=== PATIENT | female | born 1960 | race Caucasian/White ===

== ENCOUNTER → 2019-05-19 14:19 | Outpatient (CLI) | payer BC, SELFPAY ==
[2019-05-19 17:40] LABS: Absolute Neutrophil Count 11.3 X10^3/uL (2.0-7.7); Basophil# 0.06 X10^3/uL; Basophil% 0.4 % (0-1); Eosinophil# 0.09 X10^3/uL; Eosinophils% 0.6 % (0-5); Hematocrit 42.1 % (37-47); Hemoglobin 13.7 g/dL (12.0-15.0); Lymphocyte % 16.4 % (19-41); Mean Corp Hgb Conc 32.5 g/dL (32-36); Mean Corpuscular Hgb 29.2 pg (27.0-32.0); Mean Corpuscular Volume 89.8 fL (81-99); Mean Platelet Vol. 9.7 fl (6.2-12.0); Monocyte% 4.8 % (0-10); NRBC Flagged by Analyzer 0 % (0-5); Neutrophil # 11.26 X10^3/uL (2.7-7.7); Neutrophil % 77.2 % (47-70); Platelet Count 442 K/mm3 (150-450); RBC Distribution Width CV 12.8 % (11.6-14.6); RBC Distribution Width SD 41.2 fl (35.1-43.9); Red Blood Count 4.69 M/mm3 (4.2-5.4); White Blood Count 14.6 K/mm3 (4.4-11.0)
[2019-05-19 18:02] LABS: AST(SGOT) 8 U/L (15-37); Alanine Aminotransfer ALT/SGPT 23 U/L (13-56); Albumin, Serum 3.9 g/dL (3.2-5.0); Alkaline Phosphatase 92 U/L (45-117); Anion Gap 6 (5-15); BUN 20 mg/dL (7-18); BUN/Creat Ratio 19.4 RATIO (10-20); Bilirubin, Direct 0.18 mg/dL (0.00-0.30); Calcium,Total 9.1 mg/dL (8.5-10.1); Chloride 103 mmol/L (98-107); Creatinine, Serum 1.03 mg/dL (0.55-1.02); EST Glomerular Filtration Rate 59 mL/min (>60); Est Glom Filt Rate - Afr Amer 71 mL/min (>60); Globulin 3.5 g/dL (2.2-4.2); Glucose 80 mg/dL (74-106); Potassium 3.5 mmol/L (3.5-5.1); Protein, Total 7.4 g/dL (6.4-8.2); Sodium Level 137 mmol/L (136-145)
[2019-05-19 18:54] LABS: Hepatitis B Surface Antibody Reactive; Hepatitis B Surface Antigen Non-Reactive (Nonreactive); Hepatitis C Antibody Non-Reactive (Nonreactive)
[2019-05-21 20:06] LABS: QNTFERON TB Mitogen Value 1.84 IU/mL (.); QNTFERON TB Nil Value 0.01 IU/mL (.); QNTFERON TB1+ Ag Value 0.01 IU/mL (.); QNTFERON TB2+ Ag Value 0.02 IU/mL (.)
[2019-05-23 13:07] LABS: Hepatitis B Core AB IgM Negative (Negative); QNTIFERON TB Positive Criteria Negative (Negative)
== END ==
PROVIDERS: Referring Provider Dermatology; Visit Provider Dermatology
DX: L40.0 Psoriasis vulgaris (principal); Z79.899 Other long term (current) drug therapy
CPT/HCPCS: 36415; 80048; 80076; 85025; 86480; 86705; 86706; 86803; 87340

== ENCOUNTER → 2022-12-10 | Outpatient (CLI) | payer BC, SELFPAY ==
[2022-12-12 12:09] LABS: Hepatitis B Core Ab Total Negative (Negative); QNTFERON TB Mitogen Value > 10.00 IU/mL (.); QNTFERON TB Nil Value 0.02 IU/mL (.); QNTFERON TB1+ Ag Value 0.01 IU/mL (.); QNTFERON TB2+ Ag Value 0.02 IU/mL (.); QNTIFERON TB Positive Criteria Negative (Negative)
== END | disposition home or self-care (01) ==
PROVIDERS: Referring Provider Physician Assistant Medical; Visit Provider Physician Assistant Medical
DX: L40.0 Psoriasis vulgaris (principal); Z79.899 Other long term (current) drug therapy
CPT/HCPCS: 36415; 86480; 86704

== ENCOUNTER → 2024-10-07 | Outpatient (CLI) | payer BC, SELFPAY ==
--- OUTSIDE RECORDS SUMMARY | 2024-10-07 12:28 | XMS RPT_ITS | CCD ---
Author Organization [facility] Informat ion Partnership [facility] Care Team Providers Care Can Bander Operator Name Role Phone ILENE KNOWLES Unavailable Unavailable LILIANA GODINEZ Unavailable Unavailable NO PRIMARY CAREMD Unavailable Unavailable Syeda Kraft Attending Unavailable Gaurav Lund Primary Care Unavailable Monie Camejo MD Primary Care Provider Perla Hinton MD Unavailable ROM GOSS MD Attending Unavailable NELL, SARPREET Primary Care Unavailable KATELYN REYES Attending Unavailable NELL, SARPREET Primary Care Unavailable NELL GUADALUPE, ERISPREET Attending Unavaila ble NELL, SARPREET Primary Care Unavailable NELL GUADALUPE, SARPREET Attending Unavaila ble NELL, SARPREET Primary Care Unavailable ROM GOSS MD Attending Unavailable ROM GOSS MD Referring Unavailable NELL, SARPREET Primary Care Unavailable NELL, SARPREET Primary Care Unavailable NELL GUADALUPE, SARPREET Attending Unavaila dot GUADALUPE, SARPREET Attending Unavaila ble NELLRA GUADALUPE, ERISPREET Referring Unavaila ble NELL, SARPREET Primary Care Unavailable NELL, SARPREET Primary Care Unavailable NELL GUADALUPE, SARPREET Attending Unavaila ble NELL, SARPREET Primary Care Unavailable NELL GUADALUPE, SARPREET Attending Unavaila Monie Walsh MD Primary Care Provider Perla Hinton MD Unavailable [phone] Monie Camejo MD Primary Care Provider [facility] Unavailable [phone] PROVIDER, UNKNOWN Admitting Unavailable LUISA RICHARD Attending Unavailable NellMonie santos MD Primary Care Provider Adilene López MD Unavailable NELL, SARPREET Primary Care Unavailable KRUITHOFF PERLA L Referring Unavailable NELL, SARPREET Primary Care Unavailable PENIX, EBONI Referring Unavailable NELL, SARPREET Primary Care Unavailable PERLA HINTON L Referring Unavailable NELL, SARPREET Primary Care Unavailable JUAN R GARCIA Attending Unavailable NELL, SARPREET Primary Care Unavailable KRUITHOFF PERLA Woody Referring Unavailable NELL, SARPREET Primary Care Unavailable LACZAY, BALINT Referring Unavailable NELL, SARPREET Primary Care Unavailable LACZAY, BALINT Attending Unavailable LACZAY, BALINT Admitting Unavailable KRUITHONINO ANGLINITH Woody Attending Unavailable NELL, SARPREET Primary Care Unavailable KRUITHONINO ANGLINITH L Attending Unavailable NELL, SARPREET Primary Care Unavailable LACZAY, BALINT Attending Unavailable SILVERIOHOLINNETTE PERLA L Referring Unavailable NELL, SARPREET Primary Care Unavailable LACZAY, BALINT Attending Unavailable NELL, SARPREET Primary Care Unavailable NELL, SARPREET Primary Care Unavailable NELL GUADALUPE, MONIE Attending Unavaila ble NELL, SARPREET Primary Care Unavailable NELLRA GUADALUPE, MONIE Attending Unavaila ble NELL, SARPREET Primary Care Unavailable ROM GOSS MD Attending Unavailable NELL, SARPREET Primary Care Unavailable WALLACE BHAT CNP Attending Unavailable NELL, SARPREET Primary Care Unavailable NELLRA GUADALUPE, MONIE Attending Unavaila ble NELL, SARPREET Primary Care Unavailable NELL COLLINS, MONIE Attending Unavaila ble NELL, SARPREET Primary Care Unavailable NELL, SARPREET Primary Care Unavailable NELL COLLINS, ERISPREVIRGINIA Attending Unavaila ble Allergies Allergy Classification Reported Allergen(s) Allergy Type Date of Onset Reaction(s) Facility (20 sources) Adhesive Tape; Translations: [ADHESIVE TAPE (ROSINS)] Allergy to substance 03-13-19 14 [facility] (20 sources) Latex; Translations: [LATEX, NATURAL RUBBER] Drug Intolerance 11-28-19 11 [facility] (20 sources) Sulfamethoxazole / Trimethoprim; Translations: [SULFAMETHOXAZOLE-T RIMETHOPRIM] Drug Allergy 11-28-19 21 Vomiting, Nausea/vomitin g [facility] Work Phone: (1 source) Latex Allergy to substance 04-11-19 25 Other [facility] Medications Current Medications Medication Drug Class(es) Dates Sig (Normalized) Sig (Original) apixaban 5 mg oral tablet (13 sources) Factor Xa Inhibitor Start: 03-18-2024 take 1 tablet by mouth twice daily apixaban (ELIQUIS) 5 mg tab(s) Take 1 tablet by mouth two times a day. 60 tablet 11 03/18/2024 Active atorvastatin 20 mg oral tablet (20 sources) HMG-CoA Reductase Inhibitor Start: 09-06-2024 take 1 tablet by mouth once daily atorvastatin (LIPITOR) 20 mg tablet Indications: Pure hypercholesterolemia Take 1 tablet by mouth once daily. 90 tablet 3 09/06/2024 Active Start: 2022 End: 09-06-2024 take 1 tablet by mouth once daily atorvastatin (LIPITOR) 20 mg tablet Indications: Pure hypercholesterolemia Take 1 tablet by mouth once daily. 90 tablet 3 09/21/2023 09/06/2024 Discontinued Start: 01-21-2021 End: 07-22-2021 take 1 tablet by mouth once daily atorvastatin (LIPITOR) 20 mg tablet Take 1 tablet by mouth once daily. 90 tablet 3 07/22/2021 Active Comment on above: Take 1 tablet by inder once daily. benzonatate 100 mg oral capsule (2 sources) Non-narcotic Antitussive Start: 025 take 1-2 capsules by mouth every eight hours as needed for cough benzonatate (Tessalon) 100 mg capsule Indications: Acute cough Take 1-2 capsules by mouth every 8 hours as needed for cough. May cause drowsiness 60 capsule 04/02/2024 Active cholecalciferol 0.1 mg oral capsule (20 sources) Vitamin D take 1 capsule by mouth once daily cholecalciferol, vitamin D3, 100 mcg (4,000 unit) cap Take 1 capsule by mouth once daily. Active Comment on above: Take 1 capsule by mo [facility] once daily. clobetasol propionate 0.5 mg/ml topical cream (3 sources) Corticosteroid clobetasol (TEMOVATE) 0.05 % cream PLEASE SEE ATTACHED FOR DETAILED DIRECTIONS Active famotidine 20 mg oral tablet (20 sources) Histamine-2 Receptor Antagonist famotidine (PEPCID) 20 mg tablet once daily. Active take 1 tablet by mouth twice olivier ly famotidine (Pepcid) 20 mg tablet TAKE 1 TABLET ORALLY TWICE PER DAY FOR 30 DAYS Active Comment on above: famotidine 20 mg tab let TAKE 1 TABLET ORALLY TWICE PER DAY FOR 30 DAYS 1 ml guselkumab 100 mg/ml prefilled syringe (20 sources) Interleukin-23 Antagonist guselkumab (TREMFYA) 100 mg/mL Inject 100 mL subcutaneously. Every other month Active Comment on above: Inject 100 mL subcut aneously. Every other month hydroCHLOROthiazide 12.5 mg / irbesartan 300 mg oral tablet (20 sources) Thiazide Diuretic, Angiotensin 2 Receptor Debra Start: 09-08-2010 AVALIDE 300-12.5 mg ORAL per tablet 09/08/2010 Active Completed/Discontinued Medications Medication Drug Class(es) Dates Sig (Normalized) Sig (Original) aspirin 81 mg delayed release oral tablet (11 sources) Platelet Aggregation Inhibitor, Nonsteroidal Anti-inflammatory Drug Start: 03-18-2016 End: 03-18-2024 take 1 tablet by mouth once daily, then take 4 tablets by mouth once daily aspirin, enteric coated (ECOTRIN LOW STRENGTH) 81 mg EC tablet Take 1 tablet by mouth once daily. Take 4 tablets (324 mg the first day 100 tablet 6 03/18/2016 03/18/2024 Discontinued Comment on above: Take 1 tablet by inder th once daily. Take 4 tablets (324 mg the first day dexamethasone 1 mg/ml / neomycin 3.5 mg/ml / polymyxin b 25029 unt/ml ophthalmic suspension (4 sources) Aminoglycoside Antibacterial, Polymyxin-class Antibacterial, Corticosteroid Start: 11-01-2020 End: 09-11-2023 take 1 drop(s) into the eye(s) four times daily NEOMYCIN-POLYMYXI N-DEXAMETH 3.5 MG/ML-10,000 UNIT/ML-0.1% EYE DROPS INSTILL 1 DROP INTO BOTH EYES 4 TIMES A DAY 0 11/01/2020 09/11/2023 Discontinued Comment on above: INSTILL 1 DROP INTO BOTH EYES 4 TIMES A DAY 24 hr dilTIAZem hydrochloride 180 mg extended release oral capsule (20 sources) Calcium Channel Debra Start: 09-11-2023 End: 09-09-2024 take 1 capsule by mouth once daily dilTIAZem XR (DILACOR XR) 180 mg 24 hr capsule Take 1 capsule by mouth once daily. 90 capsule 3 09/11/2023 09/09/2024 Discontinued (Other) Start: 2022 End: 09-11-2023 take 1 capsule by mouth once daily dilTIAZem XR (DILACOR XR) 120 mg 24 hr capsule Indications: Paroxysmal atrial fibrillation (HCC) take 1 capsule by mouth once daily 90 capsule 3 06/08/2023 09/11/2023 Discontinued Start: 01-21-2021 End: 07-22-2021 take 1 capsule by mouth once daily dilTIAZem XR (DILACOR XR) 120 mg 24 hr capsule Indications: Paroxysmal atrial fibrillation (HCC) Take 1 capsule by mouth once daily. 90 capsule 3 07/22/2021 Active Comment on above: Take 1 capsule by mo uth once daily. take 1 capsule by mo uth once daily flecainide acetate 100 mg oral tablet (20 sources) Antiarrhythmic Start: End: take 1 tablet by mouth every twelve hours flecainide (TAMBOCOR) 100 mg tablet Indications: Paroxysmal atrial fibrillation (HCC) Take 1 tablet by mouth every 12 hours. 180 tablet 3 03/18/2024 09/09/2024 Discontinued (Other) Start: 01-21-2021 End: 07-22-2021 take 1 tablet by mouth every twelve hours flecainide (TAMBOCOR) 100 mg tablet Indications: Paroxysmal atrial fibrillation (HCC) Take 1 tablet by mouth every 12 hours. 180 tablet 3 07/22/2021 Active Comment on above: Take 1 tablet by inder th every 12 hours. take 1 tablet by inder th every 12 hours 1 ml ixekizumab 80 mg/ml auto-injector (4 sources) Interleukin-17A Antagonist End: 09-11-2023 ixekizumab (TALTZ AUTOINJECTOR, 2 PACK,) 80 mg/mL AutoInjector Inject 80 mL subcutaneously. 0 09/11/2023 Discontinued Comment on above: Inject 80 mL subcuta neously. oxymetazoline hydrochloride 0.5 mg/ml nasal spray (1 source) Start: 11-25-2023 End: 11-25-2023 2 [place], Nasal, ONCE, 1 dose, On Thu11/25/23 at 1855 Start: 11-25-2023 End: 11-25-2023 2 [place], Nasal, ONCE, 1 dose , On Thu11/25/23 at 1855 Problems Active Problems Problem Classification Problem Date Documented Date Episodic/Chronic Adjustment disorders (20 sources) Stress; Translations: [Reaction to severe stress, unspecified] Onset: 11-23-2018 11-27-2020 Chronic Cardiac dysrhythmias (20 sources) Paroxysmal atrial fibrillation; Translations: [Paroxysmal atrial fibrillation] Onset: 04-30-2016 Chronic Disorders of lipid metabolism (20 sources) Pure hypercholesterolemia; Translations: [Pure hypercholesterolemia, unspecified] Onset: 11-23-2018 Chronic Esophageal disorders (20 sources) Gastroesophageal reflux disease; Translations: [Gastro-esophageal reflux disease without esophagitis] Onset: 11-27-2020 11-27-2020 Chronic Essential hypertension (20 sources) Essential hypertension; Translations: [Essential (primary) hypertension] Onset: 07-05-2016 Chronic Nutritional deficiencies (20 sources) Vitamin D deficiency; Translations: [Vitamin D deficiency, unspecified] Onset: 11-23-2018 11-27-2020 Chronic Other circulatory disease (1 source) Elevated blood pressure; Translations: [Elevated blood-pressure reading, without diagnosis of hypertension] 11-25-2023 Episodic Other infections; including parasitic (1 source) Personal history of other infectious and parasitic diseases; Translations: [Personal history of COVID-19] 04-02-2024 Episodic Other inflammatory condition of skin (20 sources) Psoriasis; Translations: [Psoriasis, unspecified] Onset: 03-21-2019 11-27-2020 Chronic Other inflammatory condition of skin (1 source) Psoriasis, unspecified; Translations: [Psoriasis] Onset: 11-27-2020 Chronic Other inflammatory condition of skin (1 source) Psoriasis vulgaris; Translations: [Psoriasis vulgaris] Onset: 10-02-2023 Chronic Other liver diseases (20 sources) Liver cyst; Translations: [Other specified diseases of liver] Onset: 11-23-2018 11-27-2020 Chronic Other liver diseases (1 source) Other specified diseases of liver; Translations: [Liver cyst] Onset: 11-27-2020 Chronic Other lower respiratory disease (1 source) Cough; Translations: [Acute cough] 04-02-2024 Episodic Other nutritional; endocrine; and metabolic disorders (2 sources) Body mass index 25-29 - overweight; Translations: [Overweight] Onset: 09-09-2024 09-09-2024 Episodic Other nutritional; endocrine; and metabolic disorders (1 source) Overweight; Translations: [Overweight (BMI 25.0-29.9)] Onset: 09-09-2024 Episodic Otitis media and related conditions (1 source) Dysfunction of right eustachian tube; Translations: [Unspecified Eustachian tube disorder, right ear] 04-11-2024 Episodic Residual codes; unclassified (1 source) Other specified postprocedural states; Translations: [PONV (postoperative nausea and vomiting)] Onset: 06-03-2024 Episodic Spondylosis; intervertebral disc disorders; other back problems (20 sources) Prolapsed lumbar intervertebral disc; Translations: [Other intervertebral disc displacement, lumbar region] Onset: 11-23-2018 11-27-2020 Chronic Thyroid disorders (20 sources) Goiter; Translations: [Nontoxic goiter, unspecified] Onset: 01-11-2019 11-27-2020 Chronic Urinary tract infections (20 sources) Chronic interstitial cystitis; Translations: [Interstitial cystitis (chronic) without hematuria] Onset: 11-27-2020 11-27-2020 Chronic Past or Other Problems Problem Classification Problem Date Documented Date Episodic/Chronic E Codes: Fall (1 source) Unspecified fall, initial encounter; Translations: [Fall, initial encounter] Onset: 11-15-2023 Episodic Headache; including migraine (20 sources) Headache; Translations: [Headache] Onset: 01-11-2019 11-27-2020 Episodic Nausea and vomiting (7 sources) Postoperative nausea and vomiting; Translations: [Nausea with vomiting, unspecified] Onset: 06-03-2024 06-03-2024 Episodic Nonspecific chest pain (3 sources) Chest pain; Translations: [Chest pain, unspecified] Onset: 09-28-2023 09-11-2023 Episodic Other connective tissue disease (20 sources) Plantar fasciitis; Translations: [Plantar fascial fibromatosis] Onset: 11-27-2010 11-27-2010 Episodic Other injuries and conditions due to external causes (3 sources) Unspecified injury of unspecified foot, initial encounter; Translations: [Unspecified injury of unspecified foot, initial encounter] Onset: 11-26-2017 Episodic Other injuries and conditions due to external causes (1 source) Unspecified injury of head, initial encounter; Translations: [Injury of head, initial encounter] Onset: 11-15-2023 Episodic Other nervous system disorders (20 sources) Loss of sense of smell; Translations: [Anosmia] Onset: 01-11-2019 11-27-2020 Episodic Other non-traumatic joint disorders (20 sources) Hip pain; Translations: [Pain in left hip] Onset: 03-31-2018 11-27-2020 Episodic Other upper respiratory disease (2 sources) Epistaxis; Translations: [Epistaxis] Onset: 11-15-2023 11-25-2023 Episodic Superficial injury; contusion (1 source) Contusion of nose, initial encounter; Translations: [Contusion of nose, initial encounter] Onset: 11-15-2023 Episodic Results Test Name Value Interpretation Reference Range Facility [facility] ENT Physician Progress N otadrianon 10-02-2024 [facility] ENT Physician Progress Note YOKASTA MORENO :1960 Registration Date:09/30/2024 Chief Complaint Patient presents for recheck on thyroid. History of Present Illness She returns the office. Her nose is functioning well after her previous nasal fracture. She notes that occasionally certain pairs of glasses will cause discomfort but otherwise the nose looks and functions well. She has not needed nasal sprays and is breathing fine. She is due for follow-up ultrasound of her thyroid. She reminds me that 2 of her cousins had thyroid cancer Review of Systems Noncontributory except as noted below Physical Exam Vitals & Measurements Height/Length Measured: 160 cm (09/30/24 13:32:00) Weight Measured: 75 kg (09/30/24 13:32:00) Body Mass Index Measured: 29.3 kg/m2 (09/30/24 13:32:00) Weight Measured - lbs2: 165 lb (09/30/24 13:32:00) Height/Length Measured - in2: 63 in (09/30/24 13:32:00) Body Mass Index Measured English2: 29.23 kg/m2 (09/30/24 13:32:00) BSA: 1.82 m2 (09/30/24 13:32:00) Ht/Wt Measurement Refused by Patient?2: No (09/30/24:32:00) Depression Screening Scores Initial Depression Screen Score: 0 (09/30/24 13:32:00) Fall Risk Assessment Is the patient ambulatory (mobile): Yes (09/30/24:32:00) Have you had a fall within the past: No (09/30/24:32:) Have you had 2 or more falls in the past: No (09/30/24 13:32:00) Ear exam is normal. Nasal exam shows no obvious step-off along the nasomaxillary suture lines. Internally there is no substantial deviated septum. The airway looks fine. Oral cavity is normal. Examination of the neck shows no mass, lesion, or asymmetry. There is no palpable adenopathy. Evaluation of the thyroid bed shows mild nodularity Medication Reconciliation What How Much When Instructions Unchanged apixaban (Eliquis 5 mg oral tablet) Contact prescribing physician if questions or concerns Unchanged atorvastatin (atorvastatin 20 mg oral tablet) Contact prescribing physician if questions or concerns Unchanged dilTIAZem (dilTIAZem 120 mg/ 24 hours oral capsule, extended release) 1 Capsules Oral DAILY Contact prescribing physician if questions or concerns Unchanged flecainide = Tambocor (flecainide 50 mg oral tablet) 1 Tabs Oral EVERY TWELVE HOURS Contact prescribing physician if questions or concerns Unchanged guselkumab (Tremfya 100 mg/ mL subcutaneous solution) 1 mL Contact prescribing physician if questions or concerns Unchanged hydrochlorothiazide-ir besartan (hydrochlorothiazide-i rbesartan 12.5 mg-300 mg oral tablet) 1 Tabs Oral DAILY Contact prescribing physician if questions or concerns Assessment/Plan This Visit Diagnosis 1. Goiter E04.9 I ordered the follow-up ultrasound. Of asked her to contact me after it is completed Ordered: AMB Office/Outpt Est Pt Low MDM / 20 min [id number], 09/30/2024 13:42:00 EDT, Goiter / History of fracture of nasal bone / History of thyroid cancer US THYROID ECHO, 09/30/2024, Routine, FOLLOW UP, Cart, Isolation Precautions: NONE, Goiter / History of fracture of nasal bone / History of thyroid cancer 2. History of fracture of nasal bone Z87.81 There is no substantial step-off. She is functioning well at this time Ordered: AMB Office/Outpt Est Pt Low MDM / 20 min [id number], 09/30/2024 13:42:00 EDT, Goiter / History of fracture of nasal bone / History of thyroid cancer US THYROID ECHO, 09/30/2024, Routine, FOLLOW UP, Cart, Isolation Precautions: NONE, Goiter / History of fracture of nasal bone / History of thyroid cancer 3. History of thyroid cancer Z85.850 She has she has a family history of thyroid cancer not a personal history. Regardless, we will follow her thyroid carefully Ordered: AMB Office/Outpt Est Pt Low MDM / 20 min [id number], 09/30/2024 13:42:00 EDT, Goiter / History of fracture of nasal bone / History of thyroid cancer US THYROID ECHO, 09/30/2024, Routine, FOLLOW UP, Cart, Isolation Precautions: NONE, Goiter / History of fracture of nasal bone / History of thyroid cancer Problem List/Past Medical History Ongoing A-fib Dyslipidemia Dysphagia Epistaxis Family history of thyroid cancer Fatigue Goiter History of fracture of nasal bone History of thyroid cancer Nasal fracture Psoriasis Thyroid nodule Procedure/Surgical History Colonoscopy.: 07/23/23 Colonoscopy.: 07/29/19 Biopsy Thyroid.: 06/27/19 Surgery for Interstitial Cystitis Medications apixaban(Eliquis 5 mg oral tablet) atorvastatin(atorvasta tin 20 mg oral tablet) dilTIAZem(dilTIAZem 120 mg/24 hours oral capsule, extended release), 120 mg= 1 caps, ORAL, DAILY flecainide = Tambocor(flecainide 50 mg oral tablet), 50 mg= 1 tabs, ORAL, [id number] guselkumab(Tremfya 100 mg/mL subcutaneous solution) hydrochlorothiazide-ir besartan(hydrochloroth iazide-irbesartan 12.5 mg-300 mg oral tablet), 1 tabs, ORAL, DAILY, 2 refills Allergies Bactrim Vomiting LATEX allergy EYE SWELLING, HIVES, BLISTERING OF SKIN Tape al (more content not included)... Normal [facility] CNOVon 09-09-2024 CNOV Office Visit ([facility]IF[facility]) YOKASTA MORENO ([id number]) 1960 F Date Time Provider Department 09/09/24 11:20 AM PERLA HINTON During your visit today, we recorded the following information about you: Pulse Blood pressure Weight Height 75/minute 110/78 75 kg 1.6 m Perla Hinton MD 09/09/2024 12:27 PM Signed [facility] [place] Agnieszka Choe Department [facility] OUTPATIENT VISIT DATE September 09, 2024 OUTPATIENT VISIT TYPE Follow up HPI: Yokasta Moreno is a 63 yo PAF previously oon Flecainide and Diltiazem. Hx of hyperlipidemia,Intiall y evaluated 03/11/16 for palpitations. She was seen in 2009 for fluttering in throat happening for a couple of weeks and advised to go to ER. A 48 hour Holter Monitor Rx. Notes sx occasionally and PCP thought she might have esophageal spasm. No additional testing. Sees ENT for thyroid nodules. Nodules slightly increased. TSH wnl. yearly US recommended) Barium swallowing in January 2016. (Had monitor approximately 1/15-2115. PAF seen on 117 @ 220 bpm. 3 days after returning monitor had recurrent AF went to [facility] ER. By time got there was out. She went back home and was in and out of in. PAF lasts 10 min. She thinks she has not been in AF as much since Cardiazem. Seem to be more tolerable.On Talz ( ixekizumab for psoriasis ) Underwent a PVI 05/[address] adilene López. She has now stopped Flecainide and Dilitazem . Tal Howard in September CLINICAL VISITS: 09/09/24:BP 110/78 Pulse 75 Ht 160 cm (5' 3) Wt 75 kg (165 lb 5.5 oz) BMI 29.29 kg/m? ECG: NSR, NSSTW changes Underwent a PVI 05/[address] Adilene López. She has now stopped Flecainide and Dilitazem . Willstop Eliquis in September. The patient is a 64-year-old female with a history of atrial fibrillation, presenting for follow-up after undergoing an ablation procedure. The patient underwent an ablation procedure on July [address] Styles and reports being in normal sinus rhythm since the procedure. She notes experiencing occasional palpitations described as a float or a skipped beat, but her geriatric nurse was not concerned as long as these do not progress. She is currently wearing a Zio patch for monitoring and is scheduled to discontinue Eliquis in September, pending results. She has a follow-up appointment in March. She recently discontinued flecainide and diltiazem about a week after her post-operative visit. She expresses some anxiety about stopping these medications, stating, It makes me nervous to go off of them, I've been on them so long. She uses a [employer] device for weekly rhythm monitoring. She has been gradually losing weight, decreasing from 196 lbs to 165 lbs, and is currently classified as overweight. She continues to work on weight loss to further reduce the risk of atrial fibrillation recurrence. She is not currently taking vitamin D3 but plans to resume it if indicated by future lab results. She is currently taking Avalide 325 mg for blood pressure management. 03/18/24: BP 110/80 Pulse 65 Ht 160 cm (5' 3) Wt 79 kg (174 lb 2.6 oz) BMI 30.85 kg/m? On Flecainide 100 mg po bid , Dilacor 120-> 180 mg daily with some improvement over summer x 3 months More recently, particularly this month, has been having frequent AF and this has bernabe documented on [employer].SPECT stress August 2023 was normal . No structural heart assessment since 2016 ( nl LV fxn and mild LAE at that time) Plan: - Start Eliquis 5 mg twice daily. - Repeat ECHO - Referral to Adilene López MD for PVI for PAF unresponsive to Medical therapy (Flecainide) - You are an excellent candidate for this procedure 09/11/23:BP 152/102 Pulse 66 Ht 160 cm (5' 3) Wt 78.6 kg (173 lb 3.2 oz) BMI 30.68 kg/m? ECG: NSR Lost 20 lbs. Prior sleep study negative for ILEANA . More AF now. No heart rhythm monitoring. Was doing well x 2 years ( 4 episode) and since March started having more AF. (56 episodes). HR 139 most of the day in April , but having more episodes that feels like AF> racing out of control and chest feels tight and throat heavy. SPECT 2017 normal Plan: - Buy [employer] to monitor and document frequency of AF - Repeat Exercise nuclear stress test due to chest pressure during episodes of recurrent Atrial fib - Call [facility] to schedule - Consideration of referral for PVI ablation based on frequency of Atrial fibrillation - follow up in 6 months 08/10/22:BP 124/70 Pulse 65 Ht 160 cm (5' 3) Wt 87.1 kg (192 lb) BMI 34.01 kg/m? Since November had 3 AF episodes 5 min- 2 hours. No ER evaluations. Still working to try to lose weight. Bought a treadmill. 3 mph treadmill, 1.5%. Exercising intermittently at [employer]. 20 min with a goal of 150 min a week. - (more content not included)... Normal [facility] ECG COMPLETEon 09-09-2024 Atrial Rate 75 BPM [facility] Calculated P [place] 13 degrees [facility] Cal[facility] R [place] 7 degrees [facility] Calculated T [place] 43 degrees [facility] P-R Interval 118 ms [facility] QRS Duration 90 ms [facility] QT Interval 402 ms [facility] QTC Calculation (Bazett) 448 ms [facility] Ventricular Rate 75 BPM [facility] NORMAL SINUS RHYTHM NONSPECIFIC ST AND T WAVE ABNORMALITY ABNORMAL ECG Confirmed by PERLA HINTON M.D. (Kelly), assistant production editor GILBERTO MIRZA ([id number]) on 09/09/2024 2:05:12 PM [facility] NAME : ARTURO MORENO PID : [id number] : 1960 Gender : Female Race : ORD : [id number] Procedure Date : Sep 09 2024 11:57:01 Edit Date : Sep 09 2024 14:05:16 Diagnosis: NORMAL SINUS RHYTHM NONSPECIFIC ST AND T WAVE ABNORMALITY ABNORMAL ECG Confirmed by PERLA HINTON M.D. ([id number]), assistant production editor GILBERTO MIRZA ([id number]) on 09/09/2024 2:05:12 PM Test Reason : I48.0 Paroxysmal atrial fibrillation (HCC) Location : 503 : [facility] Overread By : PERLA HINTON M.D. Edited By : GILBERTO MIRZA Referred By : , Acquired by : william, [facility] ECG COMPLETE Ventricular Rate : 7 5 BPM Atrial Rate : 75 BPM P-R Interval : 118 ms QRS Duration : 90 ms Q-T Interval : 402 ms QTC Calculation(Bazett) : 448 ms Calculated P [place] : 13 degrees Calculated R [place] : 7 degrees Calculated T [place] : 43 degrees NORMAL SINUS RHYTHM NONSPECIFIC ST AND T WAVE ABNORMALITY ABNORMAL ECG Confirmed by PERLA HINTON M.D. ([id number]), assistant production editor GILBERTO MIRZA ([id number]) on 09/09/2024 2:05:12 PM NAME : YOKASTA MORENO PID : [id number] : 1960 Gender : Female Race : ORD : [id number] Procedure Date : Sep 09 2024 11:57:01 Edit Date : Sep 09 2024 14:05:16 Diagnosis: NORMAL SINUS RHYTHM NONSPECIFIC ST AND T WAVE ABNORMALITY ABNORMAL ECG Confirmed by PERLA HINTON M.D. ([id number]), assistant production editor GILBERTO MIRZA ([id number]) on 09/09/2024 2:05:12 PM Test Reason : I48.0 Paroxysmal atrial fibrillation (HCC) Location : 503 : [facility] Overread By : PERLA HINTON M.D. Edited By : GILBERTO MIRZA Referred By : , Acquired by : Yasmine thomas [facility] CNOVon 08-19-2024 CNOV Office Visit (CEPSHL ) IRISYOKASTA CALABRESE Woody ([id number]) 1960 F Date Time Provider Department 08/19/24 11:00 AM ADILENE LÓPEZ CEPS[facility] During your visit today, we recorded the following information about you: Pulse Blood pressure Weight Height 60/minute 100/64 79.2 kg 1.6 m Adilene López MD 08/19/2024 1:21 PM Signed [facility] [place] Agnieszka Choe Department of Cardiovascular Medicine SECTION OF CARDIAC PACING and ELECTROPHYSIOLOGY OUTPATIENT VISIT DATE 08/19/2024 OUTPATIENT VISIT TYPE ESTABLISHED PRIMARY CARE [place]IC[place]: [place] [id number] [place] [phone] REFERRING PHYSICIAN: No referring provider defined for this encounter. CHIEF COMPLAINT: AF HISTORY OF PRESENT ILLNESS: Assessment Ms. Moreno is a 64 year old female who presents today for followup visit for AF . Ms. Moreno has a history of Parox AF Chads Vasc 2 for female sex, hypertension On flecainide, diltiazem, eliquis Remote history of HTN Ms. Moreno was last seen on 05/13/24 by me. At that time, doing well. Planned for PVI which was completed 06/28. She is only have a few seconds of fluttering here and there, she has not had any A-fib. Her Kardia mobile tracings have been normal. In the past her A-fib would become a persistent, fast heart rate and throat tightening and dizziness. She has not felt anything of the sort. Cardiac review of system was negative for chest pain, shortness of breath, dizziness, and syncope. PAST MEDICAL HISTORY Diagnosis Date A-fib (HCC) Thyroid nodule PAST SURGICAL HISTORY Procedure Laterality Date SECTION HX 1992 AND 1995 Social History Tobacco Use Smoking status: Never Smokeless tobacco: Never Tobacco comments: Parents smoked in childhood home. Spouse quit smoking 25 years ago. Vaping Use Vaping status: Never Used Substance Use Topics Alcohol use: No Drug use: No FAMILY HISTORY Problem Relation Age of Onset Stroke Mother Cancer Father Lung Asthma Sister Two other (Other) Other Cousin with lung transplant. Asthma Other All of my aunts. Anesthesia Problems No Family History ALLERGIES Allergen Reactions Adhesive Tape (Idalia* Rash Latex, Natural Rubb* Rash Sulfamethoxazole-Tr* Vomiting *ANTI-INFECTIVE AGENTS--MISC.* *ANTI-INFECTIVE AGENTS--MISC.* MEDICATIONS: flecainide (TAMBOCOR) 100 mg tablet Take 1 tablet by mouth every 12 hours. apixaban (ELIQUIS) 5 mg tab(s) Take 1 tablet by mouth two times a day. atorvastatin (LIPITOR) 20 mg tablet Take 1 tablet by mouth once daily. dilTIAZem XR (DILACOR XR) 180 mg 24 hr capsule Take 1 capsule by mouth once daily. guselkumab (TREMFYA) 100 mg/mL Inject 100 mL subcutaneously. Every other month famotidine (PEPCID) 20 mg tablet once daily. AVALIDE 300-12.5 mg ORAL per tablet clobetasol (TEMOVATE) 0.05 % cream PLEASE SEE ATTACHED FOR DETAILED DIRECTIONS cholecalciferol, vitamin D3, 100 mcg (4,000 unit) cap Take 1 capsule by mouth once daily. (Patient not taking: Reported on 08/19/2024) REVIEW OF SYSTEMS: GENERAL: no fever, no chills and no change in weight HEENT: no headaches, no hearing loss, no difficulty swallowing SKIN: no rashes, no lesions and no ulcers RESPIRATORY: SEE HPI CARDIOVASCULAR: See HPI GASTROINTESTINAL: no abdominal pain, no nausea and no vomiting GENITOURINARY: no dysuria, no frequency and no nocturia MUSCULOSKELETAL: no joint pain, no joint swelling and no muscle pain or myalgias NEUROLOGIC: no numbness, no tingling and no sensation of pins and needles HEMATOLOGY: no bruising easily, no prolonged bleeding and no anemia ENDOCRINE: no cold or heat intolerance, no polyuria and no polydipsia PSYCH: no sleep disturbance, no mood disorders and no recent psychosocial stressors PHYSICAL EXAMINATION: BP 100/64 (BP Site: Right Arm, BP Position: Sitting, BP Cuff Size: Large Adult) Pulse 60 Ht 160 cm (5' 3) Wt 79.2 kg (174 lb 9.7 oz) BMI 30.93 kg/m? GEN: NAD, A+Ox3 EYES: EOMI, PERRL, sclera non-icteric HENT: OP clear, no thrush, no cervical LAD CV: RRR, no m/r/g, no LE edema, JVD not appreciated PULM: CTAB, no crackles, no wheezes, no increased work of breathing ABD: Soft, NT, ND, NABS, no organomegaly, no obvious masses NEURO: CN2 -12 intact, 5/5 strength throughout MSK: Full ROM throughout SKIN: intact without gross abnormalities LAD: No palpable lymphadenopathy CARDIOVASCULAR MEDICINE TESTING: EK08/19/24 sinus 05/13/2024: sinus Echo: 04/29/24 CONCLUSIONS: - Exam indication: Nonsustained atrial fibrillation - The left ventricle is normal in size. Left ventricular systolic function is normal. EF = 59 ? 5% (2D 4-ch.) Normal left ventricular diastolic function. - The right ventricle is normal in size. Right ventricular systolic func (more content not included)... Normal [facility] ECG COMPLETEon 08-19-2024 ECG COMPLETE Ventricular Rate : 6 0 BPM Atrial Rate : 60 BPM P-R Interval : 168 ms QRS Duration : 116 ms Q-T Interval : 422 ms QTC Calculation(Bazett) : 422 ms Calculated P [place] : 22 degrees Calculated R [place] : 15 degrees Calculated T [place] : 49 degrees NORMAL SINUS RHYTHM MINIMAL VOLTAGE CRITERIA FOR LVH, MAY BE NORMAL VARIANT ( Nayan product ) ANTERIOR T WAVE ABNORMALITY ABNORMAL ECG Confirmed by ADILENE LÓPEZ MD ([id number]) on 08/31/2024 3:19:41 PM NAME : YOKASTA MORENO PID : [id number] : 1960 Gender : Female Race : ORD : [id number] Procedure Date : Aug 19 2024 10:48:25 Edit Date : Aug 31 2024 15:19:42 Diagnosis: NORMAL SINUS RHYTHM MINIMAL VOLTAGE CRITERIA FOR LVH, MAY BE NORMAL VARIANT ( Nayan product ) ANTERIOR T WAVE ABNORMALITY ABNORMAL ECG Confirmed by ADILENE LÓPEZ MD ([id number]) on 08/31/2024 3:19:41 PM Test Reason : I48.0 PAF (paroxysmal atrial fibrillation) ([facility]) Location : 198 : [facility] 15 Overread By : ADILENE LÓPEZ MD Edited By : ADILENE LÓPEZ MD Referred By : Vasquez Acquired by : OSCAR LIRA [facility] ANES POSTPROC EVALon 025 ANES POSTPROC EVAL HNO ID: [id number] Author: BEBETO ZAVALETA MD Service: Anesthesiology Author Type: Anesthesiologist Type: Anesthesia Postprocedure Evaluation Filed: 06/28/2024 10:42 Note Text: POST ANESTHESIA EVALUATION NOTE : 1960 Procedure Summary Date: 06/28/24 Room / Location: [facility] / [facility] Anesthesia Start: 730 Anesthesia Stop: 955 Procedures: COMPRE EP EVAL ABLTJ ATR FIB PULM VEIN ISOLATION INTRACARDIAC ELECTROPHYSIOLOGIC 3-DIMENSIONAL MAPPING Diagnosis: Atrial fibrillation, unspecified type (HCC) (Atrial fibrillation, unspecified type (HCC) [I48.91]) Providers: Adilene López MD Responsible Provider: Bebeto Zavaleta MD Anesthesia Type: general ASA Status: 2 Anesthesia Type: general Airway Type: ETT Last Vitals Vitals Value Taken Time BP 128/73 06/28/24 1030 Temp 36.7 ?C (98.1 ?F) 06/28/24 0950 Pulse 68 06/28/24 1040 Resp 10 06/28/24 1040 SpO2 96 % 06/28/24 1040 Vitals shown include unfiled device data. Post Anesthesia Patient Status Patient Evaluation: PACU. PACU/ICU Patient Condition: stable. Anticipated Disposition: phase 2 then home. Neurological Status: aware and responsive. Pulmonary Status: breathing comfortably on room air Airway Control: returned to baseline unsupported. Cardiovascular Status: stable. Pain Management: clinically adequate Postoperative Hydration: acceptable. Intraoperative Events: no significant anesthesia events Post Operative Nausea/Vomiting Status: no significant post operative nausea or vomiting Recommendation: continue current plan of care and further care per PACU/ICU/floor team. Anesthesia Observations No Documentation SIGNATURE: Bebeto Zavaleta MD PATIENT NAME: Yokasta Moreno DATE: June 28, 2024 TIME: 10:42 AM CSN: [id number] [facility] ANES PRE-OPon 06-28-2024 ANES PRE-OP HNO ID: [id number] Author: BEBETO ZAVALETA MD Service: Anesthesiology Author Type: Anesthesiologist Type: Anesthesia Preprocedure Evaluation Filed: 06/28/2024 07:18 Note Text: ANESTHESIOLOGY DAY OF SURGERY NOTE : 1960 Procedure Information Date/Time: 06/28/24 0730 Procedures: COMPRE EP EVAL ABLTJ ATR FIB PULM VEIN ISOLATION - heplock on arrival [facility] [employer] INTRACARDIAC ELECTROPHYSIOLOGIC 3-DIMENSIONAL MAPPING Location: [facility] / [facility] Providers: Adilene López MD Estimated body mass index is 30.62 kg/m? as calculated from the following: Height as of this encounter: 160 cm (5' 3). Weight as of this encounter: 78.4 kg (172 lb 13.5 oz). Most recent hematocrit and potassium results: Hematocrit 39.4 06/28/2024 Potassium 3.9 06/28/2024 Relevant Problems ANESTHESIA (+) PONV (postoperative nausea and vomiting) CARDIO (+) Essential hypertension (+) PAF (paroxysmal atrial fibrillation) (HCC) GI (+) Gastroesophageal reflux disease -RENAL (+) Liver cyst NEURO-PSYCH (+) Headache I - PHYSICAL EVALUATION AIRWAY Patient intubated: No. Tracheostomy tube not present Mallampati: III. TM distance: >3 FB. Neck ROM: full ROM without neurological symptoms. Mouth opening: adequate. Short neck: no. Thick neck: no Gray present: no DENTAL Dental findings: teeth intact. Additional exam findings: no II - ANESTHESIA PLAN ASA Score: 2 Anesthetic Plan: general Airway type: ETT The patient is not a current smoker. NPO Status: adequate Beta Debra Administration of chronic beta debra medication not planned. Monitoring Plan Monitoring plan: standard ASA. Post Procedure Analgesic Plan Postoperative analgesic plan: multimodal analgesia. Informed Consent Anesthetic risks, benefits, alternatives, personnel and consent discussed: yes. Patient / Responsible [employer] agrees to proceed: yes Patient / Surrogate agrees to blood products: blood products not planned DNR status not reviewed with patient and/or family prior to surgery. Significant changes in the patient condition since the History and Physical, not otherwise documented in primary service progress note: no. Potential Anesthesia issues that may suggest increased risk of complications or contraindication to planned procedure: none. Discussed the possibility of lip / dental damage: no Vitals Value Taken Time BP 141/81 06/28/24 0627 Pulse 74 06/28/24 0714 Resp 25 06/28/24 0714 Temp 36.8 ?C (98.2 ?F) 06/28/24 0624 SpO2 96 % 06/28/24 0714 Vitals shown include unfiled device data. No current facility-administered medications on file as of 06/28/2024. Outpatient Medications as of 06/28/2024 Medication Sig flecainide (TAMBOCOR) 100 mg tablet Take 1 tablet by mouth every 12 hours. apixaban (ELIQUIS) 5 mg tab(s) Take 1 tablet by mouth two times a day. atorvastatin (LIPITOR) 20 mg tablet Take 1 tablet by mouth once daily. dilTIAZem XR (DILACOR XR) 180 mg 24 hr capsule Take 1 capsule by mouth once daily. guselkumab (TREMFYA) 100 mg/mL Inject 100 mL subcutaneously. Every other month famotidine (PEPCID) 20 mg tablet once daily. cholecalciferol, vitamin D3, 100 mcg (4,000 unit) cap Take 1 capsule by mouth once daily. AVALIDE 300-12.5 mg ORAL per tablet I have interviewed and examined the patient. I have reviewed the medical record and/or the pre-anesthesia evaluation, pertinent labs, and test results. This contains updated information obtained within 48 hours of Surgery/Procedure. SIGNATURE: Bebeto Zavaleta MD PATIENT NAME: Yokasta Moreno DATE: June 28, 2024 TIME: 7:16 AM CSN: [id number] Normal [facility] CBC panel Auto (Bld)on 06-28 Erythrocyte distribution width (RBC) [Ratio] 12.0 % Normal 11.5-15.0 [facility] Comment on above: Order Comment: Roselia miranda Type: BLOOD SPECIMEN Ordering Facility: [facility] Address: [address] [place] [address] Performed By: #### 5 8410-2 #### [facility] CLIA [id number] [address] [place] [address] [place] Hematocrit (Bld) [Volume fraction] 39.4 % Normal 36.0-46.0 [facility] Comment on above: Order Comment: Roselia miranda Type: BLOOD SPECIMEN Ordering Facility: [facility] Address: [address] [place] [address] Performed By: #### 5 8410-2 #### [facility] CLIA [id number] [address] [place] [address] [place] Hemoglobin (Bld) [Mass/Vol] 13.1 g/dL Normal 11.5-15.5 [facility] Comment on above: Order Comment: Roselia miranda Type: BLOOD SPECIMEN Ordering Facility: [facility] Address: [address] [place] [address] Performed By: #### 5 8410-2 #### [facility] CLIA [id number] [address] [place] [address] [place] MCH (RBC) [Entitic mass] 29.2 pg Normal 26.0-34.0 [facility] Comment on above: Order Comment: Speci men Type: BLOOD SPECIMEN Ordering Facility: [facility] Address: [address] [place] [address] Performed By: #### 5 8410-2 #### [facility] CLIA [id number] [address] [place] [address] [place] MCHC (RBC) [Mass/Vol] 33.2 g/dL Normal 30.5-36.0 [facility] Comment on above: Order Comment: Speci men Type: BLOOD SPECIMEN Ordering Facility: [facility] Address: [address] [place] [address] Performed By: #### 5 8410-2 #### [facility] CLIA [id number] [address] [place] [address] [place] MCV (RBC) [Entitic vol] 87.8 fL Normal 80.0-100.0 [facility] Comment on above: Order Comment: Speci men Type: BLOOD SPECIMEN Ordering Facility: [facility] Address: [address] [place] [address] Performed By: #### 5 8410-2 #### [facility] CLIA [id number] [address] [place] [address] [place] Nucleated RBC (Bld) [#/Vol] 10*3/uL Normal <0.01 [facility] Comment on above: Order Comment: Speci men Type: BLOOD SPECIMEN Ordering Facility: [facility] Address: [address] [place] [address] Performed By: #### 5 8410-2 #### [facility] CLIA [id number] [address] [place] [address] [place] Platelet mean volume (Bld) [Entitic vol] 9.8 fL Normal 9.0-12.7 [facility] Comment on above: Order Comment: Speci men Type: BLOOD SPECIMEN Ordering Facility: [facility] Address: [address] [place] [address] Performed By: #### 5 8410-2 #### [facility] CLIA [id number] [address] [place] [address] [place] Platelets (Bld) [#/Vol] 350 10*3/uL Normal 150-400 [facility] Comment on above: Order Comment: Speci men Type: BLOOD SPECIMEN Ordering Facility: [facility] Address: [address] [place] [address] Performed By: #### 5 8410-2 #### [facility] CLIA [id number] [address] [place] [address] [place] RBC (Bld) [#/Vol] 4.49 10*6/uL Normal 3.90-5.20 [facility] Comment on above: Order Comment: Speci men Type: BLOOD SPECIMEN Ordering Facility: [facility] Address: [address] [place] [address] Performed By: #### 5 8410-2 #### [facility] IA [id number] [address] [place] [address] [place] WBC (Bld) [#/Vol] 6.18 10*3/uL Normal 3.70-11.00 [facility] Comment on above: Order Comment: Speci men Type: BLOOD SPECIMEN Ordering Facility: [facility] Address: [address] [place] [address] Performed By: #### 5 8410-2 #### [facility] CLIA [id number] [address] [place] [address] [place] CONFIRM BLOOD TYPEon 025 ABO O Normal [facility] Comment on above: Order Comment: Speci men Type: BLOOD SPECIMEN Ordering Facility: [facility] Address: [address] [place] [address] Performed By: #### C ONABO #### [facility] CLIA [id number] [address] [place] [address] [place] Rh Nom (Bld) Positive Normal [facility] Comment on above: Order Comment: Speci men Type: BLOOD SPECIMEN Ordering Facility: [facility] Address: [address] [place] [address] Performed By: #### C ONABO #### [facility] CLIA [id number] [address] [place] [address] [place] Comprehensive metabolic 2000 panelon 06-28-2024 Albumin [Mass/Vol] 4.3 g/dL Normal 3.9-4.9 [facility] Comment on above: Order Comment: Speci men Type: BLOOD SPECIMEN Ordering Facility: [facility] Address: [address] [place] [address] Performed By: #### 2 4323-8 #### [facility] CLIA [id number] [address] [place] [address] [place] ALP [Catalytic activity/Vol] 117 U/L Normal 34-123 [facility] Comment on above: Order Comment: Speci men Type: BLOOD SPECIMEN Ordering Facility: [facility] Address: [address] [place] [address] Performed By: #### 2 4323-8 #### [facility] CLIA [id number] [address] [place] [address] [place] ALT [Catalytic activity/Vol] 15 U/L Normal 7-38 [facility] Comment on above: Order Comment: Speci men Type: BLOOD SPECIMEN Ordering Facility: [facility] Address: [address] [place] [address] Performed By: #### 2 4323-8 #### [facility] CLIA [id number] [address] [place] [address] [place] Anion gap [Moles/Vol] 11 mmol/L Normal 8-15 [facility] Comment on above: Order Comment: Speci men Type: BLOOD SPECIMEN Ordering Facility: [facility] Address: [address] [place] [address] Performed By: #### 2 4323-8 #### [facility] CLIA [id number] [address] [place] [address] [place] AST [Catalytic activity/Vol] 17 U/L Normal 13-35 [facility] Comment on above: Order Comment: Speci men Type: BLOOD SPECIMEN Ordering Facility: [facility] Address: [address] [place] [address] Performed By: #### 2 4323-8 #### [facility] CLIA [id number] [address] [place] [address] [place] Bilirubin [Mass/Vol] 0.6 mg/dL Normal 0.2-1.3 [facility] Comment on above: Order Comment: Speci men Type: BLOOD SPECIMEN Ordering Facility: [facility] Address: [address] [place] [address] Performed By: #### 2 4323-8 #### [facility] CLIA [id number] [address] [place] [address] [place] Calcium [Mass/Vol] 9.8 mg/dL Normal 8.5-10.2 [facility] Comment on above: Order Comment: Speci men Type: BLOOD SPECIMEN Ordering Facility: [facility] Address: [address] [place] [address] Performed By: #### 2 4323-8 #### [facility] CLIA [id number] [address] [place] [address] [place] Chloride [Moles/Vol] 103 mmol/L Normal 98-107 [facility] Comment on above: Order Comment: Speci men Type: BLOOD SPECIMEN Ordering Facility: [facility] Address: [address] [place] [address] Performed By: #### 2 4323-8 #### [facility] CLIA [id number] [address] [place] [address] [place] CO2 [Moles/Vol] 26 mmol/L Normal 22-30 [facility] Comment on above: Order Comment: Speci men Type: BLOOD SPECIMEN Ordering Facility: [facility] Address: [address] [place] [address] Performed By: #### 2 4323-8 #### [facility] CLIA [id number] [address] [place] [address] [place] Creatinine [Mass/Vol] 0.92 mg/dL Normal 0.58-0.96 [facility] Comment on above: Order Comment: Roselia miranda Type: BLOOD SPECIMEN Ordering Facility: [facility] Address: [address] [place] [address] Performed By: #### 2 4323-8 #### [facility] IA [id number] [address] [place] [address] [place] Creatinine and Glomerular filtration rate.predicted panel (S/P/Bld) 71 mL/min/1.73m??? Normal >=60 [facility] Comment on above: Order Comment: Roselia miranda Type: BLOOD SPECIMEN Ordering Facility: [facility] Address: [address] [place] [address] Result Comment: Sonal mated Glomerular Filtration Rate (eGFR) is calculated using the 2020 CKD-EPI creatinine equation. This equation utilizes serum creatinine, sex, and age as parameters. The creatinine assay has traceable calibration to isotope dilution-mass spectrometry. Refer to KDIGO guidelines for clinical interpretation. In patients with unstable renal function, e.g. those with acute kidney injury, the eGFR may not accurately reflect actual GFR. Performed By: #### 2 4323-8 #### [facility] CLIA [id number] [address] [place] [address] [place] Glucose [Mass/Vol] 95 mg/dL Normal 74-99 [facility] Comment on above: Order Comment: Roselia miranda Type: BLOOD SPECIMEN Ordering Facility: [facility] Address: [address] [place] [address] Result Comment: The [place] [employer] (ADA) provides guidance for cutoff values for fasting glucose and random glucose. The ADA defines fasting as no caloric intake for at least 8 hours. Fasting plasma glucose results between 100 to 125 mg/dL indicate increased risk for diabetes (prediabetes). Fasting plasma glucose results greater than or equal to 126 mg/dL meet the criteria for diagnosis of diabetes. In the absence of unequivocal hyperglycemia, results should be confirmed by repeat testing. In a patient with classic symptoms of hyperglycemia or hyperglycemic crisis, random plasma glucose results greater than or equal to 200 mg/dL meet the criteria for diagnosis of diabetes. Reference: Standards of Medical Care in Diabetes 2016, [place] [employer]. Diabetes Care. 2016.39(Suppl 1). Performed By: #### 2 4323-8 #### [facility] CLIA [id number] [address] [place] [address] [place] Potassium [Moles/Vol] 3.9 mmol/L Normal 3.7-5.1 [facility] Comment on above: Order Comment: Roselia miranda Type: BLOOD SPECIMEN Ordering Facility: [facility] Address: [address] [place] [address] Performed By: #### 2 4323-8 #### [facility] CLIA [id number] [address] [place] [address] [place] Protein [Mass/Vol] 7.1 g/dL Normal 6.3-8.0 [facility] Comment on above: Order Comment: Roselia miranda Type: BLOOD SPECIMEN Ordering Facility: [facility] Address: [address] [place] [address] Performed By: #### 2 4323-8 #### [facility] CLIA [id number] [address] [place] [address] [place] Sodium [Moles/Vol] 140 mmol/L Normal 136-144 [facility] Comment on above: Order Comment: Roselia miranda Type: BLOOD SPECIMEN Ordering Facility: [facility] Address: [address] [place] [address] Performed By: #### 2 4323-8 #### [facility] CLIA [id number] [address] [place] [address] [place] Urea nitrogen [Mass/Vol] 17 mg/dL Normal 7-21 [facility] Comment on above: Order Comment: Roselia miranda Type: BLOOD SPECIMEN Ordering Facility: [facility] Address: [address] [place] [address] Performed By: #### 2 4323-8 #### [facility] CLIA [id number] [address] [place] [address] [place] ECG COMPLETEon 06-28-2024 ECG COMPLETE Ventricular Rate : 7 1 BPM Atrial Rate : 71 BPM P-R Interval : 138 ms QRS Duration : 110 ms Q-T Interval : 388 ms QTC Calculation(Bazett) : 421 ms Calculated P [place] : 78 degrees Calculated R [place] : 6 degrees Calculated T [place] : 65 degrees NORMAL SINUS RHYTHM MINIMAL VOLTAGE CRITERIA FOR LVH, MAY BE NORMAL VARIANT ( Nayan product ) T WAVE ABNORMALITY, CONSIDER ANTEROLATERAL ISCHEMIA ABNORMAL ECG WHEN COMPARED WITH ECG OF 28-Jun-2024 07:11, T WAVE INVERSION MORE EVIDENT IN LATERAL LEADS Confirmed by PERLA HINTON M.D. ([id number]) on 06/28/2024 12:52:40 PM NAME : YOKASTA MORENO PID : [id number] : 1960 Gender : Female Race : ORD : [id number] Procedure Date : Jun 28 2024 10:13:04 Edit Date : Jun 28 2024 12:52:41 Diagnosis: NORMAL SINUS RHYTHM MINIMAL VOLTAGE CRITERIA FOR LVH, MAY BE NORMAL VARIANT ( Palermo product ) T WAVE ABNORMALITY, CONSIDER ANTEROLATERAL ISCHEMIA ABNORMAL ECG WHEN COMPARED WITH ECG OF 28-Jun-2024 07:11, T WAVE INVERSION MORE EVIDENT IN LATERAL LEADS Confirmed by PERLA HINTON M.D. ([id number]) on 06/28/2024 12:52:40 PM Test Reason : Post-OP Location : [address] [place] [address] Overread By : PERLA HINTON M.D. Edited By : PERLA HINTON M.D. Referred By : , Acquired by : SOTERO ARMENTA [facility] ECG COMPLETE Ventricular Rate : 6 4 BPM Atrial Rate : 64 BPM P-R Interval : 164 ms QRS Duration : 110 ms Q-T Interval : 414 ms QTC Calculation(Bazett) : 427 ms Calculated P [place] : 28 degrees Calculated R [place] : -5 degrees Calculated T [place] : 31 degrees NORMAL SINUS RHYTHM MINIMAL VOLTAGE CRITERIA FOR LVH, MAY BE NORMAL VARIANT ( [place] product ) NONSPECIFIC T WAVE ABNORMALITY ABNORMAL ECG NO PREVIOUS ECGS AVAILABLE Confirmed by PERLA HINTON M.D. ([id number]) on 06/28/2024 11:40:29 AM NAME : YOKASTA MORENO PID : [id number] : 1960 Gender : Female Race : ORD : [id number] Procedure Date : Jun 28 2024 07:11:34 Edit Date : Jun 28 2024 11:40:32 Diagnosis: NORMAL SINUS RHYTHM MINIMAL VOLTAGE CRITERIA FOR LVH, MAY BE NORMAL VARIANT ( Nayan product ) NONSPECIFIC T WAVE ABNORMALITY ABNORMAL ECG NO PREVIOUS ECGS AVAILABLE Confirmed by PERLA HINTON M.D. ([id number]) on 06/28/2024 11:40:29 AM Test Reason : Pre-OP Location : 43 : [facility] Overread By : PERLA HINTON M.D. Edited By : PERLA HINTON M.D. Referred By : , Acquired by : SOTERO ARMENTA [facility] HISTORY PHYSICALon HISTORY PHYSICAL HNO ID: [id number] Author: ADILENE LÓPEZ MD Service: Cardiovascular Medicine Author Type: Physician Type: H&P Filed: 06/28/2024 07:11 Note Text: UPDATED HISTORY AND PHYSICAL EXAMINATION SERVICE DATE: 06/28/2024 SERVICE TIME: 7:10 AM SENSITIVE EXAMINATION CONSENT: Participation of a fellow, resident, medical student, or advanced practice provider student in performing the sensitive examination was discussed with the patient or authorized hr representative. The patient or authorized hr representative has agreed to proceed with the sensitive examination. PHYSICAL EXAM MUST BE COMPLETED ON ADMISSION The History and Physical (completed in the past 30 days) has been reviewed and the patient has been examined. The contents accurately reflect the patient's condition with the following additions or revisions since the HANDP was completed. Electrophysiology Pre-Procedure Checklist: Type of procedure: AF ablation Device specifics: boston pfa Indication: paroxysmal AF Consent: obtaining Allergies: tape, latex, bactrim Vitals: Stable Signs of infection: None Lines/Tubes/Drains: Labs: Creatinine, coagulation panel, and platelets within acceptable ranges Type and screen: Current (expires ) Anticoagulation: eliquis Issues relevant to procedure: LVEF: LV Ejection Fraction (%) Date Value 04/29/2024 59 Temp (24hrs), Av.8 ?C (98.2 ?F), Min:36.8 ?C (98.2 ?F), Max:36.8 ?C (98.2 ?F) Recent Labs 06/28/24 0612 WBC 6.18 HB 13.1 HCT 39.4 PLT 350 No results found for: APTT, INR No results found for: ABORHD, ABSCREEN No results found for: EXX Current Anticoagulants AND Antiplatelets (From admission, onward) None IV medications: Lines, Drains, and Airways Line Duration Peripheral 06/28/24 0623 Right Forearm 20 Gauge <1 day Peripheral 06/28/24 0624 Left Forearm 20 Gauge <1 day No data to display Susceptibility Tests - Past 1 Year No results found for the last 365 days. Status: ready Examination indicates no changes. This HANDP can be found in the Electronic Medical Record dated. GEN: NAD, A+Ox3 EYES: EOMI, PERRL, sclera non-icteric HENT: OP clear, no thrush, no cervical LAD CV: RRR, no m/r/g, no LE edema, JVD not appreciated PULM: CTAB, no crackles, no wheezes, no increased work of breathing ABD: Soft, NT, ND, NABS, no organomegaly, no obvious masses NEURO: CN2 -12 intact, 5/5 strength throughout MSK: Full ROM throughout SKIN: intact without gross abnormalities LAD: No palpable lymphadenopathy SIGNATURE: Adilene López MD PATIENT NAME: Yokasta Moreno DATE: June 28, 2024 TIME: 7:10 AM [facility] TYPE + SCREENon 06-28-2024 ABO O [facility] Comment on above: Order Comment: Speci men Type: BLOOD SPECIMENOrdering Facility: [facility] Address: [address] [place] [address] Performed By: #### T SCR ####[facility] BLOOD BANKCLIA [id number] [place] [address] [place] Rh Nom (Bld) Positive [facility] Comment on above: Order Comment: Speci men Type: BLOOD SPECIMENOrdering Facility: [facility] Address: [address] [place] [address] Performed By: #### T SCR ####[facility] BLOOD BANKCLIA [id number] [address] [place] TYPE AND SCREEN EXPIRATION 07/01/2024 23:59 [facility] Comment on above: Order Comment: Speci men Type: BLOOD SPECIMENOrdering Facility: [facility] Address: [address] [place] [address] Performed By: #### T [facility] ####[facility] BLO[facility] BANKCLIA [id number] [place] [id number] [place] HISTORY PHYSICALon HISTORY PHYSICAL HNO ID: [id number] Author: JESICA INGRAM PA-C Service: ? Author Type: Physician First Assistant Type: H&P Filed: 06/06/2024 09:55 Note Text: [facility] HISTORY AND PHYSICAL EXAMINATION SERVICE DATE: 06/03/2024 SERVICE TIME: 10:04 AM PRIMARY CARE PHYSICIAN: Monie Camejo MD, MD Assessment Patient has the following medical conditions which may affect colton-operative course: Essential hypertension Assessment: Stable, compliant on rx. Follows with PCP. Last 3 Encounter BP Readings: Date: BP: 06/03/2024 107/69 05/13/2024 104/64 03/18/2024 110/80 High triglycerides Assessment: Compliant on statin therapy. Encouraged lifestyle modifications. Body mass index is 30.62 kg/m?. PAF (paroxysmal atrial fibrillation) (HCC) Assessment: follows with Dr. Hinton. On eliquis, flecainide, and diltiazem but still having bouts of a fib. Most recent episode mid March lasting ~12 hours as well as 5 minute episode over the past weekend. Denies current palpitations, CP, SOB, RRR today on exam. Gastroesophageal reflux disease Assessment: Controlled on pepcid. Advised avoidance of triggers. Following with PCP. Liver cyst Assessment: incidental finding, does not follow with specialist Goiter Assessment: follows with endocrinology Dr. Goss; not on rx Psoriasis Assessment: follows with dermatology, on tremfya every other month, last dose 05/14/2024 Lumbar herniated disc Assessment: intermittent with radicular symptoms, last exacerbation ~1.5 years ago, improved with PT, none currently PONV (postoperative nausea and vomiting) Assessment: Pt reports PONV with previous surgeries/procedures. Chronic interstitial cystitis Assessment: follows with urology ANESTHESIA FINDINGS: Intubation History: No history of difficult intubation. No abnormal airway history Significant Anesthesia Considerations: potential postop nausea/vomiting Airway History: No history of difficult airway No abnormal airway history Denise Activity Status Index: METS: Walk indoors, such as around the house (1.75 METs) Do light work around the house, such as dusting or washing dishes (2.70 METs) Take care of self; that is eating, dressing, bathing, using the toilet (2.75 METs) Walk a block or two on level ground (2.75 METs) Do moderate work around the house, such as vacuuming, sweeping floors, or carrying in groceries (3.50 METs) Do yardwork, such as raking leaves, weeding, or pushing a power mower (4.50 METs) Climb a flight of stairs or walk up a hill (5.50 METs) DASI Score: 23.45 Patient denies any chest pain or undue shortness of breath with the above physical activity. Clinical Frailty Scale: 3. Well, with treated comorbid disease STOP-Bang Score: Patient over 50 years old Denies snoring loudly Denies feeling tired, fatigued, or sleepy during the daytime Has not been observed to stop breathing or choking/gasping during sleep Denies having high blood pressure BMI less than or equal to 35 kg/m2 Does not have a large neck Non-male patient STOP-Bang Score: 1 [id number] Score: Age: <65 Sex: female CHF history: No Hypertension history: Yes Stroke/TIA/thromboembo lism history: No Vascular disease history: No Diabetes history: No [id number] Score: 2 I - PHYSICAL EVALUATION AIRWAY Patient intubated: No. Tracheostomy tube not present Mallampati: II. TM distance: >3 FB. Neck ROM: full ROM without neurological symptoms. Mouth opening: adequate. Short neck: no. Thick neck: no DENTAL Dental findings: teeth intact. Additional comments: +Crowns. Implant lower right, bridge lower left. II - ANESTHESIA PLAN Beta Debra Monitoring Plan Post Procedure Analgesic Plan Prepared for Surgery: optimally prepared for surgery. Per 05/14/2023 note: -Hold eliquis morning of procedure -CBC, CMP, T/S to be performed morning of procedure CONSULTS: Patient does not require consults for optimization at this time Planned Anesthetic: anesthesia choice The Following Tests/Procedures Have Been Initiated: No orders of the defined types were placed in this encounter. REASON FOR VISIT: Yokasta Moreno is a 63 year old female who is scheduled for Procedure(s) with comments: COMPRE EP EVAL ABLTJ ATR FIB PULM VEIN ISOLATION (N/A) - heplock on arrival pfa biosense taylor/ Selerity INTRACARDIAC ELECTROPHYSIOLOGIC 3-DIMENSIONAL MAPPING (N/A) at the request of Dr. Adilene López for consultation. My final recommendation will be communicated back to the requesting physician by way of shared medical record or letter. Subjective The patient has the following: COVID-19 Immunization Status Current Care Gaps Covid-19 Vaccine () Overdue since 02/18/2024 12/24/2023 Imm Admin: COVID-19 vaccine, age 12+ yr, bivalent (PFIZER-BIONTVuzix) 02/11/2022 Imm Admin: COVID-19 vaccine, age 12+ yr, biv (more content not included)... [facility] 05-13-2024 [facility] Office Visit ([facility] ) YOKASTA MORENO ([id number]) 1960 F Date Time Provider Department 05/13/24 11:15 AM ADILENE LÓPEZ During your visit today, we recorded the following information about you: Pulse Blood pressure Weight Height 59/minute 104/64 77.6 kg 1.6 m Adilene López MD 05/13/2024 12:19 PM Signed [facility] [place] Agnieszka Choe Department of Cardiovascular Medicine SECTION OF CARDIAC PACING and ELECTROPHYSIOLOGY OUTPATIENT VISIT DATE 05/13/2024 OUTPATIENT VISIT TYPE NEW PRIMARY CARE [place]IC[place]: [place] [id number] [facility] [address] [place] [phone] REFERRING PHYSICIAN: Perla Hinton ([facility]) [address] [place] [phone] CHIEF COMPLAINT: Parox AF HISTORY OF PRESENT ILLNESS: Ms. Moreno is a 63 year old female who presents for evaluation of Parox AF Ms. Moreno has a history of Parox AF Chads Vasc 1 for female sex On flecainide, diltiazem, eliquis ILEANA on CPAP Ms. Moreno is followed by Dr. Erwin joaquin for history of paroxysmal A-fib. She is continuing to have breakthrough episodes despite flecainide. She is referred for ablation. Cardiac review of systems: Denies chest pain, shortness of breath, dizziness, syncope PAST MEDICAL HISTORY Diagnosis Date A-fib (HCC) Thyroid nodule PAST SURGICAL HISTORY Procedure Laterality Date SECTION HX Social History Tobacco Use Smoking status: Never Smokeless tobacco: Never Tobacco comments: Parents smoked in childhood home. Spouse quit smoking 25 years ago. Vaping Use Vaping status: Never Used Substance Use Topics Alcohol use: No Drug use: No FAMILY HISTORY Problem Relation Age of Onset Stroke Mother Cancer Father Lung Asthma Sister Two other (Other) Other Cousin with lung transplant. Asthma Other All of my aunts. ALLERGIES Allergen Reactions Adhesive Tape (Idalia* Rash Latex, Natural Rubb* Rash Sulfamethoxazole-Tr* Vomiting *ANTI-INFECTIVE AGENTS--MISC.* *ANTI-INFECTIVE AGENTS--MISC.* MEDICATIONS: flecainide (TAMBOCOR) 100 mg tablet Take 1 tablet by mouth every 12 hours. apixaban (ELIQUIS) 5 mg tab(s) Take 1 tablet by mouth two times a day. atorvastatin (LIPITOR) 20 mg tablet Take 1 tablet by mouth once daily. dilTIAZem XR (DILACOR XR) 180 mg 24 hr capsule Take 1 capsule by mouth once daily. guselkumab (TREMFYA) 100 mg/mL Inject 100 mL subcutaneously. Every other month famotidine (PEPCID) 20 mg tablet once daily. cholecalciferol, vitamin D3, 100 mcg (4,000 unit) cap Take 1 capsule by mouth once daily. AVALIDE 300-12.5 mg ORAL per tablet REVIEW OF SYSTEMS: GENERAL: no fever, no chills and no change in weight HEENT: no headaches, no hearing loss, no difficulty swallowing SKIN: no rashes, no lesions and no ulcers RESPIRATORY: SEE HPI CARDIOVASCULAR: See HPI GASTROINTESTINAL: no abdominal pain, no nausea and no vomiting GENITOURINARY: no dysuria, no frequency and no nocturia MUSCULOSKELETAL: no joint pain, no joint swelling and no muscle pain or myalgias NEUROLOGIC: no numbness, no tingling and no sensation of pins and needles HEMATOLOGY: no bruising easily, no prolonged bleeding and no anemia ENDOCRINE: no cold or heat intolerance, no polyuria and no polydipsia PSYCH: no sleep disturbance, no mood disorders and no recent psychosocial stressors PHYSICAL EXAMINATION: BP 104/64 Pulse (!) 59 Ht 160 cm (5' 3) Wt 77.6 kg (171 lb 1.2 oz) BMI 30.30 kg/m? GEN: NAD, A+Ox3 EYES: EOMI, PERRL, sclera non-icteric HENT: OP clear, no thrush, no cervical LAD CV: RRR, no m/r/g, no LE edema, JVD not appreciated PULM: CTAB, no crackles, no wheezes, no increased work of breathing ABD: Soft, NT, ND, NABS, no organomegaly, no obvious masses NEURO: CN2 -12 intact, 5/5 strength throughout MSK: Full ROM throughout SKIN: intact without gross abnormalities LAD: No palpable lymphadenopathy CARDIOVASCULAR MEDICINE TESTING: EK05/13/2024: sinus Echo: 04/29/24 CONCLUSIONS: - Exam indication: Nonsustained atrial fibrillation - The left ventricle is normal in size. Left ventricular systolic function is normal. EF = 59 ? 5% (2D 4-ch.) Normal left ventricular diastolic function. - The right ventricle is normal in size. Right ventricular systolic function is normal. - There are no significant valvular abnormalities. - Exam was compared with the prior echocardiographic exam performed on 03/28/2016. There is no significant change. Stress/Nuc: CONCLUSIONS: 1. SPECT Perfusion Study: Normal. 2. There is no scintigraphic evidence for inducible ischemia. 3. No evidence of scarred myocardium. 4. Left ventricle is normal in size. The left ventricle systolic function is hyperdynamic. 5. Right ventricle is normal in size. The right ventricle systolic func (more content not included)... Normal [facility] Jordy 05-13-2024 CNPN Telephone ([facility]) IRISYOKASTA CALABRESE ([id number]) 1960 F Date Time Provider Department 05/13/24 ADILENE LÓPEZ [facility] During your visit today, we recorded the following information about you: Adilene López MD 05/13/2024 11:32 AM Signed Elective procedure for Electrophysiology Service at [facility] Attending: Adilene López MD Diagnosis: Atrial Fibrillation Date of admission: tbd Time of procedure: tbd Procedure duration: 3 hours Overnight stay? No Office Follow up: 6 weeks HANDP by PA: No Labs: CBC, CMP, T/S Labs to be done: Morning of procedure Procedure: PVI Additional notes: Stop anticoagulant the morning of procedure. Stop diabetic medications per protocol (?Stop Anticoagulants, beta blockers or Ca blockers?) Vendor: [employer] Anesthesia: General NOEMY: no Possible study patient? No Instructions to patient: 1. Do not stop any blood thinners unless specific instructions above 2. Mpc-patpben-sshhcquzg diabetics should hold morning diabetic medications. Insulin-dependent diabetics should take half their normal insulin. 3. Please check that precertification has been completed if needed. Jennie Chappell 05/13/2024 1:28 PM Signed PROCEDURE: 06/28/24 @ 7:30 am (arrival time: 6:00 am). PVI w/ Dr. López. Jennie Foster w/ pt. Procedure date/ time/ instructions given F/F Schd w/ Sveta @ hosp. F/u schd. 08/10/24 Diabetic:No. Other meds to hold: No Labs to be done:day of Jennie Chappell Coordinator [facility] Allergies As of Date: 05/13/2024 Noted Allergy Reaction ADHESIVE TAPE (ROSINS) 03/13/2013 2 - Rash LATEX, NATURAL RUBBER 11/27/2010 2 - Rash SULFAMETHOXAZOLE-TRIME THOPRIM 11/27/2020 11 - Vomiting Comments: *ANTI-INFECTIVE AGENTS--MISC.* *ANTI-INFECTIVE AGENTS--MISC.* Date Reviewed: 05/13/2024 Reviewed by: Lanette Barriga MA - Fully Assessed Reason for Visit: Procedure [88] Prescriptions as of 05/13/2024 - flecainide (TAMBOCOR) 100 mg tablet Take 1 tablet by mouth every 12 hours. - apixaban (ELIQUIS) 5 mg tab(s) Take 1 tablet by mouth two times a day. - atorvastatin (LIPITOR) 20 mg tablet Take 1 tablet by mouth once daily. - dilTIAZem XR (DILACOR XR) 180 mg 24 hr capsule Take 1 capsule by mouth once daily. - guselkumab (TREMFYA) 100 mg/mL Inject 100 mL subcutaneously. Every other month - famotidine (PEPCID) 20 mg tablet once daily. - cholecalciferol, vitamin D3, 100 mcg (4,000 unit) cap Take 1 capsule by mouth once daily. - AVALIDE 300-12.5 mg ORAL per tablet Problem List As Of Date 05/13/2024 Noted Resolved Plantar fasciitis [M72.2] 11/27/2010 PAF (paroxysmal atrial fibrillation) (HCC) [I48*04/30/2016 Essential hypertension [I10] 07/05/2016 Vitamin D deficiency [E55.9] 11/23/2018 Stress [F43.9] 11/23/2018 Psoriasis [L40.9] 03/21/2019 Lumbar herniated disc [M51.26] 11/23/2018 Liver cyst [K76.89] 11/23/2018 Left hip pain [M25.552] 03/31/2018 High triglycerides [E78.1] 11/23/2018 Headache [R51.9] 01/11/2019 Goiter [E04.9] 01/11/2019 Gastroesophageal reflux disease [K21.9] 11/27/2020 Dyslipidemia [E78.5] 05/30/2019 Chronic interstitial cystitis [N30.10] 11/27/2020 Anosmia [R43.0] 01/11/2019 Encounter Status:Closed by ADILENE LÓPEZ on 05/13/24 Normal [facility] ECG COMPLETEon 05-13-2024 ECG COMPLETE Ventricular Rate : 5 9 BPM Atrial Rate : 59 BPM P-R Interval : 176 ms QRS Duration : 118 ms Q-T Interval : 430 ms QTC Calculation(Bazett) : 425 ms Calculated P [place] : 34 degrees Calculated R [place] : 52 degrees Calculated T [place] : 59 degrees SINUS BRADYCARDIA NONSPECIFIC INTRAVENTRICULAR CONDUCTION DELAY NONSPECIFIC T WAVE ABNORMALITY ABNORMAL ECG Confirmed by ADILENE LÓPEZ MD ([id number]) on 05/16/2024 5:09:56 PM NAME : YOKASTA MORENO PID : [id number] : 1960 Gender : Female Race : ORD : [id number] Procedure Date : May 13 2024 11:06:01 Edit Date : May 16 2024 17:10:02 Diagnosis: SINUS BRADYCARDIA NONSPECIFIC INTRAVENTRICULAR CONDUCTION DELAY NONSPECIFIC T WAVE ABNORMALITY ABNORMAL ECG Confirmed by ADILENE LÓPEZ MD ([id number]) on 05/16/2024 5:09:56 PM Test Reason : I48.0 PAF (paroxysmal atrial fibrillation) ([facility]) Location : 198 : MFCARD 15 Overread By : ADILENE LÓPEZ MD Edited By : ADILENE LÓPEZ MD Referred By : PERLA HINTON Acquired by : LANETTE BARRIGA [facility] ECHOon 04-29-2024 CONCLUSIONS: - Exam indication: Nonsustained atrial fibrillation - The left ventricle is normal in size. Left ventricular systolic function is normal. EF = 59 5% (2D 4-ch.) Normal left ventricular diastolic function. - The right ventricle is normal in size. Right ventricular systolic function is normal. - There are no significant valvular abnormalities. - Exam was compared with the prior echocardiographic exam performed on 03/28/2016. There is no significant change. * * * Final * * * [facility] Echocardiography Report: Transthoracic Echo [facility] Date of service: 04/29/2024 7:59:31 AM Ordering physician: PERLA HINTON Indication: Nonsustained atrial fibrillation Technologist: Brittni Alatorre [facility] Interpreting physician: Becki Katz MD PATIENT: Name: MRS. YOKASTA MORENO : 1960 Age: 63 years Gender: F Primary rhythm: sinus. Height: 160.02 cm BSA: 1.87 m Weight: 78.93 kg BMI: 30.8 kg/m Heart rate 66 bpm Blood pressure 113/70 mmHg Color Doppler was utilized to interrogate the cardiac valves assessed and spectral Doppler was utilized to determine the flow velocities and pressure gradients reported in this exam. MEASUREMENTS: Value Indexed Normal Max aortic dimension 3.4 cm Ao < 3.8 Left atrial volume 55 ml (biplane A-L) 29 ml/m Lazarus <= 34 LV ID (diastole) 4.6 cm (2D) 2.44 cm/m LV ID (systole) 2.7 cm (2D) 1.45 cm/m IVS, leaflet tips 0.7 cm (2D) Posterior wall thickness 0.8 cm (2D) Left ventricular mass 106 g (2D) 57 g/m LV stroke volume 48 ml (2D 4-ch.) LV end diastolic volume 81 ml (2D 4-ch.) 43.2 ml/m 29<=EDVi<62 LV end systolic volume 33 ml (2D 4-ch.) 17.7 ml/m Ejection Fraction 59 % (2D 4-ch.) EF > 54 FINDINGS: LEFT VENTRICLE The left ventricle is normal in size. Left ventricular systolic function is normal. Normal left ventricular diastolic function. Mitral annular lateral E/e': 10.9. Mitral annular septal E/e': 12.1. Wall Motion: All scored segments are normal. RIGHT VENTRICLE The right ventricle is normal in size. Right ventricular systolic function is normal. RV systolic tissue Doppler velocity is 8.8 cm/s. Tricuspid annular displacement is 2.2 cm. Estimated right ventricular systolic pressure is not reported due to an insufficient tricuspid regurgitation signal. Estimated right atrial pressure is 3 mmHg based on IVC assessment. LEFT ATRIUM The left atrial cavity is normal in size. RIGHT ATRIUM The right atrial cavity is normal in size. Inferior Vena Cava: The inferior vena cava appears normal measuring 1.0 cm. The vessel decreases greater than 50 percent with inspiration. MITRAL VALVE The mitral valve leaflets are structurally normal. There is trace mitral valve regurgitation. The pressure half time is 64 msec. The peak mitral E/A ratio is 1.16. The average mitral E/e' ratio is 11.5. The mitral flow deceleration time is 222 msec. TRICUSPID VALVE The tricuspid valve leaflets are structurally normal. There is trace tricuspid valve regurgitation. AORTIC VALVE The aortic valve cusps are structurally normal. There is no aortic valve regurgitation. Tricuspid aortic valve. PULMONIC VALVE The pulmonic valve cusps are structurally normal. There is trace pulmonic valve regurgitation. AORTA The visualized aorta is normal in size. Measurements - Mid ascending aorta 3.4 cm. PULMONARY ARTERIES The pulmonary arteries are normal. INTERATRIAL SEPTUM There is no evidence of intracardiac shunting as detected by Doppler. INTERVENTRICULAR SEPTUM There is no flow through the interventricular septum as detected by Doppler. PERICARDIUM There is no pericardial effusion. There is an epicardial fat pad. [facility] Echocardiography Echocardiography Report: Transthoracic Echo [facility] Date of service: 04/29/2024 7:59:31 AM Ordering physician: PERLA HINTON Indication: Nonsustained atrial fibrillation Technologist: Brittni Alatorre SHABANA Interpreting physician: Becki Katz MD PATIENT: Name: MRS. YOKASTA MORENO : 1960 Age: 63 years Gender: F Primary rhythm: sinus. Height: 160.02 cm BSA: 1.87 m Weight: 78.93 kg BMI: 30.8 kg/m Heart rate 66 bpm Blood pressure 113/70 mmHg Color Doppler was utilized to interrogate the cardiac valves assessed and spectral Doppler was utilized to determine the flow velocities and pressure gradients reported in this exam. MEASUREMENTS: Value Indexed Normal Max aortic dimension 3.4 cm Ao < 3.8 Left atrial volume 55 ml (biplane A-L) 29 ml/m Lazarus <= 34 LV ID (diastole) 4.6 cm (2D) 2.44 cm/m LV ID (systole) 2.7 cm (2D) 1.45 cm/m IVS, leaflet tips 0.7 cm (2D) Posterior wall thickness 0.8 cm (2D) Left ventricular mass 106 g (2D) 57 g/m LV stroke volume 48 ml (2D 4-ch.) LV end diastolic volume 81 ml (2D 4-ch.) 43.2 ml/m 29<=EDVi<62 LV end systolic volume 33 ml (2D 4-ch.) 17.7 ml/m Ejection Fraction 59 % (2D 4-ch.) EF > 54 FINDINGS: LEFT VENTRICLE The left ventricle is normal in size. Left ventricular systolic function is normal. Normal left ventricular diastolic function. Mitral annular lateral E/e': 10.9. Mitral annular septal E/e': 12.1. Wall Motion: All scored segments are normal. RIGHT VENTRICLE The right ventricle is normal in size. Right ventricular systolic function is normal. RV systolic tissue Doppler velocity is 8.8 cm/s. Tricuspid annular displacement is 2.2 cm. Estimated right ventricular systolic pressure is not reported due to an insufficient tricuspid regurgitation signal. Estimated right atrial pressure is 3 mmHg based on IVC assessment. LEFT ATRIUM The left atrial cavity is normal in size. RIGHT ATRIUM The right atrial cavity is normal in size. Inferior Vena Cava: The inferior vena cava appears normal measuring 1.0 cm. The vessel decreases greater than 50 percent with inspiration. MITRAL VALVE The mitral valve leaflets are structurally normal. There is trace mitral valve regurgitation. The pressure half time is 64 msec. The peak mitral E/A ratio is 1.16. The average mitral E/e' ratio is 11.5. The mitral flow deceleration time is 222 msec. TRICUSPID VALVE The tricuspid valve leaflets are structurally normal. There is trace tricuspid valve regurgitation. AORTIC VALVE The aortic valve cusps are structurally normal. There is no aortic valve regurgitation. Tricuspid aortic valve. PULMONIC VALVE The pulmonic valve cusps are structurally normal. There is trace pulmonic valve regurgitation. AORTA The visualized aorta is normal in size. Measurements - Mid ascending aorta 3.4 cm. PULMONARY ARTERIES The pulmonary arteries are normal. INTERATRIAL SEPTUM There is no evidence of intracardiac shunting as detected by Doppler. INTERVENTRICULAR SEPTUM There is no flow through the interventricular septum as detected by Doppler. PERICARDIUM There is no pericardial effusion. There is an epicardial fat pad. CONCLUSIONS: - Exam indication: Nonsustained atrial fibrillation - The left ventricle is normal in size. Left ventricular systolic function is normal. EF = 59 5% (2D 4-ch.) Normal left ventricular diastolic function. - The right ventricle is normal in size. Right ventricular systolic function is normal. - There are no significant valvular abnormalities. - Exam was compared with the prior CC echocardiographic exam performed on 03/28/2016. There is no significant change. * * * Final * * * [employer] : [id number] [facility] Phys[facility] Progress No horacio 04-16-2024 AMB IM Physician Progress Note YOKASTA MORENO :1960 [facility]:[id number] Registration Date:04/15/2024 Chief Complaint: patient states shes here for a follow up for medication refills. 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 Goss )- thyroid biopsy was normal 08/2019 vertigo : stable- no symptoms L4-L5 lumbar disc herniation- seeing music specialist has Liver cyst on US-seeing GI- colonoscopy 07/2023- due in 3 years seeing early childhood lead teacher for psoriasis - on Tremfya seeing radiopharmacist regularly Physical Exam: Vitals & Measurements Systolic Blood Pressure: 95 mmHg (04/15/24 11:10:00) Diastolic Blood Pressure: 65 mmHg (04/15/24 11:10:00) Respiratory Rate: 16 br/min (04/15/24 11:10:00) SpO2: 96 % (04/15/24 11:10:00) Peripheral Pulse Rate: 67 bpm (04/15/24 11:10:00) Mean Arterial Pressure: 75 mmHg (04/15/24 11:10:00) Height/Length Measured: 160 cm (04/15/24 11:10:00) Weight Measured: 78 kg (04/15/24 11:10:00) Body Mass Index Measured: 30.47 kg/m2 (04/15/24 11:10:00) Weight Measured - lbs2: 171.6 lb (04/15/24 11:10:00) Ht/Wt Measurement Refused by Patient?2: No (04/15/24 11:10:00) Depression Screening Scores: Initial Depression Screen Score: 0 (04/15/24 11:10:00) Fall Risk Assessment: Is the patient ambulatory (mobile): Yes (04/15/24 11:10:00) Have you had a fall within the past: Yes (04/15/24 11:10:00) Have you had 2 or more falls in the past: No (04/15/24 11:10:00) Medication Reconciliation: What How Much When Instructions Unchanged apixaban (Eliquis 5 mg oral tablet) Unchanged atorvastatin (atorvastatin 20 mg oral tablet) Unchanged dilTIAZem (dilTIAZem 120 mg/ 24 hours oral capsule, extended release) 1 Capsules Oral DAILY Unchanged flecainide = Tambocor (flecainide 50 mg oral tablet) 1 Tabs Oral EVERY TWELVE HOURS Unchanged guselkumab (Tremfya 100 mg/ mL subcutaneous solution) 1 mL Unchanged hydrochlorothiazide-ir besartan (hydrochlorothiazide-i rbesartan 12.5 mg-300 mg oral tablet) 1 Tabs Oral DAILY Assessment/Plan: This Visit Diagnosis 1. Hypertension I10 controlled on medications -taking hydrochlorothiazide-ir besartan 12.5 mg-300 mg daily + dilTIAZem 120 mg daily low salt diet and exercise recent labs reviewed from outside records rtc in 6 months or early as needed 2. A-fib I48.91 on Eliquis seeing cardiology 3. Dyslipidemia E78.5 on atorvastatin - tolerating well avoid fatty/fried foods in diet and exercise 4. Thyroid nodule E04.1 seeing ENT fo this 5. Psoriasis L40.9 management as per dermatology Orders: MAMM SCRN KATTY HU, 04/15/2024, Routine, SCREENING, Cart, Isolation Precautions: NONE, Visit for screening mammogram Problem List/Past Medical History: Ongoing A-fib Dyslipidemia Dysphagia Epistaxis Family history of thyroid cancer Fatigue Goiter Nasal fracture Psoriasis Thyroid nodule Procedure/Surgical History: Colonoscopy.: 07/23/23 Colonoscopy.: 07/29/19 Biopsy Thyroid.: 06/27/19 Surgery for Interstitial Cystitis Medications: apixaban(Eliquis 5 mg oral tablet) atorvastatin(atorvasta tin 20 mg oral tablet) dilTIAZem(dilTIAZem 120 mg/24 hours oral capsule, extended release), 120 mg= 1 caps, ORAL, DAILY flecainide = Tambocor(flecainide 50 mg oral tablet), 50 mg= 1 tabs, ORAL, [id number] guselkumab(Tremfya 100 mg/mL subcutaneous solution) hydrochlorothiazide-ir besartan(hydrochloroth iazide-irbesartan 12.5 mg-300 mg oral tablet), 1 tabs, ORAL, DAILY, 2 refills Allergies: Bactrim Vomiting LATEX allergy EYE SWELLING, HIVES, BLISTERING OF SKIN Tape allergy Social History: Alcohol - Denies Alcohol Use Substance Abuse - Denies Substance Abuse Tobacco - Denies Tobacco Use Use:Never (less than 100 in lifetime) Family History Patient was adopted Health Status Family Member(s) Immunizations: Vaccine Date Status influenza virus vaccine, inactivated 02/03/2023 Recorded influenza virus vaccine, inactivated 01/29/2022 Recorded SARS-CoV-2 (COVID-19, MODERNA) mRNA-1273 06/11/2021 Recorded Comments : 2021-11-12: TPV20 SARS-CoV-2 (COVID-19, MODERNA) mRNA-1273 01/17/2021 Recorded Comments : 2021-11-12: TPV20 SARS-CoV-2 (COVID-19, MODERNA) mRNA-1273 04/07/2020 Recorded Comments : 2020-08-31: TPV20 SARS-CoV-2 (COVID-19, MODERNA) mRNA-1273 03/09/2020 Recorded Comments : 2020-08-31: TPV20, FUNDING SOURCE CHANGED TO JOHNSON influenza virus vaccine, inactivated 11/23/2018 Given influenza virus vaccine, inactivated 01/17/2015 Given Care Team Primary Care Physician MONIE CHANEL [phone] Attending Physician MONIE CHANEL [phone] . Health Maintenance Pending (in the next year) Due Tetanus (more content not included)... Normal [facility] Ambulatory Clinical Summaryo n 04-15-2024 Ambulatory Clinical Summary YOKASTA MORENO :1960 Registration Date:04/15/2024 Ambulatory Visit Instructions Your Diagnosis Hypertension A-fib Dyslipidemia Thyroid nodule Psoriasis Your Care Team Attending Physician - MONIE CHANEL Primary Care Physician - MONIE CHANEL Procedures Performed Colonoscopy. (07/23/2023) Colonoscopy. (07/29/2019) Biopsy Thyroid. (06/27/2019) Surgery for Interstitial Cystitis Discharge Vitals Heart Rate (Peripheral) 67 Respiratory Rate 16 Blood Pressure 95/65 Height 62.99 in (160 cm) Weight 171.99 lb (78 kg) BMI 30.47 Systolic Blood Pressure: 95 mmHg (04/15/24 11:10:00) Diastolic Blood Pressure: 65 mmHg (04/15/24 11:10:00) Respiratory Rate: 16 br/min (04/15/24:10:00) SpO2: 96 % (04/15/24:10:00) Peripheral Pulse Rate: 67 bpm (04/15/24 11:10:00) Mean Arterial Pressure: 75 mmHg (04/15/24 11:10:00) Height/Length Measured: 160 cm (04/15/24:10:00) Weight Measured: 78 kg (04/15/24:10:00) Body Mass Index Measured: 30.47 kg/m2 (04/15/24:10:00) Weight Measured - lbs2: 171.6 lb (04/15/24:10:00) Ht/Wt Measurement Refused by Patient?2: No (04/15/24 11:10:00) What to do next Scheduled Follow-Up Appointments Appointment Type Reason for visit Day With Date Time Where [facility] Office Visit 6 month f/u Thursday Monie Camejo MD October 14, 2024 10:10 am EDT [address] [phone] ZIP:[id number] You Need to Schedule the Following Appointments MAMM JOB HU, 04/15/2024, Routine, SCREENING, Cart, Isolation Precautions: NONE, Visit for screening mammogram Medications What How Much When Instructions Unchanged apixaban (Eliquis 5 mg oral tablet) Unchanged atorvastatin (atorvastatin 20 mg oral tablet) Unchanged dilTIAZem (dilTIAZem 120 mg/ 24 hours oral capsule, extended release) 1 Capsules Oral DAILY Unchanged flecainide = Tambocor (flecainide 50 mg oral tablet) 1 Tabs Oral EVERY TWELVE HOURS Unchanged guselkumab (Tremfya 100 mg/ mL subcutaneous solution) 1 mL Unchanged hydrochlorothiazide-ir besartan (hydrochlorothiazide-i rbesartan 12.5 mg-300 mg oral tablet) 1 Tabs Oral DAILY Allergies Bactrim Vomiting LATEX allergy EYE SWELLING, HIVES, BLISTERING OF SKIN Tape allergy Problems Ongoing - Any problem that you are currently receiving treatment for. A-fib Dyslipidemia Dysphagia Epistaxis Family history of thyroid cancer Fatigue Goiter Nasal fracture Psoriasis Thyroid nodule Common Emergency Awareness Tips IS IT A STROKE? Act FAST and Check for these signs: FACE Does the face look uneven? ARM Does one arm drift down? SPEECH Does their speech sound strange? TIME Call at any sign of stroke Heart Attack Signs Chest discomfort: Most heart attacks involve discomfort in the center of the chest and lasts more than a few minutes, or goes away and comes back. It can feel like uncomfortable pressure, squeezing, fullness or pain. Discomfort in upper body: Symptoms can include pain or discomfort in one or both arms, back, neck, jaw or stomach. Shortness of breath: With or without discomfort. Other signs: Breaking out in a cold sweat, nausea, or lightheaded. Remember, MINUTES DO MATTER. If you experience any of these heart attack warning signs, call to get immediate medical attention! Normal [facility] Comprehensive Intake - Texto n 04-15-2024 Comprehensive Intake - Text Comprehensive Intake Entered On: 04/15/2024 11:13 EST Performed On: 04/15/2024 11:10 EST by Lise Younger Summary Chief Complaint : patient states shes here for a follow up for medication refills. Advance Directive : Yes Bladder Control Issues? : No Urine Leakage? : No Presence or absence of urinary incontinence assessed : Yes CPT-II Medication list doc'd in medical record : Yes Influenza immunization administered or previously received : Yes Pneumococcal vaccine administered or previously received : No Lise Younger - 04/15/2024 11:10 EST Measurements Ht/Wt Measurement Refused by Patient? : No Weight Measured : 78 kg(Converted to: 171 lb 15 oz, 171.961 lb) Height/Length Measured : 160 cm(Converted to: 5 ft 3 in, 62.99 in) Body Mass Index Measured : 30.47 kg/m2 Body Mass Index documented : Yes Weight Measured - lbs : 171.6 lb(Converted to: 171 lb 10 oz, 78 kg) Lise Younger - 04/15/2024 11:10 EST Vitals Require BP : Yes Systolic Blood Pressure : 95 mmHg Diastolic Blood Pressure : 65 mmHg Mean Arterial Pressure : 75 mmHg Pulse Rate : 67 bpm Last Systolic BP : less than 130 mmHg Last Diastolic BP : less than 80 mmHg Respiratory Rate : 16 br/min SpO2 : 96 % Pain Present : No actual or suspected pain Pain : 0 Pain severity quantified : No pain present Lise Younger 04/15/2024 11:10 EST Infection Screening Travel outside [place] within past 21 days : No Positive COVID test in the last 10 days? : No Exposure to and/or close contact with a person who has a laboratory-confirmed COVID test within the last 48 hours. : No Esther Youngerndra 04/15/2024 11:10 EST Depression Screening Is patient currently : None of the Below Feeling Down, Depressed, Hopeless : Not at all Little Interest - Pleasure in Activities : Not at all Initial Depression Screen Score : 0 Depression Screening Score 0 : No Esther Youngerndra 04/15/2024 11:10 EST Falls Risk Assessment Is the patient ambulatory (mobile) : Yes Have you had 2 or more falls in the past year : No Have you had a fall within the past year that has caused an injury : Yes Patient screen for fall risk : 2 or more falls in last year OR fall with injury in last year Esther Youngerndra 04/15/2024 11:10 EST Normal [facility] CNOVon 03-18-2024 CNOV Office Visit (CAIFB) YOKASTA MORENO ([id number]) 1960 F Date Time Provider Department 03/18/24 11:20 AM PERLA HINTON CAIFB During your visit today, we recorded the following information about you: Pulse Blood pressure Weight Height 65/minute 110/80 79 kg 1.6 m Perla Hinton MD 03/18/2024 12:38 PM [facility] [place] Agnieszka Choe Department of Cardiovascular Medicine At [facility] OUTPATIENT VISIT DATE March 18, 2024 OUTPATIENT VISIT TYPE Follow up HPI: Yokasta Moreno is a 63 yo PAF on Flecainide and Diltiazem. Hx of hyperlipidemia, not on treatment Intially evaluated 03/11/16 for palpitations. She was seen in 2009 for fluttering in throat happening for a couple of weeks and advised to go to ER. A 48 hour Holter Monitor Rx. Notes sx occasionally and PCP thought she might have esophageal spasm. No additional testing. Sees ENT for thyroid nodules. Nodules slightly increased. TSH wnl. yearly US recommended) Barium swallowing in January 2016. (Had monitor approximately 15-. PAF seen on 117 @ 220 bpm. 3 days after returning monitor had recurrent AF went to [facility] ER. By time got there was out. She went back home and was in and out of in. PAF lasts 10 min. She thinks she has not been in AF as much since Cardiazem. Seem to be more tolerable. On Talz ( ixekizumab for psoriasis ) CLINICAL VISITS: 03/18/24: BP 110/80 Pulse 65 Ht 160 cm (5' 3) Wt 79 kg (174 lb 2.6 oz) BMI 30.85 kg/m? On Flecainide 100 mg po bid , Dilacor 120-> 180 mg daily with some improvement over summer x 3 months More recently, particularly this month, has been having frequent AF and this has bernabe documented on [employer]. SPECT stress August 2023 was normal . No structural heart assessment since 2016 ( nl LV fxn and mild LAE at that time) Plan: - Start Eliquis 5 mg twice daily. - Repeat ECHO - Referral to Adilene López MD for PVI for PAF unresponsive to Medical therapy (Flecainide) - You are an excellent candidate for this procedure 09/11/23:BP 152/102 Pulse 66 Ht 160 cm (5' 3) Wt 78.6 kg (173 lb 3.2 oz) BMI 30.68 kg/m? ECG: NSR Lost 20 lbs. Prior sleep study negative for ILEANA . More AF now. No heart rhythm monitoring. Was doing well x 2 years ( 4 episode) and since March started having more AF. (56 episodes). HR 139 most of the day in April , but having more episodes that feels like AF> racing out of control and chest feels tight and throat heavy. SPECT 2016 normal Plan: - Buy Kardia mobile to monitor and document frequency of AF - Repeat Exercise nuclear stress test due to chest pressure during episodes of recurrent Atrial fib - Call [facility] to schedule - Consideration of referral for PVI ablation based on frequency of Atrial fibrillation - follow up in 6 months 08/10/22:BP 124/70 Pulse 65 Ht 160 cm (5' 3) Wt 87.1 kg (192 lb) BMI 34.01 kg/m? Since November had 3 AF episodes 5 min- 2 hours. No ER evaluations. Still working to try to lose weight. Bought a treadmill. 3 mph treadmill, 1.5%. Exercising intermittently at [employer]. 20 min with a goal of 150 min a week. - Same meds - Labs to check kidney function - Fasting lipids - Follow up in 12 month 07/23/21: BP 126/74Pulse 72 Resp 14 Ht 160 cm (5' 3) Wt 88.9 kg (196 lb) BMI 34.72 kg/m? .Started Tremfya for Psorias. Talz caused weird infections UTIs . And eye infections and leg abscesses.,At last visit tested negative for COVID after losing sense of sense of smell whch has hasn't fully returned. Remains on Flecainide 100 mg po bid since June, and Diltiazem 120 mg daily for PAF. ECG today : NSR, QTC 438. 01/21/21:BP 127/85 Pulse 70 . Virtual Visit Had Covid booster and didn't feel well enough to come in. Fever 102 Thursday and Thursday And Thursday. Feels poorly since receiving vaccine afternoon. Today with bad vertigo. No loss of sense of taste or smell. Testing for Covid recommended. Remains on Flecainide 100 mg po bid since June, and Diltiazem 120 mg daily for PAF. Only has had 3 small AF episodes 10 -60 min. May be started on Tremfya for Psoriasis On Talz (ixekizumab) for psoriasis. Multiple infections 3 abscesses, eye infection, UTI. Weight stable at 181 lbs. No drup interactions notes with Tremfya Plan: Follow up in 6 month s No interaction between Tremfya and Flecainide Continued efforts of exercise and weight loss. 07/23/20: Back to work (on 3 episodes in 2019) Since returning to work since March has had 7 episodes . A couple off and on all day. Milder than before. Remains on Flecainide 100 mg po bid x 5 years since June 2016. Sometime will take an extra for PAF . We discussed referral for ablation and she wishes To continue symptoms overall better since starting Flecainid (more content not included)... Normal [facility] CNPNon 03-18-2024 CNPN Telephone (Integrated biometricsSHL) YOKASTA MORENO ([id number]) 1960 F Date Time Provider Department 03/18/24 ADILENE LÓPEZ CEPSHL During your visit today, we recorded the following information about you: Wilber Frances 03/18/2024 4:06 PM Signed Called and spoke with patient to schedule appt per basket message. Team, let's get Ms. Moreno on for a visit for AF management. Thanks Wilber Frances, PSS Allergies As of Date: 03/18/2024 Noted Allergy Reaction ADHESIVE TAPE (ROSINS) 03/13/2013 2 - Rash LATEX, NATURAL RUBBER 11/27/2010 2 - Rash SULFAMETHOXAZOLE-TRIME THOPRIM 11/27/2020 11 - Vomiting Comments: *ANTI-INFECTIVE AGENTS--MISC.* *ANTI-INFECTIVE AGENTS--MISC.* Date Reviewed: 03/18/2024 Reviewed by: Gilberto Mirza MA - Fully Assessed Reason for Visit: Appointment [[id number]] Prescriptions as of 03/18/2024 - flecainide (TAMBOCOR) 100 mg tablet Take 1 tablet by mouth every 12 hours. - apixaban (ELIQUIS) 5 mg tab(s) Take 1 tablet by mouth two times a day. - atorvastatin (LIPITOR) 20 mg tablet Take 1 tablet by mouth once daily. - dilTIAZem XR (DILACOR XR) 180 mg 24 hr capsule Take 1 capsule by mouth once daily. - guselkumab (TREMFYA) 100 mg/mL Inject 100 mL subcutaneously. Every other month - famotidine (PEPCID) 20 mg tablet once daily. - cholecalciferol, vitamin D3, 100 mcg (4,000 unit) cap Take 1 capsule by mouth once daily. - AVALIDE 300-12.5 mg ORAL per tablet Problem List As Of Date 03/18/2024 Noted Resolved Plantar fasciitis [M72.2] 11/27/2010 PAF (paroxysmal atrial fibrillation) (HCC) [I48*04/30/2016 Essential hypertension [I10] 07/05/2016 Vitamin D deficiency [E55.9] 11/23/2018 Stress [F43.9] 11/23/2018 Psoriasis [L40.9] 03/21/2019 Lumbar herniated disc [M51.26] 11/23/2018 Liver cyst [K76.89] 11/23/2018 Left hip pain [M25.552] 03/31/2018 High triglycerides [E78.1] 11/23/2018 Headache [R51.9] 01/11/2019 Goiter [E04.9] 01/11/2019 Gastroesophageal reflux disease [K21.9] 11/27/2020 Dyslipidemia [E78.5] 05/30/2019 Chronic interstitial cystitis [N30.10] 11/27/2020 Anosmia [R43.0] 01/11/2019 Encounter Status:Closed by WILBER FRANCES on 03/18/24 [facility] ([id number]) 1960 F Date Time Provider Department 03/18/24 PERLA HINTON During your visit today, we recorded the following information about you: Perla Hinton MD 03/18/2024 12:36 PM Signed [facility] [place] Agnieszka Choe Department of Cardiovascular Medicine At [facility] OUTPATIENT VISIT DATE March 18, 2024 OUTPATIENT VISIT TYPE Follow up HPI: Yokasta Moreno is a 63 yo PAF on Flecainide and Diltiazem. Hx of hyperlipidemia, not on treatment Intially evaluated 03/11/16 for palpitations. She was seen in 2009 for fluttering in throat happening for a couple of weeks and advised to go to ER. A 48 hour Holter Monitor Rx. Notes sx occasionally and PCP thought she might have esophageal spasm. No additional testing. Sees ENT for thyroid nodules. Nodules slightly increased. TSH wnl. yearly US recommended) Barium swallowing in January 2016. (Had monitor approximately 15-. PAF seen on 117 @ 220 bpm. 3 days after returning monitor had recurrent AF went to [facility] ER. By time got there was out. She went back home and was in and out of in. PAF lasts 10 min. She thinks she has not been in AF as much since Cardiazem. Seem to be more tolerable. On Talz ( ixekizumab for psoriasis ) CLINICAL VISITS: 03/18/24: BP 110/80 Pulse 65 Ht 160 cm (5' 3) Wt 79 kg (174 lb 2.6 oz) BMI 30.85 kg/m? On Flecainide 100 mg po bid , Dilacor 120-> 180 mg daily with some improvement over summer x 3 months More recently, particularly this month, has been having frequent AF and this has bernabe documented on [employer]. SPEcT stress August 2023 was normal . No structural heart assessment since 2016 ( nl LV fxn and mild LAE at that time) Plan: - Start Eliquis 5 mg twice daily. - Repeat ECHO - Referral to Adilene López MD for PVI for PAF unresponsive to Medical therapy (Flecainide) - You are an excellent candidate for this procedure. Perla Hinton MD Allergies As of Date: 03/18/2024 Noted Allergy Reaction ADHESIVE TAPE (ROSINS) 03/13/2013 2 - Rash LATEX, NATURAL RUBBER 11/27/2010 2 - Rash SULFAMETHOXAZOLE-TRIME THOPRIM 11/27/2020 11 - Vomiting Comments: *ANTI-INFECTIVE AGENTS--MISC.* *ANTI-INFECTIVE AGENTS--MISC.* Date Reviewed: 03/18/2024 Reviewed by: Gilberto Mirza MA - Fully Assessed Reason for Visit: Appointment [[id number]] Cmt: For PVI Primary Visit Diagnosis:PAF (paroxysmal atrial fibrillation) ([facility]) [I48.0] Order(s):CONSULT TO ELECTROPHYSIOLOGY [[id number]] Order #: [id number]: 1 FUTURE Prescriptions as of 03/18/2024 - flecainide (TAMBOCOR) 100 mg tablet Take 1 tablet by mouth every 12 hours. - atorvastatin (LIPITOR) 20 mg tablet Take 1 tablet by mouth once daily. - dilTIAZem XR (DILACOR XR) 180 mg 24 hr capsule Take 1 capsule by mouth once daily. - guselkumab (TREMFYA) 100 mg/mL Inject 100 mL subcutaneously. Every other month - famotidine (PEPCID) 20 mg tablet once daily. - cholecalciferol, vitamin D3, 100 mcg (4,000 unit) cap Take 1 capsule by mouth once daily. - AVALIDE 300-12.5 mg ORAL per tablet Problem List As Of Date 03/18/2024 Noted Resolved Plantar fasciitis [M72.2] 11/27/2010 PAF (paroxysmal atrial fibrillation) ([facility]) [I48*04/30/2016 Essential hypertension [I10] 07/05/2016 Vitamin D deficiency [E55.9] 11/23/2018 Stress [F43.9] 11/23/2018 Psoriasis [L40.9] 03/21/2019 Lumbar herniated disc [M51.26] 11/23/2018 Liver cyst [K76.89] 11/23/2018 Left hip pain [M25.552] 03/31/2018 High triglycerides [E78.1] 11/23/2018 Headache [R51.9] 01/11/2019 Goiter [E04.9] 01/11/2019 Gastroesophageal reflux disease [K21.9] 11/27/2020 Dyslipidemia [E78.5] 05/30/2019 Chronic interstitial cystitis [N30.10] 11/27/2020 Anosmia [R43.0] 01/11/2019 Encounter Status:Closed by PERLA HINTON on 03/18/24 Normal [facility] ECG COMPLETEon 03-18-2024 ECG COMPLETE Ventricular Rate : 6 5 BPM Atrial Rate : 65 BPM P-R Interval : 166 ms QRS Duration : 118 ms Q-T Interval : 426 ms QTC Calculation(Bazett) : 443 ms Calculated P [place] : 15 degrees Calculated R [place] : 9 degrees Calculated T [place] : 68 degrees NORMAL SINUS RHYTHM NONSPECIFIC INTRAVENTRICULAR CONDUCTION DELAY MINIMAL VOLTAGE CRITERIA FOR LVH, MAY BE NORMAL VARIANT ( Nayan product ) NONSPECIFIC T WAVE ABNORMALITY ABNORMAL ECG Confirmed by PERLA HINTON M.D. ([id number]), assistant production editor GILBERTO MIRZA ([id number]) on 03/21/2024 8:03:02 AM NAME : FAHEEM JACINTOY PID : [id number] : 1960 Gender : Female Race : ORD : [id number] Procedure Date : Mar 18 2024 11:26:38 Edit Date : Mar 21 2024 08:03:05 Diagnosis: NORMAL SINUS RHYTHM NONSPECIFIC INTRAVENTRICULAR CONDUCTION DELAY MINIMAL VOLTAGE CRITERIA FOR LVH, MAY BE NORMAL VARIANT ( Nayan product ) NONSPECIFIC T WAVE ABNORMALITY ABNORMAL ECG Confirmed by PERLA HINTON M.D. ([id number]), assistant production editor GILBERTO MIRZA ([id number]) on 03/21/2024 8:03:02 AM Test Reason : I48.0 Paroxysmal atrial fibrillation (HCC) Location : 503 : [facility] Overread By : PERLA HINTON M.D. Edited By : GILBERTO MIRZA Referred By : , Acquired by : Yasmine thomas [facility] Jordy 12-29-2023 CNPN Telephone (CARDBD) YOKASTA MORENO ([id number]) 1960 F Date Time Provider Department 12/29/23 PERLA HINTON CARDLAWSON During your visit today, we recorded the following information about you: Mitesh Nelson RN 12/29/2023 3:22 PM Signed [facility] vaccine updates received via fax. Updated in the pt's chart and sent for scanning Mitesh Nelson RN Allergies As of Date: 12/29/2023 Noted Allergy Reaction ADHESIVE TAPE (ROSINS) 03/13/2013 2 - Rash LATEX, NATURAL RUBBER 11/27/2010 2 - Rash SULFAMETHOXAZOLE-TRIME THOPRIM 11/27/2020 11 - Vomiting Comments: *ANTI-INFECTIVE AGENTS--MISC.* *ANTI-INFECTIVE AGENTS--MISC.* Date Reviewed: 11/15/2023 Reviewed by: Margareth Jara, RN - Fully Assessed Prescriptions as of 12/29/2023 - atorvastatin (LIPITOR) 20 mg tablet Take 1 tablet by mouth once daily. - dilTIAZem XR (DILACOR XR) 180 mg 24 hr capsule Take 1 capsule by mouth once daily. - flecainide (TAMBOCOR) 100 mg tablet take 1 tablet by mouth every 12 hours - guselkumab (TREMFYA) 100 mg/mL Inject 100 mL subcutaneously. Every other month - famotidine (PEPCID) 20 mg tablet famotidine 20 mg tablet TAKE 1 TABLET ORALLY TWICE PER DAY FOR 30 DAYS - cholecalciferol, vitamin D3, 100 mcg (4,000 unit) cap Take 1 capsule by mouth once daily. - aspirin, enteric coated (ECOTRIN LOW STRENGTH) 81 mg EC tablet Take 1 tablet by mouth once daily. Take 4 tablets (324 mg the first day - AVALIDE 300-12.5 mg ORAL per tablet Problem List As Of Date 12/29/2023 Noted Resolved Plantar fasciitis [M72.2] 11/27/2010 PAF (paroxysmal atrial fibrillation) (HCC) [I48*04/30/2016 Essential hypertension [I10] 07/05/2016 Vitamin D deficiency [E55.9] 11/23/2018 Stress [F43.9] 11/23/2018 Psoriasis [L40.9] 03/21/2019 Lumbar herniated disc [M51.26] 11/23/2018 Liver cyst [K76.89] 11/23/2018 Left hip pain [M25.552] 03/31/2018 High triglycerides [E78.1] 11/23/2018 Headache [R51.9] 01/11/2019 Goiter [E04.9] 01/11/2019 Gastroesophageal reflux disease [K21.9] 11/27/2020 Dyslipidemia [E78.5] 05/30/2019 Chronic interstitial cystitis [N30.10] 11/27/2020 Anosmia [R43.0] 01/11/2019 Encounter Status:Closed by MITESH NELSON RN on 12/29/23 [facility] ENT Physician Progress N dhaval 11-29-2023 [facility] ENT Physician Progress Note YOKASTA MORENO :1960 Registration Date:11/27/2023 Chief Complaint patient presents for folllow up on epistaxis/ nasal fracture History of Present Illness Yokasta presents today for evaluation of her nose. She was previously seen by Dr. Goss on November 16. She had nasal injury on November 14. Dr. Goss explained that she had a nasal fracture. She returns today as she developed severe epistaxis on November 24. She had epistaxis on the left side of her nose. She explains this took about 90 minutes for her to to get under control. She had 1 other minor episode of epistaxis a few days prior to this. She has been using nasal saline spray few times a day. She used Afrin when she was having severe epistaxis. She continues to have frontal headaches and nasal tenderness. She denies any concerns with ears or throat today. Physical Exam Vitals & Measurements Systolic Blood Pressure: 140 mmHg (11/27/23 12:42:00) Diastolic Blood Pressure: 82 mmHg (11/27/23 12:42:00) Peripheral Pulse Rate: 64 bpm (11/27/23 12:42:00) Mean Arterial Pressure: 101 mmHg (11/27/23 12:42:00) BP Site2: Left arm (11/27/23 12:42:00) Height/Length Measured: 160 cm (11/27/23 12:42:00) Weight Measured: 83 kg (11/27/23 12:42:00) Body Mass Index Measured: 32.42 kg/m2 (11/27/23 12:42:00) Weight Measured - lbs2: 183 lb (11/27/23 12:42:00) Height/Length Measured - in2: 62.99 in (11/27/23 12:42:00) Body Mass Index Measured English2: 32.42 kg/m2 (11/27/23 12:42:00) BSA: 1.92 m2 (11/27/23 12:42:00) Ht/Wt Measurement Refused by Patient?2: No (11/27/23 12:42:00) Depression Screening Scores Initial Depression Screen Score: 0 (11/27/23 12:42:00) Fall Risk Assessment Is the patient ambulatory (mobile): Yes (11/27/23 12:42:00) Have you had a fall within the past: No (11/27/23 12:42:00) Have you had 2 or more falls in the past: No (11/27/23 12:42:00) Today's vital signs are reviewed and are within normal limits. The patient appears to be presented age without any obvious deformities. The external ears appear normal with no swelling, erythema, or lesions. The pinna and tragus are nontender to palpation. The ear is examined with hand-held otoscope. The ear canals are free from cerumen, debris, or discharge. Tympanic membrane is intact bilaterally. There is no fluid present in the middle ear space. There are no obvious deformities noted to the external nose. The nasal mucosa is pink and moist and the inferior nasal turbinates appear normal. There is no drainage or polyposis present in the nasal cavity. The nasal septum is basically midline. Oral mucosa is intact, pink and moist. The tongue appears normal in appearance and free of lesions. The tongue and soft palate are mobile. No lesions or masses present in the buccal mucosa. The pharynx appears normal without tonsillar edema or exudates. The neck appears symmetrical. Tracheal position is midline. There are no palpable masses, adenopathy, or lesions in the neck. There is no discoloration or lesion present on the skin of the neck. Neck is nontender. No palpable thyroid enlargement or masses. In order to complete the exam, I have elected to proceed with flexible laryngoscopy. I have anesthetized the nose with 4% lidocaine with saniya-synephrine. The scope was inserted through the left nares. I examined the following areas: Nasal cavity, hypopharynx, base of tongue, vallecula, epiglottis, aryepiglottic folds, arytenoid cartilage, false vocal cords, true vocal cords. There are no masses or legions present in the nasopharynx, oropharynx, or laryngopharynx. Pertinent findings include small streaks of dried blood in the posterior nasopharynx with no obvious sources of active bleeding.. The scope is removed. The patient tolerated the procedure well. Medication Reconciliation What How Much When Instructions Unchanged aspirin (Aspir 81) Oral DAILY Unchanged atorvastatin (atorvastatin 20 mg oral tablet) Unchanged dilTIAZem (dilTIAZem 120 mg/ 24 hours oral capsule, extended release) 1 Capsules Oral DAILY Unchanged flecainide = Tambocor (flecainide 50 mg oral tablet) 1 Tabs Oral EVERY TWELVE HOURS Unchanged guselkumab (Tremfya 100 mg/ mL subcutaneous solution) 1 mL Unchanged hydrochlorothiazide-ir besartan (hydrochlorothiazide-i rbesartan 12.5 mg-300 mg oral tablet) 1 Tabs Oral DAILY Assessment/Plan This Visit Diagnosis 1. Epistaxis R04.0 I reassured the flexible laryngoscopy does not reveal any sources of active bleeding. I explained can be common for scabbing on the nose to fall off after about a week or 2 and patients experience epistaxis. Due to having an episode of severe epistaxis following a nasal fracture I encouraged her to contact us right away if this occurs again. Continue use of nasal saline. Use Afrin for first-aid of epistaxis. Otherwise follow-up as needed. Ordered: AMB Laryngoscopy, flexible fiberoptic; diag [id number], 11/27/2023 13:33:00 EDT, Epistaxis, 1 AMB Office/O (more content not included)... Normal [facility] Comprehensive Intake - Texto n 11-27-2023 Comprehensive Intake - Text Comprehensive Intake Entered On: 11/27/2023 12:43 EDT Performed On: 11/27/2023 12:42 EDT by Susu Abdi Summary Chief Complaint : patient presents for folllow up on epistaxis/ nasal fracture Susu Abdi - 11/27/2023 12:58 EDT Advance Directive : Yes Bladder Control Issues? : No Urine Leakage? : No Presence or absence of urinary incontinence assessed : Yes CPT-II Medication list doc'd in medical record : Yes Influenza immunization administered or previously received : No Pneumococcal vaccine administered or previously received : No Susu Abdi - 11/27/2023 12:42 EDT Measurements Ht/Wt Measurement Refused by Patient? : No Weight Measured : 83 kg(Converted to: 183 lb 0 oz, 182.984 lb) Height/Length Measured : 160 cm(Converted to: 5 ft 3 in, 62.99 in) Body Mass Index Measured : 32.42 kg/m2 Body Mass Index documented : Yes Weight Measured - lbs : 183 lb(Converted to: 183 lb 0 oz, 83 kg) Height/Length Measured - in : 62.99 in(Converted to: 5 ft 3 in, 160 cm) Body Mass Index Measured Armenian : 32.42 kg/m2 BSA Armenian : 1.92 m2 Susu Abdi 11/27/2023 12:42 EDT Vitals Systolic Blood Pressure : 140 mmHg Diastolic Blood Pressure : 82 mmHg Mean Arterial Pressure : 101 mmHg Pulse Rate : 64 bpm BP Site : Left arm Last Systolic BP : greater than or equal to 140 mmHg Last Diastolic BP : 80-89 mmHg Require BP : Yes Susu Abdi 11/27/2023 12:58 EDT Pain Present : No actual or suspected pain Pain : 0 Pain severity quantified : No pain present Susu Abdi 11/27/2023 12:42 EDT Infection Screening Travel outside [place] within past 21 days : No Close Contact with a person with TB : No Have you been diagnosed with TB : No Have you ever been treated for TB : No Positive COVID test in the last 10 days? : No Exposure to and/or close contact with a person who has a laboratory-confirmed COVID test within the last 48 hours. : No Coronavirus New Symptoms w/o Cause : No Susu Abdi 11/27/2023 12:42 EDT Depression Screening Is patient currently : None of the Below Feeling Down, Depressed, Hopeless : Not at all Little Interest - Pleasure in Activities : Not at all Initial Depression Screen Score : 0 Depression Screening Score 0 : No Susu Abdi 11/27/2023 12:42 EDT Falls Risk Assessment Is the patient ambulatory (mobile) : Yes Have you had 2 or more falls in the past year : No Have you had a fall within the past year that has caused an injury : No Patient screen for fall risk : no falls in last year OR 1 fall with no injury in last year Susu Abdi 11/27/2023 12:42 EDT Normal [facility] Phone [place] 11-27-2023 Phone Msg - From: Susu Abdi To: JJ WADSWORTH, EDUARDO; WALLACE BHAT CNP; Cc: NAV WADSWORTH, ROM; Sent: 11/26/2023 16:12:24 EDT Subject: pt concern Caller Name: YOKASTA MORENO; Caller Number: H pt called seen Dr Goss on 11/17/23 for nasal fracture and epistaxis pt states she had to go to ER last night because nose bleed wouldn't stop. bleeding did stop after about an hour in a half, no packing was used but was advised to call ENT to update please advise ok to l/m [phone] From: WALLACE BHAT CNP To: Susu Abdi; Sent: 11/26/2023 17:01:56 EDT Subject: RE: pt concern Caller Name: YOKASTA MORENO; Caller Number: H Double book 1 PM Thursday. Hard to provide recommendations without an exam. l/m for pt to call office to confirm she can come in for apt Normal [facility] ED Provider Noteson 11-25-19 Telecommunications Officer Authentication Interface Message Text EMERGENCY DEPARTMENT - VISIT NOTE -------- HISTORY OF PRESENT ILLNESS ---- Chief Complaint Patient presents with Nose bleed Nose bleeding x this afternoon, broken nose x 1 week; active bleeding at triage Railroad Watchman: not needed - patient preferred language is Armenian. Nose bleed This is a 63 year old female, non smoker, with a past medical history of hypertension presenting to the ED today with a chief complaint of epistaxis. Patient reports mechanical fall on 11/14 striking her face and injuring her nose. She reports associated epistaxis at time of injury. Reports she was seen and evaluated at [facility] ED on 11/14 where she had negative CT scans of head, c spine and facial bones. Left nare was packed due to epistaxis and patient was discharged home. She reports she followed up with ENT on 11/16 and was told she had a nondisplaced nasal bone fracture and packing was removed. Patient reports an episode of left sided epistaxis yesterday for a few minutes which then resolved with direct pressure. Patient was driving home around 5 PM and began having left sided epistaxis again, and has not been able to control the bleeding which prompted her visit to the ED. No new trauma or injury. No blood thinner use. Reports mild nasal bridge pain present since initial fall on 11/14. No headache pain. No lightheadedness. No chest pain or difficulty breathing. Reports mild post nasal drip of blood causing mild nausea. No abdominal pain. No history of bleeding disorders. Reports she is complaint with her home antihypertensive regiment, but is feeling anxious currently due to epistaxis. Patient alert and oriented. Non toxic appearing and in no distress. No other complaints. REVIEW OF SYSTEMS Review of Systems HENT: Positive for nosebleeds. As per HPI PAST HISTORY Pertinent Past History: No past medical history on file. There is no problem list on file for this patient. Pertinent Social History: PHYSICAL EXAM BP (!) 194/117 Pulse 93 Temp 98.4 ???F (36.9 ???C) (Oral) Resp 18 Wt 180 lb (81.6 kg) SpO2 95% Physical Exam Vitals and nursing note reviewed. Constitutional: Appearance: Normal appearance. She is not ill-appearing. HENT: Head: Normocephalic and atraumatic. Right Ear: External ear normal. Left Ear: External ear normal. Nose: Nasal tenderness present. No nasal deformity, septal deviation or laceration. Right Nostril: No epistaxis, septal hematoma or occlusion. Left Nostril: Epistaxis present. No septal hematoma or occlusion. Comments: Mild tenderness to nasal bridge without deformity. Mild epistaxis to left naris. No septal hematoma bilaterally. No visible bleeding vessels. Mouth/Throat: Mouth: Mucous membranes are moist. Eyes: Conjunctiva/sclera: Conjunctivae normal. Cardiovascular: Rate and Rhythm: Normal rate and regular rhythm. Pulses: Normal pulses. Heart sounds: Normal heart sounds. Pulmonary: Effort: Pulmonary effort is normal. Breath sounds: Normal breath sounds. Abdominal: General: Abdomen is flat. Musculoskeletal: Cervical back: Neck supple. Skin: General: Skin is warm and dry. Capillary Refill: Capillary refill takes less than 2 seconds. Neurological: Mental Status: She is alert and oriented to person, place, and time. Psychiatric: Mood and Affect: Mood normal. Behavior: Behavior normal. MEDICAL DECISION MAKING and ED COURSE Nursing triage and assessment notes reviewed and incorporated. Review of External (Non- ED) Notes: Imaging from 11/15/[address] head, C spine and facial bones with no acute intracranial process, cervical spine fracture or acute nasal bone fracture. Management Decisions: Diagnoses considered include anterior epistaxis, posterior epistaxis, uncontrolled hypertension. Secondary Considerations / Diagnoses Addressed During this Visit: Elevated blood pressure assessed and patient with history of hypertension. Complaint with home antihypertensives. Suspect elevated blood pressure secondary to acute anxiety from epistaxis. Patient will monitor blood pressure at home and follow up with PCP. Independent Test Interpretation: See ED course. Patient seen and evaluated in conjunction with attending physician Dr. Louise. Course: ED Course as of 11/26/23236Nov 25, 2023 1800 BP(!): 194/117 Hypertensive [TJ] 1800 Temperature: 98.4 ???F (36.9 ???C) Afebrile [TJ] 1800 Heart Rate: 93 Within normal limit [TJ] 1800 Respiratory Rate: 18 Within normal limit [TJ] 1801 SpO2: 95 % No hypoxia [TJ] 1801 O2 Device: Room air [TJ] 1801 Weight: 180 lb (81. (more content not included)... Normal [facility] Phone [place] 11-24-2023 Phone Msg - From: NELL WADSWORTH-MONIE HUTCHISON To: Arash Hadley MA; Sent: 11/23/2023 15:27:33 EDT Caller Name: YOKASTA MORENO; Caller Number: H Please let patient know that rib x-ray does not show any fracture Results: Date Result Type Result Name 11/20/2023 16:02 Radiology [facility] called and left message for patient to contact office for results. called and left message for patient to contact office for results. patient called back and was notified of results Normal [facility] AMB IM Physician Progress No horacio 11-20-2023 AMB IM Physician Progress Note YOKASTA MORENO :1960 Registration Date:11/20/2023 Chief Complaint patient states here for an [facility] ER follow up from 11/15/23. fell on sidewalk broke nose History of Present Illness Patient is here today for ER f/u - she was [facility] where she tripped over and fell - she was taken to [facility] - ct brrain neg- She had nondisplaced nasal fracture - she had nasal packing for epistaxis which is better now - was seen by ENT she has pain in right ribs - difficulty taking deep breath - taking aleeve or tylenol for pain but not helping much Blood pressure is controlled on medications Reviewed records from outside records from recent ER visit Physical Exam Vitals & Measurements Systolic Blood Pressure: 120 mmHg (11/20/23 11:34:00) Diastolic Blood Pressure: 70 mmHg (11/20/23 11:34:00) Temperature Tympanic (F): 98.6 degF (11/20/23::00) SpO2: 95 % (11/20/23:34:) Peripheral Pulse Rate: 65 bpm (11/20/23::) Mean Arterial Pressure: 87 mmHg (11/20/23:34:00) Height/Length Measured: 160 cm (11/20/23:34:00) Weight Measured: 83 kg (11/20/23::) Body Mass Index Measured: 32.42 kg/m2 (11/20/23:34:) Weight Measured - lbs2: 182 lb (11/20/23::) Ht/Wt Measurement Refused by Patient?2: No (11/20/23::) Depression Screening Scores Initial Depression Screen Score: 0 (11/20/23::) Fall Risk Assessment Is the patient ambulatory (mobile): Yes (11/20/23::) Have you had a fall within the past: Yes (11/20/23::) Have you had 2 or more falls in the past: No (11/20/23:) General: No acute distress. Bruising around the eyes Respiratory: Lungs are clear to auscultation, Respirations are non-labored. Cardiovascular: Normal rate, Regular rhythm Musculoskeletal: Tenderness right lower lateral ribs. Medication Reconciliation What How Much When Instructions Unchanged aspirin (Aspir 81) Oral DAILY Unchanged atorvastatin (atorvastatin 20 mg oral tablet) Unchanged dilTIAZem (dilTIAZem 120 mg/ 24 hours oral capsule, extended release) 1 Capsules Oral DAILY Unchanged flecainide = Tambocor (flecainide 50 mg oral tablet) 1 Tabs Oral EVERY TWELVE HOURS Unchanged guselkumab (Tremfya 100 mg/ mL subcutaneous solution) 1 mL Unchanged hydrochlorothiazide-ir besartan (hydrochlorothiazide-i rbesartan 12.5 mg-300 mg oral tablet) 1 Tabs Oral DAILY Assessment/Plan This Visit Diagnosis 1. Rib pain on right side R07.81 Will obtain x-ray of the right ribs Discussed about incentive spirometer and may be possible tramadol if pain does not improve with Tylenol or NSAIDs 2. History of recent fall Z91.81 Patient is doing better except her rib pain on the right side 3. Bruising T14.8XXA Bruising is improving slowly Orders: XR [facility]BS UNILATERAL, 11/20/2023 12:37:00 EDT, Routine, INJURY, Cart, Isolation Precautions: NONE Problem List/Past Medical History Ongoing A-fib Dyslipidemia Dysphagia Epistaxis Family history of thyroid cancer Fatigue Goiter Nasal fracture Psoriasis Thyroid nodule Procedure/Surgical History Colonoscopy.: 07/23/23 Colonoscopy.: 07/29/19 Biopsy Thyroid.: 06/27/19 Surgery for Interstitial Cystitis Medications aspirin(Aspir 81), ORAL, DAILY atorvastatin(atorvasta tin 20 mg oral tablet) dilTIAZem(dilTIAZem 120 mg/24 hours oral capsule, extended release), 120 mg= 1 caps, ORAL, DAILY flecainide = Tambocor(flecainide 50 mg oral tablet), 50 mg= 1 tabs, ORAL, [id number] guselkumab(Tremfya 100 mg/mL subcutaneous solution) hydrochlorothiazide-ir besartan(hydrochloroth iazide-irbesartan 12.5 mg-300 mg oral tablet), 1 tabs, ORAL, DAILY, 2 refills Allergies Bactrim Vomiting LATEX allergy EYE SWELLING, HIVES, BLISTERING OF SKIN Tape allergy Social History Alcohol - Denies Alcohol Use Substance Abuse - Denies Substance Abuse Tobacco - Denies Tobacco Use Use:Never (less than 100 in lifetime) Family History Health Status Family Member(s) Immunizations Vaccine Date Status influenza virus vaccine, inactivated 02/03/2023 Recorded influenza virus vaccine, inactivated 01/29/2022 Recorded SARS-CoV-2 (COVID-19, MODERNA) mRNA-1273 06/11/2021 Recorded Comments : 2021-11-12: TPV20 SARS-CoV-2 (COVID-19, MODERNA) mRNA-1273 01/17/2021 Recorded Comments : 2021-11-12: TPV20 SARS-CoV-2 (COVID-19, MODERNA) mRNA-1273 04/07/2020 Recorded Comments : 2020-08-31: TPV20 SARS-CoV-2 (COVID-19, MODERNA) mRNA-1273 03/09/2020 Recorded Comments : 2020-08-31: TPV20, FUNDING SOURCE CHANGED TO JOHNSON influenza virus vaccine, inactivated 11/23/2018 Given influenza virus vaccine, inactivated 01/17/2015 Given Care Team Primary Care Physician MONIE CHANEL [phone] Attending Physician MONIE CHANEL [phone] . Health Maintenance Pending (in the next year) Due Tetanus Vaccine due 11/19 (more content not included)... Normal [facility] Ambulatory Clinical Summaryo n 11-20-2023 Ambulatory Clinical Summary YOKASTA MORENO :1960 Registration Date:11/20/2023 Ambulatory Visit Instructions Your Care Team Attending Physician MONIE MAYS Primary Care Physician - MONIE CHANEL Procedures Performed Colonoscopy. (07/23/2023) Colonoscopy. (07/29/2019) Biopsy Thyroid. (06/27/2019) Surgery for Interstitial Cystitis Discharge Vitals Temperature (Tympanic) 98.6 DEGF Heart Rate (Peripheral) 65 Blood Pressure 120/70 Height 62.99 in (160 cm) Weight 183.02 lb (83 kg) BMI 32.42 Systolic Blood Pressure: 120 mmHg (11/20/23 11:34:00) Diastolic Blood Pressure: 70 mmHg (11/20/23 11:34:00) Temperature Tympanic (F): 98.6 degF (11/20/23 11:34:00) SpO2: 95 % (11/20/23 11:34:00) Peripheral Pulse Rate: 65 bpm (11/20/23 11:34:00) Mean Arterial Pressure: 87 mmHg (11/20/23 11:34:00) Height/Length Measured: 160 cm (11/20/23 11:34:00) Weight Measured: 83 kg (11/20/23 11:34:00) Body Mass Index Measured: 32.42 kg/m2 (11/20/23 11:34:00) Weight Measured - lbs2: 182 lb (11/20/23 11:34:00) Ht/Wt Measurement Refused by Patient?2: No (11/20/23 11:34:00) What to do next Scheduled Follow-Up Appointments Appointment Type Reason for visit Day With Date Time Where [facility] Office Visit 6 month follow up Thursday Monie Camejo MD April 15, 2024 11:10 am EDT [facility] [address] [facility] [address] [facility] [phone] ZIP:[id number] You Need to Schedule the Following Appointments XR RIBS UNI W CHEST, 11/20/2023, Routine, TRAUMA, Cart, Isolation Precautions: NONE, Rib pain on right side Medications What How Much When Instructions Unchanged aspirin (Aspir 81) Oral DAILY Unchanged atorvastatin (atorvastatin 20 mg oral tablet) Unchanged dilTIAZem (dilTIAZem 120 mg/ 24 hours oral capsule, extended release) 1 Capsules Oral DAILY Unchanged flecainide = Tambocor (flecainide 50 mg oral tablet) 1 Tabs Oral EVERY TWELVE HOURS Unchanged guselkumab (Tremfya 100 mg/ mL subcutaneous solution) 1 mL Unchanged hydrochlorothiazide-ir besartan (hydrochlorothiazide-i rbesartan 12.5 mg-300 mg oral tablet) 1 Tabs Oral DAILY Allergies Bactrim Vomiting LATEX allergy EYE SWELLING, HIVES, BLISTERING OF SKIN Tape allergy Problems Ongoing - Any problem that you are currently receiving treatment for. A-fib Dyslipidemia Dysphagia Epistaxis Family history of thyroid cancer Fatigue Goiter Nasal fracture Psoriasis Thyroid nodule Common Emergency Awareness Tips IS IT A STROKE? Act FAST and Check for these signs: FACE Does the face look uneven? ARM Does one arm drift down? SPEECH Does their speech sound strange? TIME Call at any sign of stroke Heart Attack Signs Chest discomfort: Most heart attacks involve discomfort in the center of the chest and lasts more than a few minutes, or goes away and comes back. It can feel like uncomfortable pressure, squeezing, fullness or pain. Discomfort in upper body: Symptoms can include pain or discomfort in one or both arms, back, neck, jaw or stomach. Shortness of breath: With or without discomfort. Other signs: Breaking out in a cold sweat, nausea, or lightheaded. Remember, MINUTES DO MATTER. If you experience any of these heart attack warning signs, call to get immediate medical attention! [facility] Comprehensive Intake - Texto n 11-20-2023 Comprehensive Intake - Text Comprehensive Intake Entered On: 11/20/2023 11:39 EDT Performed On: 11/20/2023 11:34 EDT by Arash Hadley MA Summary Chief Complaint : patient states here for an [facility] follow up from 11/15/23. fell on sidewalk broke nose Advance Directive : Yes Bladder Control Issues? : No Urine Leakage? : Yes Presence or absence of urinary incontinence assessed : Yes CPT-II Medication list doc'd in medical record : Yes Influenza immunization administered or previously received : Yes Pneumococcal vaccine administered or previously received : No Arash Hadley MA - 11/20/2023 11:34 EDT Measurements Ht/Wt Measurement Refused by Patient? : No Weight Measured : 83 kg(Converted to: 183 lb 0 oz, 182.984 lb) Height/Length Measured : 160 cm(Converted to: 5 ft 3 in, 62.99 in) Body Mass Index Measured : 32.42 kg/m2 Body Mass Index documented : Yes Weight Measured - lbs : 182 lb(Converted to: 182 lb 0 oz, 83 kg) Arash Hadley MA - 11/20/2023 11:34 EDT Vitals Require BP : Yes Systolic Blood Pressure : 120 mmHg Diastolic Blood Pressure : 70 mmHg Mean Arterial Pressure : 87 mmHg Pulse Rate : 65 bpm Last Systolic BP : less than 130 mmHg Last Diastolic BP : less than 80 mmHg Temperature Tympanic (F) : 98.6 degF(Converted to: 37 degC) SpO2 : 95 % Pain Present : No actual or suspected pain Pain : 4 Pain severity quantified : No pain present Arash Hadley MA - 11/20/2023 11:34 EDT Infection Screening Travel outside US within past 21 days : No Positive COVID test in the last 10 days? : No Exposure to and/or close contact with a person who has a laboratory-confirmed COVID test within the last 48 hours. : No Coronavirus New Symptoms w/o Cause : No Arash Hadley MA - 11/20/2023 11:34 EDT Depression Screening Is patient currently : None of the Below Feeling Down, Depressed, Hopeless : Not at all Little Interest - Pleasure in Activities : Not at all Initial Depression Screen Score : 0 Depression Screening Score 0 : No Arash Hadley MA - 11/20/2023 11:34 EDT Family History Family History (As Of: 11/20/2023 11:39:16 EDT) Social History Social History (As Of: 11/20/2023 11:39:16 EDT) Alcohol: Denies Alcohol Use (Last Updated: 03/08/2019 14:07:06 EST by Michelle Lancaster ) Tobacco: Denies Tobacco Use Never (less than 100 in lifetime) Tobacco Use:. (Last Updated: 03/31/2018 14:21:51 EST by Madyson Chang MA) Never (less than 100 in lifetime) Tobacco Use:. (Last Updated: 10/17/2022 10:22:51 EDT by Arash Hadley MA) Never (less than 100 in lifetime) Tobacco Use:. (Last Updated: 04/12/2020 11:15:49 EST by Naty Martinez) Never (less than 100 in lifetime) Tobacco Use:. (Last Updated: 07/14/2023 14:04:02 EDT by Naty Martinez) Never (less than 100 in lifetime) Tobacco Use:. (Last Updated: 11/17/2023 09:54:00 EDT by Naty Martinez) Substance Abuse: Denies Substance Abuse (Last Updated: 03/08/2019 14:07:19 EST by Michelle Lancaster ) Falls Risk Assessment Is the patient ambulatory (mobile) : Yes Have you had 2 or more falls in the past year : No Have you had a fall within the past year that has caused an injury : Yes Patient screen for fall risk : no falls in last year OR 1 fall with no injury in last year Arash Hadley MA - 11/20/2023 11:34 EDT [facility] XR RIBS UNILATERALon 024 XR RIBS UNILATERAL 2 x-ray views the right ribs with one extra view of the chest CLINICAL STATEMENT: INJURY. TECHNOLOGIST NOTES: WHAT SYMPTOMS ARE YOU EXPERIENCING?; RT SIDE RIB PAIN AFTER FALL 1 WEEK AGO COMPARISON: None FINDINGS: The cardiomediastinal silhouette is normal. No focal consolidation, pleural effusion, vascular congestion, or pneumothorax. Mild eventration the left hemidiaphragm. No visible acute displaced right rib fracture. IMPRESSION: No visible acute displaced right fracture. Electronically signed by: Gaurav Cordova MD 11/20/2023 04:00 PM EDT Technologist: Dictated By: GAURAV CORDOVA MD Signed By: GAURAV CORDOVA MD Signed Out: 11/20/23 16:00:14 [facility] AMB ENT Physician Progress N dhaval 11-17-2023 AMB ENT Physician Progress Note YOKASTA MORENO :1960 Registration Date:11/17/2023 Chief Complaint Patient presents for packing removal. History of Present Illness She returns the office. We reviewed the results of her thyroid ultrasound in August which showed it was stable. Because she has multiple TI-RADS 4 lesions I recommended a follow-up next August. Unfortunately, she was at a benefit and fell striking her nose. She brought along a CAT scan report from the [facility] which showed no brigido facial fracture. Unfortunately that she had severe left-sided nasal bleeding and a pack had to be placed. She is referred to me for pack removal. Review of Systems Noncontributory except as noted below Physical Exam Vitals & Measurements Height/Length Measured: 160 cm (11/17/23 09:55:00) Weight Measured: 81 kg (11/17/23 09:55:00) Body Mass Index Measured: 31.64 kg/m2 (11/17/23 09:55:00) Ht/Wt Measurement Refused by Patient?2: No (11/17/23 09:55:00) Depression Screening Scores Initial Depression Screen Score: 0 (11/17/23 09:55:00) Fall Risk Assessment Is the patient ambulatory (mobile): Yes (11/17/23 09:55:00) Have you had a fall within the past: No (11/17/23 09:55:00) Have you had 2 or more falls in the past: No (11/17/23 09:55:00) Ear exam is normal. Nasal exam shows a pack in the left side. This was removed. There is no bleeding, scarring, or deformity in the septum. There is no septal hematoma. Externally she does have tenderness along the nasomaxillary suture lines but findings are otherwise unremarkable. There is no brigido displacement. Oral cavity and cervical exams are unremarkable. Medication Reconciliation What How Much When Instructions Unchanged aspirin (Aspir 81) Oral DAILY Unchanged atorvastatin (atorvastatin 20 mg oral tablet) Unchanged dilTIAZem (dilTIAZem 120 mg/ 24 hours oral capsule, extended release) 1 Capsules Oral DAILY Unchanged flecainide = Tambocor (flecainide 50 mg oral tablet) 1 Tabs Oral EVERY TWELVE HOURS Unchanged guselkumab (Tremfya 100 mg/ mL subcutaneous solution) 1 mL Unchanged hydrochlorothiazide-ir besartan (hydrochlorothiazide-i rbesartan 12.5 mg-300 mg oral tablet) 1 Tabs Oral DAILY Assessment/Plan This Visit Diagnosis 1. Epistaxis R04.0 I have started the patient on an aggressive course of nasal moisturizers. I have counseled them in the first aid for epistaxis. I have asked them to return to me if the bleeding persists or recurs at any point. I have also asked them not to pick or blow their nose for 1 week. Ordered: AMB Office/Outpt Est Pt Low MDM / 20 min [id number], 11/17/2023 10:03:00 EDT, Epistaxis / Nasal fracture 2. Nasal fracture S02.2XXA This is nondisplaced. I have asked her to let me know if she develops any functional problems of the nose, or any cosmetic deformity as it heals Ordered: AMB Office/Outpt Est Pt Low MDM / 20 min [id number], 11/17/2023 10:03:00 EDT, Epistaxis / Nasal fracture Problem List/Past Medical History Ongoing A-fib Dyslipidemia Dysphagia Epistaxis Family history of thyroid cancer Fatigue Goiter Nasal fracture Psoriasis Thyroid nodule Procedure/Surgical History Colonoscopy.: 07/23/23 Colonoscopy.: 07/29/19 Biopsy Thyroid.: 06/27/19 Surgery for Interstitial Cystitis Medications aspirin(Aspir 81), ORAL, DAILY atorvastatin(atorvasta tin 20 mg oral tablet) dilTIAZem(dilTIAZem 120 mg/24 hours oral capsule, extended release), 120 mg= 1 caps, ORAL, DAILY flecainide = Tambocor(flecainide 50 mg oral tablet), 50 mg= 1 tabs, ORAL, [id number] guselkumab(Tremfya 100 mg/mL subcutaneous solution) hydrochlorothiazide-ir besartan(hydrochloroth iazide-irbesartan 12.5 mg-300 mg oral tablet), 1 tabs, ORAL, DAILY, 2 refills Allergies Bactrim Vomiting LATEX allergy EYE SWELLING, HIVES, BLISTERING OF SKIN Tape allergy Social History Alcohol - Denies Alcohol Use Substance Abuse - Denies Substance Abuse Tobacco - Denies Tobacco Use Use:Never (less than 100 in lifetime) Family History Health Status Family Member(s) Immunizations Vaccine Date Status influenza virus vaccine, inactivated 02/03/2023 Recorded influenza virus vaccine, inactivated 01/29/2022 Recorded SARS-CoV-2 (COVID-19, MODERNA) mRNA-1273 06/11/2021 Recorded Comments : 2021-11-12: TPV20 SARS-CoV-2 (COVID-19, MODERNA) mRNA-1273 01/17/2021 Recorded Comments : 2021-11-12: TPV20 SARS-CoV-2 (COVID-19, MODERNA) mRNA-1273 04/07/2020 Recorded Comments : 2020-08-31: TPV20 SARS-CoV-2 (COVID-19, MODERNA) mRNA-1273 03/09/2020 Recorded Comments : 2020-08-31: TPV20, FUNDING SOURCE CHANGED TO JOHNSON influenza virus vaccine, inactivated 11/23/2018 Given influenza virus vaccine, inactivated 01/17/2015 Given Care Team Primary Care Physician NELL GUADALUPE, MONIE [phone] Attending Physician ROM GOSS MD [phone] . Health Maintenance Pending (in the next year) Due Tetanus Vaccine (more content not included)... [facility] Ambulatory Clinical Summaryo n 11-17-2023 Ambulatory Clinical Summary YOKASTA JACINTO :1960 Registration Date:11/17/2023 Ambulatory Visit Instructions Your Diagnosis Epistaxis Nasal fracture Your Care Team Attending Physician - ROM GOSS MD Primary Care Physician - NELL GUADALUPE, MONIE Procedures Performed Colonoscopy. (07/23/2023) Colonoscopy. (07/29/2019) Biopsy Thyroid. (06/27/2019) Surgery for Interstitial Cystitis Discharge Vitals Height 62.99 in (160 cm) Weight 178.61 lb (81 kg) BMI 31.64 Height/Length Measured: 160 cm (11/17/23 09:55:00) Weight Measured: 81 kg (11/17/23 09:55:00) Body Mass Index Measured: 31.64 kg/m2 (11/17/23 09:55:00) Ht/Wt Measurement Refused by Patient?2: No (11/17/23 09:55:00) What to do next Scheduled Follow-Up Appointments Appointment Type Reason for visit Day With Date Time Where [facility] Office Visit 6 month follow up Thursday Monie Camejo MD April 15, 2024 11:10 am EDT [address] [phone] ZIP:[id number] Medications What How Much When Instructions Unchanged aspirin (Aspir 81) Oral DAILY Unchanged atorvastatin (atorvastatin 20 mg oral tablet) Unchanged dilTIAZem (dilTIAZem 120 mg/ 24 hours oral capsule, extended release) 1 Capsules Oral DAILY Unchanged flecainide = Tambocor (flecainide 50 mg oral tablet) 1 Tabs Oral EVERY TWELVE HOURS Unchanged guselkumab (Tremfya 100 mg/ mL subcutaneous solution) 1 mL Unchanged hydrochlorothiazide-ir besartan (hydrochlorothiazide-i rbesartan 12.5 mg-300 mg oral tablet) 1 Tabs Oral DAILY Allergies Bactrim Vomiting LATEX allergy EYE SWELLING, HIVES, BLISTERING OF SKIN Tape allergy Problems Ongoing - Any problem that you are currently receiving treatment for. A-fib Dyslipidemia Dysphagia Epistaxis Family history of thyroid cancer Fatigue Goiter Nasal fracture Psoriasis Thyroid nodule Common Emergency Awareness Tips IS IT A STROKE? Act FAST and Check for these signs: FACE Does the face look uneven? ARM Does one arm drift down? SPEECH Does their speech sound strange? TIME Call at any sign of stroke Heart Attack Signs Chest discomfort: Most heart attacks involve discomfort in the center of the chest and lasts more than a few minutes, or goes away and comes back. It can feel like uncomfortable pressure, squeezing, fullness or pain. Discomfort in upper body: Symptoms can include pain or discomfort in one or both arms, back, neck, jaw or stomach. Shortness of breath: With or without discomfort. Other signs: Breaking out in a cold sweat, nausea, or lightheaded. Remember, MINUTES DO MATTER. If you experience any of these heart attack warning signs, call to get immediate medical attention! [facility] Comprehensive Intake - Texto n 11-17-2023 Comprehensive Intake - Text Comprehensive Intake Entered On: 11/17/2023 9:56 EDT Performed On: 11/17/2023 9:55 EDT by Naty Martinez Summary Chief Complaint : Patient presents for packing removal. Advance Directive : Yes Bladder Control Issues? : No Urine Leakage? : No Presence or absence of urinary incontinence assessed : Yes CPT-II Medication list doc'd in medical record : Yes Influenza immunization administered or previously received : Yes Pneumococcal vaccine administered or previously received : No Naty Martinez - 11/17/2023 9:55 EDT Measurements Ht/Wt Measurement Refused by Patient? : No Weight Measured : 81 kg(Converted to: 178 lb 9 oz, 178.574 lb) Height/Length Measured : 160 cm(Converted to: 5 ft 3 in, 62.99 in) Body Mass Index Measured : 31.64 kg/m2 Body Mass Index documented : Yes Naty Martinez - 11/17/2023 9:55 EDT Vitals Require BP : No Pain Present : No actual or suspected pain Pain : 0 Pain severity quantified : No pain present Naty Martinez 11/17/2023 9:55 EDT Infection Screening Travel outside [place] within past 21 days : No Positive COVID test in the last 10 days? : No Exposure to and/or close contact with a person who has a laboratory-confirmed COVID test within the last 48 hours. : No Coronavirus New Symptoms w/o Cause : No Naty Martinez 11/17/2023 9:55 EDT Depression Screening Is patient currently : None of the Below Feeling Down, Depressed, Hopeless : Not at all Little Interest - Pleasure in Activities : Not at all Initial Depression Screen Score : 0 Depression Screening Score 0 : No Naty Martinez 11/17/2023 9:55 EDT Falls Risk Assessment Is the patient ambulatory (mobile) : Yes Have you had 2 or more falls in the past year : No Have you had a fall within the past year that has caused an injury : No Patient screen for fall risk : no falls in last year OR 1 fall with no injury in last year Naty Martinez 11/17/2023 9:55 EDT [facility] Phone Msgon 11-16-2023 Phone Msg - From: Andreina Martin To: ROM GOSS MD; Sent: 11/16/2023 10:00:25 EDT Subject: Nose Injury - Seen @ [facility] 11/15/23 Caller Name: YOKASTA MORENO; Caller Number: H pt was seen @ [facility] yesterday & scan didn't reflect a break/fracture. They did pack her nose. No swelling or bruising. Referred to ENT to remove packing. 07/14/23 Best call back #[phone] From: ROM GOSS MD To: Naty Martinez; Sent: 11/16/2023 10:09:46 EDT Subject: FW: Nose Injury - Seen @ [facility] 11/15/23 Caller Name: YOKASTA MORENO; Caller Number: H Please call her and find out if she is on any blood thinners. If she is not we can add her to the schedule for tomorrow at some point Spoke with patient. Added to schedule. [facility] ALLIED HEALTHon 11-15-2023 ALLIED HEALTH HNO ID: [id number] Author: GEO BERNABE Tech Service: Radiology Author Type: Ict Customer Support Officer Type: [facility] Filed: 11/15/2023 15:31 Note Text: Radiology Service Progress Note PATIENT NAME: Yokasta Moreno DATE OF SERVICE: November 15, 2023 TIME: 3:31 PM PATIENT IDENTITY VERIFICATION COMPLETED USING TWO (2) IDENTIFIERS: Name and Date of confirmed by patient verbally and Name and Date of confirmed by identification band. FALL SCREENING: Has the patient had 2 falls in the last year or 1 fall with injury or currently using an Ambulatory Assistive Device (Walker, Cane, Wheelchair, Crutches, etc.)? Emergency Room Patient: Screened in ED PATIENT GENDER DATA: Female. status: : No status: NO. PATIENT RELEVANT IMPLANT DATA REVIEWED: Yes PATIENT PRESENTS WITH AN IMPLANTABLE OR ATTACHED DENTAL ASSISTANT MEDICAL ASSISTANT: No RADIOLOGY DEPARTMENT: CT; Exam(s) Completed: Brain , Face/Mandible, and Spine PERIPHERAL IV DATA: Inpatient: see LDA documentation SIGNED BY: Ap Auguste November 15, 2023 3:31 PM [facility] CT BRAIN WO IVCONon 11-15-[address] BRAIN WO IVCON * * *Final Report* * * DATE OF EXAM: Nov 15 2023 3:35PM [facility] 0504 - CT BRAIN WO IVCON / PROCEDURE REASON: Head trauma, moderate-severe * * * * Physician Interpretation * * * * EXAMINATION: CT BRAIN WO IVCON, CT CERVICAL SPINE WO IVCON, CT FACIAL BONE/BETTY WO IVCON CLINICAL HISTORY: Head trauma, moderate-severe.Trippe d over sidewalk; headache; right eye pain , Nose appears crooked, is bleeding and bruised . Spine fracture, cervical, traumatic. TECHNIQUE: Serial axial unenhanced images were obtained from the vertex to the foramen magnum. Spiral, high resolution axial unenhanced images were obtained from the skull base to the cervicothoracic junction with sagittal and coronal planar reconstructions. Spiral high resolution axial unenhanced images were also obtained through the facial bones with sagittal and coronal planar reconstructions. MQ: CTBCSFBWO_3 Dose-Length Product (DLP): 1362 mGy*cm. CT Dose Reduction Employed: Automated exposure control (AEC) COMPARISON: CT brain and cervical spine 03/13/2013 RESULT: BRAIN: Post operative change: none Acute change: No evidence of an acute contusion or other acute parenchymal process. Hemorrhage: No evidence of acute intracranial hemorrhage. Mass lesion / Mass effect: There is no evidence of an intracranial mass or extraaxial fluid collection. No significant mass effect. Chronic change: None apparent. Parenchyma: There is no significant volume loss. The brain parenchyma is otherwise within normal limits for age. Ventricles: The ventricles are within normal limits of size and configuration for age. Skull base: The skull base and visualized extracranial soft tissues are grossly normal. CERVICAL: Counting reference: Craniocervical junction. Anatomic Variants: None. Alignment: Kyphotic curvature suggesting either muscle spasm or secondary to positioning. Craniocervical junction: Craniocervical junction is normal. Osseous structures/fracture: No evidence of a lytic or blastic process in the visualized spine. No evidence of acute or chronic fracture. Cervical soft tissues: The paraspinal soft tissues planes are maintained. Degenerative changes: Advanced C5-6 degenerative disc disease, slightly greater than previous. No high-grade central canal or foraminal stenosis. Flocculent holding FACIAL BONES: Soft Tissues: No significant superficial soft tissue swelling. Facial bones: No evidence of an acute fracture in the visualized facial bones. Orbits: No evidence of an acute fracture. The globes are intact. The soft tissue planes of the orbits are maintained. Paranasal Sinuses: Small volume fluid and mucosal thickening in the maxillary, ethmoid and sphenoid sinuses. Foreign Bodies: No evidence of radioopaque foreign bodies. Other: No evidence of a remote fracture. No lytic or blastic process seen in the facial bones. Evidence for bloody nose. IMPRESSION: No evidence of an acute intracranial process. No evidence of acute cervical spine fracture. Degenerative changes. No evidence of acute facial bone fracture. Paranasal sinus disease and suspected bloody nose. Anatomic Variant: None. Assume 7 cervical vertebrae with counting from the craniocervical junction. Photographic Laboratory Technician: [facility]IAL HOSPITALGagandeep Transcribe Date/Time: Nov 15 2023 3:46P Dictated by : TRAVON SOUZA MD This examination was interpreted and the report reviewed and electronically signed by: TRAVON SOUZA MD on Nov 15 2023 3:58PM EST [id number] [facility] CT CERVICAL SPINE WO IVCONon 11-15-2023 CT CERVICAL SPINE WO IVCON * * *Final Report* * * DATE OF EXAM: Nov 15 2023 3:35PM [facility] 0505 - CT CERVICAL SPINE WO IVCON / PROCEDURE REASON: Spine fracture, cervical, traumatic * * * * Physician Interpretation * * * * EXAMINATION: CT BRAIN WO IVCON, CT CERVICAL SPINE WO IVCON, CT FACIAL BONE/BETTY WO IVCON CLINICAL HISTORY: Head trauma, moderate-severe.Trippe d over sidewalk; headache; right eye pain , Nose appears crooked, is bleeding and bruised . Spine fracture, cervical, traumatic. TECHNIQUE: Serial axial unenhanced images were obtained from the vertex to the foramen magnum. Spiral, high resolution axial unenhanced images were obtained from the skull base to the cervicothoracic junction with sagittal and coronal planar reconstructions. Spiral high resolution axial unenhanced images were also obtained through the facial bones with sagittal and coronal planar reconstructions. MQ: CTBCSFBWO_3 Dose-Length Product (DLP): 1362 mGy*cm. CT Dose Reduction Employed: Automated exposure control (AEC) COMPARISON: CT brain and cervical spine 03/13/2013 RESULT: BRAIN: Post operative change: none Acute change: No evidence of an acute contusion or other acute parenchymal process. Hemorrhage: No evidence of acute intracranial hemorrhage. Mass lesion / Mass effect: There is no evidence of an intracranial mass or extraaxial fluid collection. No significant mass effect. Chronic change: None apparent. Parenchyma: There is no significant volume loss. The brain parenchyma is otherwise within normal limits for age. Ventricles: The ventricles are within normal limits of size and configuration for age. Skull base: The skull base and visualized extracranial soft tissues are grossly normal. CERVICAL: Counting reference: Craniocervical junction. Anatomic Variants: None. Alignment: Kyphotic curvature suggesting either muscle spasm or secondary to positioning. Craniocervical junction: Craniocervical junction is normal. Osseous structures/fracture: No evidence of a lytic or blastic process in the visualized spine. No evidence of acute or chronic fracture. Cervical soft tissues: The paraspinal soft tissues planes are maintained. Degenerative changes: Advanced C5-6 degenerative disc disease, slightly greater than previous. No high-grade central canal or foraminal stenosis. Flocculent holding FACIAL BONES: Soft Tissues: No significant superficial soft tissue swelling. Facial bones: No evidence of an acute fracture in the visualized facial bones. Orbits: No evidence of an acute fracture. The globes are intact. The soft tissue planes of the orbits are maintained. Paranasal Sinuses: Small volume fluid and mucosal thickening in the maxillary, ethmoid and sphenoid sinuses. Foreign Bodies: No evidence of radioopaque foreign bodies. Other: No evidence of a remote fracture. No lytic or blastic process seen in the facial bones. Evidence for bloody nose. IMPRESSION: No evidence of an acute intracranial process. No evidence of acute cervical spine fracture. Degenerative changes. No evidence of acute facial bone fracture. Paranasal sinus disease and suspected bloody nose. Anatomic Variant: None. Assume 7 cervical vertebrae with counting from the craniocervical junction. Photographic Laboratory Technician: MELANI Transcribe Date/Time: Nov 15 2023 3:46P Dictated by : TRAVON SOUZA MD This examination was interpreted and the report reviewed and electronically signed by: TRAVON SOUZA MD on Nov 15 2023 3:58PM EST [id number] [facility] CT FACIAL BONE/BETTY WO IVCON on 11-15-2023 CT FACIAL BONE/BETTY WO IVCON * * *Final Report* * * DATE OF EXAM: Nov 15 2023 3:35PM [facility] [address]507 - CT FACIAL BONE/BETTY WO IVCON / PROCEDURE REASON: Nasal fracture suspected * * * * Physician Interpretation * * * * EXAMINATION: CT BRAIN WO IVCON, CT CERVICAL SPINE WO IVCON, CT FACIAL BONE/BETTY WO IVCON CLINICAL HISTORY: Head trauma, moderate-severe.Trippe d over sidewalk; headache; right eye pain , Nose appears crooked, is bleeding and bruised . Spine fracture, cervical, traumatic. TECHNIQUE: Serial axial unenhanced images were obtained from the vertex to the foramen magnum. Spiral, high resolution axial unenhanced images were obtained from the skull base to the cervicothoracic junction with sagittal and coronal planar reconstructions. Spiral high resolution axial unenhanced images were also obtained through the facial bones with sagittal and coronal planar reconstructions. MQ: [id number] Dose-Length Product (DLP): 1362 mGy*cm. CT Dose Reduction Employed: Automated exposure control (AEC) COMPARISON: CT brain and cervical spine 03/13/2013 RESULT: BRAIN: Post operative change: none Acute change: No evidence of an acute contusion or other acute parenchymal process. Hemorrhage: No evidence of acute intracranial hemorrhage. Mass lesion / Mass effect: There is no evidence of an intracranial mass or extraaxial fluid collection. No significant mass effect. Chronic change: None apparent. Parenchyma: There is no significant volume loss. The brain parenchyma is otherwise within normal limits for age. Ventricles: The ventricles are within normal limits of size and configuration for age. Skull base: The skull base and visualized extracranial soft tissues are grossly normal. CERVICAL: Counting reference: Craniocervical junction. Anatomic Variants: None. Alignment: Kyphotic curvature suggesting either muscle spasm or secondary to positioning. Craniocervical junction: Craniocervical junction is normal. Osseous structures/fracture: No evidence of a lytic or blastic process in the visualized spine. No evidence of acute or chronic fracture. Cervical soft tissues: The paraspinal soft tissues planes are maintained. Degenerative changes: Advanced C5-6 degenerative disc disease, slightly greater than previous. No high-grade central canal or foraminal stenosis. Flocculent holding FACIAL BONES: Soft Tissues: No significant superficial soft tissue swelling. Facial bones: No evidence of an acute fracture in the visualized facial bones. Orbits: No evidence of an acute fracture. The globes are intact. The soft tissue planes of the orbits are maintained. Paranasal Sinuses: Small volume fluid and mucosal thickening in the maxillary, ethmoid and sphenoid sinuses. Foreign Bodies: No evidence of radioopaque foreign bodies. Other: No evidence of a remote fracture. No lytic or blastic process seen in the facial bones. Evidence for bloody nose. IMPRESSION: No evidence of an acute intracranial process. No evidence of acute cervical spine fracture. Degenerative changes. No evidence of acute facial bone fracture. Paranasal sinus disease and suspected bloody nose. Anatomic Variant: None. Assume 7 cervical vertebrae with counting from the craniocervical junction. Photographic Laboratory Technician: [facility] HOSPITALGagandeep Transcribe Date/Time: Nov 15 2023 3:46P Dictated by : TRAVON SOUZA MD This examination was interpreted and the report reviewed and electronically signed by: TRAVON SOUZA MD on Nov 15 2023 3:58PM EST [id number] [facility] ED NOTEon 11-15-2023 ED NOTE HNO ID: [id number] Author: RAVIN BRITTON RN Service: ? Author Type: Registered Nurse Type: ED Notes Filed: 11/15/2023 17:21 Note Text: Discharge instructions and prescriptions reviewed with patient via teachback. Pt verbalizes understanding. Pt awake and alert, respirations regular and unlabored. No further questions for this RN. [facility] ED PROV NOTEon 11-15-2023 ED PROV NOTE HNO ID: [id number] Author: JUAN R GARCIA MD Service: Emergency Medicine Author Type: Physician Type: ED Provider Notes Filed: 11/15/2023 17:07 Note Text: ED Provider Note Patient Name: Yokasta Moreno : 1960 SERVICE DATE: 11/15/23 History Patient presents with: Fall: Tripped over sidewalk; headache; right eye pain Epistaxis: Nose appears crooked, is bleeding and bruised Nausea: Zofran was given with EMS This is a 63-year-old female here with her . She was on a walk today. She tripped and fell on her face at the concrete. She has pain around her eye and her right nose with epistaxis. She takes a baby aspirin a day. She is not on any DOACs or Coumadin. No neck pain. She does have a headache. No numbness or weakness in her arms or legs. PAST MEDICAL HISTORY Diagnosis Date A-fib (HCC) Thyroid nodule PAST SURGICAL HISTORY Procedure Laterality Date SECTION HX FAMILY HISTORY Problem Relation Age of Onset Stroke Mother Cancer Father Lung Asthma Sister Two other (Other) Other Cousin with lung transplant. Asthma Other All of my aunts. Social History Tobacco Use Smoking status: Never Smokeless tobacco: Never Tobacco comments: Parents smoked in childhood home. Spouse quit smoking 25 years ago. Vaping Use Vaping status: Never Used Substance and Sexual Activity Alcohol use: No Drug use: No Sexual activity: Not on file ALLERGIES Allergen Reactions Adhesive Tape (Idalia* Rash Latex, Natural Rubb* Rash Sulfamethoxazole-Tr* Vomiting *ANTI-INFECTIVE AGENTS--MISC.* *ANTI-INFECTIVE AGENTS--MISC.* Review of Systems Neurological: Positive for headaches. Negative for syncope. Physical Exam Vitals [11/15/23 1422] BP Pulse Temp Temp src Resp SpO2 Weight Height 155/70 66 36.7 ?C (98 ?F) Temporal 16 97 % 78.5 kg (173 lb) -- Physical Exam Vitals and nursing note reviewed. Exam conducted with a board hammer operator present. HENT: Head: Normocephalic. Right Ear: Tympanic membrane, ear canal and external ear normal. Left Ear: Tympanic membrane, ear canal and external ear normal. Nose: Comments: Pupils are 3 to 4 mm round at light extraocular movements intact. The patient has right nares swelling and tenderness. There is some nonactive bleeding of her nostrils with some dried blood. There is no mandibular pain. Teeth are intact. She has no Hinkle's or raccoon sign. No maxillary pain. She has no midline cervical thoracic or lumbar pain. Eyes: Extraocular Movements: Extraocular movements intact. Conjunctiva/sclera: Conjunctivae normal. Pupils: Pupils are equal, round, and reactive to light. Cardiovascular: Rate and Rhythm: Normal rate and regular rhythm. Pulses: Normal pulses. Pulmonary: Effort: Pulmonary effort is normal. Chest: Chest wall: No tenderness. Abdominal: General: Abdomen is flat. Palpations: Abdomen is soft. Tenderness: There is no abdominal tenderness. Musculoskeletal: General: No tenderness or signs of injury. Normal range of motion. Cervical back: Neck supple. No tenderness. Skin: General: Skin is warm and dry. Capillary Refill: Capillary refill takes less than 2 seconds. Neurological: General: No focal deficit present. Mental Status: She is alert. GCS: GCS eye subscore is 4. GCS verbal subscore is 5. GCS motor subscore is 6. Cranial Nerves: No dysarthria or facial asymmetry. Sensory: Sensation is intact. Motor: Motor function is intact. Psychiatric: Behavior: Behavior normal. Diagnostic Testing ED Labs Ordered and Reviewed - No data to display EPISTAXIS MGMT Date/Time: 11/15/2023 5:07 PM Performed by: Juan R Garcia MD Authorized by: Juan R Garcia MD Anesthesia (see MAR for exact dosages): Anesthesia method: Topical application Topical anesthetic: Cocaine Procedure details: Treatment site: L anterior and R anterior Treatment method: Gel foam Treatment complexity: Limited Treatment episode: initial Post-procedure details: Assessment: Bleeding stopped Patient tolerance of procedure: Tolerated well, no immediate complications ED Course / Clinical Impression Clinical Impressions as of 11/15/23 1707 Contusion of nose, initial encounter Epistaxis Fall, initial encounter Injury of head, initial encounter MDM / Disposition / Plan This is a female with a fall. Likely nasal fracture. She could have an orbital blowout fracture. It is possible that she could have a traumatic brain injury. Also has C-spine injury. History and Record Review Clinical information obtained from an independent historian. History obtained from or confirmed by: spouse (The patient's states that the patient was out on a walk for suicide prevention with her brother when she tripped and fell on the sidewalk.). Differential Diagnoses - Nasal fracture is more likely for the following reason(s): suggested by HANDP - Head injury is more likely for (more content not included)... Normal [facility] Physician Progress No horacio 10-13-2023 [facility] Physician Progress Note YAZAN YOKASTA Mckay :1960 Registration Date:10/13/2023 Chief Complaint jj states here for 1 year medication refill. 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 Goss )- thyroid biopsy was normal 08/2019 was noted to have elevated alk phos on recent labs vertigo : stable- no symptoms L4-L5 lumbar disc herniation- was seen at [facility] vit d def : taking otc supplements. 5000 iu daily has Liver cyst on US-seeing GI- colonoscopy 07/2023- due in 3 years seeing medical administrative specialist - seeing early childhood lead teacher for psoriasis - started Shun Physical Exam Vitals & Measurements Systolic Blood Pressure: 130 mmHg (10/13/23 10:13:00) Diastolic Blood Pressure: 80 mmHg (10/13/23 10:13:00) Temperature Tympanic (F): 98.3 degF (10/13/23 10:13:00) SpO2: 96 % (10/13/23 10:13:00) Peripheral Pulse Rate: 62 bpm (10/13/23 10:13:00) Mean Arterial Pressure: 97 mmHg (10/13/23 10:13:00) Height/Length Measured: 160 cm (10/13/23 10:13:00) Weight Measured: 81 kg (10/13/23 10:13:00) Body Mass Index Measured: 31.64 kg/m2 (10/13/23 10:13:00) Weight Measured - lbs2: 178 lb (10/13/23 10:13:00) Ht/Wt Measurement Refused by Patient?2: No (10/13/23 10:13:00) Depression Screening Scores Initial Depression Screen Score: 0 (10/13/23 10:13:00) Fall Risk Assessment Is the patient ambulatory (mobile): Yes (10/13/23 10:13:00) Have you had a fall within the past: No (10/13/23 10:13:00) Have you had 2 or more falls in the past: No (10/13/23 10:13:00) Medication Reconciliation What How Much When Instructions Unchanged hydrochlorothiazide-ir besartan (hydrochlorothiazide-i rbesartan 12.5 mg-300 mg oral tablet) 1 Tabs Oral DAILY Pickup at [facility]/pharmacy #[id number] Unchanged aspirin (Aspir 81) Oral DAILY Contact prescribing physician if questions or concerns Unchanged atorvastatin (atorvastatin 20 mg oral tablet) Contact prescribing physician if questions or concerns Unchanged dilTIAZem (dilTIAZem 120 mg/ 24 hours oral capsule, extended release) 1 Capsules Oral DAILY Contact prescribing physician if questions or concerns Unchanged flecainide = Tambocor (flecainide 50 mg oral tablet) 1 Tabs Oral EVERY TWELVE HOURS Contact prescribing physician if questions or concerns Unchanged guselkumab (Tremfya 100 mg/ mL subcutaneous solution) 1 mL Contact prescribing physician if questions or concerns Pharmacy Information [facility]/pharmacy #[id number]: [address] [place], [place] [phone] Assessment/Plan This Visit Diagnosis 1. Hypertension I10 controlled on medications - continue low salt diet and exercise 2. A-fib I48.91 management as eer cardiology 3. Dyslipidemia E78.5 continue statins 4. Thyroid nodule E04.1 f/u with ENT is scheduled 5. Psoriasis L40.9 f/u with dermatology as scheduled 6. BMI 31.0-31.9,adult Z68.31 weight loss and exercise recommended patient enquiring about weight loss medications- discussed side effects of GLP-1 and Adipex weight loss and exercise recommended 7. Elevated alkaline phosphatase level R74.8 repeat alk phos level and vit d Ordered: ALP(ALKALINE PHOSPHATASE), ROUTINE, 10/13/2023, Order for future visit-Diagnosis required, Dx: Elevated alkaline phosphatase level Orders: hydrochlorothiazide-ir besartan(hydrochloroth iazide-irbesartan 12.5 mg-300 mg oral tablet), 1 tabs, ORAL, DAILY, 2 refills VIT D 25 LEVEL(VITAMIN D 25 HYDROXY LEVEL), ROUTINE, 10/13/2023, Order for future visit-Diagnosis required, Dx: Vitamin D deficiency Problem List/Past Medical History Ongoing A-fib Dyslipidemia Dysphagia Family history of thyroid cancer Fatigue Goiter Psoriasis Thyroid nodule Procedure/Surgical History Colonoscopy.: 07/23/23 Colonoscopy.: 07/29/19 Biopsy Thyroid.: 06/27/19 Surgery for Interstitial Cystitis Medications aspirin(Aspir 81), ORAL, DAILY atorvastatin(atorvasta tin 20 mg oral tablet) dilTIAZem(dilTIAZem 120 mg/24 hours oral capsule, extended release), 120 mg= 1 caps, ORAL, DAILY flecainide = Tambocor(flecainide 50 mg oral tablet), 50 mg= 1 tabs, ORAL, [id number] guselkumab(Tremfya 100 mg/mL subcutaneous solution) hydrochlorothiazide-ir besartan(hydrochloroth iazide-irbesartan 12.5 mg-300 mg oral tablet), 1 tabs, ORAL, DAILY, 2 refills Allergies Bactrim Vomiting LATEX allergy EYE SWELLING, HIVES, BLISTERING OF SKIN Tape allergy Social History Alcohol - Denies Alcohol Use Substance Abuse - Denies Substance Abuse Tobacco - Denies Tobacco Use Use:Never (less than 100 in lifetime) Family History Health Status Family Member(s) Immunizations Vaccine Date Status influenza virus vaccine, inactivated 02/03/2023 Recorded influenza (more content not included)... Normal [facility] Ambulatory Clinical Summaryo n 10-13-2023 Ambulatory Clinical Summary YOKASTA JACINTO Woody :1960 Registration Date:10/13/2023 Ambulatory Visit Instructions Your Diagnosis Hypertension A-fib Dyslipidemia Thyroid nodule Psoriasis Your Care Team Attending Physician - MONIE CHANEL Primary Care Physician - MONIE CHANEL Procedures Performed Colonoscopy. (07/23/2023) Colonoscopy. (07/29/2019) Biopsy Thyroid. (06/27/2019) Surgery for Interstitial Cystitis Discharge Vitals Temperature (Tympanic) 98.3 DEGF Heart Rate (Peripheral) 62 Blood Pressure 130/80 Height 62.99 in (160 cm) Weight 178.61 lb (81 kg) BMI 31.64 Systolic Blood Pressure: 130 mmHg (10/13/23 10:13:00) Diastolic Blood Pressure: 80 mmHg (10/13/23 10:13:00) Temperature Tympanic (F): 98.3 degF (10/13/23 10:13:00) SpO2: 96 % (10/13/23 10:13:00) Peripheral Pulse Rate: 62 bpm (10/13/23 10:13:00) Mean Arterial Pressure: 97 mmHg (10/13/23 10:13:00) Height/Length Measured: 160 cm (10/13/23 10:13:00) Weight Measured: 81 kg (10/13/23 10:13:00) Body Mass Index Measured: 31.64 kg/m2 (10/13/23 10:13:00) Weight Measured - lbs2: 178 lb (10/13/23 10:13:00) Ht/Wt Measurement Refused by Patient?2: No (10/13/23 10:13:00) What to do next Scheduled Follow-Up Appointments Appointment Type Reason for visit Day With Date Time Where [facility] Office Visit 6 month follow up Thursday Monie Camejo MD April 15, 2024 11:10 am EDT [address] [phone] ZIP:[id number] You Need to Schedule the Following Appointments ALP(ALKALINE PHOSPHATASE), ROUTINE, 10/13/2023, Order for future visit-Diagnosis required, Dx: Elevated alkaline phosphatase level VIT D 25 LEVEL(VITAMIN D 25 HYDROXY LEVEL), ROUTINE, 10/13/2023, Order for future visit-Diagnosis required, Dx: Vitamin D deficiency Medications What How Much When Instructions Unchanged hydrochlorothiazide-ir besartan (hydrochlorothiazide-i rbesartan 12.5 mg-300 mg oral tablet) 1 Tabs Oral DAILY Pickup at [facility]/pharmacy #[id number] Unchanged aspirin (Aspir 81) Oral DAILY Contact prescribing physician if questions or concerns Unchanged atorvastatin (atorvastatin 20 mg oral tablet) Contact prescribing physician if questions or concerns Unchanged dilTIAZem (dilTIAZem 120 mg/ 24 hours oral capsule, extended release) 1 Capsules Oral DAILY Contact prescribing physician if questions or concerns Unchanged flecainide = Tambocor (flecainide 50 mg oral tablet) 1 Tabs Oral EVERY TWELVE HOURS Contact prescribing physician if questions or concerns Unchanged guselkumab (Tremfya 100 mg/ mL subcutaneous solution) 1 mL Contact prescribing physician if questions or concerns Pharmacy Information [facility]/pharmacy #[id number]: [address] [place], [place] [phone] Allergies Bactrim Vomiting LATEX allergy EYE SWELLING, HIVES, BLISTERING OF SKIN Tape allergy Problems Ongoing - Any problem that you are currently receiving treatment for. A-fib Dyslipidemia Dysphagia Family history of thyroid cancer Fatigue Goiter Psoriasis Thyroid nodule Common Emergency Awareness Tips IS IT A STROKE? Act FAST and Check for these signs: FACE Does the face look uneven? ARM Does one arm drift down? SPEECH Does their speech sound strange? TIME Call at any sign of stroke Heart Attack Signs Chest discomfort: Most heart attacks involve discomfort in the center of the chest and lasts more than a few minutes, or goes away and comes back. It can feel like uncomfortable pressure, squeezing, fullness or pain. Discomfort in upper body: Symptoms can include pain or discomfort in one or both arms, back, neck, jaw or stomach. Shortness of breath: With or without discomfort. Other signs: Breaking out in a cold sweat, nausea, or lightheaded. Remember, MINUTES DO MATTER. If you experience any of these heart attack warning signs, call to get immediate medical attention! Normal [facility] Comprehensive Intake - Texto n 10-13-2023 Comprehensive Intake - Text Comprehensive Intake Entered On: 10/13/2023 10:16 EDT Performed On: 10/13/2023 10:13 EDT by Arash Hadley MA Summary Chief Complaint : paitent states here for 1 year medication refill. Advance Directive : Yes Bladder Control Issues? : No Urine Leakage? : Yes Presence or absence of urinary incontinence assessed : Yes CPT-II Medication list doc'd in medical record : Yes Influenza immunization administered or previously received : Yes Pneumococcal vaccine administered or previously received : No Arash Hadley MA - 10/13/2023 10:13 EDT Measurements Ht/Wt Measurement Refused by Patient? : No Weight Measured : 81 kg(Converted to: 178 lb 9 oz, 178.574 lb) Height/Length Measured : 160 cm(Converted to: 5 ft 3 in, 62.99 in) Body Mass Index Measured : 31.64 kg/m2 Body Mass Index documented : Yes Weight Measured - lbs : 178 lb(Converted to: 178 lb 0 oz, 81 kg) Arash Hadley MA - 10/13/2023 10:13 EDT Vitals Require BP : Yes Systolic Blood Pressure : 130 mmHg Diastolic Blood Pressure : 80 mmHg Mean Arterial Pressure : 97 mmHg Pulse Rate : 62 bpm Last Systolic BP : 130-139 mmHg Last Diastolic BP : 80-89 mmHg Temperature Tympanic (F) : 98.3 degF(Converted to: 37 degC) SpO2 : 96 % Pain Present : No actual or suspected pain Pain : 0 Pain severity quantified : No pain present Arash Hadley MA - 10/13/2023 10:13 EDT Infection Screening Travel outside of [place] within past 21 days? : No Positive COVID test in the last 10 days? : No Exposure to and/or close contact with a person who has a laboratory-confirmed COVID test within the last 48 hours. : No Coronavirus New Symptoms w/o Cause : No Hadley DIANA JessicaWilliamnancy - 10/13/2023 10:13 EDT Depression Screening Is patient currently : None of the Below Feeling Down, Depressed, Hopeless : Not at all Little Interest - Pleasure in Activities : Not at all Initial Depression Screen Score : 0 Depression Screening Score 0 : No Jomar DIANADicksonajoeyeloy - 10/13/2023 10:13 EDT Family History Family History (As Of: 10/13/2023 10:16:15 EDT) Social History Social History (As Of: 10/13/2023 10:16:15 EDT) Alcohol: Denies Alcohol Use (Last Updated: 03/08/2019 14:07:06 EST by Michelle Lancaster ) Tobacco: Denies Tobacco Use Never (less than 100 in lifetime) Tobacco Use:. (Last Updated: 03/31/2018 14:21:51 EST by Madyson Chang MA) Never (less than 100 in lifetime) Tobacco Use:. (Last Updated: 10/17/2022 10:22:51 EDT by Arash Hadley MA) Never (less than 100 in lifetime) Tobacco Use:. (Last Updated: 04/12/2020 11:15:49 EST by Naty Martinez) Never (less than 100 in lifetime) Tobacco Use:. (Last Updated: 07/14/2023 14:04:02 EDT by Naty Martinez) Substance Abuse: Denies Substance Abuse (Last Updated: 03/08/2019 14:07:19 EST by Michelle Lancaster ) Falls Risk Assessment Is the patient ambulatory (mobile) : Yes Have you had 2 or more falls in the past year : No Have you had a fall within the past year that has caused an injury : No Patient screen for fall risk : no falls in last year OR 1 fall with no injury in last year Arash Hadley MA - 10/13/2023 10:13 EDT Normal [facility] BLOOD TB SCREENon 10-02-2023 M. tuberculosis tuberculin stim IFN-g Ql (Bld) Negative [facility] Comment on above: Order Comment: Roselia miranda Type: BLOOD SPECIMEN Ordering Facility: [facility] Address: [address] [place] [address] Performed By: #### I NFTBP #### [facility] CLIA [id number] [address] [place] [address] STATES OF MICHELLE MITOGEN MINUS NIL 7.00 IU/mL Normal >=0.50 [facility] Comment on above: Order Comment: Roselia miranda Type: BLOOD SPECIMEN Ordering Facility: [facility] Address: [address] [place] [address] Performed By: #### I NFTBP #### [facility] CLIA [id number] [address] [place] [address] TB GAMMA INTERPRETATION Infection with M. tuberculosis complex is unlikely. If latent tuberculosis infection is highly suspected, a negative result does not rule out the infection. Specimens from immunocompromised patients and those <5 years of age may show false negative results. In case of a contact investigation, please repeat 8-12 weeks after a known exposure. Normal [facility] Comment on above: Order Comment: Roselia miranda Type: BLOOD SPECIMEN Ordering Facility: [facility] Address: [address] [place] [address] Performed By: #### I NFTBP #### [facility] CLIA [id number] [address] [place] [address] TB NIL 0.02 IU/mL Normal <=8.00 [facility] Comment on above: Order Comment: Roselia miranda Type: BLOOD SPECIMEN [facility] [place] Address: [address] [place] [id number] Performed By: #### I NFTBP #### [facility] CLIA [id number] [address] [place] [address] [place] TB1 AG MINUS NIL 0.01 IU/mL Normal <0.35 [facility] Comment on above: Order Comment: Speci men Type: BLOOD SPECIMEN Ordering Facility: [facility] Address: [address] [place] [address] Performed By: #### I NFTBP #### [facility] CLIA [id number] [address] [place] [address] TB2 AG MINUS NIL 0.00 IU/mL Normal <0.35 [facility] Comment on above: Order Comment: Speci men Type: BLOOD SPECIMEN Ordering Facility: [facility] Address: [address] [place] [address] Performed By: #### I NFTBP #### [facility] CLIA [id number] [address] [place] [address] [place] CBC panel Auto (Bld)on 10-01 Erythrocyte distribution width (RBC) [Ratio] 11.8 % Normal 11.5-15.0 [facility] Comment on above: Order Comment: Speci men Type: BLOOD SPECIMEN Ordering Facility: [facility] Address: [address] [place] [address] Performed By: #### 5 8410-2 #### [facility] CLIA [id number] [address] [place] Hematocrit (Bld) [Volume fraction] 41.7 % Normal 36.0-46.0 [facility] Comment on above: Order Comment: Speci men Type: BLOOD SPECIMEN Ordering Facility: [facility] Address: [address] [place] [address] Performed By: #### 5 8410-2 #### [facility] CLIA [id number] [address] [place] [address] [place] Hemoglobin (Bld) [Mass/Vol] 13.7 g/dL Normal 11.5-15.5 [facility] Comment on above: Order Comment: Speci men Type: BLOOD SPECIMEN Ordering Facility: [facility] Address: [address] [place] [address] Performed By: #### 5 8410-2 #### [facility] CLIA [id number] [address] MCH (RBC) [Entitic mass] 29.3 pg Normal 26.0-34.0 [facility] Comment on above: Order Comment: Speci men Type: BLOOD SPECIMEN Ordering Facility: [facility] Address: [address] [place] [address] Performed By: #### 5 8410-2 #### [facility] CLIA [id number] [address] MCHC (RBC) [Mass/Vol] 32.9 g/dL Normal 30.5-36.0 [facility] Comment on above: Order Comment: Speci men Type: BLOOD SPECIMEN Ordering Facility: [facility] Address: [address] [place] [address] Performed By: #### 5 8410-2 #### [facility] CLIA [id number] [address] MCV (RBC) [Entitic vol] 89.1 fL Normal 80.0-100.0 [facility] Comment on above: Order Comment: Speci men Type: BLOOD SPECIMEN Ordering Facility: [facility] Address: [address] [place] [address] Performed By: #### 5 8410-2 #### [facility] CLIA [id number] [address] Nucleated RBC (Bld) [#/Vol] 10*3/uL Normal <0.01 [facility] Comment on above: Order Comment: Speci men Type: BLOOD SPECIMEN Ordering Facility: [facility] Address: [address] [place] [address] Performed By: #### 5 8410-2 #### [facility] CLIA [id number] [address] [place] [address] [place] Platelet mean volume (Bld) [Entitic vol] 9.7 fL Normal 9.0-12.7 [facility] Comment on above: Order Comment: Speci men Type: BLOOD SPECIMEN Ordering Facility: [facility] Address: [address] [place] [address] Performed By: #### 5 8410-2 #### [facility] CLIA [id number] [address] [place] [address] [place] Platelets (Bld) [#/Vol] 385 10*3/uL Normal 150-400 [facility] Comment on above: Order Comment: Speci men Type: BLOOD SPECIMEN Ordering Facility: [facility] Address: [address] [place] [address] Performed By: #### 5 8410-2 #### [facility] CLIA [id number] [address] [place] [address] [place] RBC (Bld) [#/Vol] 4.68 10*6/uL Normal 3.90-5.20 [facility] Comment on above: Order Comment: Speci men Type: BLOOD SPECIMEN Ordering Facility: [facility] Address: [address] [place] [address] Performed By: #### 5 8410-2 #### [facility] CLIA [id number] [address] [place] [address] [place] WBC (Bld) [#/Vol] 6.84 10*3/uL Normal 3.70-11.00 [facility] Comment on above: Order Comment: Speci men Type: BLOOD SPECIMEN Ordering Facility: [facility] Address: [address] [place] [address] Performed By: #### 5 8410-2 #### [facility] CLIA [id number] [address] [place] [address] [place] [facility] [place] Comprehensive metabolic 2000 panelon 10-02-2023 Albumin [Mass/Vol] 4.3 g/dL Normal 3.9-4.9 [facility] Comment on above: Order Comment: Speci men Type: BLOOD SPECIMEN Ordering Facility: [facility] Address: [address] [place] [address] Performed By: #### 2 4323-8, 91456-6 #### [facility] CLIA [id number] [address] ALP [Catalytic activity/Vol] 131 U/L High 34-123 [facility] Comment on above: Order Comment: Speci men Type: BLOOD SPECIMEN Ordering Facility: [facility] Address: [address] [place] [address] Performed By: #### 2 4323-8, 60842-0 #### [facility] CLIA [id number] [address] ALT [Catalytic activity/Vol] 15 U/L Normal 7-38 [facility] Comment on above: Order Comment: Speci men Type: BLOOD SPECIMEN Ordering Facility: [facility] Address: [address] [place] [address] Performed By: #### 2 4323-8, 28278-0 #### [facility] CLIA [id number] [address] Anion gap [Moles/Vol] 9 mmol/L Normal 8-15 [facility] Comment on above: Order Comment: Speci men Type: BLOOD SPECIMEN Ordering Facility: [facility] Address: [address] [place] [address] Performed By: #### 2 4323-8, 74060-7 #### [facility] CLIA [id number] [address] AST [Catalytic activity/Vol] 18 U/L Normal 13-35 [facility] Comment on above: Order Comment: Speci men Type: BLOOD SPECIMEN Ordering Facility: [facility] Address: [address] [place] [address] Performed By: #### 2 4323-8, 76519-6 #### [facility] CLIA [id number] [address] Bilirubin [Mass/Vol] 0.6 mg/dL Normal 0.2-1.3 [facility] Comment on above: Order Comment: Speci men Type: BLOOD SPECIMEN Ordering Facility: [facility] Address: [address] [place] [address] Performed By: #### 2 4323-8, 44649-1 #### [facility] CLIA [id number] [address] [place] [address] [place] Calcium [Mass/Vol] 9.7 mg/dL Normal 8.5-10.2 [facility] Comment on above: Order Comment: Speci men Type: BLOOD SPECIMEN Ordering Facility: [facility] Address: [facility] [place] [address] Performed By: #### 2 4323-8, 71439-4 #### [facility] CLIA [id number] [address] [place] [address] [place] Chloride [Moles/Vol] 104 mmol/L Normal 98-107 [facility] Comment on above: Order Comment: Speci men Type: BLOOD SPECIMEN Ordering Facility: [facility] Address: [address] [place] [address] Performed By: #### 2 4323-8, 62088-6 #### [facility] CLIA [id number] [address] [place] [address] [place] CO2 [Moles/Vol] 28 mmol/L Normal 22-30 [facility] Comment on above: Order Comment: Speci men Type: BLOOD SPECIMEN Ordering Facility: [facility] Address: [address] [place] [address] Performed By: #### 2 4323-8, 12290-8 #### [facility] CLIA [id number] [address] [place] [address] [place] Creatinine [Mass/Vol] 0.92 mg/dL Normal 0.58-0.96 [facility] Comment on above: Order Comment: Speci men Type: BLOOD SPECIMEN Ordering Facility: [facility] Address: [address] [place] [address] Performed By: #### 2 4323-8, 99569-0 #### [facility] CLIA [id number] [address] [place] Creatinine and Glomerular filtration rate.predicted panel (S/P/Bld) 71 mL/min/1.73m??? Normal >=60 [facility] Comment on above: Order Comment: Roselia miranda Type: BLOOD SPECIMEN Ordering Facility: [facility] Address: [address] [place] [address] Result Comment: Sonal mated Glomerular Filtration Rate (eGFR) is calculated using the 2020 CKD-EPI creatinine equation. This equation utilizes serum creatinine, sex, and age as parameters. The creatinine assay has traceable calibration to isotope dilution-mass spectrometry. Refer to KDIGO guidelines for clinical interpretation. In patients with unstable renal function, e.g. those with acute kidney injury, the eGFR may not accurately reflect actual GFR. Performed By: #### 2 4323-8, 46540-6 #### [facility] CLIA [id number] [address] [place] [address] [place] Glucose [Mass/Vol] 77 mg/dL Normal 74-99 [facility] Comment on above: Order Comment: Roselia miranda Type: BLOOD SPECIMEN Ordering Facility: [facility] Address: [address] [place] [address] Result Comment: The [place] Diabetes [employer] (ADA) provides guidance for cutoff values for fasting glucose and random glucose. The ADA defines fasting as no caloric intake for at least 8 hours. Fasting plasma glucose results between 100 to 125 mg/dL indicate increased risk for diabetes (prediabetes). Fasting plasma glucose results greater than or equal to 126 mg/dL meet the criteria for diagnosis of diabetes. In the absence of unequivocal hyperglycemia, results should be confirmed by repeat testing. In a patient with classic symptoms of hyperglycemia or hyperglycemic crisis, random plasma glucose results greater than or equal to 200 mg/dL meet the criteria for diagnosis of diabetes. Reference: Standards of Medical Care in Diabetes 2016, [place] [employer]. Diabetes Care. 2016.39(Suppl 1). Performed By: #### 2 4323-8, 84932-8 #### [facility] CLIA [id number] [address] [place] [address] [place] Potassium [Moles/Vol] 4.0 mmol/L Normal 3.7-5.1 [facility] Comment on above: Order Comment: Roselia miranda Type: BLOOD SPECIMEN Ordering Facility: [facility] Address: [address] [place] [address] Performed By: #### 2 4323-8, 28700-0 #### [facility] CLIA [id number] [address] [place] [address] [place] Protein [Mass/Vol] 7.1 g/dL Normal 6.3-8.0 [facility] Comment on above: Order Comment: Speci men Type: BLOOD SPECIMEN Ordering Facility: [facility] Address: [address] [place] [address] Performed By: #### 2 4323-8, 42120-5 #### [facility] CLIA [id number] [address] [place] [address] [place] Sodium [Moles/Vol] 141 mmol/L Normal 136-144 [facility] Comment on above: Order Comment: Speci men Type: BLOOD SPECIMEN Ordering Facility: [facility] Address: [address] [place] [address] Performed By: #### 2 4323-8, 79213-1 #### [facility] CLIA [id number] [address] [place] Urea nitrogen [Mass/Vol] 20 mg/dL Normal 7-21 [facility] Comment on above: Order Comment: Speci men Type: BLOOD SPECIMEN Ordering Facility: [facility] Address: [address] [place] [address] Performed By: #### 2 4323-8, 97759-0 #### [facility] CLIA [id number] [address] [place] Lipid 1996 panelon 4 Cholesterol [Mass/Vol] 146 mg/dL Normal <200 [facility] Comment on above: Order Comment: Speci men Type: BLOOD SPECIMEN Ordering Facility: [facility] Address: [address] [place] [address] Result Comment: <200 mg/dL, Desirable 200-239 mg/dL, Borderline high >239 mg/dL, High Performed By: #### 2 4323-8, 92154-2 #### [facility] CLIA [id number] [address] [place] Cholesterol in HDL [Mass/Vol] 68 mg/dL Normal >39 [facility] Comment on above: Order Comment: Speci men Type: BLOOD SPECIMEN Ordering Facility: [facility] Address: [address] [place] [address] Result Comment: 40-5 9 mg/dL, Acceptable >59 mg/dL, High: Negative risk factor for coronary heart disease <40 mg/dL, Low: Positive risk factor for coronary heart disease Performed By: #### 2 4323-8, 79451-7 #### [facility] CLIA [id number] [address] Cholesterol in LDL [Mass/Vol] 69 mg/dL Normal <100 [facility] Comment on above: Order Comment: Roselia miranda Type: BLOOD SPECIMEN Ordering Facility: [facility] Address: [address] [place] [address] Result Comment: <100 mg/dL, Optimal 100-129 mg/dL, Near optimal/above optimal 130-159 mg/dL, Borderline high 160-189 mg/dL, High >189 mg/dL, Very high Secondary prevention optimal LDL Cholesterol levels are recommended to be < 70 mg/dL Performed By: #### 2 4323-8, 29832-6 #### [facility] CLIA [id number] [address] Cholesterol in LDL/Cholesterol in HDL [Mass ratio] 1.01 {ratio} Normal <2.54 [facility] Comment on above: Order Comment: Roselia miranda Type: BLOOD SPECIMEN Ordering Facility: [facility] Address: [address] [place] [address] Result Comment: Refe rence: 1. National Cholesterol Education Program ATP III Guideline At-A-Glance Quick Desk Reference: National Heart, Lung, and Blood [place]. National Institutes of Health. 2001: NIH Publication No. 01-3305. 2. An International Atherosclerosis Society position paper: global recommendations for the management of dyslipidemia: executive summary, Atherosclerosis. 2014: 232(2):410-413. Performed By: #### 2 4323-8, 47084-9 #### [facility] CLIA [id number] [address] Cholesterol in VLDL [Mass/Vol] 9 mg/dL Normal <30 [facility] Comment on above: Order Comment: Roselia miranda Type: BLOOD SPECIMEN Ordering Facility: [facility] Address: [address] [place] [address] Performed By: #### 2 4323-8, 13197-3 #### [facility] CLIA [id number] [address] Cholesterol non HDL [Mass/Vol] 78 mg/dL Normal <130 [facility] Comment on above: Order Comment: Speci men Type: BLOOD SPECIMEN Ordering Facility: [facility] Address: [address] [place] [address] Result Comment: <130 mg/dL, Optimal 130-159 mg/dL, Near optimal/above optimal 160-189 mg/dL, Borderline high 190-219 mg/dL, High >219 mg/dL, Very high Secondary prevention optimal non HDL Cholesterol levels are recommended to be <100 mg/dL Performed By: #### 2 4323-8, 78602-5 #### [facility] CLIA [id number] [address] Cholesterol.total/Ch olesterol in HDL [Mass ratio] 2.15 {ratio} Normal <5.10 [facility] Comment on above: Order Comment: Speci men Type: BLOOD SPECIMEN Ordering Facility: [facility] Address: [address] [place] [address] Performed By: #### 2 4323-8, 91877-4 #### [facility] CLIA [id number] [address] FASTING TIME 10 hrs Normal [facility] Comment on above: Order Comment: Speci men Type: BLOOD SPECIMEN Ordering Facility: [facility] Address: [address] [place] [address] Performed By: #### 2 4323-8, 72682-1 #### [facility] CLIA [id number] [address] OF [facility] Triglyceride [Mass/Vol] 44 mg/dL Normal <150 [facility] Comment on above: Order Comment: Speci men Type: BLOOD SPECIMEN Ordering Facility: [facility] Address: [address] [place] [address] Result Comment: <150 mg/dL, Normal 150-199 mg/dL, Borderline high 200-499 mg/dL, High >499 mg/dL, Very high Performed By: #### 2 4323-8, 48108-7 #### [facility] CLIA [id number] [address] [place] [address] [place] NM CARDIAC PERF STRESS/EXERC ISEon 09-28-2023 NM CARDIAC PERF STRESS/EXERCISE * * *Final Report* * * DATE OF EXAM: Sep 28 2023 3:23PM [facility] 0004 - NM CARDIAC PERF STRESS/EXERCISE / PROCEDURE REASON: multiple diagnoses * * * * Physician Interpretation * * * * Stress Health Insurance Specialist Report: [facility] Date of service: 09/28/2023 2:15:07 PM Supervising physician: Becki Katz MD PATIENT: Name: MRS. YOKASTA [place] Age: 63 years Gender: F The supervising physician was in the department and immediately available. * * * Final * * * ------ PATIENT: Name: MRS. YOKASTA [place] Age: 63 years Gender: F CONCLUSIONS: 1. SPECT Perfusion Study: Normal. 2. There is no scintigraphic evidence for inducible ischemia. 3. No evidence of scarred myocardium. 4. Left ventricle is normal in size. The left ventricle systolic function is hyperdynamic. 5. Right ventricle is normal in size. The right ventricle systolic function is normal. 6. This is a low risk scan. Gated Stress IR:3D LVEF % 82 Prior Study Comparison Prior nuclear cardiology exam was performed on 05/13/2016. Nuclear Med Report:1-Day Gated SPECT Myocardial Perfusion with Exercise Stress: Myocardial perfusion imaging was performed at rest 30 to 60 minutes following the IV injection of the radiotracer. One minute prior to peak exercise, the patient was injected IV with the radiotracer. Gated post stress tomographic imaging was performed 10 to 20 minutes later. See administered radiotracer and doses below. [facility] Date of service: 09/28/2023 2:15:07 PM Ordering Physician: PERLA HINTON. Requesting Physician: Indication: CP - ECG interpretable AND able to exercise with low probability of CAD Interpreting physician: Yayo Hassan MD Height: 160.02 cm BSA: 1.87 m? Weight: 78.47 kg BMI: 30.6 kg/m? CT Dose Reduction Employed: No. Exam Type: Rest Stress Radiopharm: Tc-99m Tetrofosmin Tc-99m Tetrofosmin Dosage(mCi): 14.0 35.7 Atten Correction: not performed not performed Stress Agent: Treadmill Resting Blood Press: 153/84 mmHg Image Quality The overall study imaging quality was deemed to be good. FINDINGS: Stress IR:3D Gated Stress IR:3D LVEF: 82 % ED Volume: 74 ml ES Volume: 13 ml TID: 0.76 Perfusion Findings Stress IR:3D - Summed Score=0 All segments demonstrate normal perfusion. Rest IR:3D - Summed Score=0 All segments demonstrate normal perfusion. Stress IR:3D Rest IR:3D Summed Score=0 Summed Score=0 LEFT VENTRICLE The left ventricle is normal in size. Left ventricular systolic function is hyperdynamic. Right Ventricle The right ventricle is normal in size. Right ventricle systolic function is normal. Stress Test Findings: There is no scintigraphic evidence for inducible ischemia. There is no evidence of scarring. * * * Final * * * ------ Stress ECG Report: [facility] Date of service: 09/28/2023 2:15:07 PM Ordering physician: PERLA HINTON marketing technology specialist: Lois Shannon First Assistant: Meron Mccullough Interpreting physician: Becki Katz MD Patient name: MRS. YOKASTA MORENO Age: 63 years Gender: F Height: 160.02 cm BSA: 1.87 m? Weight: 78.47 kg BMI: 30.6 kg/m? Indication: Chest pressure / Chest tightness Stress ECG Conclusion: Conclusion: Normal with exception due to low chronotropic response index Stress ECG Summary: The patient's resting heart rate was 76 bpm and blood pressure was 153/84 mmHg. The patient exercised according to the Omega protocol. The estimated end-exercise MET level achieved using the FRIEND equation * * * was 8.3, which is in the top 10th percentile for age and sex. The estimated end-exercise MET level achieved using the previous ACSM equation was 10.2. The test was terminated due to end of protocol and the total exercise time was 9 minutes and 0 seconds. Other symptoms during the test included SOB. The maximum heart rate was 136 bpm, which is 86% of the predicted heart rate for age. This is an adequate heart rate response. Peak blood pressure was 172/90 mmHg. The double product achieved was [address]. Medications: Last Used LIPITOR DILTIAZEM TAMBOCOR PEPCID ASPIRIN AVALIDE Resting ECG: Normal Sinus Rhythm Symptoms at rest: No symptoms Exercise Protocol: Omega Stress Exercise Table: +-----+ +--- -----+ +---+- --+---+----+----+ Stage Speed (MPH) Grade(%) Time (min) HR SYS LASHONDA RPE METS +-----+ +--- -----+ +---+- --+---+----+----+ 1 1.7 10.0 3.0 121 150 82 13.0 4.2 +-----+ +--- -----+ +---+- --+---+----+----+ 2 2.5 12.0 6.0 133 164 86 14.0 (more content not included)... Normal [facility] NM Heart Perfusion W multipl e states of exerciseon 09-28-2023 * * *Final Report* * * DATE OF EXAM: Sep 28 2023 3:23PM [facility] 0004 - NM CARDIAC PERF STRESS/EXERCISE / PROCEDURE REASON: multiple diagnoses * * * * Physician Interpretation * * * * Stress Health Insurance Specialist Report: [facility] Date of service: 09/28/2023 2:15:07 PM Supervising physician: Becki Katz MD PATIENT: Name: MRS. YOKASTA MORENO Age: 63 years Gender: F The supervising physician was in the department and immediately available. * * * Final * * * ------ PATIENT: Name: MRS. YOKASTA MORENO Age: 63 years Gender: F CONCLUSIONS: 1. SPECT Perfusion Study: Normal. 2. There is no scintigraphic evidence for inducible ischemia. 3. No evidence of scarred myocardium. 4. Left ventricle is normal in size. The left ventricle systolic function is hyperdynamic. 5. Right ventricle is normal in size. The right ventricle systolic function is normal. 6. This is a low risk scan. Gated Stress IR:3D LVEF % 82 Prior Study Comparison Prior nuclear cardiology exam was performed on 05/13/2016. Nuclear Med Report:1-Day Gated SPECT Myocardial Perfusion with Exercise Stress: Myocardial perfusion imaging was performed at rest 30 to 60 minutes following the IV injection of the radiotracer. One minute prior to peak exercise, the patient was injected IV with the radiotracer. Gated post stress tomographic imaging was performed 10 to 20 minutes later. See administered radiotracer and doses below. [facility] Date of service: 09/28/2023 2:15:07 PM Ordering Physician: PERLA HINTON. Requesting Physician: Indication: CP - ECG interpretable AND able to exercise with low probability of CAD Interpreting physician: Yayo Hassan MD Height: 160.02 cm BSA: 1.87 m Weight: 78.47 kg BMI: 30.6 kg/m CT Dose Reduction Employed: No. Exam Type: Rest Stress Radiopharm: Tc-99m Tetrofosmin Tc-99m Tetrofosmin Dosage(mCi): 14.0 35.7 Atten Correction: not performed not performed Stress Agent: Treadmill Resting Blood Press: 153/84 mmHg Image Quality The overall study imaging quality was deemed to be good. FINDINGS: Stress IR:3D Gated Stress IR:3D LVEF: 82 % ED Volume: 74 ml ES Volume: 13 ml TID: 0.76 Perfusion Findings Stress IR:3D - Summed Score=0 All segments demonstrate normal perfusion. Rest IR:3D - Summed Score=0 All segments demonstrate normal perfusion. Stress IR:3D Rest IR:3D Summed Score=0 Summed Score=0 LEFT VENTRICLE The left ventricle is normal in size. Left ventricular systolic function is hyperdynamic. Right Ventricle The right ventricle is normal in size. Right ventricle systolic function is normal. Stress Test Findings: There is no scintigraphic evidence for inducible ischemia. There is no evidence of scarring. * * * Final * * * ------ Stress ECG Report: [facility] Date of service: 09/28/2023 2:15:07 PM Ordering physician: PERLA HINTON marketing technology specialist: Lois Shannon First Assistant: Meron Mccullough Interpreting physician: Becki Katz MD Patient name: MRS. YOKASTA MORENO Age: 63 years Gender: F Height: 160.02 cm BSA: 1.87 m Weight: 78.47 kg BMI: 30.6 kg/m Indication: Chest pressure / Chest tightness Stress ECG Conclusion: Conclusion: Normal with exception due to low chronotropic response index Stress ECG Summary: The patient's resting heart rate was 76 bpm and blood pressure was 153/84 mmHg. The patient exercised according to the Omega protocol. The estimated end-exercise MET level achieved using the FRIEND equation * * * was 8.3, which is in the top 10th percentile for age and sex. The estimated end-exercise MET level achieved using the previous ACSM equation was 10.2. The test was terminated due to end of protocol and the total exercise time was 9 minutes and 0 seconds. Other symptoms during the test included SOB. The maximum heart rate was 136 bpm, which is 86% of the predicted heart rate for age. This is an adequate heart rate response. Peak blood pressure was 172/90 mmHg. The double product achieved was [address]. Medications: Last Used LIPITOR DILTIAZEM TAMBOCOR PEPCID ASPIRIN AVALIDE Resting ECG: Normal Sinus Rhythm Symptoms at rest: No symptoms Exercise Protocol: Omega Stress Exercise Table: +-----+-------- (more content not included)... [facility] Provider, [facility] - 09/28/2023 * * *Final Report* * * DATE OF EXAM: Sep 28 2023 3:23PM PERCY 0004 - NM CARDIAC PERF STRESS/EXERCISE / PROCEDURE REASON: multiple diagnoses * * * * Physician Interpretation * * * * Stress Health Insurance Specialist Report: [facility] Date of service: 09/28/2023 2:15:07 PM Supervising physician: Becki Katz MD PATIENT: Name: MRS. YOKASTA MORENO Age: 63 years Gender: F The supervising physician was in the department and immediately available. * * * Final * * * ------ PATIENT: Name: MRS. YOKASTA MORENO Age: 63 years Gender: F CONCLUSIONS: 1. SPECT Perfusion Study: Normal. 2. There is no scintigraphic evidence for inducible ischemia. 3. No evidence of scarred myocardium. 4. Left ventricle is normal in size. The left ventricle systolic function is hyperdynamic. 5. Right ventricle is normal in size. The right ventricle systolic function is normal. 6. This is a low risk scan. Gated Stress IR:3D LVEF % 82 Prior Study Comparison Prior nuclear cardiology exam was performed on 05/13/2016. Nuclear Med Report:1-Day Gated SPECT Myocardial Perfusion with Exercise Stress: Myocardial perfusion imaging was performed at rest 30 to 60 minutes following the IV injection of the radiotracer. One minute prior to peak exercise, the patient was injected IV with the radiotracer. Gated post stress tomographic imaging was performed 10 to 20 minutes later. See administered radiotracer and doses below. [facility] Date of service: 09/28/2023 2:15:07 PM Ordering Physician: PERLA HINTON. Requesting Physician: Indication: CP - ECG interpretable AND able to exercise with low probability of CAD Interpreting physician: Yayo Hassan MD Height: 160.02 cm BSA: 1.87 m Weight: 78.47 kg BMI: 30.6 kg/m CT Dose Reduction Employed: No. Exam Type: Rest Stress Radiopharm: Tc-99m Tetrofosmin Tc-99m Tetrofosmin Dosage(mCi): 14.0 35.7 Atten Correction: not performed not performed Stress Agent: Treadmill Resting Blood Press: 153/84 mmHg Image Quality The overall study imaging quality was deemed to be good. FINDINGS: Stress IR:3D Gated Stress IR:3D LVEF: 82 % ED Volume: 74 ml ES Volume: 13 ml TID: 0.76 Perfusion Findings Stress IR:3D - Summed Score=0 All segments demonstrate normal perfusion. Rest IR:3D - Summed Score=0 All segments demonstrate normal perfusion. Stress IR:3D Rest IR:3D Summed Score=0 Summed Score=0 LEFT VENTRICLE The left ventricle is normal in size. Left ventricular systolic function is hyperdynamic. Right Ventricle The right ventricle is normal in size. Right ventricle systolic function is normal. Stress Test Findings: There is no scintigraphic evidence for inducible ischemia. There is no evidence of scarring. * * * Final * * * ------ Stress ECG Report: [facility] Date of service: 09/28/2023 2:15:07 PM Ordering physician: PERLA HINTON marketing technology specialist: Lois Shannon First Assistant: Meron Mccullough Interpreting physician: Becki Katz MD Patient name: MRS. YOKASTA MORENO Age: 63 years Gender: F Height: 160.02 cm BSA: 1.87 m Weight: 78.47 kg BMI: 30.6 kg/m Indication: Chest pressure / Chest tightness Stress ECG Conclusion: Conclusion: Normal with exception due to low chronotropic response index Stress ECG Summary: The patient's resting heart rate was 76 bpm and blood pressure was 153/84 mmHg. The patient exercised according to the Omega protocol. The estimated end-exercise MET level achieved using the FRIEND equation * * * was 8.3, which is in the top 10th percentile for age and sex. The estimated end-exercise MET level achieved using the previous ACSM equation was 10.2. The test was terminated due to end of protocol and the total exercise time was 9 minutes and 0 seconds. Other symptoms during the test included SOB. The maximum heart rate was 136 bpm, which is 86% of the predicted heart rate for age. This is an adequate heart rate response. Peak blood pressure was 172/90 mmHg. The double product achieved was 72867. Medications: Last Used LIPITOR DILTIAZEM TAMBOCOR PEPCID ASPIRIN AVALIDE Resting ECG: Normal Sinus Rhythm Symptoms at rest: No symptoms Exercise Protocol: Omega Stress Exercise Table: +-----+ +--- -----+ +---+- --+---+----+----+ Stage Speed (MPH) Grade(%) Time (min) HR SYS LASHONDA RPE METS +-----+ +--- -----+ +---+- --+-- (more content not included)... [facility] Radiology Study observation (narrative) [facility] NM Heart Perfusion W multipl e states of exerciseOrdered By: [facility] Provider on 09-28-2023 [facility] Jordy 09-25-2023 CNPN Telephone (CDLBME) YOKASTA MORENO ([id number]) 1960 F Date Time Provider Department 09/25/23 MERON MCCULLOUGH [facility]ME During your visit today, we recorded the following information about you: Merno Mccullough, RN 09/25/2023 2:20 PM Signed Spoke to pt regarding reminder and instructions for stress test on Thursday. This included where to check in, length of test and no caffeine for 12 hours prior to test. Allergies As of Date: 09/25/2023 Noted Allergy Reaction ADHESIVE TAPE (ROSINS) 03/13/2013 2 - Rash LATEX, NATURAL RUBBER 11/27/2010 2 - Rash SULFAMETHOXAZOLE-TRIME THOPRIM 11/27/2020 11 - Vomiting Comments: *ANTI-INFECTIVE AGENTS--MISC.* *ANTI-INFECTIVE AGENTS--MISC.* Date Reviewed: 09/11/2023 Reviewed by: Kelsey Duong MA - Fully Assessed Reason for Visit: Reminder Call [[id number]] Prescriptions as of 09/25/2023 - atorvastatin (LIPITOR) 20 mg tablet Take 1 tablet by mouth once daily. - dilTIAZem XR (DILACOR XR) 180 mg 24 hr capsule Take 1 capsule by mouth once daily. - flecainide (TAMBOCOR) 100 mg tablet take 1 tablet by mouth every 12 hours - guselkumab (TREMFYA) 100 mg/mL Inject 100 mL subcutaneously. Every other month - famotidine (PEPCID) 20 mg tablet famotidine 20 mg tablet TAKE 1 TABLET ORALLY TWICE PER DAY FOR 30 DAYS - cholecalciferol, vitamin D3, 100 mcg (4,000 unit) cap Take 1 capsule by mouth once daily. - aspirin, enteric coated (ECOTRIN LOW STRENGTH) 81 mg EC tablet Take 1 tablet by mouth once daily. Take 4 tablets (324 mg the first day - AVALIDE 300-12.5 mg ORAL per tablet Problem List As Of Date 09/25/2023 Noted Resolved Plantar fasciitis [M72.2] 11/27/2010 PAF (paroxysmal atrial fibrillation) (HCC) [I48*04/30/2016 Essential hypertension [I10] 07/05/2016 Vitamin D deficiency [E55.9] 11/23/2018 Stress [F43.9] 11/23/2018 Psoriasis [L40.9] 03/21/2019 Lumbar herniated disc [M51.26] 11/23/2018 Liver cyst [K76.89] 11/23/2018 Left hip pain [M25.552] 03/31/2018 High triglycerides [E78.1] 11/23/2018 Headache [R51.9] 01/11/2019 Goiter [E04.9] 01/11/2019 Gastroesophageal reflux disease [K21.9] 11/27/2020 Dyslipidemia [E78.5] 05/30/2019 Chronic interstitial cystitis [N30.10] 11/27/2020 Anosmia [R43.0] 01/11/2019 Encounter Status:Closed by MERON MCCULLOUGH on 09/25/23 Normal [facility] ECG COMPLETEon 07-22-2021 Atrial Rate 72 BPM [facility] Calculated P [place] 13 degrees [facility] Calculated R [place] -2 degrees [facility] Calculated T [place] 26 degrees [facility] P-R Interval 152 ms [facility] QRS Duration 108 ms [facility] QT Interval 400 ms [facility] QTC Calculation (Bazett) 438 ms [facility] Ventricular Rate 72 BPM [facility] TB by QuantiFERONon 02-04-20 21 Interpretation TBNEG Normal [facility] Comment on above: Performed By: #### I NFTBP #### [facility] [address] [address] Mitogen minus Nil 4.89 Normal [facility] Comment on above: Performed By: #### I NFTBP #### [facility] [address] [place] [address] TB NIL 0.02 IU/mL Normal [facility] Comment on above: Performed By: #### I NFTBP #### [facility] [address] [place] [phone] TB Result NEGAT Normal Negative [facility] Comment on above: Performed By: #### I NFTBP #### [facility] [address] [place], [place] [address] TB1 Ag minus Nil 0.00 IU/mL Normal <0.35 [facility] Comment on above: Performed By: #### I NFTBP #### [facility] [address] [place], [place] [address] TB2 Ag minus Nil 0.01 IU/mL Normal <0.35 [facility] Comment on above: Performed By: #### I NFTBP #### [phone] Hepatitis B Core AB IgMon HB CORE [id number] Negative Normal Negative [facility] Comment on above: Result Comment: Perf ormed at: CB - [facility] [place] [id number] Manager Of Loss Prevention Operations: Greyson Acevedo PhD, Phone: [phone] Performed By: #### L 3100.0440, L3400.8000 #### [facility] (refer to report for specific site) refer to report for address and phone number Quantiferon TB-Gold+on 05-22 QFT MITOGEN ELY 1.84 IU/mL Normal . [facility] Comment on above: Performed By: #### L 3100.0440, L3400.8000 #### [facility] (refer to report for specific site) refer to report for address and phone number QFT NIL VALUE 0.01 IU/mL Normal . [facility] Comment on above: Performed By: #### L 3100.0440, L3400.8000 #### [facility] (refer to report for specific site) refer to report for address and phone number QFT TB GOLD Comment Normal . [facility] Comment on above: Result Comment: The QuantiFERON-TB Gold Plus result is determined by subtracting the Nil value from either TB antigen (Ag) tube. The mitogen tube serves as a control for the test. Performed By: #### L 3100.0440, L3400.8000 #### [facility] (refer to report for specific site) refer to report for address and phone number QFT TB POS CRIT Negative Normal Negative [facility] Comment on above: Result Comment: The specimen received for QuantiFERON testing was incubated by the ordering institution. Specific procedures outlined in our Directory of Services and in the package insert for the QuantiFERON Gold (In Tube) test must be followed to enable for proper stimulation of cells for the production of interferon gamma. Performed By: #### L 3100.0440, L3400.8000 #### [facility] (refer to report for specific site) refer to report for address and phone number QFT TB1+ AG ELY 0.01 IU/mL Normal . [facility] Comment on above: Performed By: #### L 3100.0440, L3400.8000 #### [facility] (refer to report for specific site) refer to report for address and phone number QFT TB2+ AG ELY 0.02 IU/mL Normal . [facility] Comment on above: Performed By: #### L 3100.0440, L3400.8000 #### [facility] (refer to report for specific site) refer to report for address and phone number Basic Metabolic Profile (BMP )on 05-19-2019 Calcium [Mass/Vol] 9.1 mg/dL Normal 8.5-10.1 [facility] Comment on above: Performed By: #### L 500.2500, L500.3400 #### [facility] Laboratory [address] [place], [address] Chloride [Moles/Vol] 103 mmol/L Normal 98-107 [facility] Comment on above: Performed By: #### L 500.2500, L500.3400 #### [facility] [address] [place], [address] CO2 [Moles/Vol] 28.0 mmol/L Normal 21.0-32.0 [facility] Comment on above: Performed By: #### L 500.2500, L500.3400 #### [facility] [address] [place], [address] Creatinine [Mass/Vol] 1.03 mg/dL High 0.55-1.02 [facility] Comment on above: Result Comment: The validity of the calculated GFR AND GFRAA in patients over 70 years has not been determined. Clinical correlation is essential. Performed By: #### L 500.2500, L500.3400 #### [facility] [address] [place], [address] EST GFR - AA 71 mL/min Normal >60 [facility] Comment on above: Result Comment: Afri can Bahamian GFR Calc Performed By: #### L 500.2500, L500.3400 #### [facility] [address] [place], [address] GAP 6 Normal 5-15 [facility] Comment on above: Performed By: #### L 500.2500, L500.3400 #### [facility] [address] [place], [address] GFR/1.73 sq M predicted among non-blacks MDRD (S/P/Bld) [Vol rate/Area] 59 mL/min/{1.73_m2} Low >60 [facility] Comment on above: Result Comment: Non- GFR Calc Performed By: #### L 500.2500, L500.3400 #### [facility] [address] [place], [address] Glucose [Mass/Vol] 80 mg/dL Normal 74-106 [facility] Comment on above: Result Comment: Meño watkins note revised GLUCOSE reference range effective 2017. Performed By: #### L 500.2500, L500.3400 #### [facility] [address] [place], [address] Potassium [Moles/Vol] 3.5 mmol/L Normal 3.5-5.1 [facility] Comment on above: Performed By: #### L 500.2500, L500.3400 #### [facility] [address] [place], [address] Sodium [Moles/Vol] 137 mmol/L Normal 136-145 [facility] Comment on above: Performed By: #### L 500.2500, L500.3400 #### [facility] [address] [place], [address] Urea nitrogen [Mass/Vol] 19.4 RATIO Normal 10-20 [facility] Comment on above: Performed By: #### L 500.2500, L500.3400 #### [facility] [address] [place], [address] Urea nitrogen [Mass/Vol] 20 mg/dL High 7-18 [facility] Comment on above: Performed By: #### L 500.2500, L500.3400 #### [facility] [address] [place], [address] CBC W/Diff, Automatedon - Absolute Neut 11.3 X10 3/uL High 2.0-7.7 [facility] Comment on above: Performed By: #### L 100.0100 #### [facility] [address] [place], [address] Basophils/100 WBC (Bld) 0.4 % Normal 0-1 [facility] Comment on above: Performed By: #### L 100.0100 #### [facility] [address] [place], [address] Eosinophils/100 WBC (Bld) 0.6 % Normal 0-5 [facility] Comment on above: Performed By: #### L 100.0100 #### [facility] [address] [place], [address] Erythrocyte distribution width (RBC) [Ratio] 12.8 % Normal 11.6-14.6 [facility] Comment on above: Performed By: #### L 100.0100 #### [facility] [address] [place], [address] Hematocrit (Bld) [Volume fraction] 42.1 % Normal 37-47 [facility] Comment on above: Performed By: #### L 100.0100 #### [facility] [address] [place], [address] Hemoglobin (Bld) [Mass/Vol] 13.7 g/dL Normal 12.0-15.0 [facility] Comment on above: Performed By: #### L 100.0100 #### [facility] [address] [place], [address] IM GRAN % 0.600 % Normal 0.0-0.9 [facility] Comment on above: Result Comment: IG% - Immature Granulocytes (promyelocytes, myelocytes and metamyelocytes) > 1% indicates that a LEFT SHIFT is Present. Performed By: #### L 100.0100 #### [facility] [address] [place], [address] Lymphocytes (Bld) [#/Vol] 2.40 X10 3/uL Normal 0.83-4.51 [facility] Comment on above: Performed By: #### L 100.0100 #### [facility] [address] [place], [address] Lymphocytes/100 WBC (Bld) 16.4 % Low 19-41 [facility] Comment on above: Performed By: #### L 100.0100 #### [facility] [address] [place], [address] MCH (RBC) [Entitic mass] 29.2 pg Normal 27.0-32.0 [facility] Comment on above: Performed By: #### L 100.0100 #### [facility] [address] [place], [address] MCHC (RBC) [Mass/Vol] 32.5 g/dL Normal 32-36 [facility] Comment on above: Performed By: #### L 100.0100 #### [facility] [address] [place], [address] MCV (RBC) [Entitic vol] 89.8 fL Normal 81-99 [facility] Comment on above: Performed By: #### L 100.0100 #### [facility] [address] [place], [address] Monocytes/100 WBC (Bld) 4.8 % Normal 0-10 [facility] Comment on above: Performed By: #### L 100.0100 #### [facility] [address] [place], [address] Neutrophils/100 WBC (Bld) 77.2 % High 47-70 [facility] Comment on above: Performed By: #### L 100.0100 #### [facility] [address] [place], [address] NRBC, FLAGGED 0 % Normal 0-5 [facility] Comment on above: Performed By: #### L 100.0100 #### [facility] [address] [place], [address] Platelet mean volume (Bld) [Entitic vol] 9.7 fL Normal 6.2-12.0 [facility] Comment on above: Performed By: #### L 100.0100 #### [facility] [address] [place], [address] Platelets (Bld) [#/Vol] 442 10*3/uL Normal 150-450 [facility] Comment on above: Performed By: #### L 100.0100 #### [facility] [address] [place], [address] RBC (Bld) [#/Vol] 4.69 M/mm3 Normal 4.2-5.4 [facility] Comment on above: Performed By: #### L 100.0100 #### [facility] [address] [place], [address] RDW SD 41.2 fl Normal 35.1-43.9 [facility] Comment on above: Performed By: #### L 100.0100 #### [facility] [address] [place], [address] WBC (Bld) [#/Vol] 14.6 10*3/uL High 4.4-11.0 [facility] Comment on above: Performed By: #### L 100.0100 #### [facility] [address] [place], [address] Hepatitis B Surface Antibody on 05-19-2019 HEPB Surface Ab Reactive Normal [facility] Comment on above: Result Comment: Non Reactive: Inconsistent with immunity less than <10 mIU/mL Reactive: Consistent with immunity greater than or equal to 10 mIU/mL Performed By: #### L 3890.6100, L3890.6200, L3890.6300 #### [facility] [address] [place], [address] Hepatitis B Surface Antigeno n 05-19-2019 HEPB Surface Ag Non-Reactive Normal Nonreactive [facility] Comment on above: Performed By: #### L 3890.6100, L3890.6200, L3890.6300 #### [facility] [address] [place], [address] Hepatitis C Antibodyon 05-18 HEPATITIS C AB Non-Reactive Normal Nonreactive [facility] Comment on above: Result Comment: Non Reactive: < 0.8 Equivocal: >/= 0.8 to < 1.0 Reactive: >/= 1.0 The CDC recommends that a reactive/equivocal HCV antibody result be followed up by the HCV Nucleic Acid Amplification test (309427) Performed By: #### L 3890.6100, L3890.6200, L3890.6300 #### [facility] [address] [place], [address] Liver Profileon 05-19-2019 Albumin [Mass/Vol] 3.9 g/dL Normal 3.2-5.0 [facility] Comment on above: Performed By: #### L 500.2500, L500.3400 #### [facility] [address] [place], [address] ALK P 92 U/L Normal 45-117 [facility] Comment on above: Performed By: #### L 500.2500, L500.3400 #### [facility] [address] [place], [address] ALT [Catalytic activity/Vol] 23 U/L Normal 13-56 [facility] Comment on above: Performed By: #### L 500.2500, L500.3400 #### [facility] [address] [place], [address] AST [Catalytic activity/Vol] 8 U/L Low 15-37 [facility] Comment on above: Performed By: #### L 500.2500, L500.3400 #### [facility] [address] [place], [address] Bilirubin [Mass/Vol] 0.80 mg/dL Normal 0.20-1.00 [facility] Comment on above: Performed By: #### L 500.2500, L500.3400 #### [facility] [address] [place], [address] Bilirubin.direct [Mass/Vol] 0.18 mg/dL Normal 0.00-0.30 [facility] Comment on above: Performed By: #### L 500.2500, L500.3400 #### [facility] [address] [place], [address] Globulin (S) [Mass/Vol] 3.5 g/dL Normal 2.2-4.2 [facility] Comment on above: Performed By: #### L 500.2500, L500.3400 #### [facility] [address] [place], [address] T PROT 7.4 g/dL Normal 6.4-8.2 [facility] Comment on above: Performed By: #### L 500.2500, L500.3400 #### [facility] [address] [place], [address] URINE CULTURE,BACTERIALon URINE CULTURE,BACTERIAL PATIENT: YOKASTA MORENO LOCATION[place] [facility] [place]ILL#: [id number] : 62 AGE: SEX: F ORDERED BY: AMY GIANG SOURCE: URINE COLLECTED: 05/30/18 12:57 ANTIBIOTICS AT AWAIS.: RECEIVED : 05/30/18 21:50 SITE: Clean Catch/Voided R E S U L T S URINE CULTURE,BACTERIAL FINAL 05/31/18 14:20 NO SIGNIFICANT GROWTH. Normal [facility] Comment on above: Performed By: #### [facility] #### [facility] [address] [place] [address] FOOT, COMPLETE, MIN 3 VIEWSo n 11-26-2017 FOOT, COMPLETE, MIN 3 VIEWS Patient Name: YOKASTA MORENO STUDY: FOOT, COMPLETE, MIN 3 VIEWS; 11/26/2017 12:42 pm INDICATION: Signs/Symptoms: jammed toe on step, swelling, echymosis, second toe. COMPARISON: None. ACCESSION NUMBER(S): [id number] ORDERING CLINICIAN: SYEDA KRAFT FINDINGS: There is a mildly impacted torus fracture at the distal aspect of the middle phalanx of the 2nd digit. Does not involve the articular surface. No other fracture is seen. IMPRESSION: Positive exam as detailed above Electronically signed by: SOTERO NIÑO MD Normal [facility] Vital Signs Date Time Vital Sign Value Performing Clinician Facility 09-09-2024 11:53-0400 Body height 160 cm Perla Hinton MD Work Phone: [facility] 09-09-2024 11:53-0400 Body mass index (BMI) [Ratio] 29.29 kg/m2 Perla Hinton MD Work Phone: [facility] 09-09-2024 11:53-0400 Body weight 75 kg Perla Hinton MD Work Phone: [facility] 09-09-2024 11:53-0400 Diastolic blood pressure 78 mm[Hg] Perla Hinton MD Work Phone: [facility] 09-09-2024 11:53-0400 Heart rate 75 /min Perla Hinton MD Work Phone: [facility] 09-09-2024 11:53-0400 Systolic blood pressure 110 mm[Hg] Perla Hinton MD Work Phone: [facility] 08-19-2024 10:43-0400 Body height 160 cm Adilene López MD Work Phone: [facility] 08-19-2024 10:43-0400 Body mass index (BMI) [Ratio] 30.93 kg/m2 Adilene López MD Work Phone: [facility] 08-19-2024 10:43-0400 Body weight 79.2 kg Adilene López MD Work Phone: [facility] 08-19-2024 10:43-0400 Diastolic blood pressure 64 mm[Hg] Adilene López MD Work Phone: [facility] 08-19-2024 10:43-0400 Heart rate 60 /min Adilene López MD Work Phone: [facility] 08-19-2024 10:43-0400 Systolic blood pressure 100 mm[Hg] Adilene López MD Work Phone: [facility] 06-03-2024 10:02-0400 Body height 160 cm Pacc 1 Work Phone: [facility] 06-03-2024 10:02-0400 Body mass index (BMI) [Ratio] 30.62 kg/m2 Pacc 1 Work Phone: [facility] 06-03-2024 10:02-0400 Body temperature 98.6 [degF] Pacc 1 Work Phone: [facility] 06-03-2024 10:02-0400 Body weight 78.4 kg Pacc 1 Work Phone: [facility] 06-03-2024 10:02-0400 Diastolic blood pressure 69 mm[Hg] Pacc 1 Work Phone: [facility] 06-03-2024 10:02-0400 Heart rate 64 /min Pacc 1 Work Phone: [facility] 06-03-2024 10:02-0400 Respiratory rate 16 /min Pacc 1 Work Phone: [facility] 06-03-2024 10:02-0400 SaO2% (BldA) [Mass fraction] 96 % Pacc 1 Work Phone: [facility] 06-03-2024 10:02-0400 Systolic blood pressure 107 mm[Hg] Pacc 1 Work Phone: [facility] 05-13-2024 11:02-0400 Body height 160 cm Adilene López MD Work Phone: [facility] 05-13-2024 11:02-0400 Body mass index (BMI) [Ratio] 30.3 kg/m2 Adilene López MD Work Phone: [facility] 05-13-2024 11:02-0400 Body weight 77.6 kg Adilene López MD Work Phone: [facility] 05-13-2024 11:02-0400 Diastolic blood pressure 64 mm[Hg] Adilene López MD Work Phone: [facility] 05-13-2024 11:02-0400 Heart rate 59 /min Adilene López MD Work Phone: [facility] 05-13-2024 11:02-0400 Systolic blood pressure 104 mm[Hg] Adilene López MD Work Phone: [facility] 04-11-2024 18:04-0500 Body mass index (BMI) [Ratio] 29.58 kg/m2 Samir Crawford MD Work Phone: [facility] 04-11-2024 18:04-0500 Body temperature 97.3 [degF] Samir Crawford MD Work Phone: [facility] 04-11-2024 18:04-0500 Body weight 75.75 kg Samir Crawford MD Work Phone: [facility] 04-11-2024 18:04-0500 Diastolic blood pressure 84 mm[Hg] Samir Crawford MD Work Phone: [facility] 04-11-2024 18:04-0500 Heart rate 76 /min Samir Crawford MD Work Phone: [facility] 04-11-2024 18:04-0500 Respiratory rate 16 /min Samir Crawford MD Work Phone: [facility] 04-11-2024 18:04-0500 SaO2% (BldA) [Mass fraction] 99 % Samir Crawford MD Work Phone: [facility] 04-11-2024 18:04-0500 Systolic blood pressure 134 mm[Hg] Samir Crawford MD Work Phone: [facility] 03-18-2024 11:22-0500 Body height 160 cm Perla Hinton MD Work Phone: [facility] 03-18-2024 11:22-0500 Body mass index (BMI) [Ratio] 30.85 kg/m2 Perla Hinton MD Work Phone: [facility] 03-18-2024 11:22-0500 Body weight 79 kg Perla Hinton MD Work Phone: [facility] 03-18-2024 11:22-0500 Diastolic blood pressure 80 mm[Hg] Perla Hinton MD Work Phone: [facility] 03-18-2024 11:22-0500 Heart rate 65 /min Perla Hinton MD Work Phone: [facility] 03-18-2024 11:22-0500 Systolic blood pressure 110 mm[Hg] Perla Hinton MD Work Phone: [facility] 11-25-2023 17:51-0400 SaO2% (BldA) [Mass fraction] 95 % Bradly Schiele DO Work Phone: [facility] 11-25-2023 17:50-0400 Body temperature 98.4 [degF] Bradly Schiele DO Work Phone: [facility] 11-25-2023 17:50-0400 Body weight 81.65 kg Bradly Schiele DO Work Phone: [facility] 11-25-2023 17:50-0400 Diastolic blood pressure 117 mm[Hg] Bradly Schiele DO Work Phone: [facility] 11-25-2023 17:50-0400 Heart rate 93 /min Bradly Schiele DO Work Phone: [facility] 11-25-2023 17:50-0400 Respiratory rate 18 /min Bradly Schiele DO Work Phone: [facility] 11-25-2023 17:50-0400 Systolic blood pressure 194 mm[Hg] Bradly Schiele DO Work Phone: [facility] 09-11-2023 10:19-0400 Body height 160 cm Perla Hinton MD Work Phone: [facility] 09-11-2023 10:19-0400 Body mass index (BMI) [Ratio] 30.68 kg/m2 Perla Hinton MD Work Phone: [facility] 09-11-2023 10:19-0400 Body weight 78.56 kg Perla Hinton MD Work Phone: [facility] 09-11-2023 10:19-0400 Diastolic blood pressure 102 mm[Hg] Perla Hinton MD Work Phone: [facility] 09-11-2023 10:19-0400 Heart rate 66 /min Perla Hinton MD Work Phone: [facility] 09-11-2023 10:19-0400 Systolic blood pressure 152 mm[Hg] Perla Hinton MD Work Phone: [facility] 07-22-2021 12:01-0400 Body height 160 cm Perla Hinton MD Work Phone: [facility] 07-22-2021 12:01-0400 Body weight 88.91 kg Perla Hinton MD Work Phone: [facility] 07-22-2021 12:01-0400 Diastolic blood pressure 74 mm[Hg] Perla Hinton MD Work Phone: [facility] 07-22-2021 12:01-0400 Heart rate 72 /min Perla Hinton MD Work Phone: [facility] 07-22-2021 12:01-0400 Respiratory rate 14 /min Perla Hinton MD Work Phone: [facility] 07-22-2021 12:01-0400 Systolic blood pressure 126 mm[Hg] Perla Hinton MD Work Phone: [facility] Encounters Encounter Date Encounter Type Care Provider Facility Start: 09-30-2024 End: 09-30-2024 ambulatory [facility] Facility:[facility] Start: 09-09-2024 End: 09-09-2024 Patient encounter procedure Perla Hinton MD Work Phone: [facility] Comment on above: Paroxysmal atrial fi brillation (HCC) (Primary Dx); Essential hypertension; Pure hypercholesterolemia; Overweight (BMI 25.0-29.9) Start: 09-09-2024 End: 09-09-2024 ambulatory PERLA HINTON Facility:[facility] Start: 09-04-2024 End: 09-06-2024 Refill Perla Hinton MD Work Phone: [facility] Comment on above: Refill Request Start: 08-19-2024 End: 08-19-2024 Office outpatient visit 25 minutes Adilene López MD Work Phone: Cardiology Comment on above: PAF (paroxysmal atri al fibrillation) (HCC) (Primary Dx) Start: 08-19-2024 End: 08-19-2024 ambulatory ADILENE LÓPEZ Facility:[facility] Start: 06-28-2024 End: 06-28-2024 [facility] Facility:[facility] Start: 06-03-2024 End: 06-03-2024 Admission to [place] [id number] Work Phone: Pre Anesthesia Start: 06-03-2024 End: 06-03-2024 Anesthesia consultation [place] [id number] Work Phone: Pre Anesthesia Comment on above: Pre-op evaluation (P rimary Dx); Essential hypertension; High triglycerides; PAF (paroxysmal atrial fibrillation) (HCC); Gastroesophageal reflux disease, unspecified whether esophagitis present; Liver cyst; Goiter; Psoriasis; Lumbar herniated disc; PONV (postoperative nausea and vomiting); Chronic interstitial cystitis Start: 06-03-2024 End: 06-03-2024 Preprocedural examination done [place] [id number] Work Phone: [facility] Work Phone: Start: 06-03-2024 End: 06-03-2024 [facility] Start: 06-03-2024 Encounter for other preprocedural examination [facility] Start: 05-13-2024 End: 05-13-2024 Telephone encounter Adilene López MD Work Phone: Cardiology Comment on above: Procedure Start: 05-13-2024 End: 05-13-2024 ambulatory ADILENE LÓPEZ Facility:[facility] Start: 05-13-2024 End: 05-13-2024 Office outpatient new 45 minutes Adilene López MD Work Phone: Cardiology Comment on above: PAF (paroxysmal atri al fibrillation) (HCC) Start: 04-29-2024 End: 04-29-2024 E-mail encounter from caregiver Perla Hinton MD Work Phone: Provider Adult Start: 04-29-2024 End: 06-29-2024 Follow-up encounter Perla Hinton MD Work Phone: Provider Adult Start: 04-29-2024 End: 04-29-2024 ambulatory Perla Hinton MD Work Phone: Provider Adult Comment on above: Echocardiogram resul ts Start: 04-29-2024 End: 04-29-2024 Subsequent hospital visit by physician [facility] Work Phone: Cardiology Lab Comment on above: Paroxysmal atrial fi brillation (HCC) [I48.0] Start: 04-15-2024 End: 04-15-2024 ambulatory SARPREET NELL Facility:[facility] Start: 04-11-2024 End: 04-11-2024 Office outpatient visit 15 minutes Samir Crawford MD Work Phone: [facility] Comment on above: Eustachian tube dysf unction, right (Primary Dx) Start: 04-02-2024 End: 04-02-2024 Office outpatient new 30 minutes Tia Mandela [employer] Work Phone: Urgent Care Virtual Visit Comment on above: Personal history of COVID-19 (Primary Dx); Acute cough Start: 03-18-2024 End: 03-18-2024 Telephone encounter Perla Hinton MD Work Phone: [facility] Comment on above: Appointment (For PVI ) Appointment Start: 03-18-2024 End: 03-18-2024 Patient encounter procedure Perla Hinton MD Work Phone: [facility] Comment on above: Paroxysmal atrial fi brillation (HCC) (Primary Dx) Start: 03-18-2024 End: 03-18-2024 ambulatory PERLA HINTON Facility:[facility] Start: 12-29-2023 End: 12-29-2023 Telephone encounter Perla Hinton MD Work Phone: Cardiology Start: 11-27-2023 End: 11-27-2023 ambulatory SARPREET NELL Facility:[facility] Start: 11-25-2023 End: 11-25-2023 Emergency department patient visit Bradly Louise Work Phone: [facility] Emergency Department Comment on above: Nose bleed (Nose ble eding x this afternoon, broken nose x 1 week; active bleeding at triage) Start: 11-20-2023 End: 11-20-2023 ambulatory SARPREET NELL Facility:[id number] Start: 11-17-2023 End: 11-17-2023 ambulatory SARPREET NELL Facility:[facility] Start: 11-15-2023 End: 11-15-2023 Emergency department patient visit SARPREET NELL Facility:[facility] Start: 10-13-2023 End: 10-13-2023 ambulatory SARPREET NELL Facility:[facility] Start: 10-02-2023 End: 10-02-2023 ambulatory SARPREET NELL Facility:[facility] Start: 09-28-2023 ambulatory SARPREET NELL Facilit y:[facility] Start: 09-28-2023 End: 09-28-2023 Subsequent hospital visit by physician [facility] Work Phone: Cardiology Lab Comment on above: PAF (paroxysmal atri al fibrillation) (HCC) [I48.0] Start: 09-28-2023 ambulatory SARPREET NELL Facilit y:[facility] Start: 09-28-2023 End: 09-28-2023 Subsequent hospital visit by physician [facility] Work Phone: Molecular Imaging Comment on above: PAF (paroxysmal atri al fibrillation) (HCC) [I48.0] Start: 09-25-2023 Telephone encounter Meron tobar RN Cardiology Lab Comment on above: Reminder Call Start: 09-21-2023 Refill Perla christy MD Work Phone: Cardiology Comment on above: Refill Request Start: 09-11-2023 End: 09-11-2023 Patient encounter procedure Perla Hinton MD Work Phone: [facility] Comment on above: PAF (paroxysmal atri al fibrillation) (HCC) (Primary Dx); Essential hypertension; Chest pain, unspecified type Start: 06-06-2023 Refill Perla christy MD Work Phone: Cardiology Comment on above: Refill Request Start: 05-06-2023 Telephone encounter Perla blunt MD Work Phone: Cardiology Start: 12-19-2022 ambulatory [facility]OS[id number] Start: 10-17-2022 End: 10-18-2022 ambulatory SARPREET NELL Facility:[id number] Start: 01-28-2022 End: 01-29-2022 ambulatory ROM GOSS MD Facility:[id number] Start: 01-28-2022 End: 01-29-2022 ambulatory [facility] Facility:[id number] Start: 01-27-2022 End: 01-27-2022 ambulatory [id number] Start: 12-27-2021 End: 12-28-2021 ambulatory ROM GOSS MD Facility:[facility] Start: 12-27-2021 End: 12-28-2021 ambulatory SARPREET NELL Facility:[id number] Start: 07-22-2021 End: 07-22-2021 Patient encounter procedure Perla Hinton MD Work Phone: Cardiology Comment on above: PAF (paroxysmal atri al fibrillation) (HCC) (Primary Dx); Essential hypertension; Pure hypercholesterolemia; Paroxysmal atrial fibrillation (HCC) Start: 11-26-2017 Patient encounter procedure Syeda Kraft [facility] Start: 12-01-2016 Ambulatory ILENEMATTHEW [facility] Procedures Date Procedure Procedure Detail Performing Clinician Start: 09-09-2024 Ecg routine ecg w/le ast 12 lds i&r only Perla Hinton MD Work Phone: Start: 06-28-2024 Antibody screen BILLY CAMEJO Comment on above: Order Comment: Speci men Type: BLOOD SPECIMENOrdering Facility: [facility] Address: [address] [place] [address] Performed By: #### T SCR ####PROCIOUSCREST BLOOD BANKIA [id number] [address] Start: 05-13-2024 Ecg routine ecg w/le ast 12 lds i&r only [facility] Provider Start: 04-29-2024 Echo tthrc r-t 2d w/ wom-mode compl spec&colr d Perla Hinton MD Work Phone: Start: 03-18-2024 Ecg routine ecg w/le ast 12 lds i&r only [facility] Provider Start: 10-02-2023 Lipid 1996 panel - S michael or Plasma Perla Hinton MD Work Phone: Start: 09-28-2023 Myocardial spect mul tiple studies Perla Hinton MD Work Phone: Start: 07-23-2023 Colonoscopy Perla hamilton MD Work Phone: Start: 09-09-2022 Lipid 1996 panel - S michael or Plasma Perla Hinton MD Work Phone: Start: 03-23-2020 Follow-up visit Start: 07-29-2019 Grady hamilton MD Work Phone: Plan of Treatment Date Care Activity Detail Author Start: 2036 RSV Vaccine (1 - 1-dose 75+ series) RSV Vaccine (1 - 1-dose 75+ series) [facility] Start: 11-14-2033 DTaP/Tdap/Td Vaccines (2 - Td or Tdap) DTaP/Tdap/Td Vaccines (2 - Td or Tdap) [facility] Start: 11-14-2033 Urine microalbumin profile DTaP,Tdap,Td Vaccine (2 - Td or Tdap) [facility] Start: 07-22-2033 Screening for malignant neoplasm of colon [facility] Start: 10-01-2028 Lipid panel [facility] Start: 09-10-2027 Lipid panel Lipid Screening [facility] Start: 06-29-2027 Diabetes Screening Diabetes Screening [facility] Start: 10-01-2026 Diabetes Screening Diabetes Screening [facility] Start: 09-09-2025 Diabetes Screening Diabetes Screening [facility] Start: 06-16-2025 End: 06-16-2025 Patient encounter procedure 06/16/2025 11:40 AM EDT Office Visit [facility] [address] [place] [id number] [place] [address] [place] [id number] 6 month CARD INTERVENTION [facility] Comment on above: 6 month Start: 06-03-2025 BP Controlled (<130/80) BP Controlled (<130/80) [facility] in Start: 05-13-2025 BP Controlled (<130/80) BP Controlled (<130/80) [facility] Start: 03-03-2025 End: 03-03-2025 Patient encounter procedure 03/03/2025 11:15 AM EST Office Visit Cardiology [address] [facility] [address] [place], [place] [id number] Adilene López MD [address] [facility] [address] [place], [place] [id number] 6 month Cardiology Comment on above: 6 month Start: 10-31-2024 Influenza vaccination Influenza Vaccine (#1) [facility] Start: 09-09-2024 End: 09-09-2024 Patient encounter procedure 09/09/2024 11:20 AM EDT Office Visit [facility] [address] [place] [address] [place] [address] [place] [address] 6 month CARD INTERVENTION [facility] Comment on above: 6 month Start: 08-10-2024 End: 08-10-2024 Patient encounter procedure 08/10/2024 11:30 AM EDT Office Visit Cardiology [address] [facility] [address] [place], [place] [id number] Adilene López MD [address] [facility] [address] [place], [place] [id number] follow up after PVI on 06/28 Cardiology Comment on above: follow up after PVI on 06/28 Start: 07-22-2024 Screening for malignant neoplasm of colon [facility] Start: 06-28-2024 End: 06-28-2024 Admission to same day surgery center 06/28/2024 7:30 AM EDT - 06/28/2024 11:00 AM EDT Surgery [facility] [address] [facility] [place] [address] Adilene [place] [address] [place] [address] [address] [place], [place] [id number] COMPRE EP EVAL ABLTJ ATR FIB PULM VEIN ISOLATION [facility] Comment on above: COMPRE EP EVAL ABLTJ ATR FIB PULM VEIN I SOLATION Start: 06-28-2024 End: 06-28-2024 Ephys evl trnsptl tx atrial fib isolat pulm vein COMPRE EP EVAL ABLTJ ATR FIB PULM VEIN ISOLATION Atrial fibrillation, unspecified type (HCC) 06/28/2024 7:30 AM EDT [facility] Start: 06-28-2024 End: 06-28-2024 Intracardiac electrophysiologic 3d mapping INTRACARDIAC ELECTROPHYSIOLOGIC 3-DIMENSIONAL MAPPING Atrial fibrillation, unspecified type (HCC) 06/28/2024 7:30 AM EDT [facility] Start: 06-28-2024 Subsequent hospital visit by physician 06/28/2024 7:30 AM EDT Hospital Encounter [facility] [address] [facility] [place] [address] Adilene López MD [address] [facility] [address] [place], [place] [id number] Atrial fibrillation, unspecified type (HCC) [I48.91] [facility] Comment on above: Atrial fibrillation, unspecified type (H CC) [I48.91] Start: 06-03-2024 End: 06-03-2024 Anesthesia consultation 06/03/2024 10:00 AM EDT PAT Pre Anesthesia [address] [place] [address] 1, Pacc [facility] [address] [place] [address] DOS: 06/28/2024 DR LAUREL MAXWELL Pre Anesthesia Comment on above: DOS: 06/28/2024 DR LAUREL MAXWELL Start: 05-13-2024 End: 05-13-2024 Patient encounter procedure 05/13/2024 11:15 AM EDT Office Visit Cardiology [address] [place] [address] [address] [place], [place] [id number] Adilene López MD [address] [facility] [address] [place], [place] [id number] AF Cardiology Comment on above: AF Start: 03-18-2024 End: 03-18-2024 Patient encounter procedure 03/18/2024 11:20 AM EST Office Visit [facility]ION [facility] [address] [place], [place] [id number] [place] [address] [place], [place] [id number] 6 m onth f/u [facility]ARD INTER[facility]ION [facility] Comment on above: 6 m onth f/u Start: 02-18-2024 Covid-19 Vaccine () Covid-19 Vaccine () [facility] Start: 02-12-2024 LIPID SCREEN LIPID SCREEN [facility] Start: 11-01-2023 COVID-19 Vaccine ( season) COVID-19 Vaccine () [facility] Start: 11-01-2023 Influenza vaccination [facility] Start: 10-02-2023 End: 10-02-2023 ambulatory 10/02/2023 12:15 PM EDT Results Only [facility] [address] [place] [address] [facility] Start: 09-29-2023 Shingrix Vaccine (2 of 2) Shingrix Vaccine (2 of 2) [facility] Start: 09-28-2023 Subsequent hospital visit by physician 09/28/2023 2:30 PM EDT Hospital Encounter Cardiology Lab [address] [place] [address] PAF (paroxysmal atrial fibrillation) (HCC) [I48.0] Cardiology Lab Comment on above: PAF (paroxysmal atrial fibrillation) (HC C) [I48.0] Start: 09-28-2023 End: 09-28-2023 Patient encounter procedure 09/28/2023 1:30 PM EDT Appointment Molecular Imaging [address] [place] [id number] EPIC ORDER Molecular Imaging Comment on above: EPIC ORDER Start: 09-21-2023 End: 12-21-2023 CBC panel - Blood by Automated count COMPLETE BLOOD COUNT Lab Routine Pure hypercholesterolemia Paroxysmal atrial fibrillation (HCC) Expected: 09/21/2023, Expires: 12/21/2023 [facility] Comment on above: Expected: 09/21/2023, Expires: Start: 09-21-2023 End: 12-21-2023 Comprehensive metabolic 2000 panel - Serum or Plasma COMPREHENSIVE METABOLIC PANEL Lab Routine Pure hypercholesterolemia Paroxysmal atrial fibrillation (HCC) Expected: 09/21/2023, Expires: 12/21/2023 [facility] Comment on above: Expected: 09/21/2023, Expires: Start: 09-21-2023 End: 12-21-2023 Lipid 1996 panel - Serum or Plasma LIPID PANEL BASIC Lab Routine Pure hypercholesterolemia Paroxysmal atrial fibrillation (HCC) Expected: 09/21/2023, Expires: 12/21/2023 [facility] Work Phone: Comment on above: Expected: 09/21/2023, Expires: Start: 09-11-2023 End: 10-10-2024 NM Heart Perfusion W multiple states of exercise NM CARDIAC PERF STRESS/EXERCISE Radiology Routine PAF (paroxysmal atrial fibrillation) (HCC) Essential hypertension Chest pain, unspecified type Expected: 09/11/2023, Expires: 10/10/2024 [facility] Comment on above: Expected: 09/11/2023, Expires: Start: 08-12-2023 BP Controlled (<130/80) BP Controlled (<130/80) [facility] Start: 03-02-2023 Behavioral Health Screening Behavioral Health Screening [facility] Start: 03-02-2023 Depression Assessment Depression Assessment [facility] Start: 10-31-2022 Covid-19 Vaccine ( season) Covid-19 Vaccine ( season) [facility] Start: 10-31-2022 Influenza vaccination Influenza Vaccine (#1) [facility] Start: 07-22-2022 BP CONTROLLED (<130/80) BP CONTROLLED (<130/80) [facility] Start: 10-31-2021 Influenza vaccination INFLUENZA (Season Ended) [facility] Start: 2021 Hepatitis B (HBV) Vaccine (optional start 60+ years) Hepatitis B (HBV) Vaccine (optional start 60+ years) [facility] Start: 2021 Hepatitis B Vaccines (1 of 3 - Risk 3-dose series) Hepatitis B Vaccines (1 of 3 - Risk 3-dose series) [facility] Start: 2021 RSV High Risk: (Elderly (60+) or Population) (1 - Risk 60-74 years 1-dose series) RSV High Risk: (Elderly (60+) or Population) (1 - Risk 60-74 years 1-dose series) [facility] Start: 2021 RSV Vaccine (1 - 1-dose 60+ series) RSV Vaccine (1 - 1-dose 60+ series) [facility] Start: 2021 RSV Vaccine (1 - Risk 60-74 years 1-dose series) RSV Vaccine (1 - Risk 60-74 years 1-dose series) [facility] Start: 07-22-2021 End: 09-21-2021 Basic metabolic 2000 panel - Serum or Plasma BASIC METABOLIC PNL Lab Routine PAF (paroxysmal atrial fibrillation) (HCC) Expected: 07/22/2021, Expires: 09/21/2021 [facility] Work Phone: Comment on above: Expected: 07/22/2021, Expires: 2 Start: 07-22-2021 End: 09-21-2021 LIPID PANEL BASIC LIPID PANEL BASIC Lab Routine Pure hypercholesterolemia Expected: 07/22/2021, Expires: 09/21/2021 [facility] Work Phone: Comment on above: Expected: 07/22/2021, Expires: 2 Start: 04-07-2021 DIABETES SCREEN DIABETES SCREEN [facility] Start: 07-28-2020 Colonoscopy COLONOSCOPY [facility] Start: 07-28-2020 COLORECTAL CANCER SCREENING COLORECTAL CANCER SCREENING [facility] Start: 07-28-2020 Screening for malignant neoplasm of colon [facility] Start: 08-12-2011 Pneumococcal Vaccine: 50+ (1 of 1 - PCV) Pneumococcal Vaccine: 50+ (1 of 1 - PCV) [facility] Start: 08-12-2011 Shingles (RZV) Vaccine (1 of 2) Shingles (RZV) Vaccine (1 of 2) [facility] Start: 08-12-2011 SHINGRIX VACCINE (1 of 2) SHINGRIX VACCINE (1 of 2) [facility] [facility] Start: 01-18-2009 MMR Vaccines (1 of 1 - Standard series) MMR Vaccines (1 of 1 - Standard series) [facility] Start: 2006 COLOGUARD (FIT-DNA) COLOGUARD (FIT-DNA) [facility] Start: [address] COLONOGRAPHY [facility] Start: 2006 FECAL OCCULT BLOOD FECAL OCCULT BLOOD [facility] Start: 2006 Screening for malignant neoplasm of colon [facility] Start: 2006 SIGMOIDOSCOPY SIGMOIDOSCOPY [facility] Start: 2001 Mammography MAMMOGRAM [facility] Start: 2001 Screening for malignant neoplasm of breast [facility] Start: 08-12-1991 HPV TESTING HPV TESTING [facility] Start: 08-12-1991 Screening for malignant neoplasm of cervix HPV Testing [facility] Start: 1982 PAP TESTING PAP TESTING [facility] Start: 1982 Screening for malignant neoplasm of cervix [facility] Start: 1980 Hepatitis A (HAV) Vaccine (optional start 19+ years) Hepatitis A (HAV) Vaccine (optional start 19+ years) [facility] Start: 1980 Hepatitis A Vaccines (1 of 2 - Risk 2-dose series) Hepatitis A Vaccines (1 of 2 - Risk 2-dose series) [facility] Start: 1980 Pneumococcal vaccination Pneumococcal Vaccine (1 of 2 - PCV) [facility] Start: 1980 Urine microalbumin profile [facility] Start: 08-12-1979 ANNUAL PCP TEAM CHRONIC DISEASE VISIT ANNUAL PCP TEAM CHRONIC DISEASE VISIT [facility] Start: 08-12-1979 Anxiety Screening Anxiety Screening [facility] Start: 08-12-1979 BP Controlled (<130/80) BP Controlled (<130/80) [facility] Start: 08-12-1979 Depression Screening Depression Screening [facility] Start: 08-12-1979 Diabetes mellitus screening Diabetes Screening [facility] Start: 08-12-1979 HEPATITIS C SCREENING HEPATITIS C SCREENING [facility] Start: 08-12-1979 Hepatitis C screening [facility] Start: 08-12-1979 HIV SCREENING HIV SCREENING [facility] Start: 08-12-1979 HIV screening HIV Screening [facility] Start: 08-12-1979 Tdap Booster Tdap Booster [facility] Start: 1976 HIV screening HIV Test [facility] Start: 1973 Adult depression screening assessment DEPRESSION SCREENING [facility] Start: 1961 HIV screening HIV Screening [facility] Start: 1961 Lipid panel Lipid Panel [facility] Start: 1961 Screening for malignant neoplasm of colon [facility] Start: 1961 Yearly Adult Physical Yearly Adult Physical [facility] ECG COMPLETE ECG COMPLETE ECG Routine PAF (paroxysmal atrial fibrillation) (HCC) Ordered: 09/11/2023 [facility] Work Phone: Comment on above: Ordered: 09/11/2023 ECG COMPLETE [facility] Work Phone: Comment on above: Ordered: 03/18/2024 ECG COMPLETE ECG COMPLETE ECG Routine PAF (paroxysmal atrial fibrillation) (HCC) Ordered: 05/13/2024 [facility] Work Phone: Comment on above: Ordered: 05/13/2024 ECG COMPLETE ECG COMPLETE ECG 05/13/2024 11:06 AM EDT [facility] ECG COMPLETE ECG COMPLETE ECG Routine PAF (paroxysmal atrial fibrillation) (HCC) Ordered: 08/19/2024 [facility] Work Phone: Comment on above: Ordered: 08/19/2024 End: 03-18-2025 Echocardiography ECHO Cardiology Routine Paroxysmal atrial fibrillation (HCC) 1 Occurrences starting 03/18/2024 until 03/18/2025 [facility] Comment on above: 1 Occurrences starting 03/18/2024 until 03/18/2025 OUTSIDE VENDOR CARDI AC OUTPATIENT EXTENDED RHYTHM RECORDING (WITHOUT TELEMETRY) OUTSIDE VENDOR CARDIAC OUTPATIENT EXTENDED RHYTHM RECORDING (WITHOUT TELEMETRY) Holter Routine PAF (paroxysmal atrial fibrillation) ([facility]) Ordered: 08/19/2024 [facility] Comment on above: Ordered: 08/19/2024 [facility] Immunizations Immunization Date Immunization Notes Care Provider Fa [facility] 12-24-2023 COVID-19 vaccine, ag e 12+ yr, bivalent (Business e via [place]) Perla Hinton MD Work Phone: [facility] 12-24-2023 influenza, seasonal, injectable Perla Hinton MD Work Phone: [facility] 12-24-2023 influenza virus vaccine, unspecified formulation Perla Hinton MD Work Phone: [facility] 11-15-2023 tetanus toxoid, redu aurora diphtheria toxoid, and acellular pertussis vaccine, adsorbed Perla Hinton MD Work Phone: [facility] 11-09-2023 zoster vaccine recombinant Perla Hinton MD Work Phone: [facility] 02-03-2023 influenza virus vaccine, unspecified formulation Perla Hinton MD Work Phone: [facility] 01-29-2022 influenza virus vaccine, unspecified formulation Perla Hinton MD Work Phone: [facility] 11-23-2018 influenza, injectabl e, quadrivalent, preservative free Perla Hinton MD Work Phone: [facility] Work Phone: 01-17-2015 influenza, injectabl e, quadrivalent, preservative free Perla Hinton MD Work Phone: [facility] Work Phone: Payers Date Payer Category Payer [facility] PPO OOS [id number] 2021 [facility] [id number] 2021 Unknown [id number] 2021 Unknown [id number] 2012 Unknown [employer] PPO OOS [id number] 2012-Present [phone] [facility] [id number] [place] [address] PPO [id number] 2008 Unknown [id number] 1961 Unknown [id number] .356 1961 Unknown [id number] 2.16.840.1.519866.3.579.2 .159 1961 Unknown [id number] 2.16.840.1.242375.3.579.2 .159 1961 Unknown [id number] 2.16.840.1.655069.3.579.2 .159 1961 Unknown [id number] 2.16.840.1.466630.3.579.2 .159 1961 Unknown [id number] 2.16.840.1.806297.3.579.2 .159 1961 Unknown [id number] 2.16.840.1.235553.3.579.2 .159 1961 Unknown [id number] 2.16.840.1.439520.3.579.2 .159 1961 Unknown [id number] 2.16.840.1.240450.3.579.2 .159 1961 Unknown [id number] 2.16.840.1.105459.3.579.2 .159 1961 Unknown [id number] 2.16.840.1.510535.3.579.2 .732 1961 Unknown [id number] 2.16.840.1.940240.3.579.2 .159 1961 Unknown [id number] 2.16.840.1.724579.3.579.2 .159 1961 Unknown [id number] 2.16.840.1.662155.3.579.2 .159 1961 Unknown [id number] 2.16.840.1.102008.3.579.2 .159 1961 Unknown [id number] 2.16.840.1.436505.3.579.2 .159 1961 Unknown [id number] 2.16.840.1.866236.3.579.2 .159 1961 Unknown [id number] 2.16.840.1.984785.3.579.2 .159 1961 Unknown [id number] 2.16.840.1.913054.3.579.2 .159 Social History Date Type Detail Facility Start: 03-12-2016 End: 2022 Tobacco smoking status NHIS Never smoked tobacco [facility] Start: 03-12-2016 End: 2022 Tobacco use and exposure Smokeless tobacco non-user [facility] Start: 07-22-2021 End: 09-09-2024 Alcohol intake Current non-drinker of alcohol (finding) [facility] Start: 05-11-2018 End: 2022 Tobacco Comment Parents smoked in childhood home. Spouse quit smoking 25 years ago. [facility] Start: 1960 Sex Assigned At Not on file C [facility] Start: 07-12-2021 End: 07-22-2021 Exposure to SARS-CoV-2 (event) Not sure [facility] Start: 2022 End: 09-11-2023 History of Social function [facility] Work Phone: Start: 2022 End: 09-11-2023 Tobacco use panel [facility] Work Phone: PHQ2 Score 0 [facility] Work Phone: Tobacco smoking status NVIS Tobacco smoking consumption unknown [facility] Start: 04-01-2024 End: 04-11-2024 Exposure to SARS-CoV-2 (event) Unable to assess [facility] Goals Date Patient Goal Desired Activity /State Personal health goal Clinical Notes 07-22-2021 to 09-09-2024 Patient InstructionsPerla Hinton MD - 09/09/2024 12:14 PM EDTTelephone Encounter - Josie Holman RN - 09/05/2024 3:46 PM EDTTelephone Encounter - Josie Holman RN - 09/05/2024 3:46 PM EDT Note Date & Type Note Facility 09-09-2024 Instructions Perla Hinton MD - 09/09/2024 12:27 PM EDT We discussed your atrial fibrillation and post-ablation care: - You underwent an ablation with Dr. Armstrong on July 24 and are currently in normal rhythm. This is excellent progress. - You have stopped taking Flecainide and Diltiazem. I have removed these medications from your list. - You are continuing Eliquis (blood thinner) until September, as advised by Dr. Armstrong. This will be a cold stop, and no tapering is required. - You are currently wearing a Zio patch for rhythm monitoring. Dr. Armstrong will review the results and determine next steps during your follow-up in March. - If you experience symptoms of atrial fibrillation, you can use your CardiaMobile device to monitor your rhythm. You may call either Dr. Armstrong or me if the device confirms any irregularities, though Dr. Armstrong is currently leading your care. - Consider using an Apple Watch, Android watch, or continuing with your CardiaMobile for additional rhythm monitoring if desired. We discussed your weight loss and its impact on your heart health: - Your weight loss from 196 lbs to 165 lbs is commendable and will help reduce the risk of atrial fibrillation recurrence. Slow and steady progress is beneficial for your heart health. - Continue your current efforts to maintain a healthy weight. We discussed your blood pressure and cholesterol: - Your blood pressure and cholesterol levels are well-controlled. Continue taking Avalide as prescribed. We discussed vitamin D: - You are not currently taking vitamin D3. If your upcoming blood work indicates a need, you may resume supplementation, particularly during the winter months. Follow-up plan: - Schedule a follow-up visit with me in 6 to 9 months to monitor your progress. If you are doing well at that time, we can transition to annual visits. - Continue your follow-up with Dr. Armstrong, with your next appointment scheduled for March. Please let us know if you have any concerns or experience any new symptoms. Keep up the great work! Plan: - follow up in 6-9 month s - Stop Eliquis in September documented in this encounter [facility] 09-09-2024 Note HNO ID: [id number] Author: PERLA HINTON MD Service: ? Author Type: Physician Type: Progress Notes Filed: 09/09/2024 12:27 Note Text: [facility] [place] Agnieszka Choe Department of Cardiovascular Medicine At [facility] OUTPATIENT VISIT DATE September 09, 2024 OUTPATIENT VISIT TYPE Follow up HPI: Yokasta Moreno is a 63 yo PAF previously oon Flecainide and Diltiazem. Hx of hyperlipidemia,Intially evaluated 03/11/16 for palpitations. She was seen in 2009 for fluttering in throat happening for a couple of weeks and advised to go to ER. A 48 hour Holter Monitor Rx. Notes sx occasionally and PCP thought she might have esophageal spasm. No additional testing. Sees ENT for thyroid nodules. Nodules slightly increased. TSH wnl. yearly US recommended) Barium swallowing in January 2016. (Had monitor approximately 1/15-2. PAF seen on 117 @ 220 bpm. 3 days after returning monitor had recurrent AF [facility]. By time got there was out. She went back home and was in and out of in. PAF lasts 10 min. She thinks she has not been in AF as much since Cardiazem. Seem to be more tolerable.On Talz ( ixekizumab for psoriasis ) Underwent a PVI 05/[address] adilene López. She has now stopped Flecainide and Dilitazem . Willstop Eliquis in September CLINICAL VISITS: 09/09/24:BP 110/78 Pulse 75 Ht 160 cm (5' 3) Wt 75 kg (165 lb 5.5 oz) BMI 29.29 kg/m? ECG: NSR, NSSTW changes Underwent a PVI 05/[address] Adilene López. She has now stopped Flecainide and Dilitazem . Willstop Eliquis in September. The patient is a 64-year-old female with a history of atrial fibrillation, presenting for follow-up after undergoing an ablation procedure. The patient underwent an ablation procedure on July [address] Styles and reports being in normal sinus rhythm since the procedure. She notes experiencing occasional palpitations described as a float or a skipped beat, but her geriatric nurse was not concerned as long as these do not progress. She is currently wearing a Zio patch for monitoring and is scheduled to discontinue Eliquis in September, pending results. She has a follow-up appointment in March. She recently discontinued flecainide and diltiazem about a week after her post-operative visit. She expresses some anxiety about stopping these medications, stating, It makes me nervous to go off of them, I've been on them so long. She uses a [employer] device for weekly rhythm monitoring. She has been gradually losing weight, decreasing from 196 lbs to 165 lbs, and is currently classified as overweight. She continues to work on weight loss to further reduce the risk of atrial fibrillation recurrence. She is not currently taking vitamin D3 but plans to resume it if indicated by future lab results. She is currently taking Avalide 325 mg for blood pressure management. 03/18/24: BP 110/80 Pulse 65 Ht 160 cm (5' 3) Wt 79 kg (174 lb 2.6 oz) BMI 30.85 kg/m? On Flecainide 100 mg po bid , Dilacor 120-> 180 mg daily with some improvement over summer x 3 months More recently, particularly this month, has been having frequent AF and this has bernabe documented on [employer].SPECT stress August 2023 was normal . No structural heart assessment since 2016 ( nl LV fxn and mild LAE at that time) Plan: - Start Eliquis 5 mg twice daily. - Repeat ECHO - Referral to Adilene López MD for PVI for PAF unresponsive to Medical therapy (Flecainide) - You are an excellent candidate for this procedure 09/11/23:BP 152/102 Pulse 66 Ht 160 cm (5' 3) Wt 78.6 kg (173 lb 3.2 oz) BMI 30.68 kg/m? ECG: NSR Lost 20 lbs. Prior sleep study negative for ILEANA . More AF now. No heart rhythm monitoring. Was doing well x 2 years ( 4 episode) and since March started having more AF. (56 episodes). HR 139 most of the day in April , but having more episodes that feels like AF> racing out of control and chest feels tight and throat heavy. SPECT 2016 normal Plan: - Buy [employer] to monitor and document frequency of AF - Repeat Exercise nuclear stress test due to chest pressure during episodes of recurrent Atrial fib - Call [facility] to schedule - Consideration of referral for PVI ablation based on frequency of Atrial fibrillation - follow up in 6 months 08/10/22:BP 124/70 Pulse 65 Ht 160 cm (5' 3) Wt 87.1 kg (192 lb) BMI 34.01 kg/m? Since November had 3 AF episodes 5 min- 2 hours. No ER evaluations. Still working to try to lose weight. Bought a treadmill. 3 mph treadmill, 1.5%. Exercising intermittently at [employer]. 20 min with a goal of 150 min a week. - Same meds - Labs to check kidney function - Fasting lipids - Follow up in 12 month 07/23/21: BP 126/74Pulse 72 Resp 14 Ht 160 cm (5' 3) Wt 88.9 kg (196 lb) BMI 34.72 kg/m? .Started Tremfya for Psorias. Talz caused weird infections UTIs . And eye i (more content not included)... [facility] 09-09-2024 History of Present illness Narrative Images from the original note were not included. [facility] [place] Agnieszka Choe Department of Cardiovascular Medicine At [facility] OUTPATIENT VISIT DATE September 09, 2024 OUTPATIENT VISIT TYPE Follow up HPI: Yokasta Moreno is a 63 yo PAF previously oon Flecainide and Diltiazem. Hx of hyperlipidemia,Intially evaluated 03/11/16 for palpitations. She was seen in 2009 for fluttering in throat happening for a couple of weeks and advised to go to ER. A 48 hour Holter Monitor Rx. Notes sx occasionally and PCP thought she might have esophageal spasm. No additional testing. Sees ENT for thyroid nodules. Nodules slightly increased. TSH wnl. yearly US recommended) Barium swallowing in January 2016. (Had monitor approximately 115-. PAF seen on 117 @ 220 bpm. 3 days after returning monitor had recurrent AF went to [facility] ER. By time got there was out. She went back home and was in and out of in. PAF lasts 10 min. She thinks she has not been in AF as much since Cardiazem. Seem to be more tolerable.On Talz ( ixekizumab for psoriasis ) Underwent a PVI 05/[address] adilene López. She has now stopped Flecainide and Dilitazem . Willstop Eliquis in September CLINICAL VISITS: 09/09/24:BP 110/78 Pulse 75 Ht 160 cm (5' 3) Wt 75 kg (165 lb 5.5 oz) BMI 29.29 kg/m ECG: NSR, NSSTW changes Underwent a PVI 05/[address] Adilene López. She has now stopped Flecainide and Dilitazem . Willstop Eliquis in September. The patient is a 64-year-old female with a history of atrial fibrillation, presenting for follow-up after undergoing an ablation procedure. The patient underwent an ablation procedure on July [address] Styles and reports being in normal sinus rhythm since the procedure. She notes experiencing occasional palpitations described as a float or a skipped beat, but her geriatric nurse was not concerned as long as these do not progress. She is currently wearing a Zio patch for monitoring and is scheduled to discontinue Eliquis in September, pending results. She has a follow-up appointment in March. She recently discontinued flecainide and diltiazem about a week after her post-operative visit. She expresses some anxiety about stopping these medications, stating, It makes me nervous to go off of them, I've been on them so long. She uses a [employer] device for weekly rhythm monitoring. She has been gradually losing weight, decreasing from 196 lbs to 165 lbs, and is currently classified as overweight. She continues to work on weight loss to further reduce the risk of atrial fibrillation recurrence. She is not currently taking vitamin D3 but plans to resume it if indicated by future lab results. She is currently taking Avalide 325 mg for blood pressure management. 03/18/24: BP 110/80 Pulse 65 Ht 160 cm (5' 3) Wt 79 kg (174 lb 2.6 oz) BMI 30.85 kg/m On Flecainide 100 mg po bid , Dilacor 120-> 180 mg daily with some improvement over summer x 3 months More recently, particularly this month, has been having frequent AF and this has bernabe documented on [employer].SPECT stress August 2023 was normal . No structural heart assessment since 2016 ( nl LV fxn and mild LAE at that time) Plan: - Start Eliquis 5 mg twice daily. - Repeat ECHO - Referral to Adilene López MD for PVI for PAF unresponsive to Medical therapy (Flecainide) - You are an excellent candidate for this procedure 09/11/23:BP 152/102 Pulse 66 Ht 160 cm (5' 3) Wt 78.6 kg (173 lb 3.2 oz) BMI 30.68 kg/m ECG: NSR Lost 20 lbs. Prior sleep study negative for ILEANA . More AF now. No heart rhythm monitoring. Was doing well x 2 years ( 4 episode) and since March started having more AF. (56 episodes). HR 139 most of the day in April , but having more episodes that feels like AF> racing out of control and chest feels tight and throat heavy. SPECT 2016 normal Plan: - Buy [employer] to monitor and document frequency of AF - Repeat Exercise nuclear stress test due to chest pressure during episodes of recurrent Atrial fib - Call [facility] to schedule - Consideration of referral for PVI ablation based on frequency of Atrial fibrillation - follow up in 6 months 08/10/22:BP 124/70 Pulse 65 Ht 160 cm (5' 3) Wt 87.1 kg (192 lb) BMI 34.01 kg/m Since November had 3 AF episodes 5 min- 2 hours. No ER evaluations. Still working to try to lose weight. Bought a treadmill. 3 mph treadmill, 1.5%. Exercising intermittently at [employer]. 20 min with a goal of 150 min a week. - Same meds - Labs to check kidney function - Fasting lipids - Follow up in 12 month 07/23/21: BP 126/74Pulse 72 Resp 14 Ht 160 cm (5' 3) Wt 88.9 kg (196 lb) BMI 34.72 kg/m .Started Tremfya for Psorias. Talz caused weird infections UTIs . And eye infections and leg abscesses.,At last visit tested negative for COVID after losing sense of sense of smell whch has hasn't fully returned. Remains on Flecainide 100 mg po bid since June, and Diltiazem 120 mg daily for PAF. ECG today : NSR, QTC 438. 01/21/21:BP 127/85 Pulse 70 . Virtual Visit Had Covid booster and didn't feel well enough to come in. Fever 102 Thursday and Thursday And Thursday. Feels poorly since receiving vaccine afternoon. Today with bad vertigo. No loss of sense of taste or smell. Testing for Covid recommended. Remains on Flecainide 100 mg po bid since June, and Diltiazem 120 mg daily for PAF. Only has had 3 small AF episodes 10 -60 min. May be started on Tremfya for Psoriasis On Talz (ixekizumab) for psoriasis. Multiple infections 3 abscesses, eye infection, UTI. Weight stable at 181 lbs. No drup interactions notes with Tremfya Plan: Follow up in 6 month s No interaction between Tremfya and Flecainide Continued efforts of exercise and weight loss. 07/23/20: Back to work (on 3 episodes in 2019) Since returning to work since March has had 7 episodes . A couple off and on all day. Milder than before. Remains on Flecainide 100 mg po bid x 5 years since June 2016. Sometime will take an extra for PAF . We discussed referral for ablation and she wishes To continue symptoms overall better since starting Flecainide x 5 years. Lost weight , exercising regularly, Has a fitness band. Still overweight by BMI and has lost weight from 197 to 181 lbs BP 110/68 (BP Site: Right Arm, BP Position: Sitting, BP Cuff Size: Regular Adult) Pulse 66 Resp 14 Ht 160 cm (5' 3) Wt 82.1 kg (181 lb) BMI 32.06 kg/m . Lost 9%% of body weight . Shooting for weight of 140. She finds exercise triggers AF. She walks hills and walks 3 miles. 01/23/20: Since March only one episode of palpiation (October ) while at work and was :stressed out. 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 No AF, just SOB and lightheaded. Checks for AF with her BP monitor.Very stressful at work. Checks BP at work and arrhythmia symbol would not show up. (Previously d/w her re Kardia and Apple watch) She is gaining weight (12 lbs) Was going home and going to bed- That how she was dealing with stress at work Saw a chief lending officer- Placed on [place]. BP 116/70 Pulse 68 Resp 14 Ht 160 cm (5' 3) Wt 89.4 kg (197 lb) BMI 34.90 kg/m 06/27/19: BP 130/80 Ht 160 cm (5' 3) Wt 83.9 kg (185 lb) ECG: NSR, NS IVCD. Psoriasis Plan; Weight loss 10% of body weight follow up in 6 months in cardiology 06/27/19: Virtual Visit ECG 12/2018 reviewed and was normal. Normal renal fxn. AF is well controlled. Flecainide increased in December with only 2 AF episodes. 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 No changes yet. Started 05/20/19 12/13/18: Was doing well. Keeps a log of AF. Was in AF rapid heart rate. Most of Oct and November in a light flutter. 12/11/18 a few hours, last night. ( increased frequncy in October and November. Has charted 21 x) Exacerbated by Exercise. If in it all day , will take another. Diltiazem 120 mg and takes at night - Going to meet with [employer]. Has stopped exercising over summer as it provoked AF. - Had improved diet and lipids elevated. Lipids: Total 252, HDL 54, LDL 166,Triglycerides 161 Rec: Increase Flecainide from 50 mg to 100 mg twice daily ECG in a week Atorvastatin 20 mg nightly Fasting lipid and liver function test blood work in 6-8 weeks follow up in 6 months 06/07/18: Has kept a diary 21 times in AF October. 1/2, 1 , 1 1/2 , 2 hours, whole. BP cuff . Trying to watch stress level, which affects AF burden. Sometimes in clusters. 3-4 x Month. Nothing since middle of April. Dr Cash previously saw her previously in 2016 and recommended increase in Flecainide. Had lost 20 lbs last year and then started gaining back. There is an association between weight and AF. Exercise: No. Broke toes, Hurt back. Not exercised since March. Now thinks she is back on track. Saw a special forces senior sergeant when said she did not have ILEANA, but rather may have asthma. Awaiting follow up. Will continue Flecainide 50 mg po bid, and Diltazem since she has adequate control. ASA 81 mg daily. 11/09/17: Follow up for PAF. About a month ago having clusters of palpitations about 2 weeks ago and lasted 2 weeks. Went for months without it before this. She was caring for ill sister in [place] who passed. Had lost weight and gained back. . Forgot about sleep study.Will order PSA. Will stay on current dose of flecainide for now. ASA for thromboembolic prophylaxis. CHADVasc score 1-2. Recommend referral for sleep study. Encourage weight loss. Keep an AFib diary. No contraindication to dental work or lido with epinephrine. REC Afib diary Concerted effort towards weight loss and exercise Sleep study Follow up 6 months. Sooner if worsens. 09/19/16: Consultation with Osiel Cash: Paroxysmal atrial fibrillation: Presently on flecainide 50 twice daily and diltiazem 120 mg daily. This has been quite effective in managing her AF burden. We spoke at length about the etiology is AF including obstructive sleep apnea and wt, and I've encouraged her to loose some wt as it has been shown to reduce the burden of AF. We will also make a referral for sleep medicine for ILEANA evaluation. In the interim, should she have any further increased burden of AF, we will increase her flecainide 100mg twice daily. 07/16/16: The patient is seen in follow-up. She underwent a in exercise nuclear stress test on 05/12/16 which was normal at 7 METs. No inducible ischemia or prior infarct seen.She reports feeling really good for a couple months, but more recently she has reported at least 12 episodes of suspected recurrent atrial fibrillation. this has been occurring every day with episodes occurring in clusters. Notes extreme fatigue Which she is attributing to Cardizem. For this reason she is now taking Avilide in the AM and Diltiazem in the evening.In last 2 weeks notes 12 episodes. Recommend initiation of Flecainide, And lowering Cardizem 120 mg during initiation phase. 05/10/2016: After mailing back monitor had 3 days of atrial fibrillation. Was of work awhile with flu like Sx. ( Viral respiratory sx) (Had monitor approximately 03/16-. PAF seen on 117 @ 220 bpm. 3 days after returning monitor had recurrent AF went to [facility] ER. By time got there was out. She went back home and was in and out of in. PAF lasts 10 min. She thinks she has not been in AF as much since Cardiazem. Seem to be more tolerable. 04/18/16: Telephone: Patient calling, states that she has started ASA 81 mg daily and Cardizem 120 mg daily as instructed by Dr. Hinton (see 03/18/16 phone encounter). She has also cut her Avalide down to a half-dose daily. Yesterday she experienced a persisting bout of Afib that made her lightheaded and she eventually went to [facility] ED. Just before she checked in, she converted back to NSR so she went home without the need to be seen. She is worried because she has hoped that the Cardizem would eliminate these episodes. Her follow-up is 04/30/16, but she is asking if Dr. Hinton has any recommendations or medications changes before then. Will review with Dr. Hinton and contact patient with any recommendations. 03/18/16: The patient reported lightheadedness and a skipped beat and telemetry of report revealed atrial fibrillation at a heart rate of 220 bpm. Following this event although auto triggered atrial fibrillation lasting 90 seconds was detected. The patient states now that her heart rate is normal and she feels back to baseline. She reports sensation of her throat hurting during episodes. The patient is currently on Avalide 300 mg/12.5 mg (irbesartan/hydrochlorothiazide daily. Patient instructed to reduce her Avalide to one half tablet daily Recommend initiation of aspirin 325 mg by mouth today followed by 81 mg daily. Recommend Cardizem 120 mg daily. Patient has follow-up scheduled on April 30, 2016. Recommend continuation of telemetry monitoring for additional 2 weeks. 03/12/2016: Seeing PCP q 6 weeks because it got so bad fluttering more severe. Starts out like feeling bubbles in chest. Sometimes fast and sometimes hard. Coworkers have taken pulse highest 168. Many times normal . Gets tunnel vision. Home BP monitoring started and shows irregular HR. Happening q 6 weeks in the past, now sometimes every other day. Sometimes sx free for a week. Sometimes comes on suddenly. PCP thought it could be GERD or panic attacks and no monitoring performed. Fainted 1 week prior to Halloween this year. Cousin told her to bear down or cough and she did this and it worked Initially but not helping now. Longest it lasts for is a days. Onset can be gradual or abrupt and sometimes it lasts a whole day. Other times lasts 20 mins. No triggers . Does not use caffeine. Last TSH/TFTs normal by report January 2016 at [facility]. ECG low right atrial rhythm. PAST MEDICAL HISTORY Diagnosis Date A-fib (HCC) Thyroid nodule PAST SURGICAL HISTORY Procedure Laterality Date SECTION HX 1992 & 1995 C Sections SOCIAL HISTORY Social History Tobacco Use Smoking status: Never Smokeless tobacco: Never Tobacco comments: Parents smoked in childhood home. Spouse quit smoking 25 years ago. Vaping Use Vaping status: Never Used Substance Use Topics Alcohol use: No Drug use: No FAMILY HISTORY Problem Relation Age of Onset Stroke Mother Cancer Father Lung Asthma Sister Two other (Other) Other Cousin with lung transplant. Asthma Other All of my aunts. Anesthesia Problems No Family History ALLERGIES Allergen Reactions Adhesive Tape (Idalia* Rash Latex, Natural Rubb* Rash Sulfamethoxazole-Tr* Vomiting *ANTI-INFECTIVE AGENTS--MISC.* *ANTI-INFECTIVE AGENTS--MISC.* CURRENT MEDICATIONS: atorvastatin (LIPITOR) 20 mg tablet Take 1 tablet by mouth once daily. apixaban (ELIQUIS) 5 mg tab(s) Take 1 tablet by mouth two times a day. guselkumab (TREMFYA) 100 mg/mL Inject 100 mL subcutaneously. Every other month famotidine (PEPCID) 20 mg tablet once daily. AVALIDE 300-12.5 mg ORAL per tablet clobetasol (TEMOVATE) 0.05 % cream PLEASE SEE ATTACHED FOR DETAILED DIRECTIONS flecainide (TAMBOCOR) 100 mg tablet Take 1 tablet by mouth every 12 hours. dilTIAZem XR (DILACOR XR) 180 mg 24 hr capsule Take 1 capsule by mouth once daily. cholecalciferol, vitamin D3, 100 mcg (4,000 unit) cap Take 1 capsule by mouth once daily. OTC pepcid. REVIEW OF SYSTEMS: GENERAL: Negative for: Weight loss or gain, Fever or Chills, Weakness and Sleep difficulties. HEENT: Negative for: Headache, Impaired Vision, Glasses, Hearing Impairment, Ringing in Ears, Nosebleeds, Poor dental care, Bleeding Gums, Dentures NECK: Negative for: Swelling, Pain, Stiffness RESPIRATORY: Negative for: Cough, Blood in Sputum, Shortness of breath, Wheezing, Apnea GASTROINTESTINAL: Negative for: Trouble swallowing, Heartburn, Change in bowel habits, Blood in stool, Dark black stools MUSCULOSKELETAL: Negative for: Muscle or joint pain, Stiffness , Joint swelling NEUROLOGIC/PSYCHIATRIC: Negative for: Weakness, Paralysis, Numbness, Tingling, Tremor, Nervousness, Depressed mood, Memory loss SKIN: Negative for: Rashes, Itching HEMATOLOGICAL/LYMPHATIC: Negative for: Easy bruising , Easy bleeding ENDOCRINE: Negative for: Heat or cold intolerance, Excessive sweating, Frequent urination, Frequent thirst PHYSICAL EXAMINATION: BP 110/78 Pulse 75 Ht 160 cm (5' 3) Wt 75 kg (165 lb 5.5 oz) BMI 29.29 kg/m HENT:PERRLA, EOMI. NECK: No thyromegaly, JVD, lymphadenopathy, or carotid bruits. CHEST: No chest wall deformities or tenderness. LUNGS: Normal symmetric air entry throughout both lung balderas. There is no wheezing. No rales or ronchi are present. ABDOMEN: The abdomen is non distended. Bowel sounds are present. The abdomen is non tender. There is no hepatomegaly, or hepatojugular reflex. There are no masses felt. CARDIOVASCULAR: Non displaced PMI. Regular rate and rhythm. S1 and S2 normal, no murmurs, clicks, gallops or rubs. EXTREM: Lower extremities are normal visaully. Normal hair distribution. There is no peripheral edema noted on exam. Pulses are (+2) and symmetric. NEURO: The patient is alert and oriented X 3. No gross motor or sensory deficits. Cranial nerves are normal. CARDIAC TESTIN09/28/23 Name: MRS. YOKASTA MORENO Age: 63 years Gender: F CONCLUSIONS: 1. SPECT Perfusion Study: Normal. 2. There is no scintigraphic evidence for inducible ischemia. 3. No evidence of scarred myocardium. 4. Left ventricle is normal in size. The left ventricle systolic function is hyperdynamic. 5. Right ventricle is normal in size. The right ventricle systolic function is normal. 6. This is a low risk scan. Gated Stress IR:3D LVEF % 82 05/13/16: Nuclear stress test The stress test was terminated due to the following: Fatigue. Peak HR 151 bpm. (91 % MPHR) (7.0 METS) Peak BP 168 mmHg/96 mmHg Patient experienced no symptoms during stress. Stress ECG normal ST segment response and normal sinus rhythm. 1. Perfusion Study: Normal. 2. There is no scintigraphic evidence for inducible ischemia. 3. No evidence of scarred Myocardium. 4. Average functional capacity for age and gender. 5. Left ventricle is small. 6. Right ventricle is normal in size. 7. This is a low risk scan. ECHO: 03/31/2016 - Technically difficult exam due to body habitus. - Exam indication: Palpitations - The left ventricle is normal in size. Left ventricular systolic function is normal. EF = 67 5% (2D 4-ch.) Normal left ventricular diastolic function. - The right ventricle is normal in size. Right ventricular systolic function is normal. - The left atrial cavity is mildly dilated. - The patient has not had a prior CC echocardiographic exam for comparison. 03/14/09: Hook-up date: 2009-03-08 16:57:17 Duration: 47:59:00 Test Indications: Rapid heart rate Medications: [id number] QRS complexes 37 Ventricular ectopics which represent <1 % of total QRS comp. 280 Supraventricular ectopics which represent <1 % of total QRS comp. * Paced QRS complexs which represent * % of total QRS comp. VENTRICULAR ECTOPY 37 Isolated 0 Bigeminal Cycles 0 Couplets 0 Runs 0 Beats in Runs * Beats LONGEST at * BPM at * Beats FASTEST at * BPM at SUPRAVENTRICULAR ECTOPY 254 Isolated 13 Couplets 0 Runs 0 Beats in Runs * Beats LONGEST at * BPM at * Beats FASTEST at * BPM at HEART RATES 51 MIN at 05:37:45 2009-03-09 77 AVG 138 MAX at 18:08:01 2009-03-09 LONGEST RR 0.0013 secs at 29:40:49 2009-03-10 S-T LEVELS Channel 1 + 3 mm at 16:27:17 2009-03-09 - 15 mm at 12:41:17 2009-03-09 Channel 2 + 2 mm at 15:13:17 2009-03-09 - 6 mm at 17:54:17 2009-03-09 Channel 3 - 128 mm at 03:61:63 * - 128 mm at 03:61:63 Returned and scanned 03-12-09 The basic rhythm was sinus with sinus arrhythmia at an average rate of 77 BPM, a maximum rate of 136 BPM and a minimum rat e of 51 BPM. There were 23,937 beats in tachycardia which was 11% of all the complexes and 7,309 beats in bradycardia at 3%. Isolated PVCs totaled 37 in this 48 hour scan. Supraventricular ectopy totaled 280 and was seen in isolation, as 13 pairs and as aberrantly conducted SVEs. No documented symptoms. Referred By: KENNA OTHER, NOT ON F Overread By: BECKI KATZ M.D. LABS: Component Latest Ref Rng & Units 03/24/2016 WBC 3.70 - 11.00 k/uL 5.40 RBC 3.90 - 5.20 m/uL 4.83 Hemoglobin 11.5 - 15.5 g/dL 13.7 Hematocrit 36.0 - 46.0 % 40.5 MCV 80.0 - 100.0 fL 83.9 MCH 26.0 - 34.0 pG 28.4 MCHC 30.5 - 36.0 g/dL 33.8 RDW-CV 11.5 - 15.0 % 12.3 Platelet Count 150 - 400 k/uL 347 MPV 9.0 - 12.7 fL 9.5 Neut% % 42.4 Abs Neut (ANC) 1.45 - 7.50 k/uL 2.29 Lymph% % 35.6 Abs Lymph 1.00 - 4.00 k/uL 1.92 Hudspeth% % 18.5 Abs Hudspeth 0.00 - 0.86 k/uL 1.00 (H) Eosin% % 2.8 Abs Eosin 0.00 - 0.45 k/uL 0.15 Baso% % 0.7 Abs Baso 0.00 - 0.10 k/uL 0.04 Protein, Total 6.0 - 8.4 g/dL 7.6 Albumin 3.5 - 5.0 g/dL 4.4 Calcium 8.5 - 10.5 mg/dL 9.4 Bilirubin, Total 0.0 - 1.5 mg/dL 0.4 Alkaline Phosphatase 40 - 150 U/L 103 AST 7 - 40 U/L 20 Glucose 65 - 100 mg/dL 91 BUN 8 - 25 mg/dL 7 (L) Creatinine 0.70 - 1.40 mg/dL 0.92 Sodium 132 - 148 mmol/L 142 Potassium 3.5 - 5.0 mmol/L 4.0 Chloride 98 - 110 mmol/L 104 CO2 23 - 32 mmol/L 25 Anion Gap 0 - 15 mmol/L 13 ALT 0 - 45 U/L 20 eGFR >60 eGFR-All Other Races . >60 CK 30 - 220 U/L 40 MB 0.0 - 8.8 ng/mL <1.0 CK MB % 0.0 - 4.0 % Unable to calculate because one or more components used in calculation outside of . . . Troponin T 0.000 - 0.029 ng/mL <0.010 ASSESSMENT/PLAN: Paroxysmal Atrial Fibrillation: Flecainide started 06/2016 due to frequent symptomatically recurrence of paroxysmal atrial fibrillation. Diltiazem for rate control Weight loss: now has lost 20 lb [id number] Vasc 1-2, ASA 81 mg daily. Successful PVI with Dr López May 2024. Now off Dilt and Flecainide To stop eliquis in September. Wearing a Zio patch for monitoring. Scheduled to stop Eliquis in September pending Zio patch results. Expresses some anxiety about discontinuing medications. HTN: Well controlled BP 110/78 Pulse 75 Ht 160 cm (5' 3) Wt 75 kg (165 lb 5.5 oz) BMI 29.29 kg/m -Avalide 300/12.5 for HTN reduced. Overweight: Doing really well 09/09/24: BP 110/78 Pulse 75 Ht 160 cm (5' 3) Wt 75 kg (165 lb 5.5 oz) BMI 29.29 kg/m 09/11/23:BP 152/102 Pulse 66 Ht 160 cm (5' 3) Wt 78.6 kg (173 lb 3.2 oz) BMI 30.68 kg/m 08/11/22: BP 124/70 Pulse 65 Ht 160 cm (5' 3) Wt 87.1 kg (192 lb) BMI 34.01 kg/m 07/22/21:BP 126/74 Pulse 72 Resp 14 Ht 160 cm (5' 3) Wt 88.9 kg (196 lb) BMI 34.72 07/23/20: BP 110/68 Pulse 66 Resp 14 Ht 160 cm (5' 3) Wt 82.1 kg (181 lb) BMI 32.06 01/23/20: BP 116/70 Pulse 68 Resp 14 Ht 160 cm (5' 3) Wt 89.4 kg (197 lb) BMI 34.90 06/27/19: BP 130/80 Ht 160 cm (5' 3) Wt 83.9 kg (185 lb) BMI 32.77 kg/m Hyperlipidemia -Atorvastatin 20 mg nightly. - Last LDL . 69 - 10/02/2023 Pre statin values Total 252 HDL 54 LDL 166 Triglycerides 161 Overweight Significant weight loss achieved, reducing BMI from stage 2 obesity to overweight. Current weight is 165 lbs. - Saw Neonatal Specialist - following a Mediterranean diet. - AF provoked by Exercise - Nocturnal desats, hypoApnea ? - Saw Pulmonary Marek Grant MD, FCCP in consultation 05/11/18. Note read. - See no indication to initiate CPAP Rx at this time. Plan: - follow up in 6-9 month s - Stop Eliquis in September Perla Hinton MD [facility] CC: [place] [address] [facility] [address] [place] [address] documented in this encounter [facility] 09-05-2024 Telephone encounter Note Patient has been identified by name and date of : Yes Pharmacy electronically sent a request for the following prescription(s) If there are any questions regarding this prescription request, call at: [phone] (home) [phone] (cell) RX INSTRUCTIONS: Patient aware RX will be sent to pharmacy. No need to notify patient. Date of last office visit: 08/19/24 Date of last [facility] visit: Visit date not found Date of future office visit: 09/09/2024 Requested Prescriptions Pending Prescriptions Disp Refills atorvastatin (LIPITOR) 20 mg tablet [Pharmacy Med Name: ATORVASTATIN 20 MG TABLET] 90 tablet 3 Sig: Take 1 tablet by mouth once daily. Refused Prescriptions Disp Refills dilTIAZem XR (DILACOR XR) 180 mg 24 hr capsule [Pharmacy Med Name: DILTIAZEM 24H ER(XR) 180 MG CP] 90 capsule 3 Sig: TAKE 1 CAPSULE BY MOUTH EVERY DAY Prescriptions are usually addressed within 24-48 business hours. If patient states they cannot wait 24-48 business hours, please document details. Last 2 Encounter Wt Readings: Date: Wt: 08/19/2024 79.2 kg (174 lb 9.7 oz) 06/03/2024 78.4 kg (172 lb 13.5 oz) Last 2 Encounter BP Readings: Date: BP: 08/19/2024 100/64 06/28/2024 149/82 CMP: Glucose 95 06/28/2024 BUN 17 06/28/2024 Creatinine 0.92 06/28/2024 Sodium 140 06/28/2024 Potassium 3.9 06/28/2024 Chloride 103 06/28/2024 CO2 26 06/28/2024 Protein, Total 7.1 06/28/2024 Albumin 4.3 06/28/2024 Calcium 9.8 06/28/2024 Alkaline Phosphatase 117 06/28/2024 Bilirubin, Total 0.6 06/28/2024 AST 17 06/28/2024 ALT 15 06/28/2024 Cholesterol, Total (mg/dL) Date Value 10/02/2023 146 09/09/2022 144 02/11/2019 140 HDL Cholesterol (mg/dL) Date Value 10/02/2023 68 09/09/2022 52 02/11/2019 50 LDL Cholesterol, Calculated (mg/dL) Date Value 10/02/2023 69 09/09/2022 79 02/11/2019 73 Triglyceride (mg/dL) Date Value 10/02/2023 44 09/09/2022 64 02/11/2019 87 Josie Holman RN [facility] 09-05-2024 Miscellaneous Notes Patient has been identified by name and date of : Yes Pharmacy electronically sent a request for the following prescription(s) If there are any questions regarding this prescription request, call at: [phone] (home) [phone] (cell) RX INSTRUCTIONS: Patient aware RX will be sent to pharmacy. No need to notify patient. Date of last office visit: 08/19/24 Date of last [facility] visit: Visit date not found Date of future office visit: 09/09/2024 Requested Prescriptions Pending Prescriptions Disp Refills atorvastatin (LIPITOR) 20 mg tablet [Pharmacy Med Name: ATORVASTATIN 20 MG TABLET] 90 tablet 3 Sig: Take 1 tablet by mouth once daily. Refused Prescriptions Disp Refills dilTIAZem XR (DILACOR XR) 180 mg 24 hr capsule [Pharmacy Med Name: DILTIAZEM 24H ER(XR) 180 MG CP] 90 capsule 3 Sig: TAKE 1 CAPSULE BY MOUTH EVERY DAY Prescriptions are usually addressed within 24-48 business hours. If patient states they cannot wait 24-48 business hours, please document details. Last 2 Encounter Wt Readings: Date: Wt: 08/19/2024 79.2 kg (174 lb 9.7 oz) 06/03/2024 78.4 kg (172 lb 13.5 oz) Last 2 Encounter BP Readings: Date: BP: 08/19/2024 100/64 06/28/2024 149/82 CMP: Glucose 95 06/28/2024 BUN 17 06/28/2024 Creatinine 0.92 06/28/2024 Sodium 140 06/28/2024 Potassium 3.9 06/28/2024 Chloride 103 06/28/2024 CO2 26 06/28/2024 Protein, Total 7.1 06/28/2024 Albumin 4.3 06/28/2024 Calcium 9.8 06/28/2024 Alkaline Phosphatase 117 06/28/2024 Bilirubin, Total 0.6 06/28/2024 AST 17 06/28/2024 ALT 15 06/28/2024 Cholesterol, Total (mg/dL) Date Value 10/02/2023 146 09/09/2022 144 02/11/2019 140 HDL Cholesterol (mg/dL) Date Value 10/02/2023 68 09/09/2022 52 02/11/2019 50 LDL Cholesterol, Calculated (mg/dL) Date Value 10/02/2023 69 09/09/2022 79 02/11/2019 73 Triglyceride (mg/dL) Date Value 10/02/2023 44 09/09/2022 64 02/11/2019 87 Josie Holman RN documented in this encounter [facility] 08-19-2024 Instructions Adilene López MD - 08/19/2024 11:07 AM EDT Plan: -Stop Flecainide and diltiazem. -Zio patch -Stop Eliquis in September. -Follow up 6mo documented in this encounter [facility] 08-19-2024 History of Present illness Narrative Images from the original note were not included. [facility] [place] Agnieszka Choe Department of Cardiovascular Medicine SECTION OF CARDIAC PACING and ELECTROPHYSIOLOGY OUTPATIENT VISIT DATE 08/19/2024 OUTPATIENT VISIT TYPE ESTABLISHED PRIMARY CARE PHYSICIAN: Monie Camejo [place] [address] [facility] [address] [place] [address] REFERRING PHYSICIAN: No referring provider defined for this encounter. CHIEF COMPLAINT: AF HISTORY OF PRESENT ILLNESS: Assessment Ms. Moreno is a 64 year old female who presents today for followup visit for AF . Ms. Moreno has a history of Parox AF Chads Vasc 2 for female sex, hypertension On flecainide, diltiazem, eliquis Remote history of HTN Ms. Moreno was last seen on 05/13/24 by me. At that time, doing well. Planned for PVI which was completed 06/28. She is only have a few seconds of fluttering here and there, she has not had any A-fib. Her Kardia mobile tracings have been normal. In the past her A-fib would become a persistent, fast heart rate and throat tightening and dizziness. She has not felt anything of the sort. Cardiac review of system was negative for chest pain, shortness of breath, dizziness, and syncope. PAST MEDICAL HISTORY Diagnosis Date A-fib (HCC) Thyroid nodule PAST SURGICAL HISTORY Procedure Laterality Date SECTION HX 1992 & 1995 Social History Tobacco Use Smoking status: Never Smokeless tobacco: Never Tobacco comments: Parents smoked in childhood home. Spouse quit smoking 25 years ago. Vaping Use Vaping status: Never Used Substance Use Topics Alcohol use: No Drug use: No FAMILY HISTORY Problem Relation Age of Onset Stroke Mother Cancer Father Lung Asthma Sister Two other (Other) Other Cousin with lung transplant. Asthma Other All of my aunts. Anesthesia Problems No Family History ALLERGIES Allergen Reactions Adhesive Tape (Idalia* Rash Latex, Natural Rubb* Rash Sulfamethoxazole-Tr* Vomiting *ANTI-INFECTIVE AGENTS--MISC.* *ANTI-INFECTIVE AGENTS--MISC.* MEDICATIONS: flecainide (TAMBOCOR) 100 mg tablet Take 1 tablet by mouth every 12 hours. apixaban (ELIQUIS) 5 mg tab(s) Take 1 tablet by mouth two times a day. atorvastatin (LIPITOR) 20 mg tablet Take 1 tablet by mouth once daily. dilTIAZem XR (DILACOR XR) 180 mg 24 hr capsule Take 1 capsule by mouth once daily. guselkumab (TREMFYA) 100 mg/mL Inject 100 mL subcutaneously. Every other month famotidine (PEPCID) 20 mg tablet once daily. AVALIDE 300-12.5 mg ORAL per tablet clobetasol (TEMOVATE) 0.05 % cream PLEASE SEE ATTACHED FOR DETAILED DIRECTIONS cholecalciferol, vitamin D3, 100 mcg (4,000 unit) cap Take 1 capsule by mouth once daily. (Patient not taking: Reported on 08/19/2024) REVIEW OF SYSTEMS: GENERAL: no fever, no chills and no change in weight HEENT: no headaches, no hearing loss, no difficulty swallowing SKIN: no rashes, no lesions and no ulcers RESPIRATORY: SEE HPI CARDIOVASCULAR: See HPI GASTROINTESTINAL: no abdominal pain, no nausea and no vomiting GENITOURINARY: no dysuria, no frequency and no nocturia MUSCULOSKELETAL: no joint pain, no joint swelling and no muscle pain or myalgias NEUROLOGIC: no numbness, no tingling and no sensation of pins and needles HEMATOLOGY: no bruising easily, no prolonged bleeding and no anemia ENDOCRINE: no cold or heat intolerance, no polyuria and no polydipsia PSYCH: no sleep disturbance, no mood disorders and no recent psychosocial stressors PHYSICAL EXAMINATION: BP 100/64 (BP Site: Right Arm, BP Position: Sitting, BP Cuff Size: Large Adult) Pulse 60 Ht 160 cm (5' 3) Wt 79.2 kg (174 lb 9.7 oz) BMI 30.93 kg/m GEN: NAD, A+Ox3 EYES: EOMI, PERRL, sclera non-icteric HENT: OP clear, no thrush, no cervical LAD CV: RRR, no m/r/g, no LE edema, JVD not appreciated PULM: CTAB, no crackles, no wheezes, no increased work of breathing ABD: Soft, NT, ND, NABS, no organomegaly, no obvious masses NEURO: CN2 -12 intact, 5/5 strength throughout MSK: Full ROM throughout SKIN: intact without gross abnormalities LAD: No palpable lymphadenopathy CARDIOVASCULAR MEDICINE TESTING: EK08/19/24 sinus 05/13/2024: sinus Echo: 04/29/24 CONCLUSIONS: - Exam indication: Nonsustained atrial fibrillation - The left ventricle is normal in size. Left ventricular systolic function is normal. EF = 59 5% (2D 4-ch.) Normal left ventricular diastolic function. - The right ventricle is normal in size. Right ventricular systolic function is normal. - There are no significant valvular abnormalities. - Exam was compared with the prior echocardiographic exam performed on 03/28/2016. There is no significant change. Stress/Nuc: CONCLUSIONS: 1. SPECT Perfusion Study: Normal. 2. There is no scintigraphic evidence for inducible ischemia. 3. No evidence of scarred myocardium. 4. Left ventricle is normal in size. The left ventricle systolic function is hyperdynamic. 5. Right ventricle is normal in size. The right ventricle systolic function is normal. 6. This is a low risk scan. Cath: EP Procedure: I have personally reviewed the EKG, Echo, and Stress Test. IMPRESSION AND RECOMMENDATIONS: Assessment Ms. Moreno is a 64 year old female who presents today for followup visit for AF . Ms. Moreno has a history of 1. Parox AF a. Chads Vasc 2 for female sex, hypertension b. On flecainide, diltiazem, eliquis 2. Remote history of HTN Yokasta is doing very well without recurrence of atrial fibrillation. At this time it is reasonable to stop flecainide and diltiazem. As far as her Eliquis, her [id number] is 1 or 2, depending on whether you counseled remote history of a high blood pressure reading for which she has been on a longstanding ARB without a substantiated diagnosis of hypertension. Either way, at this point it is reasonable if she does not have any recurrence to stop her blood thinner as long as we are engaging in active monitoring for recurrence. We will get a Zio patch to document absence of A-fib and she will stop Eliquis 3 months after ablation (she was only ever on it for the purposes of the procedure). She will continue to monitor for A-fib with a Wevod mobile and if she has any more A-fib recurrences she will start back up on her blood thinner. Plan: -Stop Flecainide and diltiazem. -Zio patch -Stop Eliquis in September. -Follow up 6mo CONTACT INFORMATION: Adilene López MD Associate Staff, Cardiac Electrophysiology Rajinder Solomon [facility] Heart & V[facility] [place] Agnieszka Choe Department of Cardiovascular Medicine Pager: [phone] 08/19/2024 Please note: This note was written using LevelUp dictation software. Please excuse typos and [id number] that the dictation may have mistakenly made. documented in this encounter [facility] 08-19-2024 Note HNO ID: [id number] Author: ADILENE LÓPEZ MD Service: ? Author Type: Physician Type: Progress Notes Filed: 08/19/2024 13:21 Note Text: Heart and Vascular [place] Agnieszka Choe Department of Cardiovascular Medicine SECTION OF CARDIAC PACING and ELECTROPHYSIOLOGY OUTPATIENT VISIT DATE 08/19/2024 OUTPATIENT VISIT TYPE ESTABLISHED PRIMARY CARE PHYSICIAN: [place] [id number] [facility] [address] [place] [address] REFERRING PHYSICIAN: No referring provider defined for this encounter. CHIEF COMPLAINT: AF HISTORY OF PRESENT ILLNESS: Assessment Ms. Moreno is a 64 year old female who presents today for followup visit for AF . Ms. Moreno has a history of Parox AF Chads Vasc 2 for female sex, hypertension On flecainide, diltiazem, eliquis Remote history of HTN Ms. Moreno was last seen on 05/13/24 by me. At that time, doing well. Planned for PVI which was completed 06/28. She is only have a few seconds of fluttering here and there, she has not had any A-fib. Her Kardia mobile tracings have been normal. In the past her A-fib would become a persistent, fast heart rate and throat tightening and dizziness. She has not felt anything of the sort. Cardiac review of system was negative for chest pain, shortness of breath, dizziness, and syncope. PAST MEDICAL HISTORY Diagnosis Date A-fib (HCC) Thyroid nodule PAST SURGICAL HISTORY Procedure Laterality Date SECTION HX 1992 AND 1995 Social History Tobacco Use Smoking status: Never Smokeless tobacco: Never Tobacco comments: Parents smoked in childhood home. Spouse quit smoking 25 years ago. Vaping Use Vaping status: Never Used Substance Use Topics Alcohol use: No Drug use: No FAMILY HISTORY Problem Relation Age of Onset Stroke Mother Cancer Father Lung Asthma Sister Two other (Other) Other Cousin with lung transplant. Asthma Other All of my aunts. Anesthesia Problems No Family History ALLERGIES Allergen Reactions Adhesive Tape (Idalia* Rash Latex, Natural Rubb* Rash Sulfamethoxazole-Tr* Vomiting *ANTI-INFECTIVE AGENTS--MISC.* *ANTI-INFECTIVE AGENTS--MISC.* MEDICATIONS: flecainide (TAMBOCOR) 100 mg tablet Take 1 tablet by mouth every 12 hours. apixaban (ELIQUIS) 5 mg tab(s) Take 1 tablet by mouth two times a day. atorvastatin (LIPITOR) 20 mg tablet Take 1 tablet by mouth once daily. dilTIAZem XR (DILACOR XR) 180 mg 24 hr capsule Take 1 capsule by mouth once daily. guselkumab (TREMFYA) 100 mg/mL Inject 100 mL subcutaneously. Every other month famotidine (PEPCID) 20 mg tablet once daily. AVALIDE 300-12.5 mg ORAL per tablet clobetasol (TEMOVATE) 0.05 % cream PLEASE SEE ATTACHED FOR DETAILED DIRECTIONS cholecalciferol, vitamin D3, 100 mcg (4,000 unit) cap Take 1 capsule by mouth once daily. (Patient not taking: Reported on 08/19/2024) REVIEW OF SYSTEMS: GENERAL: no fever, no chills and no change in weight HEENT: no headaches, no hearing loss, no difficulty swallowing SKIN: no rashes, no lesions and no ulcers RESPIRATORY: SEE HPI CARDIOVASCULAR: See HPI GASTROINTESTINAL: no abdominal pain, no nausea and no vomiting GENITOURINARY: no dysuria, no frequency and no nocturia MUSCULOSKELETAL: no joint pain, no joint swelling and no muscle pain or myalgias NEUROLOGIC: no numbness, no tingling and no sensation of pins and needles HEMATOLOGY: no bruising easily, no prolonged bleeding and no anemia ENDOCRINE: no cold or heat intolerance, no polyuria and no polydipsia PSYCH: no sleep disturbance, no mood disorders and no recent psychosocial stressors PHYSICAL EXAMINATION: BP 100/64 (BP Site: Right Arm, BP Position: Sitting, BP Cuff Size: Large Adult) Pulse 60 Ht 160 cm (5' 3) Wt 79.2 kg (174 lb 9.7 oz) BMI 30.93 kg/m? GEN: NAD, A+Ox3 EYES: EOMI, PERRL, sclera non-icteric HENT: OP clear, no thrush, no cervical LAD CV: RRR, no m/r/g, no LE edema, JVD not appreciated PULM: CTAB, no crackles, no wheezes, no increased work of breathing ABD: Soft, NT, ND, NABS, no organomegaly, no obvious masses NEURO: CN2 -12 intact, 5/5 strength throughout MSK: Full ROM throughout SKIN: intact without gross abnormalities LAD: No palpable lymphadenopathy CARDIOVASCULAR MEDICINE TESTING: EK08/19/24 sinus 05/13/2024: sinus Echo: 04/29/24 CONCLUSIONS: - Exam indication: Nonsustained atrial fibrillation - The left ventricle is normal in size. Left ventricular systolic function is normal. EF = 59 ? 5% (2D 4-ch.) Normal left ventricular diastolic function. - The right ventricle is normal in size. Right ventricular systolic function is normal. - There are no significant valvular abnormalities. - Exam was compared with the prior echocardiographic exam performed on 03/28/2016. There is no significant change. Stress/Nuc: CONCLUSIONS: 1. SPECT Perfusion Study: Normal. 2. There (more content not included)... [facility] 08-19-2024 Note HNO ID: [id number] Author: ADILENE LÓPEZ MD Service: ? Author Type: Physician Type: Procedures Filed: 09/19/2024 17:14 Note Text: Patient Name: Yokasta Moreno : 1960 Ordering Provider: ADILENE LÓPEZ Indication: I48.0 Paroxysmal atrial fibrillation Type of Monitor: Extended Monitoring-Zio Patch Enrollment Dates: 08/28/2024-09/11/2024 IRHYTHM FINDINGS: Patient had a min HR of 49 bpm, max HR of 179 bpm, and avg HR of 75 bpm. Predominant underlying rhythm was Sinus Rhythm. 9 Supraventricular Tachycardia runs occurred, the run with the fastest interval lasting 8 beats with a max rate of 179 bpm, the longest lasting 13 beats with an avg rate of 122 bpm. Isolated SVEs were rare (<1.0%), SVE Couplets were rare (<1.0%), and SVE Triplets were rare (<1.0%). Isolated VEs were rare (<1.0%), and no VE Couplets or VE Triplets were present. Ventricular Trigeminy was present. Agree with above. No sustained arrhythmia. Low ectopy burden. No patient triggered events. No afib. Adilene López MD [facility] 06-28-2024 Note HNO ID: [id number] Author: ADILENE LÓPEZ MD Service: Cardiovascular Medicine Author Type: Physician Type: Plan of Care Filed: 06/28/2024 09:31 Note Text: BRIEF PROCEDURE NOTE: LOG ID: [id number] SURGERY/PROCEDURE DATE: 06/28/2024 INCISION/PROCEDURE START TIME: 8:06 AM INCISION CLOSE/PROCEDURE END TIME: SURGEON(S)/PROCEDURALIST(S) AND SUPERVISOR PUBLIC MESSAGE SERVICE(S): Surgeons and Role: * Adilene López MD - Primary No Additional Staff Procedure: Atrial fibrillation ablation (PVI) Outcome: Success Access: 17Fr RFV, 9Fr RFV Closed with Vascades Procedural findings AND Complications: None Estimated Blood loss: 10cc's Specimen(s) removed: None Postoperative Diagnosis: Atrial Fibrillation Plan: - Bedrest for 4 hours - EKG in PACU - Aspirin 324mg and Eliquis 5mg to be given in PACU - Continue home anticoagulant overnight if staying overnight - please note, some home medications ie blood pressure meds, antihyperglycemics may be held due to post-op status - No changes to outpatient medications upon discharge Full report to follow in [facility] (Under Chart Review -> Cardiac) Adilene López MD Associate Staff, Cardiac Electrophysiology Rajinder Solomon [facility] Heart AND Vascular [place] Agnieszka Choe Department of Cardiovascular Medicine Pager: [phone] [facility] 06-28-2024 Note HNO ID: [id number] Author: MITZY DE LA O APRN.MOLD COOLER Service: Anesthesiology Author Type: Nurse Sap Pi Developer Type: Anesthesia Procedure Notes Filed: 06/28/2024 08:14 Note Text: ANESTHESIOLOGY PROCEDURE NOTE Airway General Information Procedure Start Time/Medication Administration: 06/28/2024 7:57 AM Procedure End Time: 06/28/2024 7:58 AM Patient location during procedure: OR Timeout Performed Pre-procedure: timeout performed Consent Obtained: Yes 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 Staffing MOLD COOLER: Mitzy De La O APRN.MOLD COOLER Performed by: MADELAINE Indications and Patient Condition Indications for airway management: anesthesia Preoxygenated: yes anesthesia circuit Patient position: sniffing Method: asleep Difficult Mask: No Final Airway Details Final airway type: endotracheal airway Final Endotracheal Airway: ETT Cuffed: yes Successful intubation technique: video laryngoscopy Devices used: Eller Endotracheal tube insertion site: oral Blade: Alice Blade size: #3 ETT size (mm): 7.0 Measured from: lips Measurement (cm): 20 Placement verified by: chest auscultation and capnometry Cormack-Lehane Classification: grade I - full view of glottis Number of attempts at approach: 1 Failed airway: no Unrecognized esophageal intubation: no Airway not difficult SIGNATURE: Mitzy De La O APRN.MOLD COOLER PATIENT NAME: Yokasta Moreno DATE: June 28, 2024 TIME: 8:13 AM CSN: [id number] [facility] 06-03-2024 History and physical note Images from the original note were not included. [facility] HISTORY AND PHYSICAL EXAMINATION SERVICE DATE: 06/03/2024 SERVICE TIME: 10:04 AM PRIMARY CARE PHYSICIAN: Monie Camejo MD, MD Assessment Patient has the following medical conditions which may affect colton-operative course: Essential hypertension Assessment: Stable, compliant on rx. Follows with PCP. Last 3 Encounter BP Readings: Date: BP: 06/03/2024 107/69 05/13/2024 104/64 03/18/2024 110/80 High triglycerides Assessment: Compliant on statin therapy. Encouraged lifestyle modifications. Body mass index is 30.62 kg/m . PAF (paroxysmal atrial fibrillation) (HCC) Assessment: follows with Dr. Hinton. On eliquis, flecainide, and diltiazem but still having bouts of a fib. Most recent episode mid March lasting ~12 hours as well as 5 minute episode over the past weekend. Denies current palpitations, CP, SOB, RRR today on exam. Gastroesophageal reflux disease Assessment: Controlled on pepcid. Advised avoidance of triggers. Following with PCP. Liver cyst Assessment: incidental finding, does not follow with specialist Goiter Assessment: follows with endocrinology Dr. Goss; not on rx Psoriasis Assessment: follows with dermatology, on tremfya every other month, last dose 05/14/2024 Lumbar herniated disc Assessment: intermittent with radicular symptoms, last exacerbation ~1.5 years ago, improved with PT, none currently PONV (postoperative nausea and vomiting) Assessment: Pt reports PONV with previous surgeries/procedures. Chronic interstitial cystitis Assessment: follows with urology ANESTHESIA FINDINGS: Intubation History: No history of difficult intubation. No abnormal airway history Significant Anesthesia Considerations: potential postop nausea/vomiting Airway History: No history of difficult airway No abnormal airway history Denise Activity Status Index: METS: Walk indoors, such as around the house (1.75 METs) Do light work around the house, such as dusting or washing dishes (2.70 METs) Take care of self; that is eating, dressing, bathing, using the toilet (2.75 METs) Walk a block or two on level ground (2.75 METs) Do moderate work around the house, such as vacuuming, sweeping floors, or carrying in groceries (3.50 METs) Do yardwork, such as raking leaves, weeding, or pushing a power mower (4.50 METs) Climb a flight of stairs or walk up a hill (5.50 METs) DASI Score: 23.45 Patient denies any chest pain or undue shortness of breath with the above physical activity. Clinical Frailty Scale: 3. Well, with treated comorbid disease STOP-Bang Score: Patient over 50 years old Denies snoring loudly Denies feeling tired, fatigued, or sleepy during the daytime Has not been observed to stop breathing or choking/gasping during sleep Denies having high blood pressure BMI less than or equal to 35 kg/m^2 Does not have a large neck Non-male patient STOP-Bang Score: 1 [id number] Score: Age: <65 Sex: female CHF history: No Hypertension history: Yes Stroke/TIA/thromboembolism history: No Vascular disease history: No Diabetes history: No [id number] Score: 2 I - PHYSICAL EVALUATION AIRWAY Patient intubated: No. Tracheostomy tube not present Mallampati: II. TM distance: >3 FB. Neck ROM: full ROM without neurological symptoms. Mouth opening: adequate. Short neck: no. Thick neck: no DENTAL Dental findings: teeth intact. Additional comments: +Crowns. Implant lower right, bridge lower left. II - ANESTHESIA PLAN Beta Debra Monitoring Plan Post Procedure Analgesic Plan Prepared for Surgery: optimally prepared for surgery. Per 05/14/2023 note: -Hold eliquis morning of procedure -CBC, CMP, T/S to be performed morning of procedure CONSULTS: Patient does not require consults for optimization at this time Planned Anesthetic: anesthesia choice The Following Tests/Procedures Have Been Initiated: No orders of the defined types were placed in this encounter. REASON FOR VISIT: Yokasta Moreno is a 63 year old female who is scheduled for Procedure(s) with comments: COMPRE EP EVAL ABLTJ ATR FIB PULM VEIN ISOLATION (N/A) - heplock on arrival pfa Constant Insight/ Selerity INTRACARDIAC ELECTROPHYSIOLOGIC 3-DIMENSIONAL MAPPING (N/A) at the request of Dr. Adilene López for consultation. My final recommendation will be communicated back to the requesting physician by way of shared medical record or letter. Subjective The patient has the following: COVID-19 Immunization Status Current Care Gaps Covid-19 Vaccine ( season) Overdue since 02/18/2024 12/24/2023 Imm Admin: COVID-19 vaccine, age 12+ yr, bivalent (PFIZER-BIONTECH) 02/11/2022 Imm Admin: COVID-19 vaccine, age 12+ yr, bivalent (MODERNA) 06/11/2021 Imm Admin: COVID-19 original vaccine, full dose, monovalent (MODERNA) Only the first 3 history entries have been loaded, but more history exists. CHIEF COMPLAINT: Pre-op HPI: Patient is a 63 year old female presenting for pre-anesthesia consultation. Has been with a fib since end of 2015, continues having bouts despite medication management. Has tried conservative methods with little relief. Patient denies other specific radiating, alleviating, or aggravating factors. Denies signs of infection or pain. Patient has completed a comprehensive course of conservative treatment and has elected for above surgery. REVIEW OF SYSTEMS: General: No weight loss, malaise or fevers. Neurological: Negative for: dementia, headaches, impaired sensorium, peripheral neuropathy, seizures, TIA and strokes. Respiratory: Negative for: asthma, bronchitis, COPD, current cough, bronchodilator used daily for the last 3 months, dyspnea, home oxygen, orthopnea, pneumonia within 6 weeks, tobacco use, URI < 2 weeks and obstructive sleep apnea. Cardiovascular: Denies dizziness or syncope Positive for: anticoagulation therapy, atrial fibrillation, hyperlipidemia and hypertension Negative for: abdominal aortic aneurysm, AICD/PPM, angina, arrhythmia, CAD, chest pain, CHF, congenital heart defect, DVT/PE, recent [place], murmur/valvular heart disease, PVD, open heart surgery and valve surgery. GI: Positive for: GERD and liver disease (Cyst) Negative for: abdominal pain, GI bleed <30 days, hepatitis, nausea, vomiting and ETOH >2 drinks/day. : No history of kidney disease Negative for: on dialysis, dysuria, frequent urination, hematuria and urinary tract infection. Endocrine: +Goiter Positive for: hypothyroidism. Negative for: diabetes mellitus and hyperthyroidism. Hematology: Positive for: bruises/bleeds easily and chronic anti-coagulation/platelet meds. Patient is on anti-coagulation/platelet medication(s): DOAC. Negative for: anemia, factor V Leiden, hemophilia, thrombocytopenia, von Willebrand disease and transfusion of at least 4 units within 72 hours prior to surgery. Oncology: No history of CA metastasis, chemo within 30 days, or radiotherapy within 90 days. No history of oncological symptoms or problems. Psych: No history of psychiatric symptoms or problems. Musculoskeletal: Negative for joint pain or swelling, back pain or muscle pain. Skin: Negative for lesions, rash and itching. Implanted Devices: No implanted devices. PAST MEDICAL HISTORY Diagnosis Date A-fib (HCC) Thyroid nodule PAST SURGICAL HISTORY Procedure Laterality Date SECTION HX 1992 & 1995 FAMILY HISTORY Problem Relation Age of Onset Stroke Mother Cancer Father Lung Asthma Sister Two other (Other) Other Cousin with lung transplant. Asthma Other All of my aunts. Anesthesia Problems No Family History Social History Tobacco Use Smoking status: Never Smokeless tobacco: Never Tobacco comments: Parents smoked in childhood home. Spouse quit smoking 25 years ago. Vaping Use Vaping status: Never Used Substance Use Topics Alcohol use: No Drug use: No Prior to Admission medications as of 06/03/24 1006 Medication Sig Last Dose Taking flecainide (TAMBOCOR) 100 mg tablet Take 1 tablet by mouth every 12 hours. Yes apixaban (ELIQUIS) 5 mg tab(s) Take 1 tablet by mouth two times a day. Yes atorvastatin (LIPITOR) 20 mg tablet Take 1 tablet by mouth once daily. Yes dilTIAZem XR (DILACOR XR) 180 mg 24 hr capsule Take 1 capsule by mouth once daily. Yes guselkumab (TREMFYA) 100 mg/mL Inject 100 mL subcutaneously. Every other month Yes famotidine (PEPCID) 20 mg tablet once daily. Yes cholecalciferol, vitamin D3, 100 mcg (4,000 unit) cap Take 1 capsule by mouth once daily. Yes AVALIDE 300-12.5 mg ORAL per tablet Yes No medication comments found. ALLERGIES Allergen Reactions Adhesive Tape (Idalia* Rash Latex, Natural Rubb* Rash Sulfamethoxazole-Tr* Vomiting *ANTI-INFECTIVE AGENTS--MISC.* *ANTI-INFECTIVE AGENTS--MISC.* Objective PHYSICAL EXAM: General: alert and oriented and healthy appearance. Pertinent negatives noted - not distressed. Skin: normal color, no rash or lesions. HEENT: EOM intact, pupils equal round and pupils reactive to light. Pertinent negatives noted - no carotid bruit. Cardiovascular: regular rate and rhythm, normal S1 and S2, no rub, murmurs, or gallop. Respiratory: normal breath sounds, no wheezes or crackles. No chest wall deformity or tenderness. Abdomen: bowel sounds present and soft. Pertinent negatives noted - not tender. Extremities: no deformity, no edema or tenderness, no joint swelling or clubbing. Neurological: normal cognition and motor skills. Gait normal. No weakness or sensory deficit. PAIN ASSESSMENT: VITALS: BP 107/69 Pulse 64 Temp (Src) 98.6 (Temporal) Resp 16 Ht 5' 3 (1.60m) Wt 172 lb 13.5 oz (78.4kg) SpO2 96% BMI 30.63 kg/(m^2). Diagnostic tests reviewed for today's visit: Lab Value Units Date High Low HB No results within date range. HCT No results within date range. WBC No results within date range. PLT No results within date range. NA No results within date range. K No results within date range. GLUC No results within date range. BUN No results within date range. CREAT No results within date range. PTSEC No results within date range. INR No results within date range. APTT No results within date range. ALT No results within date range. AST No results within date range. TBILI No results within date range. TSH No results within date range. Lab Value Units Date High Low HCGQT No results within date range. UHCG No results within date range. HCG, BODY* No results within date range. Lab Value Units Date High Low ABORHD No results within date range. ABSCREEN No results within date range. No results found for: HBA1C Recent Results (from the past 8760 hours) ECG COMPLETE Collection Time: 05/13/24 11:06 AM Result Value Ventricular Rate 59 Atrial Rate 59 P-R Interval 176 QRS Duration 118 QT Interval 430 QTC Calculation (Bazett) 425 Calculated P [place] 34 Calculated R [place] 52 Calculated T [place] 59 Impression SINUS BRADYCARDIA NONSPECIFIC INTRAVENTRICULAR CONDUCTION DELAY NONSPECIFIC T WAVE ABNORMALITY ABNORMAL ECG Confirmed by ADILENE LÓPEZ MD ([id number]) on 05/16/2024 5:09:56 PM Recent Results (from the past 04125 hours) ECHO Collection Time: 04/29/24 7:59 AM Impression CONCLUSIONS: - Exam indication: Nonsustained atrial fibrillation - The left ventricle is normal in size. Left ventricular systolic function is normal. EF = 59 5% (2D 4-ch.) Normal left ventricular diastolic function. - The right ventricle is normal in size. Right ventricular systolic function is normal. - There are no significant valvular abnormalities. - Exam was compared with the prior echocardiographic exam performed on 03/28/2016. There is no significant change. * * * Final * * * Instructions Given to Patient: Instructions located in the after visit summary. Patient given verbal and written preop instructions and voices comprehension and compliance. SIGNATURE: Jesica Ingram PA-C PATIENT NAME: Yokasta Moreno DATE: June 03, 2024 TIME: 10:04 AM PAGER/CONTACT #: [facility] 06-03-2024 History and physical note Images from the original note were not included. [facility] Pre-Anesthesia Consultation [facility] HISTORY AND PHYSICAL EXAMINATION SERVICE DATE: 06/03/2024 SERVICE TIME: 10:04 AM PRIMARY CARE PHYSICIAN: Monie Camejo MD, MD Assessment Patient has the following medical conditions which may affect colton-operative course: Essential hypertension Assessment: Stable, compliant on rx. Follows with PCP. Last 3 Encounter BP Readings: Date: BP: 06/03/2024 107/69 05/13/2024 104/64 03/18/2024 110/80 High triglycerides Assessment: Compliant on statin therapy. Encouraged lifestyle modifications. Body mass index is 30.62 kg/m . PAF (paroxysmal atrial fibrillation) (HCC) Assessment: follows with Dr. Hinton. On eliquis, flecainide, and diltiazem but still having bouts of a fib. Most recent episode mid March lasting ~12 hours as well as 5 minute episode over the past weekend. Denies current palpitations, CP, SOB, RRR today on exam. Gastroesophageal reflux disease Assessment: Controlled on pepcid. Advised avoidance of triggers. Following with PCP. Liver cyst Assessment: incidental finding, does not follow with specialist Goiter Assessment: follows with endocrinology Dr. Goss; not on rx Psoriasis Assessment: follows with dermatology, on tremfya every other month, last dose 05/14/2024 Lumbar herniated disc Assessment: intermittent with radicular symptoms, last exacerbation ~1.5 years ago, improved with PT, none currently PONV (postoperative nausea and vomiting) Assessment: Pt reports PONV with previous surgeries/procedures. Chronic interstitial cystitis Assessment: follows with urology ANESTHESIA FINDINGS: Intubation History: No history of difficult intubation. No abnormal airway history Significant Anesthesia Considerations: potential postop nausea/vomiting Airway History: No history of difficult airway No abnormal airway history Denise Activity Status Index: METS: Walk indoors, such as around the house (1.75 METs) Do light work around the house, such as dusting or washing dishes (2.70 METs) Take care of self; that is eating, dressing, bathing, using the toilet (2.75 METs) Walk a block or two on level ground (2.75 METs) Do moderate work around the house, such as vacuuming, sweeping floors, or carrying in groceries (3.50 METs) Do yardwork, such as raking leaves, weeding, or pushing a power mower (4.50 METs) Climb a flight of stairs or walk up a hill (5.50 METs) DASI Score: 23.45 Patient denies any chest pain or undue shortness of breath with the above physical activity. Clinical Frailty Scale: 3. Well, with treated comorbid disease STOP-Bang Score: Patient over 50 years old Denies snoring loudly Denies feeling tired, fatigued, or sleepy during the daytime Has not been observed to stop breathing or choking/gasping during sleep Denies having high blood pressure BMI less than or equal to 35 kg/m^2 Does not have a large neck Non-male patient STOP-Bang Score: 1 [id number] Score: Age: <65 Sex: female CHF history: No Hypertension history: Yes Stroke/TIA/thromboembolism history: No Vascular disease history: No Diabetes history: No [id number] Score: 2 I - PHYSICAL EVALUATION AIRWAY Patient intubated: No. Tracheostomy tube not present Mallampati: II. TM distance: >3 FB. Neck ROM: full ROM without neurological symptoms. Mouth opening: adequate. Short neck: no. Thick neck: no DENTAL Dental findings: teeth intact. Additional comments: +Crowns. Implant lower right, bridge lower left. II - ANESTHESIA PLAN Beta Debra Monitoring Plan Post Procedure Analgesic Plan Prepared for Surgery: optimally prepared for surgery. Per 05/14/2023 note: -Hold eliquis morning of procedure -CBC, CMP, T/S to be performed morning of procedure CONSULTS: Patient does not require consults for optimization at this time Planned Anesthetic: anesthesia choice The Following Tests/Procedures Have Been Initiated: No orders of the defined types were placed in this encounter. REASON FOR VISIT: Yokasta Moreno is a 63 year old female who is scheduled for Procedure(s) with comments: COMPRE EP EVAL ABLTJ ATR FIB PULM VEIN ISOLATION (N/A) - heplock on arrival [facility] Funding [employer] scientific INTRACARDIAC ELECTROPHYSIOLOGIC 3-DIMENSIONAL MAPPING (N/A) at the request of Dr. Adilene López for consultation. My final recommendation will be communicated back to the requesting physician by way of shared medical record or letter. Subjective The patient has the following: COVID-19 Immunization Status Current Care Gaps Covid-19 Vaccine ( season) Overdue since 02/18/2024 12/24/2023 Imm Admin: COVID-19 vaccine, age 12+ yr, bivalent ([employer] via [place]) 02/11/2022 Imm Admin: COVID-19 vaccine, age 12+ yr, bivalent (MODERNA) 06/11/2021 Imm Admin: COVID-19 original vaccine, full dose, monovalent (MODERNA) Only the first 3 history entries have been loaded, but more history exists. CHIEF COMPLAINT: Pre-op HPI: Patient is a 63 year old female presenting for pre-anesthesia consultation. Has been with a fib since end of 2015, continues having bouts despite medication management. Has tried conservative methods with little relief. Patient denies other specific radiating, alleviating, or aggravating factors. Denies signs of infection or pain. Patient has completed a comprehensive course of conservative treatment and has elected for above surgery. REVIEW OF SYSTEMS: General: No weight loss, malaise or fevers. Neurological: Negative for: dementia, headaches, impaired sensorium, peripheral neuropathy, seizures, TIA and strokes. Respiratory: Negative for: asthma, bronchitis, COPD, current cough, bronchodilator used daily for the last 3 months, dyspnea, home oxygen, orthopnea, pneumonia within 6 weeks, tobacco use, URI < 2 weeks and obstructive sleep apnea. Cardiovascular: Denies dizziness or syncope Positive for: anticoagulation therapy, atrial fibrillation, hyperlipidemia and hypertension Negative for: abdominal aortic aneurysm, AICD/PPM, angina, arrhythmia, CAD, chest pain, CHF, congenital heart defect, DVT/PE, recent [place], murmur/valvular heart disease, PVD, open heart surgery and valve surgery. GI: Positive for: GERD and liver disease (Cyst) Negative for: abdominal pain, GI bleed <30 days, hepatitis, nausea, vomiting and ETOH >2 drinks/day. : No history of kidney disease Negative for: on dialysis, dysuria, frequent urination, hematuria and urinary tract infection. Endocrine: +Goiter Positive for: hypothyroidism. Negative for: diabetes mellitus and hyperthyroidism. Hematology: Positive for: bruises/bleeds easily and chronic anti-coagulation/platelet meds. Patient is on anti-coagulation/platelet medication(s): DOAC. Negative for: anemia, factor V Leiden, hemophilia, thrombocytopenia, von Willebrand disease and transfusion of at least 4 units within 72 hours prior to surgery. Oncology: No history of CA metastasis, chemo within 30 days, or radiotherapy within 90 days. No history of oncological symptoms or problems. Psych: No history of psychiatric symptoms or problems. Musculoskeletal: Negative for joint pain or swelling, back pain or muscle pain. Skin: Negative for lesions, rash and itching. Implanted Devices: No implanted devices. PAST MEDICAL HISTORY Diagnosis Date A-fib (HCC) Thyroid nodule PAST SURGICAL HISTORY Procedure Laterality Date SECTION HX 1992 & 1995 FAMILY HISTORY Problem Relation Age of Onset Stroke Mother Cancer Father Lung Asthma Sister Two other (Other) Other Cousin with lung transplant. Asthma Other All of my aunts. Anesthesia Problems No Family History Social History Tobacco Use Smoking status: Never Smokeless tobacco: Never Tobacco comments: Parents smoked in childhood home. Spouse quit smoking 25 years ago. Vaping Use Vaping status: Never Used Substance Use Topics Alcohol use: No Drug use: No Prior to Admission medications as of 06/03/24 1006 Medication Sig Last Dose Taking flecainide (TAMBOCOR) 100 mg tablet Take 1 tablet by mouth every 12 hours. Yes apixaban (ELIQUIS) 5 mg tab(s) Take 1 tablet by mouth two times a day. Yes atorvastatin (LIPITOR) 20 mg tablet Take 1 tablet by mouth once daily. Yes dilTIAZem XR (DILACOR XR) 180 mg 24 hr capsule Take 1 capsule by mouth once daily. Yes guselkumab (TREMFYA) 100 mg/mL Inject 100 mL subcutaneously. Every other month Yes famotidine (PEPCID) 20 mg tablet once daily. Yes cholecalciferol, vitamin D3, 100 mcg (4,000 unit) cap Take 1 capsule by mouth once daily. Yes AVALIDE 300-12.5 mg ORAL per tablet Yes No medication comments found. ALLERGIES Allergen Reactions Adhesive Tape (Idalia* Rash Latex, Natural Rubb* Rash Sulfamethoxazole-Tr* Vomiting *ANTI-INFECTIVE AGENTS--MISC.* *ANTI-INFECTIVE AGENTS--MISC.* Objective PHYSICAL EXAM: General: alert and oriented and healthy appearance. Pertinent negatives noted - not distressed. Skin: normal color, no rash or lesions. HEENT: EOM intact, pupils equal round and pupils reactive to light. Pertinent negatives noted - no carotid bruit. Cardiovascular: regular rate and rhythm, normal S1 and S2, no rub, murmurs, or gallop. Respiratory: normal breath sounds, no wheezes or crackles. No chest wall deformity or tenderness. Abdomen: bowel sounds present and soft. Pertinent negatives noted - not tender. Extremities: no deformity, no edema or tenderness, no joint swelling or clubbing. Neurological: normal cognition and motor skills. Gait normal. No weakness or sensory deficit. PAIN ASSESSMENT: VITALS: BP 107/69 Pulse 64 Temp (Src) 98.6 (Temporal) Resp 16 Ht 5' 3 (1.60m) Wt 172 lb 13.5 oz (78.4kg) SpO2 96% BMI 30.63 kg/(m^2). Diagnostic tests reviewed for today's visit: Lab Value Units Date High Low HB No results within date range. HCT No results within date range. WBC No results within date range. PLT No results within date range. NA No results within date range. K No results within date range. GLUC No results within date range. BUN No results within date range. CREAT No results within date range. PTSEC No results within date range. INR No results within date range. APTT No results within date range. ALT No results within date range. AST No results within date range. TBILI No results within date range. TSH No results within date range. Lab Value Units Date High Low HCGQT No results within date range. UHCG No results within date range. HCG, BODY* No results within date range. Lab Value Units Date High Low ABORHD No results within date range. ABSCREEN No results within date range. No results found for: HBA1C Recent Results (from the past 8760 hours) ECG COMPLETE Collection Time: 05/13/24 11:06 AM Result Value Ventricular Rate 59 Atrial Rate 59 P-R Interval 176 QRS Duration 118 QT Interval 430 QTC Calculation (Bazett) 425 Calculated P [place] 34 Calculated R [place] 52 Calculated T [place] 59 Impression SINUS BRADYCARDIA NONSPECIFIC INTRAVENTRICULAR CONDUCTION DELAY NONSPECIFIC T WAVE ABNORMALITY ABNORMAL ECG Confirmed by ADILENE LÓPEZ MD ([id number]) on 05/16/2024 5:09:56 PM Recent Results (from the past 03983 hours) ECHO Collection Time: 04/29/24 7:59 AM Impression CONCLUSIONS: - Exam indication: Nonsustained atrial fibrillation - The left ventricle is normal in size. Left ventricular systolic function is normal. EF = 59 5% (2D 4-ch.) Normal left ventricular diastolic function. - The right ventricle is normal in size. Right ventricular systolic function is normal. - There are no significant valvular abnormalities. - Exam was compared with the prior echocardiographic exam performed on 03/28/2016. There is no significant change. * * * Final * * * Instructions Given to Patient: Instructions located in the after visit summary. Patient given verbal and written preop instructions and voices comprehension and compliance. SIGNATURE: Jesica Ingram PA-C PATIENT NAME: Yokasta Moreno DATE: June 03, 2024 TIME: 10:04 AM PAGER/CONTACT #: documented in this encounter [facility] 06-03-2024 Instructions Jesica Ingram PA-C - 06/03/2024 10:03 AM EDT Images from the original note were not included. [facility] PATIENT PREOPERATIVE INSTRUCTIONS Yusuf Tran MD has scheduled you for your procedure at this surgery center: [facility]: [phone] - [address] [place] [address]. Please read below carefully for your personalized instructions. Arrival Time for Surgery: -[facility] will [facility] call [facility] the afternoon before surgery after 2:30 pm (or Thursday for Thursday surgery) for a scheduled arrival time. - If you have not heard by 4 pm, please contact [facility] at [phone]. Dietary Restrictions: - No solid food after midnight. - You may have 12 ounces of clear liquids (water, clear juices such as apple juice or gatorade, carbonated beverages, clear tea, black coffee, jello) until 2 hours before scheduled arrival at facility. - Do not drink any alcohol after midnight the night before your surgery. - no milk/creamer or other additives like honey - no pulp juices Medications: Unless instructed differently below, stay on all of your medications until your surgery. If you start any new medications after today's visit, please contact your surgeon. Pre-Surgery Med Instructions Medication Instructions flecainide (TAMBOCOR) 100 mg tablet If you normally take this medication in the morning, take the morning of surgery. apixaban (ELIQUIS) 5 mg tab(s) Do not take the day of surgery atorvastatin (LIPITOR) 20 mg tablet If you normally take this medication in the morning, take the morning of surgery. dilTIAZem XR (DILACOR XR) 180 mg 24 hr capsule If you normally take this medication in the morning, take the morning of surgery. guselkumab (TREMFYA) 100 mg/mL Do not take the day of surgery famotidine (PEPCID) 20 mg tablet If you normally take this medication in the morning, take the morning of surgery. cholecalciferol, vitamin D3, 100 mcg (4,000 unit) cap Do not take the day of surgery AVALIDE 300-12.5 mg ORAL per tablet If you normally take this medication in the morning, take the morning of surgery. If you are currently using a ctyv-ijk-dfnr injectable or oral medication for diabetes or weight loss such as Dulaglutide (Trulicity), Exenatide (Byetta, Bydureon), Liraglutide (Victoza, Saxenda), Semaglutide (Ozempic, Wegovy, Rybelsus), or Tirzepatide (Mounjaro), the medicine should be stopped at least 7 days before surgery. These medicines can cause food to remain in your stomach for a very long time and increase the risks from surgery and anesthesia. Not stopping the medication for a long enough time may result in your surgery being rescheduled. If you start any new medications after today's visit, please contact the surgeon's office. Blood Thinning Medications: - Stop NSAIDS (Ibuprofen, Advil, Aleve, Motrin, Celebrex, Mobic, etc.) 7 days before surgery, as directed by your surgeon. - Stop Aspirin 7 days before surgery, as directed by your surgeon. - Stop herbal supplements 7 days before surgery. - You may take Tylenol (Acetaminophen) or any of your pain medications that do not contain aspirin or NSAIDS as needed. Important Reminders: - If you use CPAP/BIPAP, bring the machine with you to the surgery center. - If you are prescribed inhalers for breathing, continue using them. -Please be sure to brush your teeth and you can use mouth wash or rinse your mouth if dry. - Candy, mints, and tobacco products are NOT permitted the morning of surgery. - Hearing aids, dentures and glasses may be worn the morning of surgery. - If you have dentures or partials, please have a case to place them in or leave at home day of surgery. - NO jewelry, body piercings, makeup, hairpins or contacts are to be worn the day of surgery. If you develop symptoms such as a fever, cold, or flu, or have other changes to your health within TWO DAYS of scheduled surgery or the morning of surgery, please contact the surgery center above. Personal Belongings: -Please have photo ID and insurance cards. -If you do not have a copy of advance directives on file with us, please bring a copy with you on the day of surgery. - Leave ALL valuables and money at home or with family members. For Outpatient Procedures: - YOU MUST HAVE A RESPONSIBLE NURSERY TECHNICIAN TAKE YOU HOME. A CANDY MAKER HELPER OR RAILROAD BAGGAGE PORTER CANNOT BE MADE A RESPONSIBLE NURSERY TECHNICIAN. - We recommend that a responsible person stays with you overnight to take care of you. - You cannot stay in a hotel alone after outpatient surgery. You will not be permitted to have your surgery, if you do not have someone to take care of you. Please be aware that emergency situations arise, which may delay or change your surgical time. If this happens, we will notify you as soon as possible and regret any inconvenience. If you already have an Advance Directive, please fax a copy to [phone] or email to for it to be added to your chart. If you do not have an Advance Directive, you can find the appropriate form and more information at [email or web address]. We recommend that you complete the Advance Directive form found on the website and bring it with you the day of your surgery. It can be witnessed and scanned into your chart that day. Jesica Ingram PA-C documented in this encounter [facility] 05-13-2024 Telephone encounter Note PROCEDURE: 06/28/24 @ 7:30 am (arrival time: 6:00 am). ANASTASIA w/ Dr. López. Jennie Foster w/ pt. Procedure date/ time/ instructions given F/F Schseth w/ Sveta @ hosp. F/u schd. 08/10/24 Diabetic:No. Other meds to hold: No Labs to be done:day of Jennie Chappell Coordinator [facility] 05-13-2024 Miscellaneous Notes PROCEDURE: 06/28/24 @ 7:30 am (arrival time: 6:00 am). PVI w/ Dr. López. Jennie Foster w/ pt. Procedure date/ time/ instructions given F/ Schd w/ Sveta @ hosp. F/u schd. 08/10/24 Diabetic:No. Other meds to hold: No Labs to be done:day of Jennie Misti Coordinator [facility] Elective procedure for Electrophysiology Service at [facility] Attending: Adilene López MD Diagnosis: Atrial Fibrillation Date of admission: tbd Time of procedure: tbd Procedure duration: 3 hours Overnight stay? No Office Follow up: 6 weeks H&P by PA: No Labs: CBC, CMP, T/S Labs to be done: Morning of procedure Procedure: PVI Additional notes: Stop anticoagulant the morning of procedure. Stop diabetic medications per protocol (?Stop Anticoagulants, beta blockers or Ca blockers?) Vendor: [employer] PFA, [employer] Anesthesia: General NOEMY: no Possible study patient? No Instructions to patient: 1. Do not stop any blood thinners unless specific instructions above 2. Xgn-ttuywdw-jqsnbmkom diabetics should hold morning diabetic medications. Insulin-dependent diabetics should take half their normal insulin. 3. Please check that precertification has been completed if needed. documented in this encounter [facility] 05-13-2024 Telephone encounter Note Elective procedure for Electrophysiology Service at [facility] Attending: Adilene López MD Diagnosis: Atrial Fibrillation Date of admission: tbd Time of procedure: tbd Procedure duration: 3 hours Overnight stay? No Office Follow up: 6 weeks H&P by PA: No Labs: CBC, CMP, T/S Labs to be done: Morning of procedure Procedure: PVI Additional notes: Stop anticoagulant the morning of procedure. Stop diabetic medications per protocol (?Stop Anticoagulants, beta blockers or Ca blockers?) Vendor: [employer] PFA, [employer] Anesthesia: General NOEMY: no Possible study patient? No Instructions to patient: 1. Do not stop any blood thinners unless specific instructions above 2. Fjz-wddbsnz-usvljlqyz diabetics should hold morning diabetic medications. Insulin-dependent diabetics should take half their normal insulin. 3. Please check that precertification has been completed if needed. [facility] Work Phone: 05-13-2024 History of Present illness Narrative Images from the original note were not included. [facility] [place] Agnieszka Choe Department of Cardiovascular Medicine SECTION OF CARDIAC PACING and ELECTROPHYSIOLOGY OUTPATIENT VISIT DATE 05/13/2024 OUTPATIENT VISIT TYPE NEW PRIMARY CARE [place]YS[place]: [place] [id number] [facility] [address] [place] [address] REFERRING PHYSICIAN: Perla Hinton (Sameer) [id number] [address] CHIEF COMPLAINT: Parox AF HISTORY OF PRESENT ILLNESS: Ms. Moreno is a 63 year old female who presents for evaluation of Parox AF Ms. Moreno has a history of Parox AF Chads Vasc 1 for female sex On flecainide, diltiazem, eliquis ILEANA on CPAP Ms. Moreno is followed by Dr. [facility] for history of paroxysmal A-fib. She is continuing to have breakthrough episodes despite flecainide. She is referred for ablation. Cardiac review of systems: Denies chest pain, shortness of breath, dizziness, syncope PAST MEDICAL HISTORY Diagnosis Date A-fib (HCC) Thyroid nodule PAST SURGICAL HISTORY Procedure Laterality Date SECTION HX Social History Tobacco Use Smoking status: Never Smokeless tobacco: Never Tobacco comments: Parents smoked in childhood home. Spouse quit smoking 25 years ago. Vaping Use Vaping status: Never Used Substance Use Topics Alcohol use: No Drug use: No FAMILY HISTORY Problem Relation Age of Onset Stroke Mother Cancer Father Lung Asthma Sister Two other (Other) Other Cousin with lung transplant. Asthma Other All of my aunts. ALLERGIES Allergen Reactions Adhesive Tape (Idalia* Rash Latex, Natural Rubb* Rash Sulfamethoxazole-Tr* Vomiting *ANTI-INFECTIVE AGENTS--MISC.* *ANTI-INFECTIVE AGENTS--MISC.* MEDICATIONS: flecainide (TAMBOCOR) 100 mg tablet Take 1 tablet by mouth every 12 hours. apixaban (ELIQUIS) 5 mg tab(s) Take 1 tablet by mouth two times a day. atorvastatin (LIPITOR) 20 mg tablet Take 1 tablet by mouth once daily. dilTIAZem XR (DILACOR XR) 180 mg 24 hr capsule Take 1 capsule by mouth once daily. guselkumab (TREMFYA) 100 mg/mL Inject 100 mL subcutaneously. Every other month famotidine (PEPCID) 20 mg tablet once daily. cholecalciferol, vitamin D3, 100 mcg (4,000 unit) cap Take 1 capsule by mouth once daily. AVALIDE 300-12.5 mg ORAL per tablet REVIEW OF SYSTEMS: GENERAL: no fever, no chills and no change in weight HEENT: no headaches, no hearing loss, no difficulty swallowing SKIN: no rashes, no lesions and no ulcers RESPIRATORY: SEE HPI CARDIOVASCULAR: See HPI GASTROINTESTINAL: no abdominal pain, no nausea and no vomiting GENITOURINARY: no dysuria, no frequency and no nocturia MUSCULOSKELETAL: no joint pain, no joint swelling and no muscle pain or myalgias NEUROLOGIC: no numbness, no tingling and no sensation of pins and needles HEMATOLOGY: no bruising easily, no prolonged bleeding and no anemia ENDOCRINE: no cold or heat intolerance, no polyuria and no polydipsia PSYCH: no sleep disturbance, no mood disorders and no recent psychosocial stressors PHYSICAL EXAMINATION: BP 104/64 Pulse (!) 59 Ht 160 cm (5' 3) Wt 77.6 kg (171 lb 1.2 oz) BMI 30.30 kg/m GEN: NAD, A+Ox3 EYES: EOMI, PERRL, sclera non-icteric HENT: OP clear, no thrush, no cervical LAD CV: RRR, no m/r/g, no LE edema, JVD not appreciated PULM: CTAB, no crackles, no wheezes, no increased work of breathing ABD: Soft, NT, ND, NABS, no organomegaly, no obvious masses NEURO: CN2 -12 intact, 5/5 strength throughout MSK: Full ROM throughout SKIN: intact without gross abnormalities LAD: No palpable lymphadenopathy CARDIOVASCULAR MEDICINE TESTING: EK05/13/2024: sinus Echo: 04/29/24 CONCLUSIONS: - Exam indication: Nonsustained atrial fibrillation - The left ventricle is normal in size. Left ventricular systolic function is normal. EF = 59 5% (2D 4-ch.) Normal left ventricular diastolic function. - The right ventricle is normal in size. Right ventricular systolic function is normal. - There are no significant valvular abnormalities. - Exam was compared with the prior echocardiographic exam performed on 03/28/2016. There is no significant change. Stress/Nuc: CONCLUSIONS: 1. SPECT Perfusion Study: Normal. 2. There is no scintigraphic evidence for inducible ischemia. 3. No evidence of scarred myocardium. 4. Left ventricle is normal in size. The left ventricle systolic function is hyperdynamic. 5. Right ventricle is normal in size. The right ventricle systolic function is normal. 6. This is a low risk scan. Cath: EP Procedure: Other: Last ECHO Result Conclusion ECHO Collected: 04/29/2024 7:59 AM (Final result) Impression: CONCLUSIONS: - Exam indication: Nonsustained atrial fibrillation - The left ventricle is normal in size. Left ventricular systolic function is normal. EF = 59 5% (2D 4-ch.) Normal left ventricular diastolic function. - The right ventricle is normal in size. Right ventricular systolic function is normal. - There are no significant valvular abnormalities. - Exam was compared with the prior echocardiographic exam performed on 03/28/2016. There is no significant change. * * * Final * * * Last EKG Result Conclusion ECG COMPLETE Collected: 05/13/2024 11:06 AM (Preliminary result) Impression: SINUS BRADYCARDIA NONSPECIFIC INTRAVENTRICULAR CONDUCTION DELAY NONSPECIFIC T WAVE ABNORMALITY ABNORMAL ECG I have personally reviewed the EKG and Echo Assessment IMPRESSION AND RECOMMENDATIONS: Ms. Moreno is a 63 year old female who presents for evaluation of Parox AF Ms. Moreno has a history of 1. Parox AF a. Chads Vasc 1 for female sex b. On flecainide, diltiazem, eliquis 2. ILEANA on CPAP Very pleasant 63-year-old presents with paroxysmal atrial fibrillation breaking through flecainide. We went over the risks and benefits of catheter ablation and she elects to proceed. Post procedurally we will discuss long-term need for anticoagulation based on her [id number]; anticipate she will be able to come off blood thinner after 3 months Eliquis given [id number] of 1 for female sex. She also inquired about watchman but at this point she is not a candidate as she is tolerating her blood thinner without issue. Plan: -PVI -Follow up 6 weeks later. CONTACT INFORMATION: Adilene López MD Associate Staff, Cardiac Electrophysiology Rajinder Solomon [facility] [place] Agnieszka Choe Department of Cardiovascular Medicine Pager: [phone] 05/13/2024 Please note: This note was written using [employer] dictation software. Please excuse typos and [id number] that the dictation may have mistakenly made. documented in this encounter [facility] 05-13-2024 Note HNO ID: [id number] Author: ADILENE LÓPEZ MD Service: ? Author Type: Physician Type: Progress Notes Filed: 05/13/2024 12:19 Note Text: [facility] [place] Agnieszka Choe Department of Cardiovascular Medicine SECTION OF CARDIAC PACING and ELECTROPHYSIOLOGY OUTPATIENT VISIT DATE 05/13/2024 OUTPATIENT VISIT TYPE NEW PRIMARY CARE [place]: [place] [id number] [place] [address] REFERRING PHYSICIAN: Perla Hinton (Román) [id number] [facility] [id number] CHIEF COMPLAINT: Parox AF HISTORY OF PRESENT ILLNESS: Ms. Moreno is a 63 year old female who presents for evaluation of Parox AF Ms. Moreno has a history of Parox AF Chads Vasc 1 for female sex On flecainide, diltiazem, eliquis ILEANA on CPAP Ms. Moreno is followed by [facility] for history of paroxysmal A-fib. She is continuing to have breakthrough episodes despite flecainide. She is referred for ablation. Cardiac review of systems: Denies chest pain, shortness of breath, dizziness, syncope PAST MEDICAL HISTORY Diagnosis Date A-fib (HCC) Thyroid nodule PAST SURGICAL HISTORY Procedure Laterality Date SECTION HX Social History Tobacco Use Smoking status: Never Smokeless tobacco: Never Tobacco comments: Parents smoked in childhood home. Spouse quit smoking 25 years ago. Vaping Use Vaping status: Never Used Substance Use Topics Alcohol use: No Drug use: No FAMILY HISTORY Problem Relation Age of Onset Stroke Mother Cancer Father Lung Asthma Sister Two other (Other) Other Cousin with lung transplant. Asthma Other All of my aunts. ALLERGIES Allergen Reactions Adhesive Tape ([place]* Rash Latex, Natural Rubb* Rash Sulfamethoxazole-Tr* Vomiting *ANTI-INFECTIVE AGENTS--MISC.* *ANTI-INFECTIVE AGENTS--MISC.* MEDICATIONS: flecainide (TAMBOCOR) 100 mg tablet Take 1 tablet by mouth every 12 hours. apixaban (ELIQUIS) 5 mg tab(s) Take 1 tablet by mouth two times a day. atorvastatin (LIPITOR) 20 mg tablet Take 1 tablet by mouth once daily. dilTIAZem XR (DILACOR XR) 180 mg 24 hr capsule Take 1 capsule by mouth once daily. guselkumab (TREMFYA) 100 mg/mL Inject 100 mL subcutaneously. Every other month famotidine (PEPCID) 20 mg tablet once daily. cholecalciferol, vitamin D3, 100 mcg (4,000 unit) cap Take 1 capsule by mouth once daily. AVALIDE 300-12.5 mg ORAL per tablet REVIEW OF SYSTEMS: GENERAL: no fever, no chills and no change in weight HEENT: no headaches, no hearing loss, no difficulty swallowing SKIN: no rashes, no lesions and no ulcers RESPIRATORY: SEE HPI CARDIOVASCULAR: See HPI GASTROINTESTINAL: no abdominal pain, no nausea and no vomiting GENITOURINARY: no dysuria, no frequency and no nocturia MUSCULOSKELETAL: no joint pain, no joint swelling and no muscle pain or myalgias NEUROLOGIC: no numbness, no tingling and no sensation of pins and needles HEMATOLOGY: no bruising easily, no prolonged bleeding and no anemia ENDOCRINE: no cold or heat intolerance, no polyuria and no polydipsia PSYCH: no sleep disturbance, no mood disorders and no recent psychosocial stressors PHYSICAL EXAMINATION: BP 104/64 Pulse (!) 59 Ht 160 cm (5' 3) Wt 77.6 kg (171 lb 1.2 oz) BMI 30.30 kg/m? GEN: NAD, A+Ox3 EYES: EOMI, PERRL, sclera non-icteric HENT: OP clear, no thrush, no cervical LAD CV: RRR, no m/r/g, no LE edema, JVD not appreciated PULM: CTAB, no crackles, no wheezes, no increased work of breathing ABD: Soft, NT, ND, NABS, no organomegaly, no obvious masses NEURO: CN2 -12 intact, 5/5 strength throughout MSK: Full ROM throughout SKIN: intact without gross abnormalities LAD: No palpable lymphadenopathy CARDIOVASCULAR MEDICINE TESTING: EK05/13/2024: sinus Echo: 04/29/24 CONCLUSIONS: - Exam indication: Nonsustained atrial fibrillation - The left ventricle is normal in size. Left ventricular systolic function is normal. EF = 59 ? 5% (2D 4-ch.) Normal left ventricular diastolic function. - The right ventricle is normal in size. Right ventricular systolic function is normal. - There are no significant valvular abnormalities. - Exam was compared with the prior echocardiographic exam performed on 03/28/2016. There is no significant change. Stress/Nuc: CONCLUSIONS: 1. SPECT Perfusion Study: Normal. 2. There is no scintigraphic evidence for inducible ischemia. 3. No evidence of scarred myocardium. 4. Left ventricle is normal in size. The left ventricle systolic function is hyperdynamic. 5. Right ventricle is normal in size. The right ventricle systolic function is normal. 6. This is a low risk scan. Cath: EP Procedure: Other: Last ECHO Result Conclusion ECHO Collected: 04/29/2024 7:59 AM (Final result) Impression: CONCLUSIONS: - Exam indication: Nonsustained atrial fibrillation - The left ventricle is (more content not included)... [facility] 04-11-2024 History of Present illness Narrative Subjective Patient ID: Yokasta Moreno is a 63 y.o. female. They present today with a chief complaint of Earache (Right side ear ache 3 days ago, ). History of Present Illness HPI 3 days of right-sided ear pain. Patient states that the pain seems to improved after a friend flushed her ear earlier today. Mild nasal congestion with postnasal drip. No fevers or chills. No eye redness, discharge or itching. No blood or discharge noted from ear. No ear tenderness. No nausea vomiting or diarrhea. No chest pain, shortness of breath or wheezing noted. No rashes or skin lesions noted. No known exposures to [place], strep, pneumonia or influenza. Oxzn-yfc-miplzmk medications taken for symptoms. Nonsmoker. Past Medical History Allergies as of 04/11/2024 - Reviewed 04/02/2024 Allergen Reaction Noted Latex Other 04/11/2024 Sulfamethoxazole-trimethoprim Nausea/vomiting 11/27/2020 (Not in a hospital admission) No past medical history on file. No past surgical history on file. reports that she has never smoked. She has never used smokeless tobacco. Review of Systems Review of Systems As in history of present illness Objective Vitals: 04/11/24 1804 BP: 134/84 Pulse: 76 Resp: 16 Temp: 36.3 C (97.3 F) SpO2: 99% Weight: 75.8 kg (167 lb) No LMP recorded. Physical Exam Gen- A&O. NAD at rest. Ears-left unremarkable. Right ear canal unremarkable canals and TM's appear. Tympanic membrane mildly retracted but not erythematous with no effusion OP-no erythema or exudates. Some mucous in posterior OP Neck-no anterior lymphadenopathy Lungs- clear to auscultation without wheezes or rhonchi Skin-no rashes, hives or lesions Procedures Point of Care Test & Imaging Results from this visit No results found for this visit on 04/11/24. No results found. Diagnostic study results (if any) were reviewed by Samir Crawford MD. Assessment/Plan Allergies, medications, history, and pertinent labs/EKGs/Imaging reviewed by Samir Crawford MD. Medical Decision Making At time of discharge patient was clinically well-appearing and HDS for outpatient management. The patient and/or family was educated regarding diagnosis, supportive care, OTC and Rx medications. The patient and/or family was given the opportunity to ask questions prior to discharge. They verbalized understanding of my discussion of the plans for treatment, expected course, indications to return to or seek further evaluation in ED, and the need for timely follow up as directed. They were provided with a work/school excuse if requested. Orders and Diagnoses Diagnoses and all orders for this visit: Eustachian tube dysfunction, right Medical Admin Record Patient disposition: Home Electronically signed by Samir Crawford MD 6:22 PM documented in this encounter [facility] Work Phone: 04-11-2024 Instructions Samir Crawford MD - 04/11/2024 6:15 PM EST Increase fluids and rest Decongestants and nasal spray as discussed Motrin or Tylenol as needed for pain or fever Gargle with lightly salted warm water several times a day Follow up for fevers or increasing pain documented in this encounter [facility] Work Phone: 04-02-2024 History of Present illness Narrative Urgent Care Virtual Video Visit Patient Location: Home ([place], [place]) Provider Location: [facility] Video visit completed with realtime synchronous video/audio connection. Informed consent was obtained from the patient. Patient was made aware that my evaluation and diagnosis are limited due to the fact that we are not in the same room during the interview and that this is a virtual encounter that took place via videoconferencing. Patient verbalized understanding. Patient disposition: Home Electronically signed by GIOVANNI Chino 5:31 PM Subjective Patient ID: Yokasta Moreno is a 63 y.o. female. They present today with a chief complaint of No chief complaint on file.. History of Present Illness Patient is a 63 y/o female c/o Fever, ROMERO, productive cough, nasal congestion/drainage, bodyaches, chills, sore throat x3 days. Patient reports improvement of symptoms today. Patient reports testing positive for COVID-19 with at-home test. Patient denies symptoms of lethargy, weakness, chest pain/tightness/pressure, SOB, wheezing, N/V/D, ABD pain. No OTC medication reported to be taken. Patient with medical h/o Afib (on Eliquis and Flecainide awaiting ablation), HLD on atorvastatin. Past Medical History Allergies as of 04/02/2024 (No Known Allergies) (Not in a hospital admission) History reviewed. No pertinent past medical history. History reviewed. No pertinent surgical history. Review of Systems Review of Systems Constitutional: Positive for chills and fever. Bodyaches HENT: Positive for congestion, rhinorrhea and sore throat. Eyes: Negative. Respiratory: Positive for cough. Cardiovascular: Negative. Gastrointestinal: Negative. Endocrine: Negative. Genitourinary: Negative. Musculoskeletal: Negative. Skin: Negative. Allergic/Immunologic: Negative. Neurological: Negative. Hematological: Negative. Psychiatric/Behavioral: Negative. Objective There were no vitals filed for this visit. No LMP recorded. Physical Exam Constitutional: Comments: Patient A/O x4, LOC 5, calm and cooperative. Patient with frequent moist cough present. Answers all questions appropriately. Is otherwise well appearing via virtual visit. Patient in no acute distress at time of visit. Neurological: Mental Status: She is oriented to person, place, and time. Psychiatric: Mood and Affect: Mood normal. Behavior: Behavior normal. Comments: Remainder of examination unable to be obtained d/t virtual nature of visit. Procedures Point of Care Test & Imaging Results from this visit No results found for this visit on 04/02/24. No results found. Diagnostic study results (if any) were reviewed by GIOVANNI Chino. Assessment/Plan Allergies, medications, history, and pertinent labs/EKGs/Imaging reviewed by GIOVANNI Chino. Medical Decision Making 1.) Patient reports a positive at home COVID-19 antigen test 2.) Discussed risks vs benefits of Paxlovid Rx; patient and provider in agreement that patient should consult with PCP and/or Cardiology regarding Rx of Paxlovid d/t increase risk of bleeding with Eliquis, interactions with Atorvastatin. 3.) Will send Rx of Tessalon Perles for cough support 4.) Discussed signs/symptoms of if/when patient should seek emergency medical care in ED via 911/transport to ED, especially since patient's A-fib management is still in the process of being controlled; patient states understanding. 5.) Discussed limitations of virtual visit with patient's symptoms/illness; informed patient it is recommended patient be evaluated in-person. 6.) COVID-19 virus symptoms/illness trajectory and course discussed with patient 7.) All questions/concerns addressed by provider 8.) Patient stable upon completion of virtual visit. I have communicated my name and active licensure information to the patient. The patient's identity and physical location were verified at the time of this visit. Either the patient or their legal hr representative were informed of the risks and benefits of, and alternatives to, treatment through a remote evaluation. The patient consented to proceed with the evaluation remotely. This remote visit was conducted using video and audio. At time of discharge, patient was clinically well-appearing and appropriate for outpatient management. The patient/parent/guardian was educated regarding diagnosis, supportive care, OTC and Rx medications. The patient/parent/guardian was given the opportunity to ask questions prior to discharge. They verbalized understanding of discussion of treatment plan, expected course of illness and/or injury, indications on when to return to , when to seek further evaluation in ED/call 911, and the need to follow up with PCP and/or specialist as referred. Patient/parent/guardian was provided with work/school documentation if requested. Patient stable upon discharge. Orders and Diagnoses Diagnoses and all orders for this visit: Personal history of COVID-19 Acute cough - benzonatate (Tessalon) 100 mg capsule; Take 1-2 capsules by mouth every 8 hours as needed for cough. May cause drowsiness Medical Admin Record Patient disposition: Home Electronically signed by GIOVANNI Chino 5:31 PM documented in this encounter [facility] Work Phone: 03-18-2024 Telephone encounter Note Called and spoke with patient to schedule appt per basket message. Team, let's get Ms. Moreno on for a visit for AF management. Thanks Wilber Frances [facility] 03-18-2024 Miscellaneous Notes Called and spoke with patient to schedule appt per basket message. Team, let's get Ms. Moreno on for a visit for AF management. Thanks Wilber Frances, [facility] documented in this encounter [facility] 03-18-2024 Instructions Perla Hinton MD - 03/18/2024 12:37 PM EST Plan: - Stop aspirin - Start Eliquis 5 mg twice daily. - Repeat ECHO Chang - Referral to Adilene López MD for PVI for PAF unresponsive to Medical therapy (Flecainide) Perla Hinton MD [facility] documented in this encounter [facility] 03-18-2024 Telephone encounter Note [facility] [place] Agnieszka Choe Department of Cardiovascular Medicine At [facility] OUTPATIENT VISIT DATE March 18, 2024 OUTPATIENT VISIT TYPE Follow up HPI: Yokasta Moreno is a 63 yo PAF on Flecainide and Diltiazem. Hx of hyperlipidemia, not on treatment Intially evaluated 03/11/16 for palpitations. She was seen in 2009 for fluttering in throat happening for a couple of weeks and advised to go to ER. A 48 hour Holter Monitor Rx. Notes sx occasionally and PCP thought she might have esophageal spasm. No additional testing. Sees ENT for thyroid nodules. Nodules slightly increased. TSH wnl. yearly US recommended) Barium swallowing in January 2016. (Had monitor approximately 15-. PAF seen on 117 @ 220 bpm. 3 days after returning monitor had recurrent AF went to [facility] ER. By time got there was out. She went back home and was in and out of in. PAF lasts 10 min. She thinks she has not been in AF as much since Cardiazem. Seem to be more tolerable. On Talz ( ixekizumab for psoriasis ) CLINICAL VISITS: 03/18/24: BP 110/80 Pulse 65 Ht 160 cm (5' 3) Wt 79 kg (174 lb 2.6 oz) BMI 30.85 kg/m On Flecainide 100 mg po bid , Dilacor 120-> 180 mg daily with some improvement over summer x 3 months More recently, particularly this month, has been having frequent AF and this has bernabe documented on [employer]. SPEcT stress August 2023 was normal . No structural heart assessment since 2016 ( nl LV fxn and mild LAE at that time) Plan: - Start Eliquis 5 mg twice daily. - Repeat ECHO - Referral to Adilene López MD for PVI for PAF unresponsive to Medical therapy (Flecainide) - You are an excellent candidate for this procedure. Perla Hinton MD [facility] 03-18-2024 Miscellaneous Notes [facility] [place] Agnieszka Choe Department of Cardiovascular Medicine At [facility] OUTPATIENT VISIT DATE March 18, 2024 OUTPATIENT VISIT TYPE Follow up HPI: Yokasta Moreno is a 63 yo PAF on Flecainide and Diltiazem. Hx of hyperlipidemia, not on treatment Intially evaluated 03/11/16 for palpitations. She was seen in 2009 for fluttering in throat happening for a couple of weeks and advised to go to ER. A 48 hour Holter Monitor Rx. Notes sx occasionally and PCP thought she might have esophageal spasm. No additional testing. Sees ENT for thyroid nodules. Nodules slightly increased. TSH wnl. yearly US recommended) Barium swallowing in January 2016. (Had monitor approximately 1/15-. PAF seen on 117 @ 220 bpm. 3 days after returning monitor had recurrent AF went to [facility] ER. By time got there was out. She went back home and was in and out of in. PAF lasts 10 min. She thinks she has not been in AF as much since Cardiazem. Seem to be more tolerable. On Talz ( ixekizumab for psoriasis ) CLINICAL VISITS: 03/18/24: BP 110/80 Pulse 65 Ht 160 cm (5' 3) Wt 79 kg (174 lb 2.6 oz) BMI 30.85 kg/m On Flecainide 100 mg po bid , Dilacor 120-> 180 mg daily with some improvement over summer x 3 months More recently, particularly this month, has been having frequent AF and this has bernabe documented on [employer]. SPEcT stress August 2023 was normal . No structural heart assessment since 2016 ( nl LV fxn and mild LAE at that time) Plan: - Start Eliquis 5 mg twice daily. - Repeat ECHO - Referral to Adilene López MD for PVI for PAF unresponsive to Medical therapy (Flecainide) - You are an excellent candidate for this procedure. Perla Hinton MD documented in this encounter [facility] 03-18-2024 Note HNO ID: [id number] Author: PERLA HINTON MD Service: ? Author Type: Physician Type: Progress Notes Filed: 03/18/2024 12:38 Note Text: [facility] [place] Agnieszka Choe Department of Cardiovascular Medicine At [facility] OUTPATIENT VISIT DATE March 18, 2024 OUTPATIENT VISIT TYPE Follow up HPI: Yokasta Moreno is a 63 yo PAF on Flecainide and Diltiazem. Hx of hyperlipidemia, not on treatment Intially evaluated 03/11/16 for palpitations. She was seen in 2009 for fluttering in throat happening for a couple of weeks and advised to go to ER. A 48 hour Holter Monitor Rx. Notes sx occasionally and PCP thought she might have esophageal spasm. No additional testing. Sees ENT for thyroid nodules. Nodules slightly increased. TSH wnl. yearly US recommended) Barium swallowing in January 2016. (Had monitor approximately 15-. PAF seen on 117 @ 220 bpm. 3 days after returning monitor had recurrent AF went to [facility] ER. By time got there was out. She went back home and was in and out of in. PAF lasts 10 min. She thinks she has not been in AF as much since Cardiazem. Seem to be more tolerable. On Talz ( ixekizumab for psoriasis ) CLINICAL VISITS: 03/18/24: BP 110/80 Pulse 65 Ht 160 cm (5' 3) Wt 79 kg (174 lb 2.6 oz) BMI 30.85 kg/m? On Flecainide 100 mg po bid , Dilacor 120-> 180 mg daily with some improvement over summer x 3 months More recently, particularly this month, has been having frequent AF and this has bernabe documented on [employer]. SPECT stress August 2023 was normal . No structural heart assessment since 2016 ( nl LV fxn and mild LAE at that time) Plan: - Start Eliquis 5 mg twice daily. - Repeat ECHO - Referral to Adilene López MD for PVI for PAF unresponsive to Medical therapy (Flecainide) - You are an excellent candidate for this procedure 09/11/23:BP 152/102 Pulse 66 Ht 160 cm (5' 3) Wt 78.6 kg (173 lb 3.2 oz) BMI 30.68 kg/m? ECG: NSR Lost 20 lbs. Prior sleep study negative for ILEANA . More AF now. No heart rhythm monitoring. Was doing well x 2 years ( 4 episode) and since March started having more AF. (56 episodes). HR 139 most of the day in April , but having more episodes that feels like AF> racing out of control and chest feels tight and throat heavy. SPECT 2016 normal Plan: - Buy [employer] to monitor and document frequency of AF - Repeat Exercise nuclear stress test due to chest pressure during episodes of recurrent Atrial fib - Call [facility] to schedule - Consideration of referral for PVI ablation based on frequency of Atrial fibrillation - follow up in 6 months 08/10/22:BP 124/70 Pulse 65 Ht 160 cm (5' 3) Wt 87.1 kg (192 lb) BMI 34.01 kg/m? Since November had 3 AF episodes 5 min- 2 hours. No ER evaluations. Still working to try to lose weight. Bought a treadmill. 3 mph treadmill, 1.5%. Exercising intermittently at [employer]. 20 min with a goal of 150 min a week. - Same meds - Labs to check kidney function - Fasting lipids - Follow up in 12 month 07/23/21: BP 126/74Pulse 72 Resp 14 Ht 160 cm (5' 3) Wt 88.9 kg (196 lb) BMI 34.72 kg/m? .Started Tremfya for Psorias. Talz caused weird infections UTIs . And eye infections and leg abscesses.,At last visit tested negative for COVID after losing sense of sense of smell whch has hasn't fully returned. Remains on Flecainide 100 mg po bid since June, and Diltiazem 120 mg daily for PAF. ECG today : NSR, QTC 438. 01/21/21:BP 127/85 Pulse 70 . Virtual Visit Had Covid booster and didn't feel well enough to come in. Fever 102 Thursday and Thursday And Thursday. Feels poorly since receiving vaccine afternoon. Today with bad vertigo. No loss of sense of taste or smell. Testing for Covid recommended. Remains on Flecainide 100 mg po bid since June, and Diltiazem 120 mg daily for PAF. Only has had 3 small AF episodes 10 -60 min. May be started on Tremfya for Psoriasis On Talz (ixekizumab) for psoriasis. Multiple infections 3 abscesses, eye infection, UTI. Weight stable at 181 lbs. No drup interactions notes with Tremfya Plan: Follow up in 6 month s No interaction between Tremfya and Flecainide Continued efforts of exercise and weight loss. 07/23/20: Back to work (on 3 episodes in 2019) Since returning to work since March has had 7 episodes . A couple off and on all day. Milder than before. Remains on Flecainide 100 mg po bid x 5 years since June 2016. Sometime will take an extra for PAF . We discussed referral for ablation and she wishes To continue symptoms overall better since starting Flecainide x 5 years. Lost weight , exercising regularly, Has a fitness band. Still overweight by BMI and has lost weight from 197 to 181 lbs BP 110/68 (BP Site: Right Arm, BP Position: Sitting, BP Cuff Size: Regular Adult) Pulse 66 Resp 14 Ht 160 cm (5' 3) Wt (more content not included)... [facility] 03-18-2024 History of Present illness Narrative Images from the original note were not included. [facility] [place] Agnieszka Choe Department of Cardiovascular Medicine At [facility] OUTPATIENT VISIT DATE March 18, 2024 OUTPATIENT VISIT TYPE Follow up HPI: Yokasta Moreno is a 63 yo PAF on Flecainide and Diltiazem. Hx of hyperlipidemia, not on treatment Intially evaluated 03/11/16 for palpitations. She was seen in 2009 for fluttering in throat happening for a couple of weeks and advised to go to ER. A 48 hour Holter Monitor Rx. Notes sx occasionally and PCP thought she might have esophageal spasm. No additional testing. Sees ENT for thyroid nodules. Nodules slightly increased. TSH wnl. yearly US recommended) Barium swallowing in January 2016. (Had monitor approximately 15-. PAF seen on 117 @ 220 bpm. 3 days after returning monitor had recurrent AF went to [facility] ER. By time got there was out. She went back home and was in and out of in. PAF lasts 10 min. She thinks she has not been in AF as much since Cardiazem. Seem to be more tolerable. On Talz ( ixekizumab for psoriasis ) CLINICAL VISITS: 03/18/24: BP 110/80 Pulse 65 Ht 160 cm (5' 3) Wt 79 kg (174 lb 2.6 oz) BMI 30.85 kg/m On Flecainide 100 mg po bid , Dilacor 120-> 180 mg daily with some improvement over summer x 3 months More recently, particularly this month, has been having frequent AF and this has bernabe documented on [employer]. SPECT stress August 2023 was normal . No structural heart assessment since 2016 ( nl LV fxn and mild LAE at that time) Plan: - Start Eliquis 5 mg twice daily. - Repeat ECHO - Referral to Adilene López MD for PVI for PAF unresponsive to Medical therapy (Flecainide) - You are an excellent candidate for this procedure 09/11/23:BP 152/102 Pulse 66 Ht 160 cm (5' 3) Wt 78.6 kg (173 lb 3.2 oz) BMI 30.68 kg/m ECG: NSR Lost 20 lbs. Prior sleep study negative for ILEANA . More AF now. No heart rhythm monitoring. Was doing well x 2 years ( 4 episode) and since March started having more AF. (56 episodes). HR 139 most of the day in April , but having more episodes that feels like AF> racing out of control and chest feels tight and throat heavy. SPECT 2016 normal Plan: - Buy [employer] to monitor and document frequency of AF - Repeat Exercise nuclear stress test due to chest pressure during episodes of recurrent Atrial fib - Call [facility] to schedule - Consideration of referral for PVI ablation based on frequency of Atrial fibrillation - follow up in 6 months 08/10/22:BP 124/70 Pulse 65 Ht 160 cm (5' 3) Wt 87.1 kg (192 lb) BMI 34.01 kg/m Since November had 3 AF episodes 5 min- 2 hours. No ER evaluations. Still working to try to lose weight. Bought a treadmill. 3 mph treadmill, 1.5%. Exercising intermittently at [employer]. 20 min with a goal of 150 min a week. - Same meds - Labs to check kidney function - Fasting lipids - Follow up in 12 month 07/23/21: BP 126/74Pulse 72 Resp 14 Ht 160 cm (5' 3) Wt 88.9 kg (196 lb) BMI 34.72 kg/m .Started Tremfya for Psorias. Talz caused weird infections UTIs . And eye infections and leg abscesses.,At last visit tested negative for COVID after losing sense of sense of smell whch has hasn't fully returned. Remains on Flecainide 100 mg po bid since June, and Diltiazem 120 mg daily for PAF. ECG today : NSR, QTC 438. 01/21/21:BP 127/85 Pulse 70 . Virtual Visit Had Covid booster and didn't feel well enough to come in. Fever 102 Thursday and Thursday And Thursday. Feels poorly since receiving vaccine afternoon. Today with bad vertigo. No loss of sense of taste or smell. Testing for Covid recommended. Remains on Flecainide 100 mg po bid since June, and Diltiazem 120 mg daily for PAF. Only has had 3 small AF episodes 10 -60 min. May be started on Tremfya for Psoriasis On Talz (ixekizumab) for psoriasis. Multiple infections 3 abscesses, eye infection, UTI. Weight stable at 181 lbs. No drup interactions notes with Tremfya Plan: Follow up in 6 month s No interaction between Tremfya and Flecainide Continued efforts of exercise and weight loss. 07/23/20: Back to work (on 3 episodes in 2019) Since returning to work since March has had 7 episodes . A couple off and on all day. Milder than before. Remains on Flecainide 100 mg po bid x 5 years since June 2016. Sometime will take an extra for PAF . We discussed referral for ablation and she wishes To continue symptoms overall better since starting Flecainide x 5 years. Lost weight , exercising regularly, Has a fitness band. Still overweight by BMI and has lost weight from 197 to 181 lbs BP 110/68 (BP Site: Right Arm, BP Position: Sitting, BP Cuff Size: Regular Adult) Pulse 66 Resp 14 Ht 160 cm (5' 3) Wt 82.1 kg (181 lb) BMI 32.06 kg/m . Lost 9%% of body weight . Shooting for weight of 140. She finds exercise triggers AF. She walks hills and walks 3 miles. 01/23/20: Since March only one episode of palpiation (October ) while at work and was :stressed out. 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 No AF, just SOB and lightheaded. Checks for AF with her BP monitor.Very stressful at work. Checks BP at work and arrhythmia symbol would not show up. (Previously d/w her re Kardia and [employer] watch) She is gaining weight (12 lbs) Was going home and going to bed- That how she was dealing with stress at work Saw a chief lending officer- Placed on Mediterranean dit. BP 116/70 Pulse 68 Resp 14 Ht 160 cm (5' 3) Wt 89.4 kg (197 lb) BMI 34.90 kg/m 06/27/19: BP 130/80 Ht 160 cm (5' 3) Wt 83.9 kg (185 lb) ECG: NSR, NS IVCD. Psoriasis Plan; Weight loss 10% of body weight follow up in 6 months in cardiology 06/27/19: Virtual Visit ECG 12/2018 reviewed and was normal. Normal renal fxn. AF is well controlled. Flecainide increased in December with only 2 AF episodes. 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 No changes yet. Started 05/20/19 12/13/18: Was doing well. Keeps a log of AF. Was in AF rapid heart rate. Most of Oct and November in a light flutter. 12/11/18 a few hours, last night. ( increased frequncy in October and November. Has charted 21 x) Exacerbated by Exercise. If in it all day , will take another. Diltiazem 120 mg and takes at night - Going to meet with [employer]. Has stopped exercising over summer as it provoked AF. - Had improved diet and lipids elevated. Lipids: Total 252, HDL 54, LDL 166,Triglycerides 161 Rec: Increase Flecainide from 50 mg to 100 mg twice daily ECG in a week Atorvastatin 20 mg nightly Fasting lipid and liver function test blood work in 6-8 weeks follow up in 6 months 06/07/18: Has kept a diary 21 times in AF October. 1/2, 1 , 1 1/2 , 2 hours, whole. BP cuff . Trying to watch stress level, which affects AF burden. Sometimes in clusters. 3-4 x Month. Nothing since middle of April. Dr Cash previously saw her previously in 2016 and recommended increase in Flecainide. Had lost 20 lbs last year and then started gaining back. There is an association between weight and AF. Exercise: No. Broke toes, Hurt back. Not exercised since March. Now thinks she is back on track. Saw a special forces senior sergeant when said she did not have ILEANA, but rather may have asthma. Awaiting follow up. Will continue Flecainide 50 mg po bid, and Diltazem since she has adequate control. ASA 81 mg daily. 11/09/17: Follow up for PAF. About a month ago having clusters of palpitations about 2 weeks ago and lasted 2 weeks. Went for months without it before this. She was caring for ill sister in [place] who passed. Had lost weight and gained back. . Forgot about sleep study.Will order PSA. Will stay on current dose of flecainide for now. ASA for thromboembolic prophylaxis. CHADVasc score 1-2. Recommend referral for sleep study. Encourage weight loss. Keep an AFib diary. No contraindication to dental work or lido with epinephrine. REC Afib diary Concerted effort towards weight loss and exercise Sleep study Follow up 6 months. Sooner if worsens. 09/19/16: Consultation with Osiel Cash: Paroxysmal atrial fibrillation: Presently on flecainide 50 twice daily and diltiazem 120 mg daily. This has been quite effective in managing her AF burden. We spoke at length about the etiology is AF including obstructive sleep apnea and wt, and I've encouraged her to loose some wt as it has been shown to reduce the burden of AF. We will also make a referral for sleep medicine for ILEANA evaluation. In the interim, should she have any further increased burden of AF, we will increase her flecainide 100mg twice daily. 07/16/16: The patient is seen in follow-up. She underwent a in exercise nuclear stress test on 05/12/16 which was normal at 7 METs. No inducible ischemia or prior infarct seen.She reports feeling really good for a couple months, but more recently she has reported at least 12 episodes of suspected recurrent atrial fibrillation. this has been occurring every day with episodes occurring in clusters. Notes extreme fatigue Which she is attributing to Cardizem. For this reason she is now taking Avilide in the AM and Diltiazem in the evening.In last 2 weeks notes 12 episodes. Recommend initiation of Flecainide, And lowering Cardizem 120 mg during initiation phase. 05/10/2016: After mailing back monitor had 3 days of atrial fibrillation. Was of work awhile with flu like Sx. ( Viral respiratory sx) (Had monitor approximately 03/16-. PAF seen on 117 @ 220 bpm. 3 days after returning monitor had recurrent AF went to [facility] ER. By time got there was out. She went back home and was in and out of in. PAF lasts 10 min. She thinks she has not been in AF as much since Cardiazem. Seem to be more tolerable. 04/18/16: Telephone: Patient calling, states that she has started ASA 81 mg daily and Cardizem 120 mg daily as instructed by Dr. Hinton (see 03/18/16 phone encounter). She has also cut her Avalide down to a half-dose daily. Yesterday she experienced a persisting bout of Afib that made her lightheaded and she eventually went to [facility] ED. Just before she checked in, she converted back to NSR so she went home without the need to be seen. She is worried because she has hoped that the Cardizem would eliminate these episodes. Her follow-up is 04/30/16, but she is asking if Dr. Hinton has any recommendations or medications changes before then. Will review with Dr. Hinton and contact patient with any recommendations. 03/18/16: The patient reported lightheadedness and a skipped beat and telemetry of report revealed atrial fibrillation at a heart rate of 220 bpm. Following this event although auto triggered atrial fibrillation lasting 90 seconds was detected. The patient states now that her heart rate is normal and she feels back to baseline. She reports sensation of her throat hurting during episodes. The patient is currently on Avalide 300 mg/12.5 mg (irbesartan/hydrochlorothiazide daily. Patient instructed to reduce her Avalide to one half tablet daily Recommend initiation of aspirin 325 mg by mouth today followed by 81 mg daily. Recommend Cardizem 120 mg daily. Patient has follow-up scheduled on April 30, 2016. Recommend continuation of telemetry monitoring for additional 2 weeks. 03/12/2016: Seeing PCP q 6 weeks because it got so bad fluttering more severe. Starts out like feeling bubbles in chest. Sometimes fast and sometimes hard. Coworkers have taken pulse highest 168. Many times normal . Gets tunnel vision. Home BP monitoring started and shows irregular HR. Happening q 6 weeks in the past, now sometimes every other day. Sometimes sx free for a week. Sometimes comes on suddenly. PCP thought it could be GERD or panic attacks and no monitoring performed. Fainted 1 week prior to Halloween this year. Cousin told her to bear down or cough and she did this and it worked Initially but not helping now. Longest it lasts for is a days. Onset can be gradual or abrupt and sometimes it lasts a whole day. Other times lasts 20 mins. No triggers . Does not use caffeine. Last TSH/TFTs normal by report January 2016 at [facility]. ECG low right atrial rhythm. PAST MEDICAL HISTORY Diagnosis Date A-fib (HCC) Thyroid nodule PAST SURGICAL HISTORY Procedure Laterality Date SECTION HX C Sections SOCIAL HISTORY Social History Tobacco Use Smoking status: Never Smokeless tobacco: Never Tobacco comments: Parents smoked in childhood home. Spouse quit smoking 25 years ago. Vaping Use Vaping status: Never Used Substance Use Topics Alcohol use: No Drug use: No FAMILY HISTORY Problem Relation Age of Onset Stroke Mother Cancer Father Lung Asthma Sister Two other (Other) Other Cousin with lung transplant. Asthma Other All of my aunts. ALLERGIES Allergen Reactions Adhesive Tape (Idalia* Rash Latex, Natural Rubb* Rash Sulfamethoxazole-Tr* Vomiting *ANTI-INFECTIVE AGENTS--MISC.* *ANTI-INFECTIVE AGENTS--MISC.* CURRENT MEDICATIONS: atorvastatin (LIPITOR) 20 mg tablet Take 1 tablet by mouth once daily. dilTIAZem XR (DILACOR XR) 180 mg 24 hr capsule Take 1 capsule by mouth once daily. flecainide (TAMBOCOR) 100 mg tablet take 1 tablet by mouth every 12 hours guselkumab (TREMFYA) 100 mg/mL Inject 100 mL subcutaneously. Every other month famotidine (PEPCID) 20 mg tablet once daily. cholecalciferol, vitamin D3, 100 mcg (4,000 unit) cap Take 1 capsule by mouth once daily. aspirin, enteric coated (ECOTRIN LOW STRENGTH) 81 mg EC tablet Take 1 tablet by mouth once daily. Take 4 tablets (324 mg the first day AVALIDE 300-12.5 mg ORAL per tablet OTC pepcid. REVIEW OF SYSTEMS: GENERAL: Negative for: Weight loss or gain, Fever or Chills, Weakness and Sleep difficulties. HEENT: Negative for: Headache, Impaired Vision, Glasses, Hearing Impairment, Ringing in Ears, Nosebleeds, Poor dental care, Bleeding Gums, Dentures NECK: Negative for: Swelling, Pain, Stiffness RESPIRATORY: Negative for: Cough, Blood in Sputum, Shortness of breath, Wheezing, Apnea GASTROINTESTINAL: Negative for: Trouble swallowing, Heartburn, Change in bowel habits, Blood in stool, Dark black stools MUSCULOSKELETAL: Negative for: Muscle or joint pain, Stiffness , Joint swelling NEUROLOGIC/PSYCHIATRIC: Negative for: Weakness, Paralysis, Numbness, Tingling, Tremor, Nervousness, Depressed mood, Memory loss SKIN: Negative for: Rashes, Itching HEMATOLOGICAL/LYMPHATIC: Negative for: Easy bruising , Easy bleeding ENDOCRINE: Negative for: Heat or cold intolerance, Excessive sweating, Frequent urination, Frequent thirst PHYSICAL EXAMINATION: BP 110/80 Pulse 65 Ht 160 cm (5' 3) Wt 79 kg (174 lb 2.6 oz) BMI 30.85 kg/m HENT:PERRLA, EOMI. NECK: No thyromegaly, JVD, lymphadenopathy, or carotid bruits. CHEST: No chest wall deformities or tenderness. LUNGS: Normal symmetric air entry throughout both lung balderas. There is no wheezing. No rales or ronchi are present. ABDOMEN: The abdomen is non distended. Bowel sounds are present. The abdomen is non tender. There is no hepatomegaly, or hepatojugular reflex. There are no masses felt. CARDIOVASCULAR: Non displaced PMI. Regular rate and rhythm. S1 and S2 normal, no murmurs, clicks, gallops or rubs. EXTREM: Lower extremities are normal visaully. Normal hair distribution. There is no peripheral edema noted on exam. Pulses are (+2) and symmetric. NEURO: The patient is alert and oriented X 3. No gross motor or sensory deficits. Cranial nerves are normal. CARDIAC TESTIN09/28/23 Name: MRS. YOKASTA MORENO Age: 63 years Gender: F CONCLUSIONS: 1. SPECT Perfusion Study: Normal. 2. There is no scintigraphic evidence for inducible ischemia. 3. No evidence of scarred myocardium. 4. Left ventricle is normal in size. The left ventricle systolic function is hyperdynamic. 5. Right ventricle is normal in size. The right ventricle systolic function is normal. 6. This is a low risk scan. Gated Stress IR:3D LVEF % 82 05/13/16: Nuclear stress test The stress test was terminated due to the following: Fatigue. Peak HR 151 bpm. (91 % MPHR) (7.0 METS) Peak BP 168 mmHg/96 mmHg Patient experienced no symptoms during stress. Stress ECG normal ST segment response and normal sinus rhythm. 1. Perfusion Study: Normal. 2. There is no scintigraphic evidence for inducible ischemia. 3. No evidence of scarred Myocardium. 4. Average functional capacity for age and gender. 5. Left ventricle is small. 6. Right ventricle is normal in size. 7. This is a low risk scan. ECHO: 03/31/2016 - Technically difficult exam due to body habitus. - Exam indication: Palpitations - The left ventricle is normal in size. Left ventricular systolic function is normal. EF = 67 5% (2D 4-ch.) Normal left ventricular diastolic function. - The right ventricle is normal in size. Right ventricular systolic function is normal. - The left atrial cavity is mildly dilated. - The patient has not had a prior CC echocardiographic exam for comparison. 03/14/09: Hook-up date: 2009-03-08 16:57:17 Duration: 47:59:00 Test Indications: Rapid heart rate Medications: [id number] QRS complexes 37 Ventricular ectopics which represent <1 % of total QRS comp. 280 Supraventricular ectopics which represent <1 % of total QRS comp. * Paced QRS complexs which represent * % of total QRS comp. VENTRICULAR ECTOPY 37 Isolated 0 Bigeminal Cycles 0 Couplets 0 Runs 0 Beats in Runs * Beats LONGEST at * BPM at * Beats FASTEST at * BPM at SUPRAVENTRICULAR ECTOPY 254 Isolated 13 Couplets 0 Runs 0 Beats in Runs * Beats LONGEST at * BPM at * Beats FASTEST at * BPM at HEART RATES 51 MIN at 05:37:45 2009-03-09 77 AVG 138 MAX at 18:08:01 2009-03-09 LONGEST RR 0.0013 secs at 29:40:49 2009-03-10 S-T LEVELS Channel 1 + 3 mm at 16:27:17 2009-03-09 - 15 mm at 12:41:17 2009-03-09 Channel 2 + 2 mm at 15:13:17 2009-03-09 - 6 mm at 17:54:17 2009-03-09 Channel 3 - 128 mm at 03:61:63 * - 128 mm at 03:61:63 Returned and scanned 03-12-09 The basic rhythm was sinus with sinus arrhythmia at an average rate of 77 BPM, a maximum rate of 136 BPM and a minimum rat e of 51 BPM. There were 23,937 beats in tachycardia which was 11% of all the complexes and 7,309 beats in bradycardia at 3%. Isolated PVCs totaled 37 in this 48 hour scan. Supraventricular ectopy totaled 280 and was seen in isolation, as 13 pairs and as aberrantly conducted SVEs. No documented symptoms. Referred By: KENNA OTHER, NOT ON F Overread By: BECKI KATZ M.D. LABS: Component Latest Ref Rng & Units 03/24/2016 WBC 3.70 - 11.00 k/uL 5.40 RBC 3.90 - 5.20 m/uL 4.83 Hemoglobin 11.5 - 15.5 g/dL 13.7 Hematocrit 36.0 - 46.0 % 40.5 MCV 80.0 - 100.0 fL 83.9 MCH 26.0 - 34.0 pG 28.4 MCHC 30.5 - 36.0 g/dL 33.8 RDW-CV 11.5 - 15.0 % 12.3 Platelet Count 150 - 400 k/uL 347 MPV 9.0 - 12.7 fL 9.5 Neut% % 42.4 Abs Neut (ANC) 1.45 - 7.50 k/uL 2.29 Lymph% % 35.6 Abs Lymph 1.00 - 4.00 k/uL 1.92 Hudspeth% % 18.5 Abs Hudspeth 0.00 - 0.86 k/uL 1.00 (H) Eosin% % 2.8 Abs Eosin 0.00 - 0.45 k/uL 0.15 Baso% % 0.7 Abs Baso 0.00 - 0.10 k/uL 0.04 Protein, Total 6.0 - 8.4 g/dL 7.6 Albumin 3.5 - 5.0 g/dL 4.4 Calcium 8.5 - 10.5 mg/dL 9.4 Bilirubin, Total 0.0 - 1.5 mg/dL 0.4 Alkaline Phosphatase 40 - 150 U/L 103 AST 7 - 40 U/L 20 Glucose 65 - 100 mg/dL 91 BUN 8 - 25 mg/dL 7 (L) Creatinine 0.70 - 1.40 mg/dL 0.92 Sodium 132 - 148 mmol/L 142 Potassium 3.5 - 5.0 mmol/L 4.0 Chloride 98 - 110 mmol/L 104 CO2 23 - 32 mmol/L 25 Anion Gap 0 - 15 mmol/L 13 ALT 0 - 45 U/L 20 eGFR >60 eGFR-All Other Races . >60 CK 30 - 220 U/L 40 MB 0.0 - 8.8 ng/mL <1.0 CK MB % 0.0 - 4.0 % Unable to calculate because one or more components used in calculation outside of . . . Troponin T 0.000 - 0.029 ng/mL <0.010 ASSESSMENT/PLAN: Paroxysmal Atrial Fibrillation: Stress evaluation was negative for inducible ischemia. Flecainide started 06/2016 due to frequent symptomatically recurrence of paroxysmal atrial fibrillation. She was seen in Consultation by Osiel Cash and sleep study recomended. No evidence of this Cardizem to 120 mg daily Flecainide to 100 mg po bid due to > 21 recurrences since October 2018 Weight loss: now has lost 20 lb [id number] Vasc 1-2, ASA 81 mg daily. ECG: NSR 07/22/21 HTN: -Avalide 300/12.5 for HTN reduced. Diltiazem ( Dilacor XR) 120 mg daily 09/11/23:BP 152/102 Pulse 66 Ht 160 cm (5' 3) Wt 78.6 kg (173 lb 3.2 oz) BMI 30.68 kg/m 08/11/22: BP 124/70 Pulse 65 Ht 160 cm (5' 3) Wt 87.1 kg (192 lb) BMI 34.01 kg/m 07/22/21:BP 126/74 Pulse 72 Resp 14 Ht 160 cm (5' 3) Wt 88.9 kg (196 lb) BMI 34.72 07/23/20: BP 110/68 Pulse 66 Resp 14 Ht 160 cm (5' 3) Wt 82.1 kg (181 lb) BMI 32.06 01/23/20: BP 116/70 Pulse 68 Resp 14 Ht 160 cm (5' 3) Wt 89.4 kg (197 lb) BMI 34.90 06/27/19: BP 130/80 Ht 160 cm (5' 3) Wt 83.9 kg (185 lb) BMI 32.77 kg/m Hyperlipidemia -Atorvastatin 20 mg nightly. Pre statin values Total 252 HDL 54 LDL 166 Triglycerides 161 Cholesterol, Total (mg/dL) Date Value 10/02/2023 146 09/09/2022 144 02/11/2019 140 HDL Cholesterol (mg/dL) Date Value 10/02/2023 68 09/09/2022 52 02/11/2019 50 LDL Cholesterol (mg/dL) Date Value 10/02/2023 69 09/09/2022 79 02/11/2019 73 Triglyceride (mg/dL) Date Value 10/02/2023 44 09/09/2022 64 02/11/2019 87 Overweight - Saw Neonatal Specialist - following a Mediterranean diet. - AF provoked by Exercise - Nocturnal desats, hypoApnea ? - Saw Pulmonary Marek Grant MD, [facility] in consultation 05/11/18. Note read. - See no indication to initiate CPAP Rx at this time. Plan: - Stop Aspirin - Start Eliquis 5 mg twice daily. - Repeat ECHO - Referral to Adilene López MD for PVI for PAF unresponsive to Medical therapy (Flecainide) Perla Hinton MD [facility] CC: [place] [id number] [facility] [address] [place] [address] documented in this encounter [facility] 12-29-2023 Telephone encounter Note [facility] Pharmacy vaccine updates received via fax. Updated in the pt's chart and sent for scanning Mitesh Nelson RN [facility] 12-29-2023 Miscellaneous Notes [facility] Pharmacy vaccine updates received via fax. Updated in the pt's chart and sent for scanning Mitesh Nelson RN documented in this encounter [facility] 11-25-2023 Hospital Discharge instructions Ferd Amaro PA-C - 11/25/2023 7:31 PM EDT Please follow up with your ear nose and throat provider and return to the ED immediately with any new or worsening symptoms. The following attachments cannot be sent through Care Everywhere.Nosebleeds Discharge Instructions (Armenian)DASH Diet (Armenian)documented in this encounter [facility] 11-21-2023 Note HNO ID: [id number] Author: NOTE, INTERFACE, ? Service: ? Author Type: ? Type: Progress Notes Filed: 11/21/2023 03:34 Note Text: Epic Scheduled Downtime: 11/21/2023 1:00:00 AM to 11/21/2023 3:20:00 AM [facility] 09-28-2023 History of Present illness Narrative RADIOLOGY SERVICE PROGRESS NOTE SERVICE DATE: 09/28/2023 SERVICE TIME: 2:47 PM PATIENT IDENTITY VERIFICATION COMPLETED USING TWO (2) STANDARD IDENTIFIERS: Name and Date of confirmed by patient verbally FALL SCREENING: Has the patient had 2 falls in the last year or 1 fall with injury or currently using an Ambulatory Assistive Device (Walker, Cane, Wheelchair, Crutches, etc.)? No PATIENT GENDER DATA: .female : No ALLERGIES: Reviewed and unchanged MEDICATIONS REVIEWED: Not applicable PATIENT RELEVANT IMPLANT DATA REVIEWED: Not Applicable PATIENT PRESENTS WITH AN IMPLANTABLE OR ATTACHED DENTAL ASSISTANT MEDICAL ASSISTANT: No CREATININE: Creatinine Date Value Ref Range Status 09/09/2022 1.01 (H) 0.58 - 0.96 mg/dL Final 04/07/2018 0.85 0.58 - 0.96 mg/dL Final 03/24/2016 0.92 0.70 - 1.40 mg/dL Final Estimated Glomerular Filtration Rate Date Value Ref Range Status 09/09/2022 63 >=60 mL/min/1.73m Final Comment: Estimated Glomerular Filtration Rate (eGFR) is calculated using the 2020 CKD-EPI creatinine equation. This equation utilizes serum creatinine, sex, and age as parameters. The creatinine assay has traceable calibration to isotope dilution-mass spectrometry. Refer to KDIGO guidelines for clinical interpretation. In patients with unstable renal function, e.g. those with acute kidney injury, the eGFR may not accurately reflect actual GFR. eGFR- Date Value Ref Range Status 04/07/2018 >60 Final P.O.C.T. RESULTS: N/A September 28, [address] PERFORMED: No IV SITE: Ambulatory: A peripheral IV was started in the Right antecubital site with a Angio cath: 22 gauge. POST EXAM PIV STATUS: Discontinued PROCEDURE TYPE: NM Stress: 14.0 mCi [id number] was administered IV for Rest Imaging at 13:30 by SHYANNE. 35.7 mCi [id number] was administered IV for Stress Imaging at 14:45 by EDNA/ELOY. PATIENT DISCHARGED TO: Ambulatory patient, left [place] department area. A Diagnostic radioactive procedure has taken place, with no further precautions necessary other than routine body substance precautions. More information regarding radiation safety can be found using this link: [email or web address] SIGNATURE: URIAH Ghosh) PATIENT NAME: Yokasta Moreno DATE: September 28, 2023 TIME: 2:47 PM PAGER/CONTACT #: documented in this encounter [facility] 09-28-2023 Note HNO ID: [id number] Author: TRUGN MCDONNELL RT(R) Service: Nuclear Medicine Author Type: Technologist Type: Progress Notes Filed: 09/28/2023 14:49 Note Text: RADIOLOGY SERVICE PROGRESS NOTE SERVICE DATE: 09/28/2023 SERVICE TIME: 2:47 PM PATIENT IDENTITY VERIFICATION COMPLETED USING TWO (2) STANDARD IDENTIFIERS: Name and Date of confirmed by patient verbally FALL SCREENING: Has the patient had 2 falls in the last year or 1 fall with injury or currently using an Ambulatory Assistive Device (Walker, Cane, Wheelchair, Crutches, etc.)? No PATIENT GENDER DATA: .female : No ALLERGIES: Reviewed and unchanged MEDICATIONS REVIEWED: Not applicable PATIENT RELEVANT IMPLANT DATA REVIEWED: Not Applicable PATIENT PRESENTS WITH AN IMPLANTABLE OR ATTACHED DENTAL ASSISTANT MEDICAL ASSISTANT: No CREATININE: Creatinine Date Value Ref Range Status 09/09/2022 1.01 (H) 0.58 - 0.96 mg/dL Final 04/07/2018 0.85 0.58 - 0.96 mg/dL Final 03/24/2016 0.92 0.70 - 1.40 mg/dL Final Estimated Glomerular Filtration Rate Date Value Ref Range Status 09/09/2022 63 >=60 mL/min/1.73m? Final Comment: Estimated Glomerular Filtration Rate (eGFR) is calculated using the 2020 CKD-EPI creatinine equation. This equation utilizes serum creatinine, sex, and age as parameters. The creatinine assay has traceable calibration to isotope dilution-mass spectrometry. Refer to KDIGO guidelines for clinical interpretation. In patients with unstable renal function, e.g. those with acute kidney injury, the eGFR may not accurately reflect actual GFR. eGFR- Date Value Ref Range Status 04/07/2018 >60 Final P.O.C.T. RESULTS: N/A September 28, [address] PERFORMED: No IV SITE: Ambulatory: A peripheral IV was started in the Right antecubital site with a Angio cath: 22 gauge. POST EXAM PIV STATUS: Discontinued PROCEDURE TYPE: NM Stress: 14.0 mCi [id number] was administered IV for Rest Imaging at 13:30 by MKFelipe. 35.7 mCi Ml76c-Fbycydf was administered IV for Stress Imaging at 14:45 by EDNA/ELOY. PATIENT DISCHARGED TO: Ambulatory patient, left [place] department area. A Diagnostic radioactive procedure has taken place, with no further precautions necessary other than routine body substance precautions. More information regarding radiation safety can be found using this link: [email or web address] SIGNATURE: RT Davina(R) PATIENT NAME: Yokasta Moreno DATE: September 28, 2023 TIME: 2:47 PM PAGER/CONTACT #: [facility] 09-25-2023 Telephone encounter Note Spoke to pt regarding reminder and instructions for stress test on Thursday. This included where to check in, length of test and no caffeine for 12 hours prior to test. [facility] 09-25-2023 Miscellaneous Notes Spoke to pt regarding reminder and instructions for stress test on Thursday. This included where to check in, length of test and no caffeine for 12 hours prior to test. documented in this encounter [facility] 09-21-2023 Telephone encounter Note The following approved medication requests have been transmitted electronically. Requested Prescriptions Signed Prescriptions Disp Refills atorvastatin (LIPITOR) 20 mg tablet 90 tablet 3 Sig: Take 1 tablet by mouth once daily. Authorizing Provider: PERLA HINTON Ordering User: EBONI PFEIFFER APRN.CNP [facility] Work Phone: 09-21-2023 Miscellaneous Notes The following approved medication requests have been transmitted electronically. Requested Prescriptions Signed Prescriptions Disp Refills atorvastatin (LIPITOR) 20 mg tablet 90 tablet 3 Sig: Take 1 tablet by mouth once daily. Authorizing Provider: PERLA HINTON Ordering User: EBONI PFEIFFER APRN.SUPERVISING LIBRARIAN Patient has been identified by name and date of : Yes Pharmacy electronically sent a request for the following prescription(s) If there are any questions regarding this prescription request, call at: [phone] (home) [phone] (cell) RX INSTRUCTIONS: Pharmacy initiated this request. No need to notify patient. Date of last office visit: 09/11/23 Date of last [facility] visit: Visit date not found Date of future office visit: 03/18/24 Requested Prescriptions Pending Prescriptions Disp Refills atorvastatin (LIPITOR) 20 mg tablet [Pharmacy Med Name: ATORVASTATIN 20 MG TABLET] 90 tablet 3 Sig: Take 1 tablet by mouth once daily. Prescriptions are usually addressed within 24-48 business hours. If patient states they cannot wait 24-48 business hours, please document details. Last 2 Encounter Wt Readings: Date: Wt: 09/11/2023 78.6 kg (173 lb 3.2 oz) 2022 87.1 kg (192 lb) Last 2 Encounter BP Readings: Date: BP: 09/11/2023 152/102 2022 124/70 CMP: Glucose 81 09/09/2022 BUN 15 09/09/2022 Creatinine 1.01 09/09/2022 Sodium 141 09/09/2022 Potassium 4.7 09/09/2022 Chloride 102 09/09/2022 CO2 26 09/09/2022 Protein, Total 7.4 02/11/2019 Albumin 4.4 02/11/2019 Calcium 10.1 09/09/2022 Alkaline Phosphatase 134 02/11/2019 Bilirubin, Total 0.6 02/11/2019 AST 18 02/11/2019 ALT 17 02/11/2019 Cholesterol, Total (mg/dL) Date Value 09/09/2022 144 02/11/2019 140 HDL Cholesterol (mg/dL) Date Value 09/09/2022 52 02/11/2019 50 LDL Cholesterol (mg/dL) Date Value 09/09/2022 79 02/11/2019 73 Triglyceride (mg/dL) Date Value 09/09/2022 64 02/11/2019 87 Kitty Mendoza RN documented in this encounter [facility] 09-21-2023 Telephone encounter Note Patient has been identified by name and date of : Yes Pharmacy electronically sent a request for the following prescription(s) If there are any questions regarding this prescription request, call at: [phone] (home) [phone] (cell) RX INSTRUCTIONS: Pharmacy initiated this request. No need to notify patient. Date of last office visit: 09/11/23 Date of last [facility] visit: Visit date not found Date of future office visit: 03/18/24 Requested Prescriptions Pending Prescriptions Disp Refills atorvastatin (LIPITOR) 20 mg tablet [Pharmacy Med Name: ATORVASTATIN 20 MG TABLET] 90 tablet 3 Sig: Take 1 tablet by mouth once daily. Prescriptions are usually addressed within 24-48 business hours. If patient states they cannot wait 24-48 business hours, please document details. Last 2 Encounter Wt Readings: Date: Wt: 09/11/2023 78.6 kg (173 lb 3.2 oz) 2022 87.1 kg (192 lb) Last 2 Encounter BP Readings: Date: BP: 09/11/2023 152/102 2022 124/70 CMP: Glucose 81 09/09/2022 BUN 15 09/09/2022 Creatinine 1.01 09/09/2022 Sodium 141 09/09/2022 Potassium 4.7 09/09/2022 Chloride 102 09/09/2022 CO2 26 09/09/2022 Protein, Total 7.4 02/11/2019 Albumin 4.4 02/11/2019 Calcium 10.1 09/09/2022 Alkaline Phosphatase 134 02/11/2019 Bilirubin, Total 0.6 02/11/2019 AST 18 02/11/2019 ALT 17 02/11/2019 Cholesterol, Total (mg/dL) Date Value 09/09/2022 144 02/11/2019 140 HDL Cholesterol (mg/dL) Date Value 09/09/2022 52 02/11/2019 50 LDL Cholesterol (mg/dL) Date Value 09/09/2022 79 02/11/2019 73 Triglyceride (mg/dL) Date Value 09/09/2022 64 02/11/2019 87 Kitty Mendoza RN [facility] 09-11-2023 Instructions Perla Hinton MD - 09/11/2023 10:49 AM EDT Plan: - Buy Credit Coach to monitor and document frequency of AF - Repeat Exercise nuclear stress test due to chest pressure during episodes of recurrent Atrial fib - Call [facility] to schedule - Consideration of referral for PVI ablation based on frequency of Atrial fibrillation - follow up in 6 [address] H[address] MD [facility] documented in this encounter [facility] 09-11-2023 History of Present illness Narrative Images from the original note were not included. [facility] [place] Agnieszka Choe Department of Cardiovascular Medicine At [facility] OUTPATIENT VISIT DATE September 11, 2023 OUTPATIENT VISIT TYPE Follow up HPI: Yokasta L Colantoni is a 61 yo PAF on Flecainide and Diltiazem. Hx of hyperlipidemia, not on treatment Intially evaluated 03/11/16 for palpitations. She was seen in 2009 for fluttering in throat happening for a couple of weeks and advised to go to ER. A 48 hour Holter Monitor Rx. Notes sx occasionally and PCP thought she might have esophageal spasm. No additional testing. Sees ENT for thyroid nodules. Nodules slightly increased. TSH wnl. yearly US recommended) Barium swallowing in January 2016. (Had monitor approximately 03/16-. PAF seen on 117 @ 220 bpm. 3 days after returning monitor had recurrent AF went to [facility] ER. By time got there was out. She went back home and was in and out of in. PAF lasts 10 min. She thinks she has not been in AF as much since Cardiazem. Seem to be more tolerable. On Talz ( ixekizumab for psoriasis . CLINICAL VISITS: 09/11/23:BP 152/102 Pulse 66 Ht 160 cm (5' 3) Wt 78.6 kg (173 lb 3.2 oz) BMI 30.68 kg/m ECG: NSR Lost 20 lbs. Prior sleep study negative for ILEANA . More AF now. No heart rhythm monitoring. Was doing well x 2 years ( 4 episode) and since March started having more AF. (56 episodes). HR 139 most of the day in April , but having more episodes that feels like AF> racing out of control and chest feels tight and throat heavy. SPECT 2016 normal Plan: - Buy Credit Coach to monitor and document frequency of AF - Repeat Exercise nuclear stress test due to chest pressure during episodes of recurrent Atrial fib - Call [facility] to schedule - Consideration of referral for PVI ablation based on frequency of Atrial fibrillation - follow up in 6 months 08/10/22:BP 124/70 Pulse 65 Ht 160 cm (5' 3) Wt 87.1 kg (192 lb) BMI 34.01 kg/m Since November had 3 AF episodes 5 min- 2 hours. No ER evaluations. Still working to try to lose weight. Bought a treadmill. 3 mph treadmill, 1.5%. Exercising intermittently at [employer]. 20 min with a goal of 150 min a week. - Same meds - Labs to check kidney function - Fasting lipids - Follow up in 12 month 07/23/21: BP 126/74Pulse 72 Resp 14 Ht 160 cm (5' 3) Wt 88.9 kg (196 lb) BMI 34.72 kg/m .Started Tremfya for Psorias. Talz caused weird infections UTIs . And eye infections and leg abscesses.,At last visit tested negative for COVID after losing sense of sense of smell whch has hasn't fully returned. Remains on Flecainide 100 mg po bid since June, and Diltiazem 120 mg daily for PAF. ECG today : NSR, QTC 438. 01/21/21:BP 127/85 Pulse 70 . Virtual Visit Had Covid booster and didn't feel well enough to come in. Fever 102 Thursday and Thursday And Thursday. Feels poorly since receiving vaccine afternoon. Today with bad vertigo. No loss of sense of taste or smell. Testing for Covid recommended. Remains on Flecainide 100 mg po bid since June, and Diltiazem 120 mg daily for PAF. Only has had 3 small AF episodes 10 -60 min. May be started on Tremfya for Psoriasis On Talz (ixekizumab) for psoriasis. Multiple infections 3 abscesses, eye infection, UTI. Weight stable at 181 lbs. No drup interactions notes with Tremfya Plan: Follow up in 6 month s No interaction between Tremfya and Flecainide Continued efforts of exercise and weight loss. 07/23/20: Back to work (on 3 episodes in 2019) Since returning to work since March has had 7 episodes . A couple off and on all day. Milder than before. Remains on Flecainide 100 mg po bid x 5 years since June 2016. Sometime will take an extra for PAF . We discussed referral for ablation and she wishes To continue symptoms overall better since starting Flecainide x 5 years. Lost weight , exercising regularly, Has a fitness band. Still overweight by BMI and has lost weight from 197 to 181 lbs BP 110/68 (BP Site: Right Arm, BP Position: Sitting, BP Cuff Size: Regular Adult) Pulse 66 Resp 14 Ht 160 cm (5' 3) Wt 82.1 kg (181 lb) BMI 32.06 kg/m . Lost 9%% of body weight . Shooting for weight of 140. She finds exercise triggers AF. She walks hills and walks 3 miles. 01/23/20: Since March only one episode of palpiation (October ) while at work and was :stressed out. 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 No AF, just SOB and lightheaded. Checks for AF with her BP monitor.Very stressful at work. Checks BP at work and arrhythmia symbol would not show up. (Previously d/w her re Kardia and [employer] watch) She is gaining weight (12 lbs) Was going home and going to bed- That how she was dealing with stress at work Saw a chief lending officer- Placed on [place] dit. BP 116/70 Pulse 68 Resp 14 Ht 160 cm (5' 3) Wt 89.4 kg (197 lb) BMI 34.90 kg/m 06/27/19: BP 130/80 Ht 160 cm (5' 3) Wt 83.9 kg (185 lb) ECG: NSR, NS IVCD. Psoriasis Plan; Weight loss 10% of body weight follow up in 6 months in cardiology 06/27/19: Virtual Visit ECG 12/2018 reviewed and was normal. Normal renal fxn. AF is well controlled. Flecainide increased in December with only 2 AF episodes. 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 No changes yet. Started 05/20/19 12/13/18: Was doing well. Keeps a log of AF. Was in AF rapid heart rate. Most of Oct and November in a light flutter. 12/11/18 a few hours, last night. ( increased frequncy in October and November. Has charted 21 x) Exacerbated by Exercise. If in it all day , will take another. Diltiazem 120 mg and takes at night - Going to meet with [employer]. Has stopped exercising over summer as it provoked AF. - Had improved diet and lipids elevated. Lipids: Total 252, HDL 54, LDL 166,Triglycerides 161 Rec: Increase Flecainide from 50 mg to 100 mg twice daily ECG in a week Atorvastatin 20 mg nightly Fasting lipid and liver function test blood work in 6-8 weeks follow up in 6 months 06/07/18: Has kept a diary 21 times in AF October. 1/2, 1 , 1 1/2 , 2 hours, whole. BP cuff . Trying to watch stress level, which affects AF burden. Sometimes in clusters. 3-4 x Month. Nothing since middle of April. Dr Cash previously saw her previously in 2016 and recommended increase in Flecainide. Had lost 20 lbs last year and then started gaining back. There is an association between weight and AF. Exercise: No. Broke toes, Hurt back. Not exercised since March. Now thinks she is back on track. Saw a special forces senior sergeant when said she did not have ILEANA, but rather may have asthma. Awaiting follow up. Will continue Flecainide 50 mg po bid, and Diltazem since she has adequate control. ASA 81 mg daily. 11/09/17: Follow up for PAF. About a month ago having clusters of palpitations about 2 weeks ago and lasted 2 weeks. Went for months without it before this. She was caring for ill sister in [place] who passed. Had lost weight and gained back. . Forgot about sleep study.Will order PSA. Will stay on current dose of flecainide for now. ASA for thromboembolic prophylaxis. CHADVasc score 1-2. Recommend referral for sleep study. Encourage weight loss. Keep an AFib diary. No contraindication to dental work or lido with epinephrine. REC Afib diary Concerted effort towards weight loss and exercise Sleep study Follow up 6 months. Sooner if worsens. 09/19/16: Consultation with Osiel Cash: Paroxysmal atrial fibrillation: Presently on flecainide 50 twice daily and diltiazem 120 mg daily. This has been quite effective in managing her AF burden. We spoke at length about the etiology is AF including obstructive sleep apnea and wt, and I've encouraged her to loose some wt as it has been shown to reduce the burden of AF. We will also make a referral for sleep medicine for ILEANA evaluation. In the interim, should she have any further increased burden of AF, we will increase her flecainide 100mg twice daily. 07/16/16: The patient is seen in follow-up. She underwent a in exercise nuclear stress test on 05/12/16 which was normal at 7 METs. No inducible ischemia or prior infarct seen.She reports feeling really good for a couple months, but more recently she has reported at least 12 episodes of suspected recurrent atrial fibrillation. this has been occurring every day with episodes occurring in clusters. Notes extreme fatigue Which she is attributing to Cardizem. For this reason she is now taking Avilide in the AM and Diltiazem in the evening.In last 2 weeks notes 12 episodes. Recommend initiation of Flecainide, And lowering Cardizem 120 mg during initiation phase. 05/10/2016: After mailing back monitor had 3 days of atrial fibrillation. Was of work awhile with flu like Sx. ( Viral respiratory sx) (Had monitor approximately 03/16-. PAF seen on 117 @ 220 bpm. 3 days after returning monitor had recurrent AF went to [facility] ER. By time got there was out. She went back home and was in and out of in. PAF lasts 10 min. She thinks she has not been in AF as much since Cardiazem. Seem to be more tolerable. 04/18/16: Telephone: Patient calling, states that she has started ASA 81 mg daily and Cardizem 120 mg daily as instructed by Dr. Hinton (see 03/18/16 phone encounter). She has also cut her Avalide down to a half-dose daily. Yesterday she experienced a persisting bout of Afib that made her lightheaded and she eventually went to [facility]. Just before she checked in, she converted back to NSR so she went home without the need to be seen. She is worried because she has hoped that the Cardizem would eliminate these episodes. Her follow-up is 04/30/16, but she is asking if Dr. Hinton has any recommendations or medications changes before then. Will review with Dr. Hinton and contact patient with any recommendations. 03/18/16: The patient reported lightheadedness and a skipped beat and telemetry of report revealed atrial fibrillation at a heart rate of 220 bpm. Following this event although auto triggered atrial fibrillation lasting 90 seconds was detected. The patient states now that her heart rate is normal and she feels back to baseline. She reports sensation of her throat hurting during episodes. The patient is currently on Avalide 300 mg/12.5 mg (irbesartan/hydrochlorothiazide daily. Patient instructed to reduce her Avalide to one half tablet daily Recommend initiation of aspirin 325 mg by mouth today followed by 81 mg daily. Recommend Cardizem 120 mg daily. Patient has follow-up scheduled on April 30, 2016. Recommend continuation of telemetry monitoring for additional 2 weeks. 03/12/2016: Seeing PCP q 6 weeks because it got so bad fluttering more severe. Starts out like feeling bubbles in chest. Sometimes fast and sometimes hard. Coworkers have taken pulse highest 168. Many times normal . Gets tunnel vision. Home BP monitoring started and shows irregular HR. Happening q 6 weeks in the past, now sometimes every other day. Sometimes sx free for a week. Sometimes comes on suddenly. PCP thought it could be GERD or panic attacks and no monitoring performed. Fainted 1 week prior to Halloween this year. Cousin told her to bear down or cough and she did this and it worked Initially but not helping now. Longest it lasts for is a days. Onset can be gradual or abrupt and sometimes it lasts a whole day. Other times lasts 20 mins. No triggers . Does not use caffeine. Last TSH/TFTs normal by report January 2016 at [facility]. ECG low right atrial rhythm. PAST MEDICAL HISTORY Diagnosis Date A-fib (HCC) Thyroid nodule PAST SURGICAL HISTORY Procedure Laterality Date SECTION HX C Sections SOCIAL HISTORY Social History Tobacco Use Smoking status: Never Smokeless tobacco: Never Tobacco comments: Parents smoked in childhood home. Spouse quit smoking 25 years ago. Substance Use Topics Alcohol use: No Drug use: No FAMILY HISTORY Problem Relation Age of Onset Stroke Mother Cancer Father Lung Asthma Sister Two other (Other) Other Cousin with lung transplant. Asthma Other All of my aunts. ALLERGIES Allergen Reactions Adhesive Tape ([place]alia* Rash Latex, Natural Rubb* Rash Sulfamethoxazole-Tr* Vomiting *ANTI-INFECTIVE AGENTS--MISC.* *ANTI-INFECTIVE AGENTS--MISC.* CURRENT MEDICATIONS: dilTIAZem XR (DILACOR XR) 120 mg 24 hr capsule take 1 capsule by mouth once daily flecainide (TAMBOCOR) 100 mg tablet take 1 tablet by mouth every 12 hours atorvastatin (LIPITOR) 20 mg tablet Take 1 tablet by mouth once daily. guselkumab (TREMFYA) 100 mg/mL Inject 100 mL subcutaneously. Every other month famotidine (PEPCID) 20 mg tablet famotidine 20 mg tablet TAKE 1 TABLET ORALLY TWICE PER DAY FOR 30 DAYS cholecalciferol, vitamin D3, 100 mcg (4,000 unit) cap Take 1 capsule by mouth once daily. aspirin, enteric coated (ECOTRIN LOW STRENGTH) 81 mg EC tablet Take 1 tablet by mouth once daily. Take 4 tablets (324 mg the first day AVALIDE 300-12.5 mg ORAL per tablet [id number] 3.5 MG/ML-10,000 UNIT/ML-0.1% EYE DROPS INSTILL 1 DROP INTO BOTH EYES 4 TIMES A DAY (Patient not taking: Reported on 01/31/2021) ixekizumab (TALTZ AUTOINJECTOR, 2 PACK,) 80 mg/mL AutoInjector Inject 80 mL subcutaneously. OTC pepcid. REVIEW OF SYSTEMS: GENERAL: Negative for: Weight loss or gain, Fever or Chills, Weakness and Sleep difficulties. HEENT: Negative for: Headache, Impaired Vision, Glasses, Hearing Impairment, Ringing in Ears, Nosebleeds, Poor dental care, Bleeding Gums, Dentures NECK: Negative for: Swelling, Pain, Stiffness RESPIRATORY: Negative for: Cough, Blood in Sputum, Shortness of breath, Wheezing, Apnea GASTROINTESTINAL: Negative for: Trouble swallowing, Heartburn, Change in bowel habits, Blood in stool, Dark black stools MUSCULOSKELETAL: Negative for: Muscle or joint pain, Stiffness , Joint swelling NEUROLOGIC/PSYCHIATRIC: Negative for: Weakness, Paralysis, Numbness, Tingling, Tremor, Nervousness, Depressed mood, Memory loss SKIN: Negative for: Rashes, Itching HEMATOLOGICAL/LYMPHATIC: Negative for: Easy bruising , Easy bleeding ENDOCRINE: Negative for: Heat or cold intolerance, Excessive sweating, Frequent urination, Frequent thirst PHYSICAL EXAMINATION: BP 152/102 Pulse 66 Ht 160 cm (5' 3) Wt 78.6 kg (173 lb 3.2 oz) BMI 30.68 kg/m HENT:PERRLA, EOMI. NECK: No thyromegaly, JVD, lymphadenopathy, or carotid bruits. CHEST: No chest wall deformities or tenderness. LUNGS: Normal symmetric air entry throughout both lung balderas. There is no wheezing. No rales or ronchi are present. ABDOMEN: The abdomen is non distended. Bowel sounds are present. The abdomen is non tender. There is no hepatomegaly, or hepatojugular reflex. There are no masses felt. CARDIOVASCULAR: Non displaced PMI. Regular rate and rhythm. S1 and S2 normal, no murmurs, clicks, gallops or rubs. EXTREM: Lower extremities are normal visaully. Normal hair distribution. There is no peripheral edema noted on exam. Pulses are (+2) and symmetric. NEURO: The patient is alert and oriented X 3. No gross motor or sensory deficits. Cranial nerves are normal. CARDIAC TESTIN05/13/16: Nuclear stress test The stress test was terminated due to the following: Fatigue. Peak HR 151 bpm. (91 % MPHR) (7.0 METS) Peak BP 168 mmHg/96 mmHg Patient experienced no symptoms during stress. Stress ECG normal ST segment response and normal sinus rhythm. 1. Perfusion Study: Normal. 2. There is no scintigraphic evidence for inducible ischemia. 3. No evidence of scarred Myocardium. 4. Average functional capacity for age and gender. 5. Left ventricle is small. 6. Right ventricle is normal in size. 7. This is a low risk scan. ECHO: 03/31/2016 - Technically difficult exam due to body habitus. - Exam indication: Palpitations - The left ventricle is normal in size. Left ventricular systolic function is normal. EF = 67 5% (2D 4-ch.) Normal left ventricular diastolic function. - The right ventricle is normal in size. Right ventricular systolic function is normal. - The left atrial cavity is mildly dilated. - The patient has not had a prior [facility] echocardiographic exam for comparison. 03/14/09: Hook-up date: 2009-03-08 16:57:17 Duration: 47:59:00 Test Indications: Rapid heart rate Medications: 614244 QRS complexes 37 Ventricular ectopics which represent <1 % of total QRS comp. 280 Supraventricular ectopics which represent <1 % of total QRS comp. * Paced QRS complexs which represent * % of total QRS comp. VENTRICULAR ECTOPY 37 Isolated 0 Bigeminal Cycles 0 Couplets 0 Runs 0 Beats in Runs * Beats LONGEST at * BPM at * Beats FASTEST at * BPM at SUPRAVENTRICULAR ECTOPY 254 Isolated 13 Couplets 0 Runs 0 Beats in Runs * Beats LONGEST at * BPM at * Beats FASTEST at * BPM at HEART RATES 51 MIN at 05:37:45 2009-03-09 77 AVG 138 MAX at 18:08:01 2009-03-09 LONGEST RR 0.0013 secs at 29:40:49 2009-03-10 S-T LEVELS Channel 1 + 3 mm at 16:27:17 2009-03-09 - 15 mm at 12:41:17 2009-03-09 Channel 2 + 2 mm at 15:13:17 2009-03-09 - 6 mm at 17:54:17 2009-03-09 Channel 3 - 128 mm at 03:61:63 * - 128 mm at 03:61:63 Returned and scanned 03-12-09 The basic rhythm was sinus with sinus arrhythmia at an average rate of 77 BPM, a maximum rate of 136 BPM and a minimum rat e of 51 BPM. There were 23,937 beats in tachycardia which was 11% of all the complexes and 7,309 beats in bradycardia at 3%. Isolated PVCs totaled 37 in this 48 hour scan. Supraventricular ectopy totaled 280 and was seen in isolation, as 13 pairs and as aberrantly conducted SVEs. No documented symptoms. Referred By: KENNA OTHER, NOT ON F Overread By: BECKI KATZ M.D. LABS: Component Latest Ref Rng & Units 03/24/2016 WBC 3.70 - 11.00 k/uL 5.40 RBC 3.90 - 5.20 m/uL 4.83 Hemoglobin 11.5 - 15.5 g/dL 13.7 Hematocrit 36.0 - 46.0 % 40.5 MCV 80.0 - 100.0 fL 83.9 MCH 26.0 - 34.0 pG 28.4 MCHC 30.5 - 36.0 g/dL 33.8 RDW-CV 11.5 - 15.0 % 12.3 Platelet Count 150 - 400 k/uL 347 MPV 9.0 - 12.7 fL 9.5 Neut% % 42.4 Abs Neut (ANC) 1.45 - 7.50 k/uL 2.29 Lymph% % 35.6 Abs Lymph 1.00 - 4.00 k/uL 1.92 Hudspeth% % 18.5 Abs Hudspeth 0.00 - 0.86 k/uL 1.00 (H) Eosin% % 2.8 Abs Eosin 0.00 - 0.45 k/uL 0.15 Baso% % 0.7 Abs Baso 0.00 - 0.10 k/uL 0.04 Protein, Total 6.0 - 8.4 g/dL 7.6 Albumin 3.5 - 5.0 g/dL 4.4 Calcium 8.5 - 10.5 mg/dL 9.4 Bilirubin, Total 0.0 - 1.5 mg/dL 0.4 Alkaline Phosphatase 40 - 150 U/L 103 AST 7 - 40 U/L 20 Glucose 65 - 100 mg/dL 91 BUN 8 - 25 mg/dL 7 (L) Creatinine 0.70 - 1.40 mg/dL 0.92 Sodium 132 - 148 mmol/L 142 Potassium 3.5 - 5.0 mmol/L 4.0 Chloride 98 - 110 mmol/L 104 CO2 23 - 32 mmol/L 25 Anion Gap 0 - 15 mmol/L 13 ALT 0 - 45 U/L 20 eGFR >60 eGFR-All Other Races . >60 CK 30 - 220 U/L 40 MB 0.0 - 8.8 ng/mL <1.0 CK MB % 0.0 - 4.0 % Unable to calculate because one or more components used in calculation outside of . . . Troponin T 0.000 - 0.029 ng/mL <0.010 ASSESSMENT/PLAN: Paroxysmal Atrial Fibrillation: Stress evaluation was negative for inducible ischemia. Flecainide started 06/2016 due to frequent symptomatically recurrence of paroxysmal atrial fibrillation. She was seen in Consultation by Osiel Cash and sleep study recomended. No evidence of this Cardizem to 120 mg daily Flecainide to 100 mg po bid due to > 21 recurrences since October 2018 Weight loss: now has lost 20 lb [id number] Vasc 1-2, ASA 81 mg daily. ECG: NSR 07/22/21 HTN: -Avalide 300/12.5 for HTN reduced. Diltiazem ( Dilacor XR) 120 mg daily 09/11/23:BP 152/102 Pulse 66 Ht 160 cm (5' 3) Wt 78.6 kg (173 lb 3.2 oz) BMI 30.68 kg/m 08/11/22: BP 124/70 Pulse 65 Ht 160 cm (5' 3) Wt 87.1 kg (192 lb) BMI 34.01 kg/m 07/22/21:BP 126/74 Pulse 72 Resp 14 Ht 160 cm (5' 3) Wt 88.9 kg (196 lb) BMI 34.72 07/23/20: BP 110/68 Pulse 66 Resp 14 Ht 160 cm (5' 3) Wt 82.1 kg (181 lb) BMI 32.06 01/23/20: BP 116/70 Pulse 68 Resp 14 Ht 160 cm (5' 3) Wt 89.4 kg (197 lb) BMI 34.90 06/27/19: BP 130/80 Ht 160 cm (5' 3) Wt 83.9 kg (185 lb) BMI 32.77 kg/m Hyperlipidemia -Atorvastatin 20 mg nightly. Pre statin values Total 252 HDL 54 LDL 166 Triglycerides 161 Cholesterol, Total (mg/dL) Date Value 09/09/2022 144 02/11/2019 140 HDL Cholesterol (mg/dL) Date Value 09/09/2022 52 02/11/2019 50 LDL Cholesterol (mg/dL) Date Value 09/09/2022 79 02/11/2019 73 Triglyceride (mg/dL) Date Value 09/09/2022 64 02/11/2019 87 Overweight - Saw Neonatal Specialist - following a Mediterranean diet. - AF provoked by Exercise - Nocturnal desats, hypoApnea ? - Saw Pulmonary Marek Grant MD, [facility] in consultation 05/11/18. Note read. - See no indication to initiate CPAP Rx at this time. Plan: - Buy Credit Coach to monitor and document frequency of AF - Repeat Exercise nuclear stress test due to chest pressure during episodes of recurrent Atrial fib - Call [facility] to schedule - Consideration of referral for PVI ablation based on frequency of Atrial fibrillation - follow up in 6 [address] [facility] CC: Gaurav Lund, [id number] [facility] [address] [place] [address] documented in this encounter [facility] 06-08-2023 Miscellaneous Notes Patient has been identified by name and date of : Yes Patient phoned to request the following prescription(s) If there are any questions regarding this prescription request, call at home at: [phone] (home) [phone] (cell) RX INSTRUCTIONS: Patient aware RX will be sent to pharmacy. No need to notify patient. Date of last office visit: 08/11/22 Date of last [facility] visit: Visit date not found Date of future office visit: 09/11/23 Requested Prescriptions Pending Prescriptions Disp Refills dilTIAZem XR (DILACOR XR) 120 mg 24 hr capsule [Pharmacy Med Name: DILTIAZEM 24H ER(XR) 120 MG CP] 90 capsule 3 Sig: take 1 capsule by mouth once daily flecainide (TAMBOCOR) 100 mg tablet [Pharmacy Med Name: FLECAINIDE ACETATE 100 MG TAB] 180 tablet 3 Sig: take 1 tablet by mouth every 12 hours Prescriptions are usually addressed within 24-48 business hours. If patient states they cannot wait 24-48 business hours, please document details. Last 2 Encounter Wt Readings: Date: Wt: 2022 87.1 kg (192 lb) 07/22/2021 88.9 kg (196 lb) Last 2 Encounter BP Readings: Date: BP: 2022 124/70 07/22/2021 126/74 CMP: Glucose 81 09/09/2022 BUN 15 09/09/2022 Creatinine 1.01 09/09/2022 Sodium 141 09/09/2022 Potassium 4.7 09/09/2022 Chloride 102 09/09/2022 CO2 26 09/09/2022 Protein, Total 7.4 02/11/2019 Albumin 4.4 02/11/2019 Calcium 10.1 09/09/2022 Alkaline Phosphatase 134 02/11/2019 Bilirubin, Total 0.6 02/11/2019 AST 18 02/11/2019 ALT 17 02/11/2019 Cholesterol, Total (mg/dL) Date Value 09/09/2022 144 02/11/2019 140 HDL Cholesterol (mg/dL) Date Value 09/09/2022 52 02/11/2019 50 LDL Cholesterol (mg/dL) Date Value 09/09/2022 79 02/11/2019 73 Triglyceride (mg/dL) Date Value 09/09/2022 64 02/11/2019 87 Anne Florentino RN documented in this encounter [facility] 05-21-2023 Miscellaneous Notes Patient rescheduled with Dr. Hinton on 09/11/23 at 10:40 AM in [place] 1st attempt- left DVM notifying of 08/24/23 Dr. Hinton CX appt 2nd attempt- sent secure patient message. Can reschedule with Dr. Hinton at [place] or [place]. Or Transfer as EST to Dr. Katz or Dr. Becerra in [facility] documented in this encounter [facility] 07-22-2021 Instructions Perla Hinton MD - 07/22/2021 12:45 PM EDT Same meds Labs to check kidney function and cholesterol follow up in 12 month Perla Hinton MD documented in this encounter [facility] 07-22-2021 History of Present illness Narrative Images from the original note were not included. [facility] [place] Agnieszka Choe Department of Cardiovascular Medicine At [facility] OUTPATIENT VISIT DATE July 20, 2021 OUTPATIENT VISIT TYPE Follow up HPI: Yokasta Moreno is a 60 yo PAF on Flecainide and Diltiazem. Hx of hyperlipidemia, not on treatment Intially evaluated 03/11/16 for palpitations. She was seen in 2009 for fluttering in throat happening for a couple of weeks and advised to go to ER. A 48 hour Holter Monitor Rx. Notes sx occasionally and PCP thought she might have esophageal spasm. No additional testing. Sees ENT for thyroid nodules. Nodules slightly increased. TSH wnl. yearly US recommended) Barium swallowing in January 2016. (Had monitor approximately 15-. PAF seen on 117 @ 220 bpm. 3 days after returning monitor had recurrent AF went to [facility] ER. By time got there was out. She went back home and was in and out of in. PAF lasts 10 min. She thinks she has not been in AF as much since Cardiazem. Seem to be more tolerable. On Talz ( ixekizumab for psoriasis . CLINICAL VISITS: 07/23/21: BP 126/74Pulse 72 Resp 14 Ht 160 cm (5' 3) Wt 88.9 kg (196 lb) BMI 34.72 kg/m .Started Tremfya for Psorias. Talz caused weird infections UTIs . And eye infections and leg abscesses.,At last visit tested negative for COVID after losing sense of sense of smell whch has hasn't fully returned. Remains on Flecainide 100 mg po bid since June, and Diltiazem 120 mg daily for PAF. ECG today : NSR, QTC 438. Creatinine Date Value Ref Range Status 04/07/2018 0.85 0.58 - 0.96 mg/dL Final 01/21/21:BP 127/85 Pulse 70 . Virtual Visit Had Covid booster and didn't feel well enough to come in. Fever 102 Thursday and Thursday And Thursday. Feels poorly since receiving vaccine afternoon. Today with bad vertigo. No loss of sense of taste or smell. Testing for Covid recommended. Remains on Flecainide 100 mg po bid since June, and Diltiazem 120 mg daily for PAF. Only has had 3 small AF episodes 10 -60 min. May be started on Tremfya for Psoriasis On Talz (ixekizumab) for psoriasis. Multiple infections 3 abscesses, eye infection, UTI. Weight stable at 181 lbs. No drup interactions notes with Shun Plan: Follow up in 6 month s No interaction between Shun and Flecainide Continued efforts of exercise and weight loss. 07/23/20: Back to work (on 3 episodes in 2019) Since returning to work since March has had 7 episodes . A couple off and on all day. Milder than before. Remains on Flecainide 100 mg po bid x 5 years since June 2016. Sometime will take an extra for PAF . We discussed referral for ablation and she wishes To continue symptoms overall better since starting Flecainide x 5 years. Lost weight , exercising regularly, Has a fitness band. Still overweight by BMI and has lost weight from 197 to 181 lbs BP 110/68 (BP Site: Right Arm, BP Position: Sitting, BP Cuff Size: Regular Adult) Pulse 66 Resp 14 Ht 160 cm (5' 3) Wt 82.1 kg (181 lb) BMI 32.06 kg/m . Lost 9%% of body weight . Shooting for weight of 140. She finds exercise triggers AF. She walks hills and walks 3 miles. 01/23/20: Since March only one episode of palpiation (October ) while at work and was :stressed out. 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 No AF, just SOB and lightheaded. Checks for AF with her BP monitor.Very stressful at work. Checks BP at work and arrhythmia symbol would not show up. (Previously d/w her re [employer] and [employer] watch) She is gaining weight (12 lbs) Was going home and going to bed- That how she was dealing with stress at work Saw a chief lending officer- Placed on Mediterranean dit. BP 116/70 Pulse 68 Resp 14 Ht 160 cm (5' 3) Wt 89.4 kg (197 lb) BMI 34.90 kg/m 06/27/19: BP 130/80 Ht 160 cm (5' 3) Wt 83.9 kg (185 lb) ECG: NSR, NS IVCD. Psoriasis Plan; Weight loss 10% of body weight follow up in 6 months in cardiology 06/27/19: Virtual Visit ECG 12/2018 reviewed and was normal. Normal renal fxn. AF is well controlled. Flecainide increased in December with only 2 AF episodes. 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 No changes yet. Started 05/20/19 12/13/18: Was doing well. Keeps a log of AF. Was in AF rapid heart rate. Most of Oct and November in a light flutter. 12/11/18 a few hours, last night. ( increased frequncy in October and November. Has charted 21 x) Exacerbated by Exercise. If in it all day , will take another. Diltiazem 120 mg and takes at night - Going to meet with [employer]. Has stopped exercising over summer as it provoked AF. - Had improved diet and lipids elevated. Lipids: Total 252, HDL 54, LDL 166,Triglycerides 161 Rec: Increase Flecainide from 50 mg to 100 mg twice daily ECG in a week Atorvastatin 20 mg nightly Fasting lipid and liver function test blood work in 6-8 weeks follow up in 6 months 06/07/18: Has kept a diary 21 times in AF October. /2, 1 , 1 1/2 , 2 hours, whole. BP cuff . Trying to watch stress level, which affects AF burden. Sometimes in clusters. 3-4 x Month. Nothing since middle of April. Dr Cash previously saw her previously in 2016 and recommended increase in Flecainide. Had lost 20 lbs last year and then started gaining back. There is an association between weight and AF. Exercise: No. Broke toes, Hurt back. Not exercised since March. Now thinks she is back on track. Saw a special forces senior sergeant when said she did not have ILEANA, but rather may have asthma. Awaiting follow up. Will continue Flecainide 50 mg po bid, and Diltazem since she has adequate control. ASA 81 mg daily. 11/09/17: Follow up for PAF. About a month ago having clusters of palpitations about 2 weeks ago and lasted 2 weeks. Went for months without it before this. She was caring for ill sister in [place] who passed. Had lost weight and gained back. . Forgot about sleep study.Will order PSA. Will stay on current dose of flecainide for now. ASA for thromboembolic prophylaxis. CHADVasc score 1-2. Recommend referral for sleep study. Encourage weight loss. Keep an AFib diary. No contraindication to dental work or lido with epinephrine. REC Afib diary Concerted effort towards weight loss and exercise Sleep study Follow up 6 months. Sooner if worsens. 09/19/16: Consultation with Osiel Cash: Paroxysmal atrial fibrillation: Presently on flecainide 50 twice daily and diltiazem 120 mg daily. This has been quite effective in managing her AF burden. We spoke at length about the etiology is AF including obstructive sleep apnea and wt, and I've encouraged her to loose some wt as it has been shown to reduce the burden of AF. We will also make a referral for sleep medicine for ILEANA evaluation. In the interim, should she have any further increased burden of AF, we will increase her flecainide 100mg twice daily. 07/16/16: The patient is seen in follow-up. She underwent a in exercise nuclear stress test on 05/12/16 which was normal at 7 METs. No inducible ischemia or prior infarct seen.She reports feeling really good for a couple months, but more recently she has reported at least 12 episodes of suspected recurrent atrial fibrillation. this has been occurring every day with episodes occurring in clusters. Notes extreme fatigue Which she is attributing to Cardizem. For this reason she is now taking Avilide in the AM and Diltiazem in the evening.In last 2 weeks notes 12 episodes. Recommend initiation of Flecainide, And lowering Cardizem 120 mg during initiation phase. 05/10/2016: After mailing back monitor had 3 days of atrial fibrillation. Was of work awhile with flu like Sx. ( Viral respiratory sx) (Had monitor approximately 03/16-. PAF seen on 117 @ 220 bpm. 3 days after returning monitor had recurrent AF went to [facility] ER. By time got there was out. She went back home and was in and out of in. PAF lasts 10 min. She thinks she has not been in AF as much since Cardiazem. Seem to be more tolerable. 04/18/16: Telephone: Patient calling, states that she has started ASA 81 mg daily and Cardizem 120 mg daily as instructed by Dr. Hinton (see 03/18/16 phone encounter). She has also cut her Avalide down to a half-dose daily. Yesterday she experienced a persisting bout of Afib that made her lightheaded and she eventually went to [facility]. Just before she checked in, she converted back to NSR so she went home without the need to be seen. She is worried because she has hoped that the Cardizem would eliminate these episodes. Her follow-up is 04/30/16, but she is asking if Dr. Hinton has any recommendations or medications changes before then. Will review with Dr. Hinton and contact patient with any recommendations. 03/18/16: The patient reported lightheadedness and a skipped beat and telemetry of report revealed atrial fibrillation at a heart rate of 220 bpm. Following this event although auto triggered atrial fibrillation lasting 90 seconds was detected. The patient states now that her heart rate is normal and she feels back to baseline. She reports sensation of her throat hurting during episodes. The patient is currently on Avalide 300 mg/12.5 mg (irbesartan/hydrochlorothiazide daily. Patient instructed to reduce her Avalide to one half tablet daily Recommend initiation of aspirin 325 mg by mouth today followed by 81 mg daily. Recommend Cardizem 120 mg daily. Patient has follow-up scheduled on April 30, 2016. Recommend continuation of telemetry monitoring for additional 2 weeks. 03/12/2016: Seeing PCP q 6 weeks because it got so bad fluttering more severe. Starts out like feeling bubbles in chest. Sometimes fast and sometimes hard. Coworkers have taken pulse highest 168. Many times normal . Gets tunnel vision. Home BP monitoring started and shows irregular HR. Happening q 6 weeks in the past, now sometimes every other day. Sometimes sx free for a week. Sometimes comes on suddenly. PCP thought it could be GERD or panic attacks and no monitoring performed. Fainted 1 week prior to Halloween this year. Cousin told her to bear down or cough and she did this and it worked Initially but not helping now. Longest it lasts for is a days. Onset can be gradual or abrupt and sometimes it lasts a whole day. Other times lasts 20 mins. No triggers . Does not use caffeine. Last TSH/TFTs normal by report January 2016 at [facility]. ECG low right atrial rhythm. PAST MEDICAL HISTORY Diagnosis Date A-fib (HCC) Thyroid nodule PAST SURGICAL HISTORY Procedure Laterality Date SECTION HX C Sections SOCIAL HISTORY Social History Tobacco Use Smoking status: Never Smoker Smokeless tobacco: Never Used Tobacco comment: Parents smoked in childhood home. Spouse quit smoking 25 years ago. Substance Use Topics Alcohol use: No Drug use: No FAMILY HISTORY Problem Relation Age of Onset Stroke Mother Cancer Father Lung Asthma Sister Two other (Other) Other Cousin with lung transplant. Asthma Other All of my aunts. ALLERGIES Allergen Reactions Adhesive Tape (Idalia* Rash Latex, Natural Rubb* Rash Sulfamethoxazole-Tr* Vomiting *ANTI-INFECTIVE AGENTS--MISC.* *ANTI-INFECTIVE AGENTS--MISC.* CURRENT MEDICATIONS: dilTIAZem XR (DILACOR XR) 120 mg 24 hr capsule Take 1 capsule by mouth once daily. flecainide (TAMBOCOR) 100 mg tablet Take 1 tablet by mouth every 12 hours. atorvastatin (LIPITOR) 20 mg tablet Take 1 tablet by mouth once daily. [id number] 3.5 MG/ML-10,000 UNIT/ML-0.1% EYE DROPS INSTILL 1 DROP INTO BOTH EYES 4 TIMES A DAY famotidine (PEPCID) 20 mg tablet famotidine 20 mg tablet TAKE 1 TABLET ORALLY TWICE PER DAY FOR 30 DAYS ixekizumab (TALTZ AUTOINJECTOR, 2 PACK,) 80 mg/mL AutoInjector Inject 80 mL subcutaneously. cholecalciferol, vitamin D3, (VITAMIN D3) 4,000 unit cap Take 1 capsule by mouth once daily. aspirin, enteric coated (ECOTRIN LOW STRENGTH) 81 mg EC tablet Take 1 tablet by mouth once daily. Take 4 tablets (324 mg the first day AVALIDE 300-12.5 mg ORAL per tablet OTC pepcid. REVIEW OF SYSTEMS: GENERAL: Negative for: Weight loss or gain, Fever or Chills, Weakness and Sleep difficulties. HEENT: Negative for: Headache, Impaired Vision, Glasses, Hearing Impairment, Ringing in Ears, Nosebleeds, Poor dental care, Bleeding Gums, Dentures NECK: Negative for: Swelling, Pain, Stiffness RESPIRATORY: Negative for: Cough, Blood in Sputum, Shortness of breath, Wheezing, Apnea GASTROINTESTINAL: Negative for: Trouble swallowing, Heartburn, Change in bowel habits, Blood in stool, Dark black stools MUSCULOSKELETAL: Negative for: Muscle or joint pain, Stiffness , Joint swelling NEUROLOGIC/PSYCHIATRIC: Negative for: Weakness, Paralysis, Numbness, Tingling, Tremor, Nervousness, Depressed mood, Memory loss SKIN: Negative for: Rashes, Itching HEMATOLOGICAL/LYMPHATIC: Negative for: Easy bruising , Easy bleeding ENDOCRINE: Negative for: Heat or cold intolerance, Excessive sweating, Frequent urination, Frequent thirst PHYSICAL EXAMINATION: There were no vitals taken for this visit. Virtual Visit CARDIAC TESTIN05/13/16: Nuclear stress test The stress test was terminated due to the following: Fatigue. Peak HR 151 bpm. (91 % MPHR) (7.0 METS) Peak BP 168 mmHg/96 mmHg Patient experienced no symptoms during stress. Stress ECG normal ST segment response and normal sinus rhythm. 1. Perfusion Study: Normal. 2. There is no scintigraphic evidence for inducible ischemia. 3. No evidence of scarred Myocardium. 4. Average functional capacity for age and gender. 5. Left ventricle is small. 6. Right ventricle is normal in size. 7. This is a low risk scan. ECHO: 03/31/2016 - Technically difficult exam due to body habitus. - Exam indication: Palpitations - The left ventricle is normal in size. Left ventricular systolic function is normal. EF = 67 5% (2D 4-ch.) Normal left ventricular diastolic function. - The right ventricle is normal in size. Right ventricular systolic function is normal. - The left atrial cavity is mildly dilated. - The patient has not had a prior CC echocardiographic exam for comparison. 03/14/09: Hook-up date: 2009-03-08 16:57:17 Duration: 47:59:00 Test Indications: Rapid heart rate Medications: [id number] QRS complexes 37 Ventricular ectopics which represent <1 % of total QRS comp. 280 Supraventricular ectopics which represent <1 % of total QRS comp. * Paced QRS complexs which represent * % of total QRS comp. VENTRICULAR ECTOPY 37 Isolated 0 Bigeminal Cycles 0 Couplets 0 Runs 0 Beats in Runs * Beats LONGEST at * BPM at * Beats FASTEST at * BPM at SUPRAVENTRICULAR ECTOPY 254 Isolated 13 Couplets 0 Runs 0 Beats in Runs * Beats LONGEST at * BPM at * Beats FASTEST at * BPM at HEART RATES 51 MIN at 05:37:45 2009-03-09 77 AVG 138 MAX at 18:08:01 2009-03-09 LONGEST RR 0.0013 secs at 29:40:49 2009-03-10 S-T LEVELS Channel 1 + 3 mm at 16:27:17 2009-03-09 - 15 mm at 12:41:17 2009-03-09 Channel 2 + 2 mm at 15:13:17 2009-03-09 - 6 mm at 17:54:17 2009-03-09 Channel 3 - 128 mm at 03:61:63 * - 128 mm at 03:61:63 Returned and scanned 03-12-09 The basic rhythm was sinus with sinus arrhythmia at an average rate of 77 BPM, a maximum rate of 136 BPM and a minimum rat e of 51 BPM. There were 23,937 beats in tachycardia which was 11% of all the complexes and 7,309 beats in bradycardia at 3%. Isolated PVCs totaled 37 in this 48 hour scan. Supraventricular ectopy totaled 280 and was seen in isolation, as 13 pairs and as aberrantly conducted SVEs. No documented symptoms. Referred By: KENNA OTHER, NOT ON F Overread By: BECKI KATZ M.D. LABS: Component Latest Ref Rng & Units 03/24/2016 WBC 3.70 - 11.00 k/uL 5.40 RBC 3.90 - 5.20 m/uL 4.83 Hemoglobin 11.5 - 15.5 g/dL 13.7 Hematocrit 36.0 - 46.0 % 40.5 MCV 80.0 - 100.0 fL 83.9 MCH 26.0 - 34.0 pG 28.4 MCHC 30.5 - 36.0 g/dL 33.8 RDW-CV 11.5 - 15.0 % 12.3 Platelet Count 150 - 400 k/uL 347 MPV 9.0 - 12.7 fL 9.5 Neut% % 42.4 Abs Neut (ANC) 1.45 - 7.50 k/uL 2.29 Lymph% % 35.6 Abs Lymph 1.00 - 4.00 k/uL 1.92 Hudspeth% % 18.5 Abs Hudspeth 0.00 - 0.86 k/uL 1.00 (H) Eosin% % 2.8 Abs Eosin 0.00 - 0.45 k/uL 0.15 Baso% % 0.7 Abs Baso 0.00 - 0.10 k/uL 0.04 Protein, Total 6.0 - 8.4 g/dL 7.6 Albumin 3.5 - 5.0 g/dL 4.4 Calcium 8.5 - 10.5 mg/dL 9.4 Bilirubin, Total 0.0 - 1.5 mg/dL 0.4 Alkaline Phosphatase 40 - 150 U/L 103 AST 7 - 40 U/L 20 Glucose 65 - 100 mg/dL 91 BUN 8 - 25 mg/dL 7 (L) Creatinine 0.70 - 1.40 mg/dL 0.92 Sodium 132 - 148 mmol/L 142 Potassium 3.5 - 5.0 mmol/L 4.0 Chloride 98 - 110 mmol/L 104 CO2 23 - 32 mmol/L 25 Anion Gap 0 - 15 mmol/L 13 ALT 0 - 45 U/L 20 eGFR >60 eGFR-All Other Races . >60 CK 30 - 220 U/L 40 MB 0.0 - 8.8 ng/mL <1.0 CK MB % 0.0 - 4.0 % Unable to calculate because one or more components used in calculation outside of . . . Troponin T 0.000 - 0.029 ng/mL <0.010 ASSESSMENT/PLAN: Paroxysmal Atrial Fibrillation: Stress evaluation was negative for inducible ischemia. Flecainide started 06/2016 due to frequent symptomatically recurrence of paroxysmal atrial fibrillation. She was seen in Consultation by Osiel Cash and sleep study recomended. Cardiazem to 120 mg daily Flecainide to 100 mg po bid due to > 21 recurrences since October 2018 Weight loss [id number] Vasc 1-2, ASA 81 mg daily. ECG: NSR 07/22/21 HTN: Avalide 300//12.5 for HTN reduced. Diltiazem ( Dilacor XR) 120 mg daily 07/22/21:BP 126/74 Pulse 72 Resp 14 Ht 160 cm (5' 3) Wt 88.9 kg (196 lb) BMI 34.72 07/23/20: BP 110/68 Pulse 66 Resp 14 Ht 160 cm (5' 3) Wt 82.1 kg (181 lb) BMI 32.06 01/23/20: BP 116/70 Pulse 68 Resp 14 Ht 160 cm (5' 3) Wt 89.4 kg (197 lb) BMI 34.90 06/27/19: BP 130/80 Ht 160 cm (5' 3) Wt 83.9 kg (185 lb) BMI 32.77 kg/m Hyperlipidemia Atorvastatin 20 mg nightly . Pre statin values Total 252 HDL 54 LDL 166 Triglycerides 161 Cholesterol, Total (mg/dL) Date Value 02/11/2019 140 HDL Cholesterol (mg/dL) Date Value 02/11/2019 50 LDL Cholesterol (mg/dL) Date Value 02/11/2019 73 Triglyceride (mg/dL) Date Value 02/11/2019 87 Overweight - Saw Neonatal Specialist - following a Mediterranean diet. - AF provoked by Exercise - Nocturnal desats, hypoApnea ? Saw Pulmonary Marek Grant MD, [facility] in consultation 05/11/18. Note read. 1. I see no indication to initiate CPAP Rx at this time. Disposition: Same meds Labs to check kidney function follow up in 12 [address] [facility] CC: Gaurav Lund, [id number] [facility] [address] [place] [address] documented in this encounter [facility] Evaluation note Diagnosis PAF (paroxysmal atrial fibrillation) (HCC)- Primary Atrial fibrillation Essential hypertension Unspecified essential hypertension Pure hypercholesterolemia Paroxysmal atrial fibrillation (HCC) Atrial fibrillation [facility]* Diagnosis Paroxysmal atrial fibrillation (HCC) Atrial fibrillation documented in this encounter [facility] note* Diagnosis PAF (paroxysmal atrial fibrillation) (HCC)- Primary Atrial fibrillation Essential hypertension Unspecified essential hypertension Chest pain, unspecified type documented in this encounter [facility] note* Diagnosis Pure hypercholesterolemia- Primary Paroxysmal atrial fibrillation (HCC) Atrial fibrillation documented in this encounter [facility] note* Diagnosis PAF (paroxysmal atrial fibrillation) (HCC) Atrial fibrillation Essential hypertension Unspecified essential hypertension Chest pain, unspecified type documented in this encounter [facility] note* Diagnosis Epistaxis, recurrent- Primary Elevated blood pressure reading Elevated blood pressure reading without diagnosis of hypertension documented in this encounter [facility] note* Diagnosis PAF (paroxysmal atrial fibrillation) (HCC)- Primary Atrial fibrillation documented in this encounter [facility] note* Diagnosis Paroxysmal atrial fibrillation (HCC)- Primary Atrial fibrillation documented in this encounter [facility] note* Diagnosis Personal history of COVID-19- Primary Acute cough documented in this encounter [facility] Work Phone: Evaluation note* Diagnosis Eustachian tube dysfunction, right- Primary documented in this encounter [facility] Work Phone: Evaluation note* Diagnosis Paroxysmal atrial fibrillation (HCC) Atrial fibrillation documented in this encounter [facility] note* Diagnosis PAF (paroxysmal atrial fibrillation) (HCC) Atrial fibrillation Atrial fibrillation, unspecified type (HCC) documented in this encounter [facility] note* Diagnosis Pre-op evaluation- Primary Preoperative examination, unspecified Essential hypertension Unspecified essential hypertension High triglycerides Pure hyperglyceridemia PAF (paroxysmal atrial fibrillation) (HCC) Atrial fibrillation Gastroesophageal reflux disease, unspecified whether esophagitis present Liver cyst Other specified disorders of liver Goiter Goiter, unspecified Psoriasis Other psoriasis Lumbar herniated disc Displacement of lumbar intervertebral disc without myelopathy PONV (postoperative nausea and vomiting) Nausea with vomiting Chronic interstitial cystitis Atrial fibrillation, unspecified type (HCC) * Assessment & Plan Note - Jesica Ingram PA-C - 06/03/2024 10:16 AM EDT Associated Problem(s): Chronic interstitial cystitis Assessment: follows with urology * Assessment & Plan Note - Jesica Ingram PA-C - 06/03/2024 10:16 AM EDT Associated Problem(s): PONV (postoperative nausea and vomiting) Assessment: Pt reports PONV with previous surgeries/procedures. * Assessment & Plan Note - Jesica Ingram PA-C - 06/03/2024 10:13 AM EDT Associated Problem(s): Lumbar herniated disc Assessment: intermittent with radicular symptoms, last exacerbation ~1.5 years ago, improved with PT, none currently * Assessment & Plan Note - Jesica Ingram PA-C - 06/03/2024 10:13 AM EDT Associated Problem(s): Psoriasis Assessment: follows with dermatology, on tremfya every other month, last dose 05/14/2024 * Assessment & Plan Note - Jesica Ingram PA-C - 06/03/2024 10:12 AM EDT Associated Problem(s): Goiter Assessment: follows with endocrinology Dr. Goss; not on rx * Assessment & Plan Note - Jesica Ingram PA-C - 06/03/2024 10:12 AM EDT Associated Problem(s): Liver cyst Assessment: incidental finding, does not follow with specialist * Assessment & Plan Note - Jesica Ingram PA-C - 06/03/2024 10:11 AM EDT Associated Problem(s): Gastroesophageal reflux disease Assessment: Controlled on pepcid. Advised avoidance of triggers. Following with PCP. * Assessment & Plan Note - Jesica Ingram PA-C - 06/03/2024 10:11 AM EDT Associated Problem(s): PAF (paroxysmal atrial fibrillation) (HCC) Assessment: follows with Dr. Hinton. On eliquis, flecainide, and diltiazem but still having bouts of a fib. Most recent episode mid March lasting ~12 hours as well as 5 minute episode over the past weekend. Denies current palpitations, CP, SOB, RRR today on exam. * Assessment & Plan Note - Jesica Ingram PA-C - 06/03/2024 10:09 AM EDT Associated Problem(s): High triglycerides Assessment: Compliant on statin therapy. Encouraged lifestyle modifications. Body mass index is 30.62 kg/m . * Assessment & Plan Note - Jesica Ingram PA-C - 06/03/2024 10:09 AM EDT Associated Problem(s): Essential hypertension Assessment: Stable, compliant on rx. Follows with PCP. Last 3 Encounter BP Readings: Date: BP: 06/03/2024 107/69 05/13/2024 104/64 03/18/2024 110/80 [facility] Diagnosis Pre-op evaluation- Primary Preoperative examination, unspecified Essential hypertension Unspecified essential hypertension High triglycerides Pure hyperglyceridemia PAF (paroxysmal atrial fibrillation) (HCC) Atrial fibrillation Gastroesophageal reflux disease, unspecified whether esophagitis present Liver cyst Other specified disorders of liver Goiter Goiter, unspecified Psoriasis Other psoriasis Lumbar herniated disc Displacement of lumbar intervertebral disc without myelopathy PONV (postoperative nausea and vomiting) Nausea with vomiting Chronic interstitial cystitis PAF (paroxysmal atrial fibrillation) (HCC)- Primary Atrial fibrillation documented in this encounter [facility] note* Diagnosis Pre-op evaluation- Primary Preoperative examination, unspecified Essential hypertension Unspecified essential hypertension High triglycerides Pure hyperglyceridemia PAF (paroxysmal atrial fibrillation) (HCC) Atrial fibrillation Gastroesophageal reflux disease, unspecified whether esophagitis present Liver cyst Other specified disorders of liver Goiter Goiter, unspecified Psoriasis Other psoriasis Lumbar herniated disc Displacement of lumbar intervertebral disc without myelopathy PONV (postoperative nausea and vomiting) Nausea with vomiting Chronic interstitial cystitis Pure hypercholesterolemia documented in this encounter [facility] note* Diagnosis Pre-op evaluation- Primary Preoperative examination, unspecified Essential hypertension Unspecified essential hypertension High triglycerides Pure hyperglyceridemia PAF (paroxysmal atrial fibrillation) (HCC) Atrial fibrillation Gastroesophageal reflux disease, unspecified whether esophagitis present Liver cyst Other specified disorders of liver Goiter Goiter, unspecified Psoriasis Other psoriasis Lumbar herniated disc Displacement of lumbar intervertebral disc without myelopathy PONV (postoperative nausea and vomiting) Nausea with vomiting Chronic interstitial cystitis Paroxysmal atrial fibrillation (HCC)- Primary Atrial fibrillation Essential hypertension Unspecified essential hypertension Pure hypercholesterolemia Overweight (BMI 25.0-29.9) Overweight documented in this encounter [facility] for referral (narrative)* Outpatient Procedure (Routine) - Closed Specialty Diagnoses / Procedures Referred By Contact Referred To [facility] Diagnoses PAF (paroxysmal atrial fibrillation) (HCC) Pure hypercholesterolemia Procedures ECG COMPLETE ECG ROUTINE ECG W/LEAST 12 LDS W/I&[place] [address] [place] [address] [facility] [address] [place] [address] Referral ID Status Reason Start Date Expiration Date V isits Requested Visits Authorized [id number] Closed Auto-Generate d Referral 07/22/2021 07/22/2022 1 1 [facility] for referral (narrative)* Diagnostic Procedure Only (Routine) - New Request Specialty Diagnoses / Procedures Referred By Contac t Referred To Contact [facility] Diagnoses PAF (paroxysmal atrial fibrillation) (HCC) Essential hypertension Chest pain, unspecified type Procedures NM CARDIAC PERF STRESS/EXERCISE MYOCARDIAL SPECT MULTIPLE STUDIES Perla Hinton [place] [id number] [place] [address] [facility] [address] [place] [address] Referral ID Status Reason Start Date Expiration Date Visits Requested Visits Authorized [id number] New Request Auto-Generat ed Referral 09/11/2023 10/10/2024 1 1 * Outpatient Procedure (Routine) - New Request Specialty Diagnoses / Procedures Referred By Contac t Referred To Contact [facility] Diagnoses PAF (paroxysmal atrial fibrillation) (HCC) Procedures ECG COMPLETE ECG ROUTINE ECG W/LEAST 12 LDS W/I&R Perla Hinton MD [id number] [place] [address] [facility] [place] [address] Referral ID Status Reason Start Date Expiration Date Visits Requested Visits Authorized [id number] New Request Auto-Generat ed Referral 09/11/2023 09/10/2024 1 1 [facility] for referral (narrative)* Diagnostic Procedure Only (Routine) - Closed Specialty Diagnoses / Procedures [facility] To Contact [facility] Diagnoses PAF (paroxysmal atrial fibrillation) (HCC) Essential hypertension Chest pain, unspecified type Procedures NM CARDIAC PERF STRESS/EXERCISE MYOCARDIAL SPECT [place] [address] [place] [address] [facility] [address] [place] [address] Referral ID Status Reason Start Date Expiration Date V isits Requested Visits Authorized [id number] Closed Auto-Generate d Referral 09/22/2023 11/20/2023 2 2 [facility] for referral (narrative)* Outpatient Procedure (Routine) - New Request Specialty Diagnoses / Procedures Referred By Vitor grayson Referred To Contact [facility] Diagnoses Paroxysmal atrial fibrillation (HCC) Procedures ECHO ECHO TTHRC R-T 2D W/WOM-MODE COMPL SPEC&[place] [address] [place] [address] [place] [phone] Referral ID Status Reason Start Date Expiration Date Visits Requested Visits Authorized [id number] New Request Auto-Generat ed Referral 03/18/2024 03/18/2025 1 1 * Outpatient Procedure (Routine) - New Request Specialty Diagnoses / Procedures Referred By Vitor grayson Referred To Contact [facility] Diagnoses Paroxysmal atrial fibrillation (HCC) Procedures ECG COMPLETE ECG ROUTINE ECG W/LEAST 12 LDS W/I&[place] [address] [place] [address] [address] Referral ID Status Reason Start Date Expiration Date Visits Requested Visits Authorized [id number] New Request Auto-Generat ed Referral 03/18/2024 03/18/2025 1 1 [facility] for visit Narrative* Diagnostic Procedure Only (Routine) - Closed Specialty Diagnoses / Procedures Referred By Vitor grayson Referred To Contact [facility] Diagnoses PAF (paroxysmal atrial fibrillation) (HCC) Essential hypertension Chest pain, unspecified type Procedures NM CARDIAC PERF STRESS/EXERCISE MYOCARDIAL SPECT [place] [address] [place] [address] [facility] [address] [place] [phone] Referral ID Status Reason Start Date Expiration Date V isits Requested Visits Authorized [id number] Closed Auto-Generate d Referral 09/22/2023 11/20/2023 2 2 [facility] Procedure (Routine) - Closed Specialty Diagnoses / Procedures Referred By Vitor grayson Referred To [facility] Diagnoses Paroxysmal atrial fibrillation (HCC) Procedures ECHO ECHO TTHRC R-T 2D W/WOM-MODE COMPL SPEC&[place] [address] [place] [phone] Phone: tel: fax: [facility] [address] [place] [address] Referral ID Status Reason Start Date Expiration Date V isits Requested Visits Authorized [id number] Closed Auto-Generate d Referral 04/15/2024 06/13/2024 1 1 [facility] Summary Purpose Family History No Family History Records FoundNo Family History Records FoundNo Family History Records FoundNo Family History Records FoundNo Family History Records FoundNo Family History Records FoundNo Family History Records FoundNo Family History Records FoundNo Family History Records FoundNo Family History Records FoundNo Family History Records Found Advance Directives No Advanced Directives Records FoundDocuments on File Type Date Recorded Patient Human Resources Benefits Assistant Expl anation Advance Directive(s) 08/28/2018 8:35 PM Advance Directive(s) 04/07/2018 11:42 AM Reason for Referral Specialty Diagnoses / Procedures Referred By Vitor grayson Referred To Contact Diagnoses PAF (paroxysmal atrial fibrillation) (HCC) Procedures CONSULT TO ELECTROPHYSIOLOGY OFFICE/OUTPATIENT [facility] [place] [address] [place] [address] Adilene López MD [address] [facility] [address], [address] [place] [address] Referral ID Status Reason Start Date Expiration Date Visits Requested Visits Authorized [id number] Authorized PCP Requested Referral 03/18/2024 03/18/2025 1 1 Additional Source Comments INFORMATION SOURCE (unrecogn ized section and content) DATE CREATED AUTHOR 08/26/2017 [facility] DATE CREATED AUTHOR AUTHOR'S ORGANIZ ATION 06/03/2018 [facility] DATE CREATED AUTHOR AUTHOR'S ORGANIZ ATION 05/23/2019 [facility] DATE CREATED AUTHOR AUTHOR'S ORGANIZ ATION 03/24/2020 [facility] DATE CREATED AUTHOR AUTHOR'S ORGANIZ ATION 02/03/2021 [facility] DATE CREATED AUTHOR AUTHOR'S ORGANIZ ATION 12/21/2022 [facility] DATE CREATED AUTHOR AUTHOR'S ORGANIZ ATION 12/02/2023 [facility] DATE CREATED AUTHOR AUTHOR'S ORGANIZ ATION 06/07/2024 [facility] DATE CREATED AUTHOR AUTHOR'S ORGANIZ ATION 06/29/2024 [facility] DATE CREATED AUTHOR AUTHOR'S ORGANIZ ATION 09/21/2024 [facility] DATE CREATED AUTHOR AUTHOR'S ORGANIZ ATION 10/02/2024 [facility] Source Comments (unrecognize d section and content) In the event this informatio n is protected by the Federal Confidentiality of Alcohol and Drug Abuse Patient Records regulations: The Federal rules restrict any use of the information to criminally investigate or prosecute any alcohol or drug abuse patient.[facility] the event this information is protected by the Federal Confidentiality of Alcohol and Drug Abuse Patient Records regulations: The Federal rules restrict any use of the information to criminally investigate or prosecute any alcohol or drug abuse patient.[facility] the event this information is protected by the Federal Confidentiality of Alcohol and Drug Abuse Patient Records regulations: The Federal rules restrict any use of the information to criminally investigate or prosecute any alcohol or drug abuse patient.[facility] the event this information is protected by the Federal Confidentiality of Alcohol and Drug Abuse Patient Records regulations: The Federal rules restrict any use of the information to criminally investigate or prosecute any alcohol or drug abuse patient.[facility] the event this information is protected by the Federal Confidentiality of Alcohol and Drug Abuse Patient Records regulations: The Federal rules restrict any use of the information to criminally investigate or prosecute any alcohol or drug abuse patient.[facility] the event this information is protected by the Federal Confidentiality of Alcohol and Drug Abuse Patient Records regulations: The Federal rules restrict any use of the information to criminally investigate or prosecute any alcohol or drug abuse patient.[facility] the event this information is protected by the Federal Confidentiality of Alcohol and Drug Abuse Patient Records regulations: The Federal rules restrict any use of the information to criminally investigate or prosecute any alcohol or drug abuse patient.[facility] the event this information is protected by the Federal Confidentiality of Alcohol and Drug Abuse Patient Records regulations: The Federal rules restrict any use of the information to criminally investigate or prosecute any alcohol or drug abuse patient.[facility] the event this information is protected by the Federal Confidentiality of Alcohol and Drug Abuse Patient Records regulations: The Federal rules restrict any use of the information to criminally investigate or prosecute any alcohol or drug abuse patient.[facility] the event this information is protected by the Federal Confidentiality of Alcohol and Drug Abuse Patient Records regulations: The Federal rules restrict any use of the information to criminally investigate or prosecute any alcohol or drug abuse patient.[facility] the event this information is protected by the Federal Confidentiality of Alcohol and Drug Abuse Patient Records regulations: The Federal rules restrict any use of the information to criminally investigate or prosecute any alcohol or drug abuse patient.[facility] the event this information is protected by the Federal Confidentiality of Alcohol and Drug Abuse Patient Records regulations: The Federal rules restrict any use of the information to criminally investigate or prosecute any alcohol or drug abuse patient.[facility] the event this information is protected by the Federal Confidentiality of Alcohol and Drug Abuse Patient Records regulations: The Federal rules restrict any use of the information to criminally investigate or prosecute any alcohol or drug abuse patient.[facility] the event this information is protected by the Federal Confidentiality of Alcohol and Drug Abuse Patient Records regulations: The Federal rules restrict any use of the information to criminally investigate or prosecute any alcohol or drug abuse patient.[facility] the event this information is protected by the Federal Confidentiality of Alcohol and Drug Abuse Patient Records regulations: The Federal rules restrict any use of the information to criminally investigate or prosecute any alcohol or drug abuse patient.[facility] the event this information is protected by the Federal Confidentiality of Alcohol and Drug Abuse Patient Records regulations: The Federal rules restrict any use of the information to criminally investigate or prosecute any alcohol or drug abuse patient.[facility] the event this information is protected by the Federal Confidentiality of Alcohol and Drug Abuse Patient Records regulations: The Federal rules restrict any use of the information to criminally investigate or prosecute any alcohol or drug abuse patient.[facility] the event this information is protected by the Federal Confidentiality of Alcohol and Drug Abuse Patient Records regulations: The Federal rules restrict any use of the information to criminally investigate or prosecute any alcohol or drug abuse patient.[facility] the event this information is protected by the Federal Confidentiality of Alcohol and Drug Abuse Patient Records regulations: The Federal rules restrict any use of the information to criminally investigate or prosecute any alcohol or drug abuse patient.[facility] the event this information is protected by the Federal Confidentiality of Alcohol and Drug Abuse Patient Records regulations: The Federal rules restrict any use of the information to criminally investigate or prosecute any alcohol or drug abuse patient.[facility] the event this information is protected by the Federal Confidentiality of Alcohol and Drug Abuse Patient Records regulations: The Federal rules restrict any use of the information to criminally investigate or prosecute any alcohol or drug abuse patient.[facility] Reason for Visit (unrecogniz ed section and content) Reason Comments Follow Up Reason Comments Refill Request Reason Comments Recheck Reason Comments Reminder Call Reason Comments Nose bleed Nose bleeding x this afternoon, broken nose x 1 week; active bleeding at triage Reason Comments Appointment For PVI Reason Comments Follow Up Reason Comments Appointment Reason Comments Earache Right side ear ache 3 days ago, Reason Comments Procedure Reason Comments New Patient Atrial Fibrillation Specialty Diagnoses / Procedures Referred By Contac t Referred To Contact Diagnoses PAF (paroxysmal atrial fibrillation) (HCC) Procedures CONSULT TO ELECTROPHYSIOLOGY OFFICE/OUTPATIENT [facility] [place] [address] [place] [address] Phone: tel: fax: Adilene López MD [address] [facility] [address], [address] [place] [phone] Phone: tel: fax: Referral ID Status Reason Start Date Expiration Date V isits Requested Visits Authorized [id number] Closed PCP Requested Referral 03/18/2024 03/18/2025 1 1 Reason Comments Anesthesia Consult Reason Comments Hospital F/U PVI Care Teams (unrecognized sec tion and content) Can Bander Operator Relationship Specialty [place] [address] [address] [place] [phone] PCP - General Internal Medicine 04/07/18 [place] [address] [place] [address] [facility] 07/01/21 Can Bander Operator Relationship Specialty [place] [address] [address] [address] PCP - General Internal Medicine 04/07/18 [place] [address] [place] [address] [facility] 07/01/21 Can Bander Operator Relationship Specialty [place] [address] [address] PCP - General Internal Medicine 04/07/18 [place] [address] [place] [address] [facility] 07/01/21 Can Bander Operator Relationship Specialty [place] [address] [address] PCP - General Internal Medicine 04/07/18 [place] [address] [place] [address] [facility] 07/01/21 Can Bander Operator Relationship Specialty Start [place] [address] [address] PCP - General Internal Medicine 04/07/18 [place] [address] [place] [address] [facility] 07/01/21 Can Bander Operator Relationship Specialty Start [place] [address] [address] PCP - General Internal Medicine 04/07/18 [place] [address] [place] [address] [facility] 07/01/21 Can Bander Operator Relationship Specialty Start [place] [address] [address] PCP - General Internal Medicine 04/07/18 [place] [address] [place] [address] [facility] 07/01/21 Can Bander Operator Relationship Specialty Start Date End Date [facility] [address] [place] [address] 11/25/23 Can Bander Operator Relationship Specialty Start [place] [address] [address] PCP - General Internal Medicine 04/07/18 [place] [address] [place] [address] [facility] 07/01/21 Can Bander Operator Relationship Specialty Start [place] [address] [address] PCP - General Internal Medicine 04/07/18 [place] [address] [place] [address] [facility] 07/01/21 Can Bander Operator Relationship Specialty [place] [address] [facility] [address] [place] [address] PCP - General 03/23/20 Can Bander Operator Relationship Specialty Start [place] [address] [facility] [address] [place] [address] PCP - General 03/23/20 Can Bander Operator Relationship Specialty Start [place] [address] [address] PCP - General Internal Medicine 04/07/18 [place] [address] [place] [address] [facility] 07/01/21 Can Bander Operator Relationship Specialty Start [place] [address] [address] PCP - General Internal Medicine 04/07/18 [place] [address] [place] [address] [facility] 07/01/21 Can Bander Operator Relationship Specialty Start [place] [address] [address] PCP - General Internal Medicine 04/07/18 [place] [address] [place] [address] [facility] 07/01/21 Adilene López MD [facility] [facility] [place] [address] Primary Staff Physician Cardiology 05/13/24 Can Bander Operator Relationship Specialty [place] [id number] [place] [address] PCP - General Internal Medicine 04/07/18 [place] [address] [place] [address] Buyer Internship Cardiology 07/01/21 Adilene López MD [facility] [address], [address] [place] [address] Primary Staff Physician Cardiology 05/13/24 Can Bander Operator Relationship Specialty [place] [id number] [address] PCP - General Internal Medicine 04/07/18 [place] [address] [place] [address] [employer] Intern[employer] Cardiology 07/01/21 Adilene López MD [address] [facility] [address], [address] [place] [address] Primary Staff Physician Cardiology 05/13/24 Can Bander Operator Relationship Specialty [place] [id number] [address] PCP - General Internal Medicine 04/07/18 [place] [address] [place] [address] [employer] Internship Cardiology 07/01/21 Adilene López MD [address] [facility] [address], [address] [place] [address] Primary Staff Physician Cardiology 05/13/24 Can Bander Operator Relationship Specialty [place] [id number] [address] PCP - General Internal Medicine 04/07/18 [place] [address] [place] [address] [employer] Internship Cardiology 07/01/21 Adilene López MD [facility] [address], [address] [place] [address] Primary Staff Physician Cardiology 05/13/24 Can Bander Operator Relationship Specialty [place] [address] [address] PCP - General Internal Medicine 04/07/18 [place] [address] [place] [address] [employer] Internship Cardiology 07/01/21 Adilene López MD [address] [facility] [address], [address] [place] [address] Primary Staff Physician Cardiology 05/13/24 Can Bander Operator Relationship Specialty [place] [address] [place] [address] PCP - General Internal Medicine 04/07/18 [place] [address] [place] [address] [employer]er Internship Cardiology 07/01/21 Adilene López MD [address] [facility] [address], [address] [place] [address] Primary Staff Physician Cardiology 05/13/24 Scheduled Active and Recently Administ ered Medications (unrecognized section and content) Medication Order 11/23/2023 11/24/2023 11/25/2023 oxymetazoline (AFRIN) 0.05 % nasal solution (COMPLETED) [address] [place], Nasal, ONCE, 1 dose, On Thu11/25/23 at 1855 1851 (Given - Provid er: Edward Mancia RN) FOR RECORDS PERTAINING TO PATIENTS WHO ARE OR HAVE BEEN ENROLLED IN A CHEMICAL DEPENDENCY/SUBSTANCEABUSE PROGRAM, SOME INFORMATION MAY BE OMITTED. This clinical summary was aggregated from multiple sources. Caution should be exercised in using it in the provision of clinical care. This summary normalizes information from multiple sources, and as a consequence, information in this document may materially change the coding, format and clinical context of patient data. In addition, data may be omitted in some cases. CLINICAL DECISIONS SHOULD BE BASED ON THE PRIMARY CLINICAL RECORDS. [employer] provides no warranty or guarantee of the accuracy or completeness of information in this document.
--- OUTSIDE RECORDS SUMMARY | 2024-10-07 12:28 | XMS RPT_ITS | CCD ---
Author Organization [facility] Informat ion Partnership [facility] Care Team Providers Care Bone Puller Name Role Phone ILENE KNOWLES Unavailable Unavailable LILIANA GODINEZ Unavailable Unavailable NO PRIMARY CAREMD Unavailable Unavailable Syeda Kraft Attending Unavailable Gaurav Lund Primary Care Unavailable Monie Camejo MD Primary Care Provider Perla Hinton MD Unavailable [phone] ROM GOSS MD Attending Unavailable NELL, SARPREET [...] Primary Care Provider Perla Hinton MD Unavailable Monie Camejo MD Primary Care Provider [facility] Unavailable [phone] PROVIDER, UNKNOWN Admitting Unavailable [...] TAPE (ROSINS)] Allergy to substance 03-13-19 14 [facility] (20 sources) Latex; Translations: [LATEX, NATURAL RUBBER] Drug Intolerance 11-28-19 11 [facility] (20 sources) Sulfamethoxazole / Trimethoprim; Translations: [SULFAMETHOXAZOLE-T RIMETHOPRIM] Drug Allergy 11-28-19 21 Vomiting, Nausea/vomitin g [facility] Work Phone: (1 source) Latex Allergy to substance 04-11-19 25 Other [facility] Medications Current Medications Medication Drug Class(es) Dates [...] on above: Take 1 capsule by mo [facility] once daily. clobetasol propionate 0.5 mg/ml topical [...] / neomycin 3.5 mg/ml / polymyxin b 44460 unt/ml ophthalmic suspension (4 sources) Aminoglycoside Antibacterial, [...] (1 source) Start: 11-25-2023 End: 11-25-2023 2 Belsano, Nasal, ONCE, 1 dose, On Thu11/25/23 at 1855 Start: 11-25-2023 End: 11-25-2023 2 Belsano, Nasal, ONCE, 1 dose , On Thu11/25/23 [...] Test Name Value Interpretation Reference Range Facility [facility] ENT Physician Progress N otadrianon 10-02-2024 [facility] ENT Physician Progress Note YOKASTA MORENO :1960 [...] Est Pt Low MDM / 20 min 61041, 09/30/2024 13:42:00 EDT, Goiter / History of [...] Est Pt Low MDM / 20 min 79411, 09/30/2024 13:42:00 EDT, Goiter / History of [...] Est Pt Low MDM / 20 min 83884, 09/30/2024 13:42:00 EDT, Goiter / History of [...] oral tablet), 50 mg= 1 tabs, ORAL, [id number] guselkumab(Tremfya 100 mg/mL subcutaneous solution) hydrochlorothiazide-ir besartan(hydrochloroth iazide-irbesartan 12.5 mg-300 mg oral tablet), 1 tabs, ORAL, DAILY, 2 refills Allergies Bactrim Vomiting LATEX allergy EYE SWELLING, HIVES, BLISTERING OF SKIN Tape al (more content not included)... Normal [facility] CNOVon 09-09-2024 CNOV Office Visit (CAIFB) YOKASTA MORENO ([id number]) 1960 F Date Time Provider Department 09/09/24 11:20 AM PERLA HINTON During your visit today, we recorded the following information about you: Pulse Blood pressure Weight Height 75/minute 110/78 75 kg 1.6 m Perla Hinton MD 09/09/2024 12:27 PM Signed [facility] Agnieszka Choe Department of Cardiovascular Medicine [facility] OUTPATIENT VISIT DATE September 09, 2024 OUTPATIENT [...] returning monitor had recurrent AF went to [facility] ER. By time got there was out. 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 She uses a [employer] device for weekly rhythm monitoring. She has [...] AF and this has bernabe documented on [employer].SPECT stress August 2023 was normal . No [...] heavy. SPECT 2017 normal Plan: - Buy [employer] to monitor and document frequency of AF - Repeat Exercise nuclear stress test due to chest pressure during episodes of recurrent Atrial fib - Call [facility] to schedule - Consideration of referral [...] 3 mph treadmill, 1.5%. Exercising intermittently at [employer]. 20 min with a goal of 150 min a week. - (more content not included)... Normal [facility] ECG COMPLETEon 09-09-2024 Atrial Rate 75 BPM [facility] Calculated P Kerens 13 degrees [facility] Calculated R Kerens 7 degrees [facility] Calculated T Kerens 43 degrees [facility] P-R Interval 118 ms [facility] QRS Duration 90 ms [facility] QT Interval 402 ms [facility] QTC Calculation (Bazett) 448 ms [facility] Ventricular Rate 75 BPM [facility] NORMAL SINUS RHYTHM NONSPECIFIC ST AND T WAVE ABNORMALITY ABNORMAL ECG Confirmed by PERLA HINTON M.D. (Kelly), web content editor GILBERTO MIRZA ([id number]) on 09/09/2024 2:05:12 PM [facility] NAME : ARTURO MORENO PID : [id number] : 1960 Gender : Female Race : ORD : [id number] Procedure Date : Sep 09 2024 11:57:01 Edit Date : Sep 09 2024 14:05:16 Diagnosis: NORMAL SINUS RHYTHM NONSPECIFIC ST AND T WAVE ABNORMALITY ABNORMAL ECG Confirmed by PERLA HINTON M.D. ([id number]), web content editor GILBERTO MIRZA ([id number]) on 09/09/2024 2:05:12 PM Test Reason : I48.0 Paroxysmal atrial fibrillation (HCC) Location : 503 : [facility] Overread By : PERLA HINTON M.D. Edited By : GILBERTO MIRZA Referred By : , Acquired by : william, [facility] ECG COMPLETE Ventricular Rate : 7 5 BPM Atrial Rate : 75 BPM P-R Interval : 118 ms QRS Duration : 90 ms Q-T Interval : 402 ms QTC Calculation(Bazett) : 448 ms Calculated P Kerens : 13 degrees Calculated R Kerens : 7 degrees Calculated T Kerens : 43 degrees NORMAL SINUS RHYTHM NONSPECIFIC ST AND T WAVE ABNORMALITY ABNORMAL ECG Confirmed by PERLA HINTON M.D. ([id number]), web content editor GILBERTO MIRZA ([id number]) on 09/09/2024 2:05:12 PM NAME : YOKASTA MORENO PID : [id number] : 1960 Gender : Female Race : ORD : [id number] Procedure Date : Sep 09 2024 11:57:01 Edit Date : Sep 09 2024 14:05:16 Diagnosis: NORMAL SINUS RHYTHM NONSPECIFIC ST AND T WAVE ABNORMALITY ABNORMAL ECG Confirmed by PERLA HINTON M.D. ([id number]), web content editor GILBERTO MIRZA ([id number]) on 09/09/2024 2:05:12 PM Test Reason : I48.0 Paroxysmal atrial fibrillation (HCC) Location : 503 : [facility] Overread By : PERLA HINTON M.D. Edited By : GILBERTO MIRZA Referred By : , Acquired by : Yasmine thomas [facility] CNOVon 08-19-2024 CNOV Office Visit (CEPSHL ) IRISYOKASTA CALABRESE Woody ([id number]) 1960 F Date Time Provider Department 08/19/24 11:00 AM ADILENE LÓPEZ [facility] During your visit today, we recorded the following information about you: Pulse Blood pressure Weight Height 60/minute 100/64 79.2 kg 1.6 m Adilene López MD 08/19/2024 1:21 PM Signed [facility] Agnieszka Choe Department of Cardiovascular Medicine SECTION OF CARDIAC PACING and ELECTROPHYSIOLOGY OUTPATIENT VISIT DATE 08/19/2024 OUTPATIENT VISIT TYPE ESTABLISHED PRIMARY CARE [place]IC[place] [id number] [address] [place] [phone] REFERRING PHYSICIAN: No referring provider defined for [...] systolic func (more content not included)... Normal [facility] ECG COMPLETEon 08-19-2024 ECG COMPLETE Ventricular Rate : 6 0 BPM Atrial Rate : 60 BPM P-R Interval : 168 ms QRS Duration : 116 ms Q-T Interval : 422 ms QTC Calculation(Bazett) : 422 ms Calculated P Kerens : 22 degrees Calculated R Kerens : 15 degrees Calculated T Kerens : 49 degrees NORMAL SINUS RHYTHM MINIMAL VOLTAGE CRITERIA FOR LVH, MAY BE NORMAL VARIANT ( Nayan product ) ANTERIOR T WAVE ABNORMALITY ABNORMAL ECG Confirmed by ADILENE LÓPEZ MD ([id number]) on 08/31/2024 3:19:41 PM NAME : YOKASTA MORENO PID : [id number] : 1960 Gender : Female Race : ORD : [id number] Procedure Date : Aug 19 2024 10:48:25 Edit Date : Aug 31 2024 15:19:42 Diagnosis: NORMAL SINUS RHYTHM MINIMAL VOLTAGE CRITERIA FOR LVH, MAY BE NORMAL VARIANT ( Nayan product ) ANTERIOR T WAVE ABNORMALITY ABNORMAL ECG Confirmed by ADILENE LÓPEZ MD ([id number]) on 08/31/2024 3:19:41 PM Test Reason : I48.0 PAF (paroxysmal atrial fibrillation) ([facility]) Location : 198 : [facility] 15 Overread By : ADILENE LÓPEZ MD Edited By : ADILENE LÓPEZ MD Referred By : Vasquez Acquired by : OSCAR LIRA [facility] ANES POSTPROC EVALon 025 ANES POSTPROC EVAL HNO ID: [id number] Author: BEBETO ZAVALETA MD Service: Anesthesiology Author Type: Anesthesiologist Type: Anesthesia Postprocedure Evaluation Filed: 06/28/2024 10:42 Note Text: POST ANESTHESIA EVALUATION NOTE : 1960 Procedure Summary Date: 06/28/24 Room / Location: [facility] / [facility] Anesthesia Start: 730 Anesthesia Stop: 955 Procedures: [...] June 28, 2024 TIME: 10:42 AM CSN: [id number] [facility] ANES PRE-OPon 06-28-2024 ANES PRE-OP HNO ID: [id number] Author: BEBETO ZAVALETA MD Service: Anesthesiology Author Type: Anesthesiologist Type: Anesthesia Preprocedure Evaluation Filed: 06/28/2024 07:18 Note Text: ANESTHESIOLOGY DAY OF SURGERY NOTE : 1960 Procedure Information Date/Time: 06/28/24 0730 Procedures: COMPRE EP EVAL ABLTJ ATR FIB PULM VEIN ISOLATION - heplock on arrival [facility] biosense t[employer] INTRACARDIAC ELECTROPHYSIOLOGIC 3-DIMENSIONAL MAPPING Location: [facility] / [facility] Providers: Adilene López MD Estimated body mass [...] and consent discussed: yes. Patient / Responsible Libertarian agrees to proceed: yes Patient / Surrogate [...] June 28, 2024 TIME: 7:16 AM CSN: [id number] Normal [facility] CBC panel Auto (Bld)on 06-28 Erythrocyte distribution width (RBC) [Ratio] 12.0 % Normal 11.5-15.0 [facility] Comment on above: Order Comment: Roselia miranda Type: BLOOD SPECIMEN Ordering Facility: [facility] Address: [address] [place] [address] Performed By: #### 5 8410-2 #### [facility] CLIA [id number] [address] [place] [address] [place] Hematocrit (Bld) [Volume fraction] 39.4 % Normal 36.0-46.0 [facility] Comment on above: Order Comment: Roselia imranda Type: BLOOD SPECIMEN Ordering Facility: [facility] Address: [address] [place] [address] Performed By: #### 5 8410-2 #### [facility] CLIA [id number] [address] [place] [address] [place] Hemoglobin (Bld) [Mass/Vol] 13.1 g/dL Normal 11.5-15.5 [facility] Comment on above: Order Comment: Roselia miranda Type: BLOOD SPECIMEN Ordering Facility: [facility] Address: [address] [place] [address] Performed By: #### 5 8410-2 #### [facility] CLIA [id number] [address] [place] [address] [place] MCH (RBC) [Entitic mass] 29.2 pg Normal 26.0-34.0 [facility] Comment on above: Order Comment: Speci men Type: BLOOD SPECIMEN Ordering Facility: [facility] Address: [address] [place] [address] Performed By: #### 5 8410-2 #### [facility] CLIA [id number] [address] [place] [address] [place] MCHC (RBC) [Mass/Vol] 33.2 g/dL Normal 30.5-36.0 [facility] Comment on above: Order Comment: Speci men Type: BLOOD SPECIMEN Ordering Facility: [facility] Address: [address] [place] [address] Performed By: #### 5 8410-2 #### [facility] CLIA [id number] [address] [place] [address] [place] MCV (RBC) [Entitic vol] 87.8 fL Normal 80.0-100.0 [facility] Comment on above: Order Comment: Speci men Type: BLOOD SPECIMEN Ordering Facility: [facility] Address: [address] [place] [address] Performed By: #### 5 8410-2 #### [facility] CLIA [id number] [address] [place] [address] [place] Nucleated RBC (Bld) [#/Vol] 10*3/uL Normal <0.01 [facility] Comment on above: Order Comment: Speci men Type: BLOOD SPECIMEN Ordering Facility: [facility] Address: [address] [place] [address] Performed By: #### 5 8410-2 #### [facility] CLIA [id number] [address] [place] [address] [place] Platelet mean volume (Bld) [Entitic vol] 9.8 fL Normal 9.0-12.7 [facility] Comment on above: Order Comment: Speci men Type: BLOOD SPECIMEN Ordering Facility: [facility] Address: [address] [place] [address] Performed By: #### 5 8410-2 #### [facility] CLIA [id number] [address] [place] [address] [place] Platelets (Bld) [#/Vol] 350 10*3/uL Normal 150-400 [facility] Comment on above: Order Comment: Speci men Type: BLOOD SPECIMEN Ordering Facility: [facility] Address: [address] [place] [address] Performed By: #### 5 8410-2 #### [facility] CLIA [id number] [address] [place] [address] [place] RBC (Bld) [#/Vol] 4.49 10*6/uL Normal 3.90-5.20 [facility] Comment on above: Order Comment: Speci men Type: BLOOD SPECIMEN Ordering Facility: [facility] Address: [address] [place] [address] Performed By: #### 5 8410-2 #### [facility] [place] [id number] [address] [place] [address] [place] WBC (Bld) [#/Vol] 6.18 10*3/uL Normal 3.70-11.00 [facility] Comment on above: Order Comment: Speci men Type: BLOOD SPECIMEN Ordering Facility: [facility] Address: [address] [place] [address] Performed By: #### 5 8410-2 #### [facility] CLIA [id number] [address] [place] [address] [place] CONFIRM BLOOD TYPEon 025 ABO O Normal [facility] Comment on above: Order Comment: Speci men Type: BLOOD SPECIMEN Ordering Facility: [facility] Address: [address] [place] [address] Performed By: #### C ONABO #### [facility] CLIA [id number] [address] [place] [address] [place] Rh Nom (Bld) Positive Normal [facility] Comment on above: Order Comment: Speci men Type: BLOOD SPECIMEN Ordering Facility: [facility] Address: [address] [place] [address] Performed By: #### C ONABO #### [facility] CLIA [id number] [address] [place] [address] [place] Comprehensive metabolic 2000 panelon 06-28-2024 Albumin [Mass/Vol] 4.3 g/dL Normal 3.9-4.9 [facility] Comment on above: Order Comment: Speci men Type: BLOOD SPECIMEN Ordering Facility: [facility] Address: [address] [place] [address] Performed By: #### 2 4323-8 #### [facility] CLIA [id number] [address] [place] [address] [place] ALP [Catalytic activity/Vol] 117 U/L Normal 34-123 [facility] Comment on above: Order Comment: Speci men Type: BLOOD SPECIMEN Ordering Facility: [facility] Address: [address] [place] [address] Performed By: #### 2 4323-8 #### [facility] CLIA [id number] [address] [place] [address] [place] ALT [Catalytic activity/Vol] 15 U/L Normal 7-38 [facility] Comment on above: Order Comment: Speci men Type: BLOOD SPECIMEN Ordering Facility: [facility] Address: [address] [place] [address] Performed By: #### 2 4323-8 #### [facility] CLIA [id number] [address] [place] [address] [place] Anion gap [Moles/Vol] 11 mmol/L Normal 8-15 [facility] Comment on above: Order Comment: Speci men Type: BLOOD SPECIMEN Ordering Facility: [facility] Address: [address] [place] [address] Performed By: #### 2 4323-8 #### [facility] CLIA [id number] [address] [place] [address] [place] AST [Catalytic activity/Vol] 17 U/L Normal 13-35 [facility] Comment on above: Order Comment: Speci men Type: BLOOD SPECIMEN Ordering Facility: [facility] Address: [address] [place] [address] Performed By: #### 2 4323-8 #### [facility] CLIA [id number] [address] [place] [address] [place] Bilirubin [Mass/Vol] 0.6 mg/dL Normal 0.2-1.3 [facility] Comment on above: Order Comment: Speci men Type: BLOOD SPECIMEN Ordering Facility: [facility] Address: [address] [place] [address] Performed By: #### 2 4323-8 #### [facility] CLIA [id number] [address] [place] [address] [place] Calcium [Mass/Vol] 9.8 mg/dL Normal 8.5-10.2 [facility] Comment on above: Order Comment: Speci men Type: BLOOD SPECIMEN Ordering Facility: [facility] Address: [address] [place] [address] Performed By: #### 2 4323-8 #### [facility] CLIA [id number] [address] [place] [address] [place] Chloride [Moles/Vol] 103 mmol/L Normal 98-107 [facility] Comment on above: Order Comment: Speci men Type: BLOOD SPECIMEN Ordering Facility: [facility] Address: [address] [place] [address] Performed By: #### 2 4323-8 #### [facility] CLIA [id number] [address] [place] [address] [place] CO2 [Moles/Vol] 26 mmol/L Normal 22-30 [facility] Comment on above: Order Comment: Speci men Type: BLOOD SPECIMEN Ordering Facility: [facility] Address: [address] [place] [address] Performed By: #### 2 4323-8 #### [facility] CLIA [id number] [address] [place] [address] [place] Creatinine [Mass/Vol] 0.92 mg/dL Normal 0.58-0.96 [facility] Comment on above: Order Comment: Roselia miranda Type: BLOOD SPECIMEN Ordering Facility: [facility] Address: [address] [place] [address] Performed By: #### 2 4323-8 #### [facility] [place] [id number] [address] [place] [address] [place] Creatinine and Glomerular filtration rate.predicted panel (S/P/Bld) 71 mL/min/1.73m??? Normal >=60 [facility] Comment on above: Order Comment: Roselia miranda Type: BLOOD SPECIMEN Ordering Facility: [facility] Address: [address] [place] [address] Result Comment: Sonal mated Glomerular Filtration Rate [...] GFR. Performed By: #### 2 4323-8 #### [facility] CLIA [id number] [address] [place] [address] [place] Glucose [Mass/Vol] 95 mg/dL Normal 74-99 [facility] Comment on above: Order Comment: Roselia miranda Type: BLOOD SPECIMEN Ordering Facility: [facility] Address: [address] [place] [address] Result Comment: The [place] Diabetes Association (ADA) provides guidance for cutoff [...] Standards of Medical Care in Diabetes 2016, [place] [employer]. Diabetes Care. 2016.39(Suppl 1). Performed By: #### 2 4323-8 #### [facility] CLIA [id number] [address] [place] [address] [place] Potassium [Moles/Vol] 3.9 mmol/L Normal 3.7-5.1 [facility] Comment on above: Order Comment: Roselia miranda Type: BLOOD SPECIMEN Ordering Facility: [facility] Address: [address] [place] [address] Performed By: #### 2 4323-8 #### [facility] CLIA [id number] [address] [place] [address] [place] Protein [Mass/Vol] 7.1 g/dL Normal 6.3-8.0 [facility] Comment on above: Order Comment: Roselia miranda Type: BLOOD SPECIMEN Ordering Facility: [facility] Address: [address] [place] [address] Performed By: #### 2 4323-8 #### [facility] CLIA [id number] [address] [place] [address] [place] Sodium [Moles/Vol] 140 mmol/L Normal 136-144 [facility] Comment on above: Order Comment: Roselia miranda Type: BLOOD SPECIMEN Ordering Facility: [facility] Address: [address] [place] [address] Performed By: #### 2 4323-8 #### [facility] CLIA [id number] [address] [place] [address] [place] Urea nitrogen [Mass/Vol] 17 mg/dL Normal 7-21 [facility] Comment on above: Order Comment: Roselia miranda Type: BLOOD SPECIMEN Ordering Facility: [facility] Address: [address] [place] [address] Performed By: #### 2 4323-8 #### [facility] CLIA [id number] [address] [place] [address] [place] ECG COMPLETEon 06-28-2024 ECG COMPLETE Ventricular Rate : 7 1 BPM Atrial Rate : 71 BPM P-R Interval : 138 ms QRS Duration : 110 ms Q-T Interval : 388 ms QTC Calculation(Bazett) : 421 ms Calculated P Kerens : 78 degrees Calculated R Kerens : 6 degrees Calculated T Kerens : 65 degrees NORMAL SINUS RHYTHM MINIMAL VOLTAGE CRITERIA FOR LVH, MAY BE NORMAL VARIANT ( Nayan product ) T WAVE ABNORMALITY, CONSIDER ANTEROLATERAL ISCHEMIA ABNORMAL ECG WHEN COMPARED WITH ECG OF 28-Jun-2024 07:11, T WAVE INVERSION MORE EVIDENT IN LATERAL LEADS Confirmed by PERLA HINTON M.D. ([id number]) on 06/28/2024 12:52:40 PM NAME : YOKASTA MORENO PID : [id number] : 1960 Gender : Female Race : ORD : [id number] Procedure Date : Jun 28 2024 10:13:04 Edit Date : Jun 28 2024 12:52:41 Diagnosis: NORMAL SINUS RHYTHM MINIMAL VOLTAGE CRITERIA FOR LVH, MAY BE NORMAL VARIANT ( Patterson product ) T WAVE ABNORMALITY, CONSIDER ANTEROLATERAL ISCHEMIA ABNORMAL ECG WHEN COMPARED WITH ECG OF 28-Jun-2024 07:11, T WAVE INVERSION MORE EVIDENT IN LATERAL LEADS Confirmed by PERLA HINTON M.D. ([id number]) on 06/28/2024 12:52:40 PM Test Reason : Post-OP Location : [address] [place] [address] Overread By : PERLA HINTON M.D. Edited By : PERLA HINTON M.D. Referred By : , Acquired by : SOTERO ARMENTA [facility] ECG COMPLETE Ventricular Rate : 6 4 BPM Atrial Rate : 64 BPM P-R Interval : 164 ms QRS Duration : 110 ms Q-T Interval : 414 ms QTC Calculation(Bazett) : 427 ms Calculated P Kerens : 28 degrees Calculated R Kerens : -5 degrees Calculated T Kerens : 31 degrees NORMAL SINUS RHYTHM MINIMAL VOLTAGE CRITERIA FOR LVH, MAY BE NORMAL VARIANT ( Patterson product ) NONSPECIFIC T WAVE ABNORMALITY ABNORMAL ECG NO PREVIOUS ECGS AVAILABLE Confirmed by PERLA HINTON M.D. ([id number]) on 06/28/2024 11:40:29 AM NAME : YOKASTA MORENO PID : [id number] : 1960 Gender : Female Race : ORD : [id number] Procedure Date : Jun 28 2024 07:11:34 Edit Date : Jun 28 2024 11:40:32 Diagnosis: NORMAL SINUS RHYTHM MINIMAL VOLTAGE CRITERIA FOR LVH, MAY BE NORMAL VARIANT ( Nayan product ) NONSPECIFIC T WAVE ABNORMALITY ABNORMAL ECG NO PREVIOUS ECGS AVAILABLE Confirmed by PERLA HINTON M.D. ([id number]) on 06/28/2024 11:40:29 AM Test Reason : Pre-OP Location : 43 : [facility] Overread By : PERLA HINTON M.D. Edited By : PERLA HINTON M.D. Referred By : , Acquired by : SOTERO ARMENTA [facility] HISTORY PHYSICALon HISTORY PHYSICAL HNO ID: [id number] Author: ADILENE LÓPEZ MD Service: Cardiovascular Medicine Author Type: Physician Type: H&P Filed: 06/28/2024 07:11 Note Text: UPDATED HISTORY AND PHYSICAL EXAMINATION SERVICE DATE: 06/28/2024 SERVICE TIME: 7:10 AM SENSITIVE EXAMINATION CONSENT: Participation of a fellow, resident, medical student, or advanced practice provider student in performing the sensitive examination was discussed with the patient or authorized vaccine customer representative. The patient or authorized vaccine customer representative has agreed to proceed with the [...] DATE: June 28, 2024 TIME: 7:10 AM [facility] TYPE + SCREENon 06-28-2024 ABO O [facility] Comment on above: Order Comment: Speci men Type: BLOOD SPECIMENOrdering Facility: [facility] Address: [address] [place] [address] Performed By: #### T SCR ####[facility] [id number] [place] [address] [place] Rh Nom (Bld) Positive [facility] Comment on above: Order Comment: Speci men Type: BLOOD SPECIMENOrdering Facility: [facility] Address: [address] [place] [address] Performed By: #### T SCR ####[facility] [id number] [address] [place] TYPE AND SCREEN EXPIRATION 07/01/2024 23:59 [facility] Comment on above: Order Comment: Speci men Type: BLOOD SPECIMENOrdering Facility: [facility] Address: [address] [place] [address] Performed By: #### T [facility] ####[facility] [facility]ANKCLIA [id number] [place] [id number] [place] HISTORY PHYSICALon HISTORY PHYSICAL HNO ID: [id number] Author: JESICA INGRAM PA-C Service: ? 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 Adilene López for consultation. My final recommendation will be communicated back to the requesting physician by way of shared medical record or letter. Subjective The patient has the following: COVID-19 Immunization Status Current Care Gaps Covid-19 Vaccine () Overdue since 02/18/2024 12/24/2023 Imm Admin: COVID-19 vaccine, age 12+ yr, bivalent (PFIZER-BIONTChalkboard) 02/11/2022 Imm Admin: COVID-19 vaccine, age 12+ yr, biv (more content not included)... [facility] 05-13-2024 [facility] Office Visit ([facility] ) YOKASTA MORENO ([id number]) 1960 F Date Time Provider Department 05/13/24 11:15 AM ADILENE LÓPEZ During your visit today, we recorded the following information about you: Pulse Blood pressure Weight Height 59/minute 104/64 77.6 kg 1.6 m Aidlene López MD 05/13/2024 12:19 PM Signed [facility] [place] Agnieszka Choe Department of Cardiovascular Medicine SECTION OF CARDIAC PACING and ELECTROPHYSIOLOGY OUTPATIENT VISIT DATE 05/13/2024 OUTPATIENT VISIT TYPE NEW PRIMARY CARE [place]: [place] [id number] [facility] [address] [place] [id number] REFERRING PHYSICIAN: Perla Hinton ([facility]) [address] [place] [id number] CHIEF COMPLAINT: Parox AF HISTORY OF PRESENT [...] systolic func (more content not included)... Normal [facility] Jordy 05-13-2024 CNPN Telephone ([facility]) IRISYOKASTA CALABRESE ([id number]) 1960 F Date Time Provider Department 05/13/[address] [facility] During your visit today, we recorded the following information about you: Adilene López MD 05/13/2024 11:32 AM Signed Elective procedure for Electrophysiology Service at [place] Attending: Adilene López MD Diagnosis: Atrial Fibrillation [...] Anticoagulants, beta blockers or Ca blockers?) Vendor: [employer], [employer] Anesthesia: General NOEMY: no Possible study patient? No Instructions to patient: 1. Do not stop any blood thinners unless specific instructions above 2. Zdh-dwzfpsy-wvwnruhsr diabetics should hold morning diabetic medications. Insulin-dependent [...] Status:Closed by ADILENE LÓPEZ on 05/13/24 Normal [facility] ECG COMPLETEon 05-13-2024 ECG COMPLETE Ventricular Rate : 5 9 BPM Atrial Rate : 59 BPM P-R Interval : 176 ms QRS Duration : 118 ms Q-T Interval : 430 ms QTC Calculation(Bazett) : 425 ms Calculated P Kerens : 34 degrees Calculated R Kerens : 52 degrees Calculated T Kerens : 59 degrees SINUS BRADYCARDIA NONSPECIFIC INTRAVENTRICULAR CONDUCTION DELAY NONSPECIFIC T WAVE ABNORMALITY ABNORMAL ECG Confirmed by ADILENE LÓPEZ MD ([id number]) on 05/16/2024 5:09:56 PM NAME : YOKASTA MORENO PID : [id number] : 1960 Gender : Female Race : ORD : [id number] Procedure Date : May 13 2024 11:06:01 Edit Date : May 16 2024 17:10:02 Diagnosis: SINUS BRADYCARDIA NONSPECIFIC INTRAVENTRICULAR CONDUCTION DELAY NONSPECIFIC T WAVE ABNORMALITY ABNORMAL ECG Confirmed by ADILENE LÓPEZ MD ([id number]) on 05/16/2024 5:09:56 PM Test Reason : I48.0 PAF (paroxysmal atrial fibrillation) ([facility]) Location : 198 : MFCARD 15 Overread By : ADILENE LÓPEZ MD Edited By : ADILENE LÓPEZ MD Referred By : PERLA HINTON Acquired by : LANETTE BARRIGA [facility] ECHOon 04-29-2024 CONCLUSIONS: - Exam [...] * * * Final * * * [facility] Echocardiography Report: Transthoracic Echo [facility] Date of service: 04/29/2024 7:59:31 AM Ordering physician: PERLA HINTON Indication: Nonsustained atrial fibrillation Technologist: Brittni Alatorre [facility] Interpreting physician: Becki Katz MD PATIENT: Name: [...] effusion. There is an epicardial fat pad. [facility] Echocardiography Echocardiography Report: Transthoracic Echo [facility] Date of service: 04/29/2024 7:59:31 AM Ordering [...] * * * Final * * * [facility] : [id number] [facility] Phys[facility] Progress No horacio 04-16-2024 AMB IM Physician Progress Note YOKASTA MORENO :1960 [facility]:[id number] Registration Date:04/15/2024 Chief Complaint: patient states shes here for a follow up for medication refills. 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 Health Maintenance Pending (in the next year) Due Tetanus (more content not included)... Normal [facility] Ambulatory Clinical Summaryo n 04-15-2024 Ambulatory Clinical [...] for visit Day With Date Time Where [facility] Office Visit 6 month f/u Thursday Monie Camejo MD October 14, 2024 10:10 am EDT [address] [phone] ZIP:[id number] You Need to Schedule the Following Appointments [...] call to get immediate medical attention! Normal [facility] Comprehensive Intake - Texto n 04-15-2024 Comprehensive [...] year Esther Youngerndra 04/15/2024 11:10 EST Normal [facility] CNOVon 03-18-2024 CNOV Office Visit ([facility]) YOKASTA OMRENO ([id number]) 1960 F Date Time Provider Department 03/18/24 11:20 AM PERLA HINTON [facility] During your visit today, we recorded the following information about you: Pulse Blood pressure Weight Height 65/minute 110/80 79 kg 1.6 m Perla Hinton MD 03/18/2024 12:38 PM [facility] [place] Agnieszka Choe Department of Cardiovascular Medicine [facility] OUTPATIENT VISIT DATE March 18, 2024 OUTPATIENT [...] returning monitor had recurrent AF went to [facility] ER. By time got there was out. [...] AF and this has bernabe documented on [facility]. SPECT stress August 2023 was normal . [...] episodes of recurrent Atrial fib - Call [facility] to schedule - Consideration of referral [...] 3 mph treadmill, 1.5%. Exercising intermittently at [employer]. 20 min with a goal of 150 [...] starting Flecainid (more content not included)... Normal [facility] CNPNon 03-18-2024 CNPN Telephone ([facility]) YOKASTA MORENO ([id number]) 1960 F Date Time Provider Department 03/18/24 [...] Encounter Status:Closed by WILBER FRANCES [facility] YOK[facility] MORENO ([id number]) 1960 F Date Time Provider Department 03/18/24 PERLA HINTON During your visit today, we recorded the following information about you: Perla Hinton MD 03/18/2024 12:36 PM Signed [facility] [place] Agnieszka Choe Department of Cardiovascular Medicine At [facility] OUTPATIENT VISIT DATE March 18, 2024 OUTPATIENT [...] returning monitor had recurrent AF went to [facility] ER. By time got there was out. [...] AF and this has bernabe documented on [facility]. SPEcT stress August 2023 was normal . [...] PVI Primary Visit Diagnosis:PAF (paroxysmal atrial fibrillation) ([facility]) [I48.0] Order(s):CONSULT TO ELECTROPHYSIOLOGY [7434354] Order #: [id number]: 1 FUTURE Prescriptions as of 03/18/2024 - [...] fasciitis [M72.2] 11/27/2010 PAF (paroxysmal atrial fibrillation) ([facility]) [I48*04/30/2016 Essential hypertension [I10] 07/05/2016 Vitamin D [...] Status:Closed by PERLA HINTON on 03/18/24 Normal [facility] ECG COMPLETEon 03-18-2024 ECG COMPLETE Ventricular Rate : 6 5 BPM Atrial Rate : 65 BPM P-R Interval : 166 ms QRS Duration : 118 ms Q-T Interval : 426 ms QTC Calculation(Bazett) : 443 ms Calculated P Kerens : 15 degrees Calculated R Kerens : 9 degrees Calculated T Kerens : 68 degrees NORMAL SINUS RHYTHM NONSPECIFIC INTRAVENTRICULAR CONDUCTION DELAY MINIMAL VOLTAGE CRITERIA FOR LVH, MAY BE NORMAL VARIANT ( Nayan product ) NONSPECIFIC T WAVE ABNORMALITY ABNORMAL ECG Confirmed by PERLA HINTON M.D. ([id number]), web content editor GILBERTO MIRZA ([id number]) on 03/21/2024 8:03:02 AM NAME : FAHEEM JACINTOY PID : [id number] : 1960 Gender : Female Race : ORD : [id number] Procedure Date : Mar 18 2024 11:26:38 Edit Date : Mar 21 2024 08:03:05 Diagnosis: NORMAL SINUS RHYTHM NONSPECIFIC INTRAVENTRICULAR CONDUCTION DELAY MINIMAL VOLTAGE CRITERIA FOR LVH, MAY BE NORMAL VARIANT ( Nayan product ) NONSPECIFIC T WAVE ABNORMALITY ABNORMAL ECG Confirmed by PERLA HINTON M.D. ([id number]), web content editor GILBERTO MIRZA ([id number]) on 03/21/2024 8:03:02 AM Test Reason : I48.0 Paroxysmal atrial fibrillation ([facility]) Location : 503 : BWCARD Overread By : PERLA HITNON M.D. Edited By : GILBERTO MIRZA Referred By : , Acquired by : Yasmine thomas [facility] Jordy 12-29-2023 CNPN Telephone ([facility]) YOKASTA MORENO ([id number]) 1960 F Date Time Provider Department 12/29/23 [...] Status:Closed by MITESH NELSON RN on 12/29/23 [facility] ENT Physician Progress N dhaval 11-29-2023 [facility] ENT Physician Progress Note YOKASTA MORENO :1960 [...] needed. Ordered: AMB Laryngoscopy, flexible fiberoptic; diag [id number], 11/27/2023 13:33:00 EDT, Epistaxis, 1 AMB Office/O (more content not included)... Normal [facility] Comprehensive Intake - Texto n 11-27-2023 Comprehensive [...] in, 160 cm) Body Mass Index Measured Brazilian : 32.42 kg/m2 BSA Brazilian : 1.92 m2 Susu Abdi 11/27/2023 12:42 [...] year Susu Abdi 11/27/2023 12:42 EDT Normal [facility] Phone [place] 11-27-2023 Phone Msg - From: [...] to update please advise ok to l/m [phone] From: WALLACE BHAT CNP To: Susu Abdi; Sent: 11/26/2023 17:01:56 EDT Subject: RE: pt concern Caller Name: YOKASTA MORENO; Caller Number: H Double book 1 PM Thursday. Hard to provide recommendations without an exam. 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 Nose bleed This is a 63 year old female, non smoker, with a past medical history of hypertension presenting to the ED today with a chief complaint of epistaxis. Patient reports mechanical fall on 11/14 striking her face and injuring her nose. She reports associated epistaxis at time of injury. Reports she was seen and evaluated at [facility] ED on 11/14 where she had negative [...] (81. (more content not included)... Normal [facility] Phone Msgon 11-24-2023 Phone Msg - [...] back and was notified of results Normal [facility] AMB IM Physician Progress No horacio 11-20-2023 AMB IM Physician Progress Note YOKASTA MORENO :1960 Registration Date:11/20/2023 Chief Complaint patient states here for an [facility] ER follow up from 11/15/23. fell on sidewalk broke nose History of Present Illness Patient is here today for ER f/u - she was at [facility] where she tripped over and fell - she was taken to [facility] - ct brrain neg- She had nondisplaced [...] oral tablet), 50 mg= 1 tabs, ORAL, [id number] guselkumab(Tremfya 100 mg/mL subcutaneous solution) hydrochlorothiazide-ir besartan(hydrochloroth [...] Care Team Primary Care Physician MONIE CHANEL [phone] Attending Physician MONIE CHANEL [phone] . Health Maintenance Pending (in the next year) Due Tetanus Vaccine due 11/19 (more content not included)... Normal [facility] Ambulatory Clinical Summaryo n 11-20-2023 Ambulatory Clinical [...] for visit Day With Date Time Where [facility] Office Visit 6 month follow up Thursday Monie Camejo MD April 15, 2024 11:10 am EDT [facility] [address] [facility] [address] [facility] [phone] ZIP:[id number] You Need to Schedule the Following Appointments [...] call to get immediate medical attention! Normal [facility] Comprehensive Intake - Texto n 11-20-2023 Comprehensive Intake - Text Comprehensive Intake Entered On: 11/20/2023 11:39 EDT Performed On: 11/20/2023 11:34 EDT by Arash Hadley MA Summary Chief Complaint : patient states here for an [facility] ER follow up from 11/15/23. fell on [...] Hadley MA - 11/20/2023 11:34 EDT Normal [facility] XR RIBS UNILATERALon 024 XR RIBS UNILATERAL [...] CORDOVA MD Signed Out: 11/20/23 16:00:14 Normal [facility] AMB ENT Physician Progress N dhaval 11-17-2023 [...] along a CAT scan report from the [facility] which showed no brigido facial fracture. [...] Est Pt Low MDM / 20 min [id number], 11/17/2023 10:03:00 EDT, Epistaxis / Nasal fracture 2. Nasal fracture S02.2XXA This is nondisplaced. I have asked her to let me know if she develops any functional problems of the nose, or any cosmetic deformity as it heals Ordered: AMB Office/Outpt Est Pt Low MDM / 20 min [id number], 11/17/2023 10:03:00 EDT, Epistaxis / Nasal fracture [...] oral tablet), 50 mg= 1 tabs, ORAL, [id number] guselkumab(Tremfya 100 mg/mL subcutaneous solution) hydrochlorothiazide-ir besartan(hydrochloroth [...] Team Primary Care Physician NELL GUADALUPE, MONIE [phone] Attending Physician ROM GOSS MD [phone] . Health Maintenance Pending (in the next year) Due Tetanus Vaccine (more content not included)... Normal [facility] Ambulatory Clinical Summaryo n 11-17-2023 Ambulatory Clinical [...] for visit Day With Date Time Where [facility] Office Visit 6 month follow up Thursday Monie Camejo MD April 15, 2024 11:10 am EDT [address] [phone] ZIP:[id number] Medications What How Much When Instructions Unchanged [...] call to get immediate medical attention! Normal [facility] Comprehensive Intake - Texto n 11-17-2023 Comprehensive [...] year Naty Martinez 11/17/2023 9:55 EDT Normal [facility] Phone Msgon 11-16-2023 Phone Msg - From: Andreina Martin To: ROM GOSS MD; Sent: 11/16/2023 10:00:25 EDT Subject: Nose Injury - Seen @ [facility] 11/15/23 Caller Name: YOKASTA MORENO; Caller Number: H pt was seen @ [facility] yesterday & scan didn't reflect a break/fracture. They did pack her nose. No swelling or bruising. Referred to ENT to remove packing. 07/14/23 Best call back #[phone] From: ROM GOSS MD To: Naty Martinez; Sent: 11/16/2023 10:09:46 EDT Subject: FW: Nose Injury - Seen @ [facility] 11/15/23 Caller Name: YOKASTA MORENO; Caller Number: H Please call her and find out if she is on any blood thinners. If she is not we can add her to the schedule for tomorrow at some point Spoke with patient. Added to schedule. Normal [facility] ALLIED HEALTHon 11-15-2023 ALLIED HEALTH HNO ID: [id number] Author: GEO BERNABE Tech Service: Radiology Author Type: Avionics Shop Supervisor Type: Allied Health Filed: 11/15/2023 15:31 Note [...] PATIENT PRESENTS WITH AN IMPLANTABLE OR ATTACHED LITHOGRAPH PRESS OPERATOR TINWARE: No RADIOLOGY DEPARTMENT: CT; Exam(s) Completed: Brain , Face/Mandible, and Spine PERIPHERAL IV DATA: Inpatient: see LDA documentation SIGNED BY: Ap Auguste November 15, 2023 3:31 PM [facility] CT BRAIN WO IVCONon 11-15-[address] BRAIN WO IVCON * * *Final Report* * * DATE OF EXAM: Nov 15 2023 3:35PM [facility] [place] BRAIN WO IVCON / [...] vertebrae with counting from the craniocervical junction. Search Engineer: [facility] Transcribe Date/Time: Nov 15 2023 3:46P Dictated by : TRAVON SOUZA MD This examination was interpreted and the report reviewed and electronically signed by: TRAVON SOUZA MD on Nov 15 2023 3:58PM EST [id number] [facility] CT CERVICAL SPINE WO IVCONon 11-15-2023 CT CERVICAL SPINE WO IVCON * * *Final Report* * * DATE OF EXAM: Nov 15 2023 3:35PM [facility] [place] CT CERVICAL SPINE WO IVCON [...] vertebrae with counting from the craniocervical junction. Search Engineer: MELANI Transcribe Date/Time: Nov 15 2023 3:46P Dictated by : TRAVON SOUZA MD This examination was interpreted and the report reviewed and electronically signed by: TRAVON SOUZA MD on Nov 15 2023 3:58PM EST [id number] [facility] CT FACIAL BONE/BETTY WO IVCON on 11-15-2023 CT FACIAL BONE/BETTY WO IVCON * * *Final Report* * * DATE OF EXAM: Nov 15 2023 3:35PM [facility] [place] CT FACIAL BONE/BETTY WO IVCON [...] vertebrae with counting from the craniocervical junction. Search Engineer: [facility] Transcribe Date/Time: Nov 15 2023 3:46P Dictated by : TRAVON SOUZA MD This examination was interpreted and the report reviewed and electronically signed by: TRAVON SOUZA MD on Nov 15 2023 3:58PM EST [id number] [facility] ED NOTEon 11-15-2023 ED NOTE HNO ID: [id number] Author: RAVIN BRITTON RN Service: ? Author Type: Registered Nurse Type: ED Notes Filed: 11/15/2023 17:21 Note Text: Discharge instructions and prescriptions reviewed with patient via teachback. Pt verbalizes understanding. Pt awake and alert, respirations regular and unlabored. No further questions for this RN. [facility] ED PROV NOTEon 11-15-2023 ED PROV NOTE HNO ID: [id number] Author: JUAN R GARCIA MD Service: Emergency [...] nursing note reviewed. Exam conducted with a silk weaver present. HENT: Head: Normocephalic. Right Ear: Tympanic [...] likely for (more content not included)... [facility] Physician Progress No horacio 10-13-2023 [facility] Physician Progress Note YAZAN YOKASTA Mckay :1960 Registration Date:10/13/2023 Chief Complaint jj states here for 1 year medication refill. History of Present Illness Patient is here for medication f/u - htn; taking avalide one tab daily - blood pressure is controlled A fib: seeing hardware press operator( at [facility] 6 months) - on Flecanide and diltiazem dyslipidemia- on atorvastatin - tolerating well Thyroid nodule : seeing ENT ( Dr. Goss )- thyroid biopsy was normal 08/2019 was noted to have elevated alk phos on recent labs vertigo : stable- no symptoms L4-L5 lumbar disc herniation- was seen at [facility] vit d def : taking otc supplements. 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 Hypertension I10 [...] oral tablet), 50 mg= 1 tabs, ORAL, [id number] guselkumab(Tremfya 100 mg/mL subcutaneous solution) hydrochlorothiazide-ir besartan(hydrochloroth [...] Recorded influenza (more content not included)... Normal [facility] Ambulatory Clinical Summaryo n 10-13-2023 Ambulatory Clinical [...] for visit Day With Date Time Where [facility] Office Visit 6 month follow up Thursday Monie Camejo MD April 15, 2024 11:10 am EDT [address] [phone] ZIP:[id number] You Need to Schedule the Following Appointments ALP(ALKALINE PHOSPHATASE), ROUTINE, 10/13/2023, Order for future visit-Diagnosis required, Dx: Elevated alkaline phosphatase level VIT D 25 LEVEL(VITAMIN D 25 HYDROXY LEVEL), ROUTINE, 10/13/2023, Order for future visit-Diagnosis required, Dx: Vitamin D deficiency Medications What How Much When Instructions Unchanged hydrochlorothiazide-ir besartan (hydrochlorothiazide-i rbesartan 12.5 mg-300 mg oral tablet) 1 Tabs Oral DAILY Pickup at [facility]/pharmacy #[id number] Unchanged aspirin (Aspir 81) Oral DAILY [...] Pharmacy Information [id number]: [address] [place], [place] [phone] Allergies Bactrim Vomiting LATEX allergy EYE SWELLING, [...] call to get immediate medical attention! Normal [facility] Comprehensive Intake - Texto n 10-13-2023 Comprehensive [...] (Last Updated: 03/31/2018 14:21:51 EST by Madyson Cahng MA) Never (less than 100 in lifetime) [...] Hadley MA - 10/13/2023 10:13 EDT Normal [facility] BLOOD TB SCREENon 10-02-2023 M. tuberculosis tuberculin stim IFN-g Ql (Bld) Negative [facility] Comment on above: Order Comment: Roselia miranda Type: BLOOD SPECIMEN Ordering Facility: [facility] Address: [address] [place] [address] Performed By: #### I NFTBP #### [facility] CLIA [id number] [address] [place] [address] [place] MITOGEN MINUS NIL 7.00 IU/mL Normal >=0.50 [facility] Comment on above: Order Comment: Roselia miranda Type: BLOOD SPECIMEN Ordering Facility: [facility] Address: [address] [place] [address] Performed By: #### I NFTBP #### [facility] CLIA [id number] [address] [place] [address] TB GAMMA INTERPRETATION Infection with M. tuberculosis complex is unlikely. If latent tuberculosis infection is highly suspected, a negative result does not rule out the infection. Specimens from immunocompromised patients and those <5 years of age may show false negative results. In case of a contact investigation, please repeat 8-12 weeks after a known exposure. Normal [facility] Comment on above: Order Comment: Roselia miranda Type: BLOOD SPECIMEN Ordering Facility: [facility] Address: [address] [place] [address] Performed By: #### I NFTBP #### [facility] CLIA [id number] [address] [place] [address] TB NIL 0.02 IU/mL Normal <=8.00 [facility] Comment on above: Order Comment: Roselia miranda Type: BLOOD SPECIMEN Ordering Facility: [facility] Address: [address] [place] [address] Performed By: #### I NFTBP #### [facility] CLIA [id number] [address] [place] [address] [place] TB1 AG MINUS NIL 0.01 IU/mL Normal <0.35 [facility] Comment on above: Order Comment: Speci men Type: BLOOD SPECIMEN Ordering Facility: [facility] Address: [address] [place] [address] Performed By: #### I NFTBP #### [facility] CLIA [id number] [address] [place] [address] TB2 AG MINUS NIL 0.00 IU/mL Normal <0.35 [facility] Comment on above: Order Comment: Speci men Type: BLOOD SPECIMEN Ordering Facility: [facility] Address: [address] [place] [address] Performed By: #### I NFTBP #### [facility] CLIA [id number] [address] [place] [address] [place] CBC panel Auto (Bld)on 10-01 Erythrocyte distribution width (RBC) [Ratio] 11.8 % Normal 11.5-15.0 [facility] Comment on above: Order Comment: Speci men Type: BLOOD SPECIMEN Ordering Facility: [facility] Address: [address] [place] [address] Performed By: #### 5 8410-2 #### [facility] CLIA [id number] [address] [place] Hematocrit (Bld) [Volume fraction] 41.7 % Normal 36.0-46.0 [facility] Comment on above: Order Comment: Speci men Type: BLOOD SPECIMEN Ordering Facility: [facility] Address: [address] [place] [address] Performed By: #### 5 8410-2 #### [facility] CLIA [id number] [address] [place] [address] [place] Hemoglobin (Bld) [Mass/Vol] 13.7 g/dL Normal 11.5-15.5 [facility] Comment on above: Order Comment: Speci men Type: BLOOD SPECIMEN Ordering Facility: [facility] Address: [address] [place] [address] Performed By: #### 5 8410-2 #### [facility] CLIA [id number] [address] MCH (RBC) [Entitic mass] 29.3 pg Normal 26.0-34.0 [facility] Comment on above: Order Comment: Speci men Type: BLOOD SPECIMEN Ordering Facility: [facility] Address: [address] [place] [address] Performed By: #### 5 8410-2 #### [facility] CLIA [id number] [address] MCHC (RBC) [Mass/Vol] 32.9 g/dL Normal 30.5-36.0 [facility] Comment on above: Order Comment: Speci men Type: BLOOD SPECIMEN Ordering Facility: [facility] Address: [address] [place] [address] Performed By: #### 5 8410-2 #### [facility] CLIA [id number] [address] MCV (RBC) [Entitic vol] 89.1 fL Normal 80.0-100.0 [facility] Comment on above: Order Comment: Speci men Type: BLOOD SPECIMEN Ordering Facility: [facility] Address: [address] [place] [address] Performed By: #### 5 8410-2 #### [facility] CLIA [id number] [address] Nucleated RBC (Bld) [#/Vol] 10*3/uL Normal <0.01 [facility] Comment on above: Order Comment: Speci men Type: BLOOD SPECIMEN Ordering Facility: [facility] Address: [address] [place] [address] Performed By: #### 5 8410-2 #### [facility] CLIA [id number] [address] [place] [address] [place] Platelet mean volume (Bld) [Entitic vol] 9.7 fL Normal 9.0-12.7 [facility] Comment on above: Order Comment: Speci men Type: BLOOD SPECIMEN Ordering Facility: [facility] Address: [address] [place] [address] Performed By: #### 5 8410-2 #### [facility] CLIA [id number] 1000 [place] [address] [place] Platelets (Bld) [#/Vol] 385 10*3/uL Normal 150-400 [facility] Comment on above: Order Comment: Speci men Type: BLOOD SPECIMEN Ordering Facility: [facility] Address: [address] [place] [address] Performed By: #### 5 8410-2 #### [facility] CLIA [id number] [address] [place] [address] [place] RBC (Bld) [#/Vol] 4.68 10*6/uL Normal 3.90-5.20 [facility] Comment on above: Order Comment: Speci men Type: BLOOD SPECIMEN Ordering Facility: [facility] Address: [address] [place] [address] Performed By: #### 5 8410-2 #### [facility] CLIA [id number] [address] [place] [address] [place] WBC (Bld) [#/Vol] 6.84 10*3/uL Normal 3.70-11.00 [facility] Comment on above: Order Comment: Speci men Type: BLOOD SPECIMEN Ordering Facility: [facility] Address: [address] [place] [address] Performed By: #### 5 8410-2 #### [facility] CLIA [id number] [address] [place] [address] [facility] [place] Comprehensive metabolic 2000 panelon 10-02-2023 Albumin [Mass/Vol] 4.3 g/dL Normal 3.9-4.9 [facility] Comment on above: Order Comment: Speci men Type: BLOOD SPECIMEN Ordering Facility: [facility] Address: [address] [place] [address] Performed By: #### 2 4323-8, 66804-3 #### [facility] CLIA [id number] [address] ALP [Catalytic activity/Vol] 131 U/L High 34-123 [facility] Comment on above: Order Comment: Speci men Type: BLOOD SPECIMEN Ordering Facility: [facility] Address: [address] [place] [address] Performed By: #### 2 4323-8, 45755-6 #### [facility] CLIA [id number] [address] ALT [Catalytic activity/Vol] 15 U/L Normal 7-38 [facility] Comment on above: Order Comment: Speci men Type: BLOOD SPECIMEN Ordering Facility: [facility] Address: [address] [place] [address] Performed By: #### 2 4323-8, 27305-9 #### [facility] CLIA [id number] [address] Anion gap [Moles/Vol] 9 mmol/L Normal 8-15 [facility] Comment on above: Order Comment: Speci men Type: BLOOD SPECIMEN Ordering Facility: [facility] Address: [address] [place] [address] Performed By: #### 2 4323-8, 38274-4 #### [facility] CLIA [id number] [address] AST [Catalytic activity/Vol] 18 U/L Normal 13-35 [facility] Comment on above: Order Comment: Speci men Type: BLOOD SPECIMEN Ordering Facility: [facility] Address: [address] [place] [address] Performed By: #### 2 4323-8, 21130-0 #### [facility] CLIA [id number] [address] Bilirubin [Mass/Vol] 0.6 mg/dL Normal 0.2-1.3 [facility] Comment on above: Order Comment: Speci men Type: BLOOD SPECIMEN Ordering Facility: [facility] Address: [address] [place] [address] Performed By: #### 2 4323-8, 15856-0 #### [facility] CLIA [id number] [address] [place] [address] [place] Calcium [Mass/Vol] 9.7 mg/dL Normal 8.5-10.2 [facility] Comment on above: Order Comment: Speci men Type: BLOOD SPECIMEN Ordering Facility: [facility] Address: [facility] [place] [address] Performed By: #### 2 4323-8, 68746-7 #### [facility] CLIA [id number] [address] [place] [address] [place] Chloride [Moles/Vol] 104 mmol/L Normal 98-107 [facility] Comment on above: Order Comment: Speci men Type: BLOOD SPECIMEN Ordering Facility: [facility] Address: [address] [place] [address] Performed By: #### 2 4323-8, 79153-8 #### [facility] CLIA [id number] [address] [place] [address] [place] CO2 [Moles/Vol] 28 mmol/L Normal 22-30 [facility] Comment on above: Order Comment: Speci men Type: BLOOD SPECIMEN Ordering Facility: [facility] Address: [address] [place] [address] Performed By: #### 2 4323-8, 55516-4 #### [facility] CLIA [id number] [address] [place] [address] [place] Creatinine [Mass/Vol] 0.92 mg/dL Normal 0.58-0.96 [facility] Comment on above: Order Comment: Speci men Type: BLOOD SPECIMEN Ordering Facility: [facility] Address: [address] [place] [address] Performed By: #### 2 4323-8, 98127-5 #### [facility] CLIA [id number] [address] [place] Creatinine and Glomerular filtration rate.predicted panel (S/P/Bld) 71 mL/min/1.73m??? Normal >=60 [facility] Comment on above: Order Comment: Roselia miranda Type: BLOOD SPECIMEN Ordering Facility: [facility] Address: [address] [place] [address] Result Comment: Sonal mated Glomerular Filtration Rate [...] actual GFR. Performed By: #### 2 4323-8, 89312-9 #### [facility] CLIA [id number] [address] [place] [address] [place] Glucose [Mass/Vol] 77 mg/dL Normal 74-99 [facility] Comment on above: Order Comment: Roselia miranda Type: BLOOD SPECIMEN Ordering Facility: [facility] Address: [address] [place] [address] Result Comment: The [place] Diabetes Association (ADA) provides guidance for cutoff [...] Standards of Medical Care in Diabetes 2016, [place] Diabetes Association. Diabetes Care. 2016.39(Suppl 1). Performed By: #### 2 4323-8, 25932-6 #### [facility] CLIA [id number] [address] [place] [address] [place] Potassium [Moles/Vol] 4.0 mmol/L Normal 3.7-5.1 [facility] Comment on above: Order Comment: Roselia miranda Type: BLOOD SPECIMEN Ordering Facility: [facility] Address: [address] [place] [address] Performed By: #### 2 4323-8, 05668-1 #### [facility] CLIA [id number] [address] [place] [address] [place] Protein [Mass/Vol] 7.1 g/dL Normal 6.3-8.0 [facility] Comment on above: Order Comment: Speci men Type: BLOOD SPECIMEN Ordering Facility: [facility] Address: [address] [place] [address] Performed By: #### 2 4323-8, 93506-2 #### [facility] CLIA [id number] [address] [place] [address] [place] Sodium [Moles/Vol] 141 mmol/L Normal 136-144 [facility] Comment on above: Order Comment: Speci men Type: BLOOD SPECIMEN Ordering Facility: [facility] Address: [address] [place] [address] Performed By: #### 2 4323-8, 17991-4 #### [facility] CLIA [id number] [address] [place] Urea nitrogen [Mass/Vol] 20 mg/dL Normal 7-21 [facility] Comment on above: Order Comment: Speci men Type: BLOOD SPECIMEN Ordering Facility: [facility] Address: [address] [place] [address] Performed By: #### 2 4323-8, 77847-3 #### [facility] CLIA [id number] [address] [place] Lipid 1996 panelon 4 Cholesterol [Mass/Vol] 146 mg/dL Normal <200 [facility] Comment on above: Order Comment: Speci men Type: BLOOD SPECIMEN Ordering Facility: [facility] Address: [address] [place] [address] Result Comment: <200 mg/dL, Desirable 200-239 mg/dL, Borderline high >239 mg/dL, High Performed By: #### 2 4323-8, 92158-1 #### [facility] CLIA [id number] [address] [place] Cholesterol in HDL [Mass/Vol] 68 mg/dL Normal >39 [facility] Comment on above: Order Comment: Speci men Type: BLOOD SPECIMEN Ordering Facility: [facility] Address: [address] [place] [address] Result Comment: 40-5 9 mg/dL, Acceptable >59 mg/dL, High: Negative risk factor for coronary heart disease <40 mg/dL, Low: Positive risk factor for coronary heart disease Performed By: #### 2 4323-8, 60881-2 #### [facility] CLIA [id number] [address] Cholesterol in LDL [Mass/Vol] 69 mg/dL Normal <100 [facility] Comment on above: Order Comment: Roselia miranda Type: BLOOD SPECIMEN Ordering Facility: [facility] Address: [address] [place] [address] Result Comment: <100 mg/dL, Optimal 100-129 mg/dL, Near optimal/above optimal 130-159 mg/dL, Borderline high 160-189 mg/dL, High >189 mg/dL, Very high Secondary prevention optimal LDL Cholesterol levels are recommended to be < 70 mg/dL Performed By: #### 2 4323-8, 04655-1 #### [facility] CLIA [id number] [address] Cholesterol in LDL/Cholesterol in HDL [Mass ratio] 1.01 {ratio} Normal <2.54 [facility] Comment on above: Order Comment: Roselia miranda Type: BLOOD SPECIMEN Ordering Facility: [facility] Address: [address] [place] [address] Result Comment: Refe rence: 1. National Cholesterol Education Program ATP III Guideline At-A-Glance Quick Desk Reference: National Heart, Lung, and Blood [place]. National Institutes of Health. 2001: NIH Publication No. 01-3305. 2. An International Atherosclerosis Society position paper: global recommendations for the management of dyslipidemia: executive summary, Atherosclerosis. 2014: 232(2):410-413. Performed By: #### 2 4323-8, 03717-5 #### [facility] CLIA [id number] [address] Cholesterol in VLDL [Mass/Vol] 9 mg/dL Normal <30 [facility] Comment on above: Order Comment: Roselia miranda Type: BLOOD SPECIMEN Ordering Facility: [facility] Address: [address] [place] [address] Performed By: #### 2 4323-8, 80713-1 #### [facility] CLIA [id number] [address] Cholesterol non HDL [Mass/Vol] 78 mg/dL Normal <130 [facility] Comment on above: Order Comment: Speci men Type: BLOOD SPECIMEN Ordering Facility: [facility] Address: [address] [place] [address] Result Comment: <130 mg/dL, Optimal 130-159 mg/dL, Near optimal/above optimal 160-189 mg/dL, Borderline high 190-219 mg/dL, High >219 mg/dL, Very high Secondary prevention optimal non HDL Cholesterol levels are recommended to be <100 mg/dL Performed By: #### 2 4323-8, 11437-9 #### [facility] CLIA [id number] [address] Cholesterol.total/Ch olesterol in HDL [Mass ratio] 2.15 {ratio} Normal <5.10 [facility] Comment on above: Order Comment: Speci men Type: BLOOD SPECIMEN Ordering Facility: [facility] Address: [address] [place] [address] Performed By: #### 2 4323-8, 72586-3 #### [facility] CLIA [id number] [address] FASTING TIME 10 hrs Normal [facility] Comment on above: Order Comment: Speci men Type: BLOOD SPECIMEN Ordering Facility: [facility] Address: [address] [place] [address] Performed By: #### 2 4323-8, 51067-7 #### [facility] CLIA [id number] [address] [facility] Triglyceride [Mass/Vol] 44 mg/dL Normal <150 [facility] Comment on above: Order Comment: Speci men Type: BLOOD SPECIMEN Ordering Facility: [facility] Address: [address] [place] [address] Result Comment: <150 mg/dL, Normal 150-199 mg/dL, Borderline high 200-499 mg/dL, High >499 mg/dL, Very high Performed By: #### 2 4323-8, 91903-4 #### [facility] CLIA [id number] [address] [place] [address] [place] NM CARDIAC PERF STRESS/EXERC ISEon 09-28-2023 NM CARDIAC PERF STRESS/EXERCISE * * *Final Report* * * DATE OF EXAM: Sep 28 2023 3:23PM [facility] 0004 - NM CARDIAC PERF STRESS/EXERCISE / PROCEDURE REASON: multiple diagnoses * * * * Physician Interpretation * * * * Stress Field Technical Specialist Report: [facility] Date of service: 09/28/2023 2:15:07 PM Supervising physician: Becki Katz MD PATIENT: Name: MRS. YKOASTA MORENO Age: 63 years Gender: F The [...] later. See administered radiotracer and doses below. [facility] Date of service: 09/28/2023 2:15:07 PM Ordering [...] * * * ------ Stress ECG Report: [facility] Date of service: 09/28/2023 2:15:07 PM Ordering physician: PERLA HINTON editorial specialist: Lois Shannon Administration Professional: Meron Mccullough Interpreting physician: Becki Katz MD [...] 172/90 mmHg. The double product achieved was [address]. Medications: Last Used LIPITOR DILTIAZEM TAMBOCOR PEPCID [...] 86 14.0 (more content not included)... Normal [facility] NM Heart Perfusion W multipl e states of exerciseon 09-28-2023 * * *Final Report* * * DATE OF EXAM: Sep 28 2023 3:23PM [facility] 0004 - NM CARDIAC PERF STRESS/EXERCISE / PROCEDURE REASON: multiple diagnoses * * * * Physician Interpretation * * * * Stress Field Technical Specialist Report: [facility] Date of service: 09/28/2023 2:15:07 PM Supervising [...] later. See administered radiotracer and doses below. [facility] Date of service: 09/28/2023 2:15:07 PM Ordering [...] * * * ------ Stress ECG Report: [facility] Date of service: 09/28/2023 2:15:07 PM Ordering physician: PERLA HINTON editorial specialist: Lois Shannon Administration Professional: Meron Mccullough Interpreting physician: Becki Katz MD [...] 172/90 mmHg. [place] double product achieved was [address]. Medications: Last Used LIPITOR DILTIAZEM TAMBOCOR PEPCID ASPIRIN AVALIDE Resting ECG: Normal Sinus Rhythm Symptoms at rest: No symptoms Exercise Protocol: Omega Stress Exercise Table: +-----+-------- (more content not included)... [facility] Provider, [facility] - 09/28/2023 * * *Final Report* * * DATE OF EXAM: Sep 28 2023 3:23PM [facility] 0004 - NM CARDIAC PERF STRESS/EXERCISE / PROCEDURE REASON: multiple diagnoses * * * * Physician Interpretation * * * * Stress Field Technical Specialist Report: [facility] Date of service: 09/28/2023 2:15:07 PM Supervising [...] later. See administered radiotracer and doses below. [facility] Date of service: 09/28/2023 2:15:07 PM Ordering [...] * * * ------ Stress ECG Report: [facility] Date of service: 09/28/2023 2:15:07 PM Ordering physician: PERLA HINTON editorial specialist: Lois Shannon Administration Professional: Meron Mccullough Interpreting physician: Becki Katz MD [...] 172/90 mmHg. The double product achieved [place] [address]. Medications: Last Used LIPITOR DILTIAZEM TAMBOCOR PEPCID ASPIRIN AVALIDE Resting ECG: Normal Sinus Rhythm Symptoms at rest: No symptoms Exercise Protocol: Omega Stress Exercise Table: +-----+ +--- -----+ +---+- --+---+----+----+ Stage Speed (MPH) Grade(%) Time (min) HR SYS LASHONDA RPE METS +-----+ +--- -----+ +---+- --+-- (more content not included)... [facility] Radiology Study observation (narrative) [facility] NM Heart Perfusion W multipl e states of exerciseOrdered By: [facility] Provider on 09-28-2023 [facility] Jordy 09-25-2023 CNPN Telephone ([facility]) YOKASTA MORENO ([id number]) 1960 F Date Time Provider Department 09/25/23 MERON MCCULLOUGH [facility] During your visit today, we recorded the following information about you: Meron Mccullough, RN 09/25/2023 2:20 PM Signed Spoke [...] Fully Assessed Reason for Visit: Reminder Call [0951] Prescriptions as of 09/25/2023 - atorvastatin (LIPITOR) [...] Status:Closed by MERON MCCULLOUGH on 09/25/23 Normal [facility] ECG COMPLETEon 07-22-2021 Atrial Rate 72 BPM [facility] Calculated P [place] 13 degrees [facility] Calculated R Ke[place] -2 degrees [facility] Calculated T [place] 26 degrees [facility] P-R Interval 152 ms [facility] QRS Duration 108 ms [facility] QT Interval 400 ms [facility] QTC Calculation (Bazett) 438 ms [facility] Ventricular Rate 72 BPM [facility] TB by QuantiFERONon 02-04-20 21 Interpretation TBNEG Normal [facility] Comment on above: Performed By: #### I NFTBP #### [facility] Immunology [address] [place] [address] Mitogen minus Nil 4.89 Normal [facility] Comment on above: Performed By: #### I NFTBP #### [facility] [address] [place] [address] TB NIL 0.02 IU/mL Normal [facility] Comment on above: Performed By: #### I NFTBP #### [facility] Immunology [address] [place] [phone] TB Result NEGAT Normal Negative [facility] Comment on above: Performed By: #### I NFTBP #### [facility] Immunology [address] [place], [place] [phone] TB1 Ag minus Nil 0.00 IU/mL Normal <0.35 [facility] Comment on above: Performed By: #### I NFTBP #### [facility] Immunology [address] [place], [place] [phone] TB2 Ag minus Nil 0.01 IU/mL Normal <0.35 [facility] Comment on above: Performed By: #### I NFTBP #### [phone] Hepatitis B Core AB IgMon HB CORE [id number] Negative Normal Negative [facility] Comment on above: Result Comment: Perf ormed at: CB - [facility] [place] [id number] Baling Machine Operator: Greyson Acevedo PhD, Phone: [phone] Performed By: #### L 3100.0440, L3400.8000 #### [facility] (refer to report for specific site) refer to report for address and phone number Quantiferon TB-Gold+on 05-22 QFT MITOGEN ELY 1.84 IU/mL Normal . [facility] Comment on above: Performed By: #### L 3100.0440, L3400.8000 #### [facility] (refer to report for specific site) refer to report for address and phone number QFT NIL VALUE 0.01 IU/mL Normal . [facility] Comment on above: Performed By: #### L 3100.0440, L3400.8000 #### [facility] (refer to report for specific site) refer to report for address and phone number QFT TB GOLD Comment Normal . [facility] Comment on above: Result Comment: The QuantiFERON-TB Gold Plus result is determined by subtracting the Nil value from either TB antigen (Ag) tube. The mitogen tube serves as a control for the test. Performed By: #### L 3100.0440, L3400.8000 #### [facility] (refer to report for specific site) refer to report for address and phone number QFT TB POS CRIT Negative Normal Negative [facility] Comment on above: Result Comment: The specimen [...] TB1+ AG ELY 0.01 IU/mL Normal . [facility] Comment on above: Performed By: #### L 3100.0440, L3400.8000 #### [facility] (refer to report for specific site) refer to report for address and phone number QFT TB2+ AG ELY 0.02 IU/mL Normal . [facility] Comment on above: Performed By: #### L 3100.0440, L3400.8000 #### [facility] (refer to report for specific site) refer to report for address and phone number Basic Metabolic Profile (BMP )on 05-19-2019 Calcium [Mass/Vol] 9.1 mg/dL Normal 8.5-10.1 [facility] Comment on above: Performed By: #### L 500.2500, L500.3400 #### [facility] [address] [place], [address] Chloride [Moles/Vol] 103 mmol/L Normal 98-107 [facility] Comment on above: Performed By: #### L 500.2500, L500.3400 #### [facility] [address] [place], [address] CO2 [Moles/Vol] 28.0 mmol/L Normal 21.0-32.0 [facility] Comment on above: Performed By: #### L 500.2500, L500.3400 #### [facility] [address] [place], [address] Creatinine [Mass/Vol] 1.03 mg/dL High 0.55-1.02 [facility] Comment on above: Result Comment: The validity of the calculated GFR AND GFRAA in patients over 70 years has not been determined. Clinical correlation is essential. Performed By: #### L 500.2500, L500.3400 #### [facility] [address] [place], [address] EST GFR - AA 71 mL/min Normal >60 [facility] Comment on above: Result Comment: Afri can [place] GFR Calc Performed By: #### L 500.2500, L500.3400 #### [facility] [address] [place], [address] GAP 6 Normal 5-15 [facility] Comment on above: Performed By: #### L 500.2500, L500.3400 #### [facility] [address] [place], [address] GFR/1.73 sq M predicted among non-blacks MDRD (S/P/Bld) [Vol rate/Area] 59 mL/min/{1.73_m2} Low >60 [facility] Comment on above: Result Comment: Non- GFR Calc Performed By: #### L 500.2500, L500.3400 #### [facility] [address] [place], [address] Glucose [Mass/Vol] 80 mg/dL Normal 74-106 [facility] Comment on above: Result Comment: Meño watkins note revised GLUCOSE reference range effective 2017. Performed By: #### L 500.2500, L500.3400 #### [facility] [address] [place], [address] Potassium [Moles/Vol] 3.5 mmol/L Normal 3.5-5.1 [facility] Comment on above: Performed By: #### L 500.2500, L500.3400 #### [facility] [address] [place], [address] Sodium [Moles/Vol] 137 mmol/L Normal 136-145 [facility] Comment on above: Performed By: #### L 500.2500, L500.3400 #### [facility] [address] [place], [address] Urea nitrogen [Mass/Vol] 19.4 RATIO Normal 10-20 [facility] Comment on above: Performed By: #### L 500.2500, L500.3400 #### [facility] [address] [place], [address] Urea nitrogen [Mass/Vol] 20 mg/dL High 7-18 [facility] Comment on above: Performed By: #### L 500.2500, L500.3400 #### [facility] [address] [place], [address] CBC W/Diff, Automatedon - Absolute Neut 11.3 X10 3/uL High 2.0-7.7 [facility] Comment on above: Performed By: #### L 100.0100 #### [facility] [address] [place], [address] Basophils/100 WBC (Bld) 0.4 % Normal 0-1 [facility] Comment on above: Performed By: #### L 100.0100 #### [facility] [address] [place], [address] Eosinophils/100 WBC (Bld) 0.6 % Normal 0-5 [facility] Comment on above: Performed By: #### L 100.0100 #### [facility] [address] [place], [address] Erythrocyte distribution width (RBC) [Ratio] 12.8 % Normal 11.6-14.6 [facility] Comment on above: Performed By: #### L 100.0100 #### [facility] [address] [place], [address] Hematocrit (Bld) [Volume fraction] 42.1 % Normal 37-47 [facility] Comment on above: Performed By: #### L 100.0100 #### [facility] [address] [place], [address] Hemoglobin (Bld) [Mass/Vol] 13.7 g/dL Normal 12.0-15.0 [facility] Comment on above: Performed By: #### L 100.0100 #### [facility] [address] [place], [address] IM GRAN % 0.600 % Normal 0.0-0.9 [facility] Comment on above: Result Comment: IG% - Immature Granulocytes (promyelocytes, myelocytes and metamyelocytes) > 1% indicates that a LEFT SHIFT is Present. Performed By: #### L 100.0100 #### [facility] [address] [place], [address] Lymphocytes (Bld) [#/Vol] 2.40 X10 3/uL Normal 0.83-4.51 [facility] Comment on above: Performed By: #### L 100.0100 #### [facility] [address] [place], [address] Lymphocytes/100 WBC (Bld) 16.4 % Low 19-41 [facility] Comment on above: Performed By: #### L 100.0100 #### [facility] [address] [place], [address] MCH (RBC) [Entitic mass] 29.2 pg Normal 27.0-32.0 [facility] Comment on above: Performed By: #### L 100.0100 #### [facility] [address] [place], [address] MCHC (RBC) [Mass/Vol] 32.5 g/dL Normal 32-36 [facility] Comment on above: Performed By: #### L 100.0100 #### [facility] [address] [place], [address] MCV (RBC) [Entitic vol] 89.8 fL Normal 81-99 [facility] Comment on above: Performed By: #### L 100.0100 #### [facility] [address] [place], [address] Monocytes/100 WBC (Bld) 4.8 % Normal 0-10 [facility] Comment on above: Performed By: #### L 100.0100 #### [facility] [address] [place], [address] Neutrophils/100 WBC (Bld) 77.2 % High 47-70 [facility] Comment on above: Performed By: #### L 100.0100 #### [facility] [address] [place], [address] NRBC, FLAGGED 0 % Normal 0-5 [facility] Comment on above: Performed By: #### L 100.0100 #### [facility] [address] [place], [address] Platelet mean volume (Bld) [Entitic vol] 9.7 fL Normal 6.2-12.0 [facility] Comment on above: Performed By: #### L 100.0100 #### [facility] [address] [place], [address] Platelets (Bld) [#/Vol] 442 10*3/uL Normal 150-450 [facility] Comment on above: Performed By: #### L 100.0100 #### [facility] [address] [place], [address] RBC (Bld) [#/Vol] 4.69 M/mm3 Normal 4.2-5.4 [facility] Comment on above: Performed By: #### L 100.0100 #### [facility] [address] [place], [address] RDW SD 41.2 fl Normal 35.1-43.9 [facility] Comment on above: Performed By: #### L 100.0100 #### [facility] [address] [place], [address] WBC (Bld) [#/Vol] 14.6 10*3/uL High 4.4-11.0 [facility] Comment on above: Performed By: #### L 100.0100 #### [facility] [address] [place], [address] Hepatitis B Surface Antibody on 05-19-2019 HEPB Surface Ab Reactive Normal [facility] Comment on above: Result Comment: Non Reactive: Inconsistent with immunity less than <10 mIU/mL Reactive: Consistent with immunity greater than or equal to 10 mIU/mL Performed By: #### L 3890.6100, L3890.6200, L3890.6300 #### [facility] [address] [place], [address] Hepatitis B Surface Antigeno n 05-19-2019 HEPB Surface Ag Non-Reactive Normal Nonreactive [facility] Comment on above: Performed By: #### L 3890.6100, L3890.6200, L3890.6300 #### [facility] [address] [place], [address] Hepatitis C Antibodyon 05-18 HEPATITIS C AB Non-Reactive Normal Nonreactive [facility] Comment on above: Result Comment: Non Reactive: < 0.8 Equivocal: >/= 0.8 to < 1.0 Reactive: >/= 1.0 The CDC recommends that a reactive/equivocal HCV antibody result be followed up by the HCV Nucleic Acid Amplification test (339532) Performed By: #### L 3890.6100, L3890.6200, L3890.6300 #### [facility] [address] [place], [address] Liver Profileon 05-19-2019 Albumin [Mass/Vol] 3.9 g/dL Normal 3.2-5.0 [facility] Comment on above: Performed By: #### L 500.2500, L500.3400 #### [facility] [address] [place], [address] ALK P 92 U/L Normal 45-117 [facility] Comment on above: Performed By: #### L 500.2500, L500.3400 #### [facility] [address] [place], [address] ALT [Catalytic activity/Vol] 23 U/L Normal 13-56 [facility] Comment on above: Performed By: #### L 500.2500, L500.3400 #### [facility] [address] [place], [address] AST [Catalytic activity/Vol] 8 U/L Low 15-37 [facility] Comment on above: Performed By: #### L 500.2500, L500.3400 #### [facility] [address] [place], [address] Bilirubin [Mass/Vol] 0.80 mg/dL Normal 0.20-1.00 [facility] Comment on above: Performed By: #### L 500.2500, L500.3400 #### [facility] [address] [place], [address] Bilirubin.direct [Mass/Vol] 0.18 mg/dL Normal 0.00-0.30 [facility] Comment on above: Performed By: #### L 500.2500, L500.3400 #### [facility] [address] [place], [address] Globulin (S) [Mass/Vol] 3.5 g/dL Normal 2.2-4.2 [facility] Comment on above: Performed By: #### L 500.2500, L500.3400 #### [facility] [address] [place], [address] T PROT 7.4 g/dL Normal 6.4-8.2 [facility] Comment on above: Performed By: #### L 500.2500, L500.3400 #### [facility] [address] [place], [address] URINE CULTURE,BACTERIALon URINE CULTURE,BACTERIAL PATIENT: YOKASTA MORENO LOCATION: [facility] [place] BILL#: [id number] : 62 AGE: SEX: F ORDERED BY: AMY GIANG SOURCE: URINE COLLECTED: 05/30/18 12:57 ANTIBIOTICS AT AWAIS.: RECEIVED : 05/30/18 21:50 SITE: Clean Catch/Voided R E S U L T S URINE CULTURE,BACTERIAL FINAL 05/31/18 14:20 NO SIGNIFICANT GROWTH. Normal [facility] Comment on above: Performed By: #### [facility] #### [facility] [address] [place] [address] FOOT, COMPLETE, MIN 3 VIEWSo n 11-26-2017 FOOT, COMPLETE, MIN 3 VIEWS Patient Name: YOKASTA MORENO STUDY: FOOT, COMPLETE, MIN 3 VIEWS; 11/26/2017 12:42 pm INDICATION: Signs/Symptoms: jammed toe on step, swelling, echymosis, second toe. COMPARISON: None. ACCESSION NUMBER(S): [id number] ORDERING CLINICIAN: SYEDA KRAFT FINDINGS: There is a mildly impacted torus fracture at the distal aspect of the middle phalanx of the 2nd digit. Does not involve the articular surface. No other fracture is seen. IMPRESSION: Positive exam as detailed above Electronically signed by: SOTERO NIÑO MD Normal [facility] Vital Signs Date Time Vital Sign Value Performing Clinician Facility 09-09-2024 11:53-0400 Body height 160 cm Perla Hinton MD Work Phone: [facility] 09-09-2024 11:53-0400 Body mass index (BMI) [Ratio] 29.29 kg/m2 Perla Hinton MD Work Phone: [facility] 09-09-2024 11:53-0400 Body weight 75 kg Perla Hinton MD Work Phone: [facility] 09-09-2024 11:53-0400 Diastolic blood pressure 78 mm[Hg] Perla Hinton MD Work Phone: [facility] 09-09-2024 11:53-0400 Heart rate 75 /min Perla Hinton MD Work Phone: [facility] 09-09-2024 11:53-0400 Systolic blood pressure 110 mm[Hg] Perla Hinton MD Work Phone: [facility] 08-19-2024 10:43-0400 Body height 160 cm Adilene López MD Work Phone: [facility] 08-19-2024 10:43-0400 Body mass index (BMI) [Ratio] 30.93 kg/m2 Adilene López MD Work Phone: [facility] 08-19-2024 10:43-0400 Body weight 79.2 kg Adilene López MD Work Phone: [facility] 08-19-2024 10:43-0400 Diastolic blood pressure 64 mm[Hg] Adilene López MD Work Phone: [facility] 08-19-2024 10:43-0400 Heart rate 60 /min Adilene López MD Work Phone: [facility] 08-19-2024 10:43-0400 Systolic blood pressure 100 mm[Hg] Adilene López MD Work Phone: [facility] 06-03-2024 10:02-0400 Body height 160 cm Pacc 1 Work Phone: [facility] 06-03-2024 10:02-0400 Body mass index (BMI) [Ratio] 30.62 kg/m2 Pacc 1 Work Phone: [facility] 06-03-2024 10:02-0400 Body temperature 98.6 [degF] Pacc 1 Work Phone: [facility] 06-03-2024 10:02-0400 Body weight 78.4 kg Pacc 1 Work Phone: [facility] 06-03-2024 10:02-0400 Diastolic blood pressure 69 mm[Hg] Pacc 1 Work Phone: [facility] 06-03-2024 10:02-0400 Heart rate 64 /min Pacc 1 Work Phone: [facility] 06-03-2024 10:02-0400 Respiratory rate 16 /min Pacc 1 Work Phone: [facility] 06-03-2024 10:02-0400 SaO2% (BldA) [Mass fraction] 96 % Pacc 1 Work Phone: [facility] 06-03-2024 10:02-0400 Systolic blood pressure 107 mm[Hg] Pacc 1 Work Phone: [facility] 05-13-2024 11:02-0400 Body height 160 cm Adilene López MD Work Phone: [facility] 05-13-2024 11:02-0400 Body mass index (BMI) [Ratio] 30.3 kg/m2 Adilene López MD Work Phone: [facility] 05-13-2024 11:02-0400 Body weight 77.6 kg Adilene López MD Work Phone: [facility] 05-13-2024 11:02-0400 Diastolic blood pressure 64 mm[Hg] Adilene López MD Work Phone: [facility] 05-13-2024 11:02-0400 Heart rate 59 /min Adilene López MD Work Phone: [facility] 05-13-2024 11:02-0400 Systolic blood pressure 104 mm[Hg] Adilene López MD Work Phone: [facility] 04-11-2024 18:04-0500 Body mass index (BMI) [Ratio] 29.58 kg/m2 Samir Crawford MD Work Phone: [facility] 04-11-2024 18:04-0500 Body temperature 97.3 [degF] Samir Crawford MD Work Phone: [facility] 04-11-2024 18:04-0500 Body weight 75.75 kg Samir Crawford MD Work Phone: [facility] 04-11-2024 18:04-0500 Diastolic blood pressure 84 mm[Hg] Samir Crawford MD Work Phone: [facility] 04-11-2024 18:04-0500 Heart rate 76 /min Samir Crawford MD Work Phone: [facility] 04-11-2024 18:04-0500 Respiratory rate 16 /min Samir Crawford MD Work Phone: [facility] 04-11-2024 18:04-0500 SaO2% (BldA) [Mass fraction] 99 % Samir Crawford MD Work Phone: [facility] 04-11-2024 18:04-0500 Systolic blood pressure 134 mm[Hg] Samir Crawford MD Work Phone: [facility] 03-18-2024 11:22-0500 Body height 160 cm Perla Hinton MD Work Phone: [facility] 03-18-2024 11:22-0500 Body mass index (BMI) [Ratio] 30.85 kg/m2 Perla Hinton MD Work Phone: [facility] 03-18-2024 11:22-0500 Body weight 79 kg Perla Hinton MD Work Phone: [facility] 03-18-2024 11:22-0500 Diastolic blood pressure 80 mm[Hg] Perla Hinton MD Work Phone: [facility] 03-18-2024 11:22-0500 Heart rate 65 /min Perla Hinton MD Work Phone: [facility] 03-18-2024 11:22-0500 Systolic blood pressure 110 mm[Hg] Perla Hinton MD Work Phone: [facility] 11-25-2023 17:51-0400 SaO2% (BldA) [Mass fraction] 95 % Bradly Schiele DO Work Phone: [facility] 11-25-2023 17:50-0400 Body temperature 98.4 [degF] Bradly Schiele DO Work Phone: [facility] 11-25-2023 17:50-0400 Body weight 81.65 kg Bradly Schiele DO Work Phone: [facility] 11-25-2023 17:50-0400 Diastolic blood pressure 117 mm[Hg] Bradly Schiele DO Work Phone: [facility] 11-25-2023 17:50-0400 Heart rate 93 /min Bradly Schiele DO Work Phone: [facility] 11-25-2023 17:50-0400 Respiratory rate 18 /min Bradly Schiele DO Work Phone: [facility] 11-25-2023 17:50-0400 Systolic blood pressure 194 mm[Hg] Bradly Schiele DO Work Phone: [facility] 09-11-2023 10:19-0400 Body height 160 cm Perla Hinton MD Work Phone: [facility] 09-11-2023 10:19-0400 Body mass index (BMI) [Ratio] 30.68 kg/m2 Perla Hinton MD Work Phone: [facility] 09-11-2023 10:19-0400 Body weight 78.56 kg Perla Hinton MD Work Phone: [facility] 09-11-2023 10:19-0400 Diastolic blood pressure 102 mm[Hg] Perla Hinton MD Work Phone: [facility] 09-11-2023 10:19-0400 Heart rate 66 /min Perla Hinton MD Work Phone: [facility] 09-11-2023 10:19-0400 Systolic blood pressure 152 mm[Hg] Perla Hinton MD Work Phone: [facility] 07-22-2021 12:01-0400 Body height 160 cm Perla Hinton MD Work Phone: [facility] 07-22-2021 12:01-0400 Body weight 88.91 kg Perla Hinton MD Work Phone: [facility] 07-22-2021 12:01-0400 Diastolic blood pressure 74 mm[Hg] Perla Hinton MD Work Phone: [facility] 07-22-2021 12:01-0400 Heart rate 72 /min Perla Hinton MD Work Phone: [facility] 07-22-2021 12:01-0400 Respiratory rate 14 /min Perla Hinton MD Work Phone: [facility] 07-22-2021 12:01-0400 Systolic blood pressure 126 mm[Hg] Perla Hinton MD Work Phone: [facility] Encounters Encounter Date Encounter Type Care Provider Facility Start: 09-30-2024 End: 09-30-2024 ambulatory [facility] Start: 09-09-2024 End: 09-09-2024 Patient encounter procedure Perla Hinton MD Work Phone: [facility] Comment on above: Paroxysmal atrial fi brillation (HCC) (Primary Dx); Essential hypertension; Pure hypercholesterolemia; Overweight (BMI 25.0-29.9) Start: 09-09-2024 End: 09-09-2024 ambulatory PERLA HINTON Facility:[facility] Start: 09-04-2024 End: 09-06-2024 Refill Perla Hinton MD Work Phone: [facility] Comment on above: Refill Request Start: 08-19-2024 End: 08-19-2024 Office outpatient visit 25 minutes Adilene López MD Work Phone: Cardiology Comment on above: PAF (paroxysmal atri al fibrillation) (HCC) (Primary Dx) Start: 08-19-2024 End: 08-19-2024 ambulatory ADILENE LÓPEZ Facility:[facility] Start: 06-28-2024 End: 06-28-2024 [facility] Facility:[facility] Start: 06-03-2024 End: 06-03-2024 Admission to establishment [place] [id number] Work Phone: Pre Anesthesia Start: 06-03-2024 End: 06-03-2024 Anesthesia consultation [place] [id number] Work Phone: Pre Anesthesia Comment on above: Pre-op evaluation (P rimary Dx); Essential hypertension; High triglycerides; PAF (paroxysmal atrial fibrillation) (HCC); Gastroesophageal reflux disease, unspecified whether esophagitis present; Liver cyst; Goiter; Psoriasis; Lumbar herniated disc; PONV (postoperative nausea and vomiting); Chronic interstitial cystitis Start: 06-03-2024 End: 06-03-2024 Preprocedural examination done [place] [id number] Work Phone: [facility] Work Phone: Start: 06-03-2024 End: 06-03-2024 [facility] Start: 06-03-2024 Encounter for other preprocedural examination [facility] Start: 05-13-2024 End: 05-13-2024 Telephone encounter Adilene López MD Work Phone: Cardiology Comment on above: Procedure Start: 05-13-2024 End: 05-13-2024 ambulatory ADILENE LÓPEZ Facility:[facility] Start: 05-13-2024 End: 05-13-2024 Office outpatient [...] Start: 04-15-2024 End: 04-15-2024 ambulatory SARPREET NELL Facility:[facility] Start: 04-11-2024 End: 04-11-2024 Office outpatient visit 15 minutes Samir Crawford MD Work Phone: [facility] Comment on above: Eustachian tube dysf unction, right (Primary Dx) Start: 04-02-2024 End: 04-02-2024 Office outpatient new 30 minutes Tia Mandela [place] 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 Work Phone: Urgent Care Virtual Visit Comment on above: Personal history of COVID-19 (Primary Dx); Acute cough Start: 03-18-2024 End: 03-18-2024 Telephone encounter Perla Hinton MD Work Phone: [facility] Comment on above: Appointment (For PVI ) Appointment Start: 03-18-2024 End: 03-18-2024 Patient encounter procedure Perla Hinton MD Work Phone: [facility] Comment on above: Paroxysmal atrial fi brillation (HCC) (Primary Dx) Start: 03-18-2024 End: 03-18-2024 ambulatory PERLA HINTON Facility:[facility] Start: 12-29-2023 End: 12-29-2023 Telephone encounter Perla Hinton MD Work Phone: Cardiology Start: 11-27-2023 End: 11-27-2023 ambulatory SARPREET NELL [facility] Start: 11-25-2023 End: 11-25-2023 Emergency department patient visit Bradly Louise Work Phone: [facility] Emergency Department Comment on above: Nose bleed (Nose ble eding x this afternoon, broken nose x 1 week; active bleeding at triage) Start: 11-20-2023 End: 11-20-2023 ambulatory SARPREET NELL Facility:[id number] Start: 11-17-2023 End: 11-17-2023 ambulatory SARPREET NELL [facility] Start: 11-15-2023 End: 11-15-2023 Emergency department patient visit SARPREET NELL Facility:[facility] Start: 10-13-2023 End: 10-13-2023 ambulatory SARPREET NELL Facility:[facility] Start: 10-02-2023 End: 10-02-2023 ambulatory SARPREET NELL Facility:[facility] Start: 09-28-2023 ambulatory SARPREET NELL Facilit y:[facility] Start: 09-28-2023 End: 09-28-2023 Subsequent hospital visit by physician [facility] Work Phone: Cardiology Lab Comment on above: PAF (paroxysmal atri al fibrillation) (HCC) [I48.0] Start: 09-28-2023 ambulatory SARPREET NELL Facilit y:[facility] Start: 09-28-2023 End: 09-28-2023 Subsequent hospital visit by physician [facility] Work Phone: Molecular Imaging Comment on above: PAF (paroxysmal atri al fibrillation) (HCC) [I48.0] Start: 09-25-2023 Telephone encounter Meron tobar RN Cardiology Lab Comment on above: Reminder Call Start: 09-21-2023 Refill Perla christy MD Work Phone: Cardiology Comment on above: Refill Request Start: 09-11-2023 End: 09-11-2023 Patient encounter procedure Perla Hinton MD Work Phone: [facility] Comment on above: PAF (paroxysmal atri al fibrillation) (HCC) (Primary Dx); Essential hypertension; Chest pain, unspecified type Start: 06-06-2023 Refill Perla christy MD Work Phone: Cardiology Comment on above: Refill Request Start: 05-06-2023 Telephone encounter Perla blunt MD Work Phone: Cardiology Start: 12-19-2022 ambulatory [id number] Start: 10-17-2022 End: 10-18-2022 ambulatory SARPREET NELL Facility:[id number] Start: 01-28-2022 End: 01-29-2022 ambulatory ROM GOSS MD Facility:[id number] Start: 01-28-2022 End: 01-29-2022 ambulatory [facility]:[id number] Start: 01-27-2022 End: 01-27-2022 ambulatory [id number] Start: 12-27-2021 End: 12-28-2021 ambulatory ROM GOSS MD Facility:[facility] Start: 12-27-2021 End: 12-28-2021 ambulatory SARPREET NELL Facility:[id number] Start: 07-22-2021 End: 07-22-2021 Patient encounter procedure Perla Hinton MD Work Phone: Cardiology Comment on above: PAF (paroxysmal atri al fibrillation) (HCC) (Primary Dx); Essential hypertension; Pure hypercholesterolemia; Paroxysmal atrial fibrillation (HCC) Start: 11-26-2017 Patient encounter procedure Syeda Kraft Facility:[facility] Start: 12-01-2016 Ambulatory ILENEMATTHEW [facility] Procedures Date Procedure Procedure Detail Performing Clinician Start: 09-09-2024 Ecg routine ecg w/le ast 12 lds i&r only Perla Hinton MD Work Phone: Start: 06-28-2024 Antibody screen BILLY CAMEJO Comment on above: Order Comment: Speci men Type: BLOOD SPECIMENOrdering Facility: [facility] Address: [address] [place] [address] Performed By: #### T SCR ####[facility] [id number] [address] Start: 05-13-2024 Ecg routine ecg w/le [...] RSV Vaccine (1 - 1-dose 75+ series) [facility] Start: 11-14-2033 DTaP/Tdap/Td Vaccines (2 - Td or Tdap) DTaP/Tdap/Td Vaccines (2 - Td or Tdap) [facility] Start: 11-14-2033 Urine microalbumin profile DTaP,Tdap,Td Vaccine (2 - Td or Tdap) [facility] Start: 07-22-2033 Screening for malignant neoplasm of colon [facility] Start: 10-01-2028 Lipid panel [facility] Start: 09-10-2027 Lipid panel Lipid Screening [facility] Start: 06-29-2027 Diabetes Screening Diabetes Screening [facility] Start: 10-01-2026 Diabetes Screening Diabetes Screening [facility] Start: 09-09-2025 Diabetes Screening Diabetes Screening [facility] [facility] Start: 06-16-2025 End: 06-16-2025 Patient encounter procedure 06/16/2025 11:40 AM EDT Office Visit CARD INTERVENTION [facility] [address] [place] [id number] [place] [address] [id number] 6 month CARD INTERVENTION [facility] Comment on above: 6 month Start: 06-03-2025 BP Controlled (<130/80) BP Controlled (<130/80) [facility] Start: 05-13-2025 BP Controlled (<130/80) BP Controlled (<130/80) [facility] Start: 03-03-2025 End: 03-03-2025 Patient encounter procedure 03/03/2025 11:15 AM EST Office Visit Cardiology [address] [facility] [address] [place], [place] [id number] Adilene López MD [address] [facility] [address] [place], [place] [id number] 6 month Cardiology Comment on above: 6 month Start: 10-31-2024 Influenza vaccination Influenza Vaccine (#1) [facility] Start: 09-09-2024 End: 09-09-2024 Patient encounter procedure 09/09/2024 11:20 AM EDT Office Visit CARD INTERVENTION [facility] [address] [place] [address] [place] [address] [place] [address] 6 month CARD INTERVENTION [facility] Comment on above: 6 month Start: 08-10-2024 End: 08-10-2024 Patient encounter procedure 08/10/2024 11:30 AM EDT Office Visit Cardiology [address] [facility] [address] [place], [place] [id number] Adilene López MD [address] [facility] [place] [facility] [address], [address] [place], [place] [phone] follow up after PVI on 06/28 Cardiology Comment on above: follow up after PVI on 06/28 Start: 07-22-2024 Screening for malignant neoplasm of colon [facility] Start: 06-28-2024 End: 06-28-2024 Admission to same day surgery center 06/28/2024 7:30 AM EDT - 06/28/2024 11:00 AM EDT Surgery [facility] [address] [facility] [place] [address] Adilene López [place] [address] [place] [address] 2, [address] [place], [place] [phone] COMPRE EP EVAL ABLTJ ATR FIB PULM VEIN ISOLATION [facility] Comment on above: [...] physician 06/28/2024 7:30 AM EDT Hospital Encounter [facility] [address] [place] [address] Adilene López MD [address] [facility] [place] [facility] [address], [address] [place], [place] [id number] Atrial fibrillation, unspecified type (HCC) [I48.91] [facility] Comment on above: Atrial fibrillation, unspecified type (H CC) [I48.91] Start: 06-03-2024 End: 06-03-2024 Anesthesia consultation 06/03/2024 10:00 AM EDT PAT Pre Anesthesia [address] [place] [address] 1, Pacc [place] [address] [place] [address] DOS: 06/28/2024 DR LAUREL MAXWELL Pre Anesthesia Comment on above: DOS: 06/28/2024 DR LAUREL MAXWELL Start: 05-13-2024 End: 05-13-2024 Patient encounter procedure 05/13/2024 11:15 AM EDT Office Visit Cardiology [address] [place] [address] [address] [place], [place] [phone] Adilene López MD [address] [facility] [address] [place], [place] [id number] AF Cardiology Comment on above: AF Start: 03-18-2024 End: 03-18-2024 Patient encounter procedure 03/18/2024 11:20 AM EST Office Visit CARD INTERVENTION [facility] [address] [place], [place] [phone] [place] [address] [place], [place] [phone] 6 m onth f/u CARD INTER[facility]ION [facility] Comment on above: 6 m onth f/u Start: 02-18-2024 Covid-19 Vaccine () Covid-19 Vaccine () [facility] Start: 02-12-2024 LIPID SCREEN LIPID SCREEN [facility] Start: 11-01-2023 COVID-19 Vaccine ( season) COVID-19 Vaccine () [facility] Start: 11-01-2023 Influenza vaccination [facility] Start: 10-02-2023 End: 10-02-2023 ambulatory 10/02/2023 12:15 PM EDT Results Only [facility] [address] [place] [address] [facility] Start: 09-29-2023 Shingrix Vaccine (2 of 2) Shingrix Vaccine (2 of 2) [facility] Start: 09-28-2023 Subsequent hospital visit by physician 09/28/2023 2:30 PM EDT Hospital Encounter Cardiology Lab [address] [place] [address] PAF (paroxysmal atrial fibrillation) (HCC) [I48.0] Cardiology Lab Comment on above: PAF (paroxysmal atrial fibrillation) (HC C) [I48.0] Start: 09-28-2023 End: 09-28-2023 Patient encounter procedure 09/28/2023 1:30 PM EDT Appointment Molecular Imaging [address] [place] [id number] EPIC ORDER Molecular Imaging Comment on above: EPIC ORDER Start: 09-21-2023 End: 12-21-2023 CBC panel - Blood by Automated count COMPLETE BLOOD COUNT Lab Routine Pure hypercholesterolemia Paroxysmal atrial fibrillation (HCC) Expected: 09/21/2023, Expires: 12/21/2023 [facility] Comment on above: Expected: 09/21/2023, Expires: Start: 09-21-2023 End: 12-21-2023 Comprehensive metabolic 2000 panel - Serum or Plasma COMPREHENSIVE METABOLIC PANEL Lab Routine Pure hypercholesterolemia Paroxysmal atrial fibrillation (HCC) Expected: 09/21/2023, Expires: 12/21/2023 [facility] Comment on above: Expected: 09/21/2023, Expires: Start: 09-21-2023 End: 12-21-2023 Lipid 1996 panel - Serum or Plasma LIPID PANEL BASIC Lab Routine Pure hypercholesterolemia Paroxysmal atrial fibrillation (HCC) Expected: 09/21/2023, Expires: 12/21/2023 [facility] Work Phone: Comment on above: Expected: 09/21/2023, Expires: Start: 09-11-2023 End: 10-10-2024 NM Heart Perfusion W multiple states of exercise NM CARDIAC PERF STRESS/EXERCISE Radiology Routine PAF (paroxysmal atrial fibrillation) (HCC) Essential hypertension Chest pain, unspecified type Expected: 09/11/2023, Expires: 10/10/2024 [facility] Comment on above: Expected: 09/11/2023, Expires: Start: 08-12-2023 BP Controlled (<130/80) BP Controlled (<130/80) [facility] Start: 03-02-2023 Behavioral Health Screening Behavioral Health Screening [facility] Start: 03-02-2023 Depression Assessment Depression Assessment [facility] Start: 10-31-2022 Covid-19 Vaccine ( season) Covid-19 Vaccine ( season) [facility] Start: 10-31-2022 Influenza vaccination Influenza Vaccine (#1) [facility] Start: 07-22-2022 BP CONTROLLED (<130/80) BP CONTROLLED (<130/80) [facility] Start: 10-31-2021 Influenza vaccination INFLUENZA (Season Ended) [facility] heather Start: 2021 Hepatitis B (HBV) Vaccine (optional start 60+ years) Hepatitis B (HBV) Vaccine (optional start 60+ years) [facility] Start: 2021 Hepatitis B Vaccines (1 of 3 - Risk 3-dose series) Hepatitis B Vaccines (1 of 3 - Risk 3-dose series) [facility] Start: 2021 RSV High Risk: (Elderly (60+) or Population) (1 - Risk 60-74 years 1-dose series) RSV High Risk: (Elderly (60+) or Population) (1 - Risk 60-74 years 1-dose series) [facility] Start: 2021 RSV Vaccine (1 - 1-dose 60+ series) RSV Vaccine (1 - 1-dose 60+ series) [facility] Start: 2021 RSV Vaccine (1 - Risk 60-74 years 1-dose series) RSV Vaccine (1 - Risk 60-74 years 1-dose series) [facility] Start: 07-22-2021 End: 09-21-2021 Basic metabolic 2000 panel - Serum or Plasma BASIC METABOLIC PNL Lab Routine PAF (paroxysmal atrial fibrillation) (HCC) Expected: 07/22/2021, Expires: 09/21/2021 [facility] Work Phone: Comment on above: Expected: 07/22/2021, Expires: 2 Start: 07-22-2021 End: 09-21-2021 LIPID PANEL BASIC LIPID PANEL BASIC Lab Routine Pure hypercholesterolemia Expected: 07/22/2021, Expires: 09/21/2021 [facility] Work Phone: Comment on above: Expected: 07/22/2021, Expires: 2 Start: 04-07-2021 DIABETES SCREEN DIABETES SCREEN [facility] Start: 07-28-2020 Colonoscopy COLONOSCOPY [facility] Start: 07-28-2020 COLORECTAL CANCER SCREENING COLORECTAL CANCER SCREENING [facility] Start: 07-28-2020 Screening for malignant neoplasm of colon [facility] Start: 08-12-2011 Pneumococcal Vaccine: 50+ (1 of 1 - PCV) Pneumococcal Vaccine: 50+ (1 of 1 - PCV) [facility] Start: 08-12-2011 Shingles (RZV) Vaccine (1 of 2) Shingles (RZV) Vaccine (1 of 2) [facility] Start: 08-12-2011 SHINGRIX VACCINE (1 of 2) SHINGRIX VACCINE (1 of 2) [facility] Start: 01-18-2009 MMR Vaccines (1 of 1 - Standard series) MMR Vaccines (1 of 1 - Standard series) [facility] Start: 2006 COLOGUARD (FIT-DNA) COLOGUARD (FIT-DNA) [facility] Start: [address] COLONOGRAPHY [facility] Start: 2006 FECAL OCCULT BLOOD FECAL OCCULT BLOOD [facility] Start: 2006 Screening for malignant neoplasm of colon [facility] Start: 2006 SIGMOIDOSCOPY SIGMOIDOSCOPY [facility] Start: 2001 Mammography MAMMOGRAM [facility] Start: 2001 Screening for malignant neoplasm of breast [facility] Start: 08-12-1991 HPV TESTING HPV TESTING [facility] Start: 08-12-1991 Screening for malignant neoplasm of cervix HPV Testing [facility] Start: 1982 PAP TESTING PAP TESTING [facility] Start: 1982 Screening for malignant neoplasm of cervix [facility] Start: 1980 Hepatitis A (HAV) Vaccine (optional start 19+ years) Hepatitis A (HAV) Vaccine (optional start 19+ years) [facility] Start: 1980 Hepatitis A Vaccines (1 of 2 - Risk 2-dose series) Hepatitis A Vaccines (1 of 2 - Risk 2-dose series) [facility] Start: 1980 Pneumococcal vaccination Pneumococcal Vaccine (1 of 2 - PCV) [facility] Start: 1980 Urine microalbumin profile [facility] Start: 08-12-1979 ANNUAL PCP TEAM CHRONIC DISEASE VISIT ANNUAL PCP TEAM CHRONIC DISEASE VISIT [facility] Start: 08-12-1979 Anxiety Screening Anxiety Screening [facility] Start: 08-12-1979 BP Controlled (<130/80) BP Controlled (<130/80) [facility] Start: 08-12-1979 Depression Screening Depression Screening [facility] Start: 08-12-1979 Diabetes mellitus screening Diabetes Screening [facility] Start: 08-12-1979 HEPATITIS C SCREENING HEPATITIS C SCREENING [facility] Start: 08-12-1979 Hepatitis C screening [facility] Start: 08-12-1979 HIV SCREENING HIV SCREENING [facility] Start: 08-12-1979 HIV screening HIV Screening [facility] Start: 08-12-1979 Tdap Booster Tdap Booster [facility] Start: 1976 HIV screening HIV Test [facility] Start: 1973 Adult depression screening assessment DEPRESSION SCREENING [facility] Start: 1961 HIV screening HIV Screening [facility] Start: 1961 Lipid panel Lipid Panel [facility] Start: 1961 Screening for malignant neoplasm of colon [facility] Start: 1961 Yearly Adult Physical Yearly Adult Physical [facility] ECG COMPLETE ECG COMPLETE ECG Routine PAF (paroxysmal atrial fibrillation) (HCC) Ordered: 09/11/2023 [facility] Work Phone: Comment on above: Ordered: 09/11/2023 ECG COMPLETE [facility] Work Phone: Comment on above: Ordered: 03/18/2024 ECG COMPLETE ECG COMPLETE ECG Routine PAF (paroxysmal atrial fibrillation) (HCC) Ordered: 05/13/2024 [facility] Work Phone: Comment on above: Ordered: 05/13/2024 ECG COMPLETE ECG COMPLETE ECG 05/13/2024 11:06 AM EDT [facility] ECG COMPLETE ECG COMPLETE ECG Routine PAF (paroxysmal atrial fibrillation) (HCC) Ordered: 08/19/2024 [facility] Work Phone: Comment on above: Ordered: 08/19/2024 End: 03-18-2025 Echocardiography ECHO Cardiology Routine Paroxysmal atrial fibrillation (HCC) 1 Occurrences starting 03/18/2024 until 03/18/2025 [facility] Comment on above: 1 Occurrences starting 03/18/2024 until 03/18/2025 OUTSIDE VENDOR CARDI AC OUTPATIENT EXTENDED RHYTHM RECORDING (WITHOUT TELEMETRY) OUTSIDE VENDOR CARDIAC OUTPATIENT EXTENDED RHYTHM RECORDING (WITHOUT TELEMETRY) Holter Routine PAF (paroxysmal atrial fibrillation) ([facility]) Ordered: 08/19/2024 [facility] Comment on above: Ordered: 08/19/2024 [facility] Immunizations Immunization Date Immunization Notes Care Provider Fa [facility] 12-24-2023 COVID-19 vaccine, ag e 12+ yr, bivalent (Estify) Perla Hinton MD Work Phone: [facility] 12-24-2023 influenza, seasonal, injectable Perla Hinton MD Work Phone: [facility] 12-24-2023 influenza virus vaccine, unspecified formulation Perla Hinton MD Work Phone: [facility] 11-15-2023 tetanus toxoid, redu aurora diphtheria toxoid, and acellular pertussis vaccine, adsorbed Perla Hinton MD Work Phone: [facility] 11-09-2023 zoster vaccine recombinant Perla Hinton MD Work Phone: [facility] 02-03-2023 influenza virus vaccine, unspecified formulation Perla Hinton MD Work Phone: [facility] 01-29-2022 influenza virus vaccine, unspecified formulation Perla Hinton MD Work Phone: [facility] 11-23-2018 influenza, injectabl e, quadrivalent, preservative free Perla Hinton MD Work Phone: [facility] Work Phone: 01-17-2015 influenza, injectabl e, quadrivalent, preservative free Perla Hinton MD Work Phone: [facility] Work Phone: Payers Date Payer Category Payer [facility]ly [facility] PPO OOS [id number] 2021 [facility] [id number] 2021 Unknown [id number] 2021 Unknown [id number] 2012 Unknown [employer] PPO OOS [id number] 2012-Present [phone] [facility] [address] [place] [address] PPO [id number] 2008 Unknown [id number] 1961 Unknown [id number] 2.16.840.1.041356.3.579.2 .356 1961 Unknown [id number] 2.16.840.1.319236.3.579.2 .159 1961 Unknown [id number] 2.16.840.1.459031.3.579.2 .159 1961 Unknown [id number] 2.16.840.1.301311.3.579.2 .159 1961 Unknown [id number] 2.16.840.1.801751.3.579.2 .159 1961 Unknown [id number] 2.16.840.1.274389.3.579.2 .159 1961 Unknown [id number] 2.16.840.1.165049.3.579.2 .159 1961 Unknown [id number] 2.16.840.1.271217.3.579.2 .159 1961 Unknown [id number] 2.16.840.1.275895.3.579.2 .159 1961 Unknown [id number] 2.16.840.1.635378.3.579.2 .159 1961 Unknown [id number] 2.16.840.1.015605.3.579.2 .732 1961 Unknown [id number] 2.16.840.1.258727.3.579.2 .159 1961 Unknown [id number] 2.16.840.1.398156.3.579.2 .159 1961 Unknown [id number] 2.16.840.1.110601.3.579.2 .159 1961 Unknown [id number] 2.16.840.1.514442.3.579.2 .159 1961 Unknown [id number] 2.16.840.1.646049.3.579.2 .159 1961 Unknown [id number] 2.16.840.1.101889.3.579.2 .159 1961 Unknown [id number] 2.16.840.1.644992.3.579.2 .159 1961 Unknown [id number] 2.16.840.1.452232.3.579.2 .159 Social History Date Type Detail Facility Start: 03-12-2016 End: 2022 Tobacco smoking status NHIS Never smoked tobacco [facility] Start: 03-12-2016 End: 2022 Tobacco use and exposure Smokeless tobacco non-user [facility] Start: 07-22-2021 End: 09-09-2024 Alcohol intake Current non-drinker of alcohol (finding) [facility] Start: 05-11-2018 End: 2022 Tobacco Comment Parents smoked in childhood home. Spouse quit smoking 25 years ago. [facility] Start: 1960 Sex Assigned At Not on file [facility] Start: 07-12-2021 End: 07-22-2021 Exposure to SARS-CoV-2 (event) Not sure [facility] Start: 2022 End: 09-11-2023 History of Social function [facility] Work Phone: Start: 2022 End: 09-11-2023 Tobacco use panel [facility] Work Phone: PHQ2 Score 0 [facility] Work Phone: Tobacco smoking status PRIS Tobacco smoking consumption unknown [facility] Start: 04-01-2024 End: 04-11-2024 Exposure to SARS-CoV-2 (event) Unable to assess [facility] Goals Date Patient Goal Desired Activity /State [...] Eliquis in September documented in this encounter [facility] 09-09-2024 Note HNO ID: [id number] Author: PERLA HINTON MD Service: ? Author Type: Physician Type: Progress Notes Filed: 09/09/2024 12:27 Note Text: [facility] [place] Ag[facility]ieszka Choe Department of Cardiovascular Medicine [facility] OUTPATIENT VISIT DATE September 09, 2024 OUTPATIENT [...] returning monitor had recurrent AF [facility]. By time got there was [...] float or a skipped beat, but her business operations director was not concerned as long as these [...] on them so long. She uses a [employer] device for weekly rhythm monitoring. She has [...] AF and this has bernabe documented on [employer].SPECT stress August 2023 was normal . No [...] heavy. SPECT 2016 normal Plan: - Buy [employer] to monitor and document frequency of AF - Repeat Exercise nuclear stress test due to chest pressure during episodes of recurrent Atrial fib - Call [facility] to schedule - Consideration of referral [...] 3 mph treadmill, 1.5%. Exercising intermittently at [employer]. 20 min with a goal of 150 [...] And eye i (more content not included)... [facility] 09-09-2024 History of Present illness Narrative Images from the original note were not included. [facility] [place] [facility]ies[facility]ka Choe Department of Cardiovascular Medicine [facility] OUTPATIENT VISIT DATE September 09, 2024 OUTPATIENT [...] returning monitor had recurrent AF went to [facility] ER. By time got there was out. 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 She uses a [employer] device for weekly rhythm monitoring. She has [...] AF and this has bernabe documented on [employer].SPECT stress August 2023 was normal . No [...] heavy. SPECT 2016 normal Plan: - Buy [employer] to monitor and document frequency of AF - Repeat Exercise nuclear stress test due to chest pressure during episodes of recurrent Atrial fib - Call [facility] to schedule - Consideration of referral [...] 3 mph treadmill, 1.5%. Exercising intermittently at [employer]. 20 min with a goal of 150 [...] dealing with stress at work Saw a land law examiner- Placed on Mediterranean dit. BP 116/70 Pulse [...] at night - Going to meet with [employer] Driver. Has stopped exercising over summer as it [...] she is back on track. Saw a lens edge grinder machine when said she did not have ILEANA, [...] She was caring for ill sister in [place] who passed. Had lost weight and gained [...] returning monitor had recurrent AF went to [facility] ER. By time got there was out. [...] her lightheaded and she eventually went to [facility]. Just before she checked in, she [...] TSH/TFTs normal by report January 2016 at [facility]. ECG low right atrial rhythm. PAST MEDICAL [...] 47:59:00 Test Indications: Rapid heart rate Medications: [id number] QRS complexes 37 Ventricular ectopics which represent [...] Abs Lymph 1.00 - 4.00 k/uL 1.92 Child[place]% % 18.5 Abs [place] 0.00 - 0.86 k/uL 1.00 (H) Eosin% [...] Weight loss: now has lost 20 lb [id number] Vasc 1-2, ASA 81 mg daily. Successful [...] Current weight is 165 lbs. - Saw Commercial Real Estate Sales Manager - following a Mediterranean diet. - AF provoked by Exercise - Nocturnal desats, hypoApnea ? - Saw Pulmonary Marek Grant MD, FCCP in consultation 05/11/18. Note read. - See no indication to initiate CPAP Rx at this time. Plan: - follow up in 6-9 month s - Stop Eliquis in September Perla Hinton MD [facility] CC: [place] [address] [facility] [address] [place] [address] documented in this encounter [facility] 09-05-2024 Telephone encounter Note Patient has been identified by name and date of : Yes Pharmacy electronically sent a request for the following prescription(s) If there are any questions regarding this prescription request, call at: [phone] (home) [phone] (cell) RX INSTRUCTIONS: Patient aware RX will be sent to pharmacy. No need to notify patient. Date of last office visit: 08/19/24 Date of last [facility] visit: Visit date not found Date [...] 09/09/2022 65 02/11/2019 88 Josie Holman RN [facility] 09-05-2024 Miscellaneous Notes Patient has been identified by name and date of : Yes Pharmacy electronically sent a request for the following prescription(s) If there are any questions regarding this prescription request, call at: [phone] (home) [phone] (cell) RX INSTRUCTIONS: Patient aware RX will be sent to pharmacy. No need to notify patient. Date of last office visit: 08/19/24 Date of last [facility] visit: Visit date not found Date [...] Josie Holman RN documented in this encounter [facility] 08-19-2024 Instructions Adilene López MD - 08/19/2024 11:07 AM EDT Plan: -Stop Flecainide and diltiazem. -Zio patch -Stop Eliquis in September. -Follow up 6mo documented in this encounter [facility] 08-19-2024 History of Present illness Narrative Images from the original note were not included. [facility] [facility] Department of Cardiovascular Medicine SECTION OF CARDIAC PACING and ELECTROPHYSIOLOGY OUTPATIENT VISIT DATE 08/19/2024 OUTPATIENT VISIT TYPE ESTABLISHED PRIMARY CARE PHYSICIAN: [place] [address] [facility] [address] [place] [address] REFERRING PHYSICIAN: No referring provider defined for [...] diltiazem. As far as her Eliquis, her [id number] is 1 or 2, depending on whether [...] continue to monitor for A-fib with a [employer] mobile and if she has any more A-fib recurrences she will start back up on her blood thinner. Plan: -Stop Flecainide and diltiazem. -Zio patch -Stop Eliquis in September. -Follow up 6mo CONTACT INFORMATION: Adilene López MD Associate Staff, Cardiac Electrophysiology Rajinder Solomon [facility] [place] [facility] Department of Cardiovascular Medicine Pager: [phone] 08/19/2024 Please note: This note was written using [employer] dictation software. Please excuse typos and [id number] that the dictation may have mistakenly made. documented in this encounter [facility] 08-19-2024 Note HNO ID: [id number] Author: ADILENE LÓPEZ MD Service: ? Author Type: Physician Type: Progress Notes Filed: 08/19/2024 13:21 Note Text: [facility] [place] [facility] Department of Cardiovascular Medicine SECTION OF CARDIAC PACING and ELECTROPHYSIOLOGY OUTPATIENT VISIT DATE 08/19/2024 OUTPATIENT VISIT TYPE ESTABLISHED PRIMARY CARE PHYSIC[place]: [place] [id number] [facility] [address] [place] [address] REFERRING PHYSICIAN: No referring provider defined for [...] Normal. 2. There (more content not included)... [facility] 08-19-2024 Note HNO ID: [id number] Author: ADILENE LÓPEZ MD Service: ? Author [...] triggered events. No afib. Adilene López MD [facility] 06-28-2024 Note HNO ID: [id number] Author: ADILENE LÓPEZ MD Service: Cardiovascular Medicine Author Type: Physician Type: Plan of Care Filed: 06/28/2024 09:31 Note Text: BRIEF PROCEDURE NOTE: LOG ID: [id number] SURGERY/PROCEDURE DATE: 06/28/2024 INCISION/PROCEDURE START TIME: 8:06 AM INCISION CLOSE/PROCEDURE END TIME: SURGEON(S)/PROCEDURALIST(S) AND APPRENTICE ARCHITECT(S): Surgeons and Role: * Adilene López MD [...] upon discharge Full report to follow in [facility] (Under Chart Review -> Cardiac) Adilene López MD Associate Staff, Cardiac Electrophysiology Rajinder Solomon [facility] [place] Agnieszka Choe Department of Cardiovascular Medicine Pager: [phone] [facility] 06-28-2024 Note HNO ID: [id number] Author: MITZY DE LA O APRN.ASSEMBLY LEAD PERSON Service: Anesthesiology Author Type: Nurse Resource Room Teacher Type: Anesthesia Procedure Notes Filed: 06/28/2024 08:14 Note Text: ANESTHESIOLOGY PROCEDURE NOTE Airway General Information Procedure Start Time/Medication Administration: 06/28/2024 7:57 AM Procedure End Time: 06/28/2024 7:58 AM Patient location during procedure: OR Timeout Performed Pre-procedure: timeout performed Consent Obtained: Yes Patient identity confirmed: arm band and care team leader Staffing ASSEMBLY LEAD PERSON: Mitzy De La O APRN.ASSEMBLY LEAD PERSON Performed by: MADELAINE Indications and Patient Condition [...] not difficult SIGNATURE: Mitzy De La O APRN.ASSEMBLY LEAD PERSON PATIENT NAME: Yokasta Moreno DATE: June 28, 2024 TIME: 8:13 AM CSN: [id number] [facility] 06-03-2024 History and physical note Images [...] large neck Non-male patient STOP-Bang Score: 1 [id number] Score: Age: <65 Sex: female CHF history: No Hypertension history: Yes Stroke/TIA/thromboembolism history: No Vascular disease history: No Diabetes history: No [id number] Score: 2 I - PHYSICAL EVALUATION AIRWAY [...] ISOLATION (N/A) - heplock on arrival pfa [employer]/ [employer] INTRACARDIAC ELECTROPHYSIOLOGIC 3-DIMENSIONAL MAPPING (N/A) at the [...] pain, CHF, congenital heart defect, DVT/PE, recent ND, murmur/valvular heart disease, PVD, open heart surgery [...] 430 QTC Calculation (Bazett) 425 Calculated P Kerens 34 Calculated R Kerens 52 Calculated T Kerens 59 Impression SINUS BRADYCARDIA NONSPECIFIC INTRAVENTRICULAR CONDUCTION DELAY NONSPECIFIC T WAVE ABNORMALITY ABNORMAL ECG Confirmed by ADILENE LÓPEZ MD ([id number]) on 05/16/2024 5:09:56 PM Recent Results (from the past 48726 hours) ECHO Collection Time: 04/29/24 7:59 AM [...] 03, 2024 TIME: 10:04 AM PAGER/CONTACT #: [facility] 06-03-2024 History and physical note [...] large neck Non-male patient STOP-Bang Score: 1 [id number] Score: Age: <65 Sex: female CHF history: No Hypertension history: Yes Stroke/TIA/thromboembolism history: No Vascular disease history: No Diabetes history: No [id number] Score: 2 I - PHYSICAL EVALUATION AIRWAY [...] VEIN ISOLATION (N/A) - heplock on arrival [facility] [employer] scientific INTRACARDIAC ELECTROPHYSIOLOGIC 3-DIMENSIONAL MAPPING (N/A) at the request of Dr. Adilene López for consultation. My final recommendation will be communicated back to the requesting physician by way of shared medical record or letter. Subjective The patient has the following: COVID-19 Immunization Status Current Care Gaps Covid-19 Vaccine ( season) Overdue since 02/18/2024 12/24/2023 Imm Admin: COVID-19 vaccine, age 12+ yr, bivalent (Estify) 02/11/2022 Imm Admin: COVID-19 vaccine, age 12+ [...] pain, CHF, congenital heart defect, DVT/PE, recent ND, murmur/valvular heart disease, PVD, open heart surgery [...] 430 QTC Calculation (Bazett) 425 Calculated P Kerens 34 Calculated R Kerens 52 Calculated T Kerens 59 Impression SINUS BRADYCARDIA NONSPECIFIC INTRAVENTRICULAR CONDUCTION DELAY NONSPECIFIC T WAVE ABNORMALITY ABNORMAL ECG Confirmed by ADILENE LÓPEZ MD ([id number]) on 05/16/2024 5:09:56 PM Recent Results (from the past 59168 hours) ECHO Collection Time: 04/29/24 7:59 AM [...] AM PAGER/CONTACT #: documented in this encounter [facility] 06-03-2024 Instructions Jesica Ingram PA-C - 06/03/2024 10:03 AM EDT Images from the original note were not included. [facility]est[facility] PATIENT PREOPERATIVE INSTRUCTIONS Yusuf Tran MD has scheduled you for your procedure at this surgery center: [facility]: [phone] - [address] [place] [address]. Please read below carefully for your personalized instructions. Arrival Time for Surgery: -You will receive a call from [facility] the afternoon before surgery after 2:30 pm (or Thursday for Thursday surgery) for a scheduled arrival time. - If you have not heard by 4 pm, please contact [facility] at [phone]. Dietary Restrictions: - No solid food after [...] surgery. If you are currently using a lvqj-qzc-xgwt injectable or oral medication for diabetes or [...] Procedures: - YOU MUST HAVE A RESPONSIBLE STRIP MINE SUPERVISOR TAKE YOU HOME. A HOSPICE COORDINATOR OR MUSICAL THERAPIST CANNOT BE MADE A RESPONSIBLE STRIP MINE SUPERVISOR. - We recommend that a responsible person [...] Advance Directive, please fax a copy to [phone] or email to for it to be [...] Jesica Ingram PA-C documented in this encounter [facility] 05-13-2024 Telephone encounter Note PROCEDURE: 06/28/24 @ 7:30 am (arrival time: 6:00 am). ANASTASIA w/ Dr. López. Jennie Foster w/ pt. Procedure date/ time/ instructions given F/F Schseth w/ Sveta @ hosp. F/u schd. 08/10/24 Diabetic:No. Other meds to hold: No Labs to be done:day of Jennie Chappell Coordinator Surgery Special Unit [facility] 05-13-2024 Miscellaneous Notes PROCEDURE: 06/28/24 @ 7:30 am (arrival time: 6:00 am). PVI w/ Dr. López. Jennie Foster w/ pt. Procedure date/ time/ instructions given F/ Schd w/ Sveta @ hosp. F/u schd. 08/10/24 Diabetic:No. Other meds to hold: No Labs to be done:day of Jennie Misti Coordinator Surgery Special Unit Elective procedure for Electrophysiology Service at [place] Attending: Adilene López MD Diagnosis: Atrial Fibrillation [...] Anticoagulants, beta blockers or Ca blockers?) Vendor: [employer] PFA, [employer] Anesthesia: General NOEMY: no Possible study patient? No Instructions to patient: 1. Do not stop any blood thinners unless specific instructions above 2. Bli-ogcyrgz-rwfwfdsmm diabetics should hold morning diabetic medications. Insulin-dependent diabetics should take half their normal insulin. 3. Please check that precertification has been completed if needed. documented in this encounter [facility] 05-13-2024 Telephone encounter Note Elective procedure for Electrophysiology Service at [place] Attending: Adilene López MD Diagnosis: Atrial Fibrillation [...] Anticoagulants, beta blockers or Ca blockers?) Vendor: [employer] PFA, [employer] Anesthesia: General NOEMY: no Possible study patient? No Instructions to patient: 1. Do not stop any blood thinners unless specific instructions above 2. Cqv-flvdtvr-brgvzsinf diabetics should hold morning diabetic medications. Insulin-dependent diabetics should take half their normal insulin. 3. Please check that precertification has been completed if needed. [facility] Work Phone: 05-13-2024 History of Present illness Narrative Images from the original note were not included. [facility] [place] Agnieszka Choe Department of Cardiovascular Medicine SECTION OF CARDIAC PACING and ELECTROPHYSIOLOGY OUTPATIENT VISIT DATE 05/13/2024 OUTPATIENT VISIT TYPE NEW PRIMARY CARE [place]: [place] [id number] [facility] [address] [place] [address] REFERRING PHYSICIAN: Perla Hinton (Sameer) [id number] [address] CHIEF COMPLAINT: Parox AF HISTORY OF PRESENT ILLNESS: Ms. Moreno is a 63 year old female who presents for evaluation of Parox AF Ms. Moreno has a history of Parox AF Chads Vasc 1 for female sex On flecainide, diltiazem, eliquis ILEANA on CPAP Ms. Moreno is followed by [facility] for history of paroxysmal A-fib. She [...] long-term need for anticoagulation based on her [id number]; anticipate she will be able to come off blood thinner after 3 months Eliquis given [id number] of 1 for female sex. She also inquired about watchman but at this point she is not a candidate as she is tolerating her blood thinner without issue. Plan: -PVI -Follow up 6 weeks later. CONTACT INFORMATION: Adilene López MD Associate Staff, Cardiac Electrophysiology Rajinder Solomon [facility] [place] Agnies[facility]ka Choe Department of Cardiovascular Medicine Pager: [phone] 05/13/2024 Please note: This note was written using [employer] dictation software. Please excuse typos and wzkyv-k-rahpd that the dictation may have mistakenly made. documented in this encounter [facility] 05-13-2024 Note HNO ID: [id number] Author: ADILENE LÓPEZ MD Service: ? Author Type: Physician Type: Progress Notes Filed: 05/13/2024 12:19 Note Text: [facility] [place] Agnies[facility]ka Choe Department of Cardiovascular Medicine SECTION OF CARDIAC PACING and ELECTROPHYSIOLOGY OUTPATIENT VISIT DATE 05/13/2024 OUTPATIENT VISIT TYPE NEW PRIMARY CARE [place]: [place] [id number] [place] [address] REFERRING PHYSICIAN: Perla Hinton (Román) [id number] [facility] [address] CHIEF COMPLAINT: Parox AF HISTORY OF PRESENT ILLNESS: Ms. Moreno is a 63 year old female who presents for evaluation of Parox AF Ms. Moreno has a history of Parox AF Chads Vasc 1 for female sex On flecainide, diltiazem, eliquis ILEANA on CPAP Ms. Moreno is followed by [facility] for history of paroxysmal A-fib. She is [...] left ventricle is (more content not included)... [facility] 04-11-2024 History of Present illness [...] skin lesions noted. No known exposures to Childress, strep, pneumonia or influenza. Ghfq-kvc-zlrhldh medications taken for symptoms. Nonsmoker. Past Medical [...] MD 6:22 PM documented in this encounter [facility] Work Phone: 04-11-2024 Instructions Samir Crawford MD - 04/11/2024 6:15 PM EST Increase fluids and rest Decongestants and nasal spray as discussed Motrin or Tylenol as needed for pain or fever Gargle with lightly salted warm water several times a day Follow up for fevers or increasing pain documented in this encounter [facility] Work Phone: 04-02-2024 History of Present illness Narrative Urgent Care Virtual Video Visit Patient Location: Home ([place], [place]) Provider Location: [facility] Video visit completed with realtime [...] visit. Either the patient or their legal vaccine customer representative were informed of the risks and [...] [place] 5:31 PM documented in this encounter [facility] Work Phone: 03-18-2024 Telephone encounter Note Called and spoke with patient to schedule appt per basket message. Team, let's get Ms. Moreno on for a visit for AF management. Thanks Wilber Frances [facility] 03-18-2024 Miscellaneous Notes Called and spoke with patient to schedule appt per basket message. Team, let's get Ms. Moreno on for a visit for AF management. Thanks Wilber Frances, PSS documented in this encounter [facility] 03-18-2024 Instructions Perla Hinton MD - 03/18/2024 12:37 PM EST Plan: - Stop aspirin - Start Eliquis 5 mg twice daily. - Repeat ECHO Chang - Referral to Adilene López MD for PVI for PAF unresponsive to Medical therapy (Flecainide) Perla Hinton MD [facility] documented in this encounter [facility] 03-18-2024 Telephone encounter Note [facility] [place] Agnieszka Choe Department of Cardiovascular Medicine At [facility] OUTPATIENT VISIT DATE March 18, 2024 OUTPATIENT [...] returning monitor had recurrent AF went to [facility] ER. By time got there was out. [...] AF and this has bernabe documented on [employer]. SPEcT stress August 2023 was normal . No structural heart assessment since 2016 ( nl LV fxn and mild LAE at that time) Plan: - Start Eliquis 5 mg twice daily. - Repeat ECHO - Referral to Adilene López MD for PVI for PAF unresponsive to Medical therapy (Flecainide) - You are an excellent candidate for this procedure. Perla Hinton MD [facility] 03-18-2024 Miscellaneous Notes [facility] [place] Agn[facility]ka Choe Department of Cardiovascular Medicine [facility] OUTPATIENT VISIT DATE March 18, 2024 OUTPATIENT [...] returning monitor had recurrent AF [facility]. By time got there was [...] AF and this has bernabe documented on [employer]. SPEcT stress August 2023 was normal . [...] Perla Hinton MD documented in this encounter [facility] 03-18-2024 Note HNO ID: [id number] Author: PERLA HINTON MD Service: ? Author Type: Physician Type: Progress Notes Filed: 03/18/2024 12:38 Note Text: [facility] [place] Agnies[facility]ka Choe Department of Cardiovascular Medicine At [facility] OUTPATIENT VISIT DATE March 18, 2024 OUTPATIENT [...] returning monitor had recurrent AF went to [facility] ER. By time got there was out. [...] AF and this has bernabe documented on [employer]. SPECT stress August 2023 was normal . [...] heavy. SPECT 2016 normal Plan: - Buy [employer] to monitor and document frequency of AF - Repeat Exercise nuclear stress test due to chest pressure during episodes of recurrent Atrial fib - Call [facility] to schedule - Consideration of referral [...] 3 mph treadmill, 1.5%. Exercising intermittently at [employer]. 20 min with a goal of 150 [...] (5' 3) Wt (more content not included)... [facility] 03-18-2024 History of Present illness Narrative Images from the original note were not included. [facility] [place] Agnies[facility]ka Choe Department of Cardiovascular Medicine [facility] OUTPATIENT VISIT DATE March 18, 2024 OUTPATIENT [...] returning monitor had recurrent AF went to [facility] ER. By time got there was out. [...] AF and this has bernabe documented on [employer]. SPECT stress August 2023 was normal . [...] heavy. SPECT 2016 normal Plan: - Buy [employer] to monitor and document frequency of AF - Repeat Exercise nuclear stress test due to chest pressure during episodes of recurrent Atrial fib - Call [facility] to schedule - Consideration of referral [...] 3 mph treadmill, 1.5%. Exercising intermittently at [employer]. 20 min with a goal of 150 [...] dealing with stress at work Saw a land law examiner- Placed on [place] dit. BP 116/70 Pulse [...] at night - Going to meet with [employer]. Has stopped exercising over summer as it [...] she is back on track. Saw a lens edge grinder machine when said she did not have ILEANA, [...] She was caring for ill sister in [place] who passed. Had lost weight and gained [...] returning monitor had recurrent AF went to [facility] ER. By time got there was out. [...] her lightheaded and she eventually went to [facility]. Just before she checked in, she [...] TSH/TFTs normal by report January 2016 at [facility]. ECG low right atrial rhythm. PAST MEDICAL [...] 47:59:00 Test Indications: Rapid heart rate Medications: 268111 QRS complexes 37 Ventricular ectopics which represent [...] Abs Lymph 1.00 - 4.00 k/uL 1.92 Childress% % 18.5 Abs Childress 0.00 - 0.86 k/uL 1.00 (H) Eosin% [...] Weight loss: now has lost 20 lb [id number] Vasc 1-2, ASA 81 mg daily. ECG: [...] 09/09/2022 65 02/11/2019 88 Overweight - Saw Commercial Real Estate Sales Manager - following a Mediterranean diet. - AF provoked by Exercise - Nocturnal desats, hypoApnea ? - Saw Pulmonary Marek Grant MD, [facility] in consultation 05/11/18. Note read. - See no indication to initiate CPAP Rx at this time. Plan: - Stop Aspirin - Start Eliquis 5 mg twice daily. - Repeat ECHO - Referral to Adilene López MD for PVI for PAF unresponsive to Medical therapy (Flecainide) Perla Hinton MD [facility] CC: [place] [address] [facility] [address] [place] [address] documented in this encounter [facility] 12-29-2023 Telephone encounter Note [facility] Pharm[facility] vaccine updates received via fax. Updated in the pt's chart and sent for scanning Mitesh Nelson RN [facility] 12-29-2023 Miscellaneous Notes [facility] Pharmacy vaccine updates received via fax. Updated in the pt's chart and sent for scanning Mitesh Nelson RN documented in this encounter [facility] 11-25-2023 Hospital Discharge instructions Fred Amaro PA-C - 11/25/2023 7:31 PM EDT Please follow up with your ear nose and throat provider and return to the ED immediately with any new or worsening symptoms. The following attachments cannot be sent through Care Everywhere.Nosebleeds Discharge Instructions (Brazilian)DASH Diet (Brazilian)documented in this encounter [facility] 11-21-2023 Note HNO ID: [id number] Author: NOTE, INTERFACE, ? Service: ? Author Type: ? Type: Progress Notes Filed: 11/21/2023 03:34 Note Text: Epic Scheduled Downtime: 11/21/2023 1:00:00 AM to 11/21/2023 3:20:00 AM [facility] 09-28-2023 History of Present illness Narrative RADIOLOGY [...] PATIENT PRESENTS WITH AN IMPLANTABLE OR ATTACHED LITHOGRAPH PRESS OPERATOR TINWARE: No CREATININE: Creatinine Date Value Ref Range [...] Discontinued PROCEDURE TYPE: NM Stress: 14.0 mCi Yl58y-Vinrhlo was administered IV for Rest Imaging at 13:30 by SHYANNE. 35.7 mCi Gu10h-Tqrfkuw was administered IV for Stress Imaging at 14:45 by EDNA/ELOY. PATIENT DISCHARGED TO: Ambulatory patient, left PA department area. A Diagnostic radioactive procedure has taken place, with no further precautions necessary other than routine body substance precautions. 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 35.7 mCi Ps37c-Fecloxh was administered IV for Stress Imaging at 14:45 by EDNA/ELOY. PATIENT DISCHARGED TO: Ambulatory patient, left PA department area. A Diagnostic radioactive procedure has taken place, with no further precautions necessary other than routine body substance precautions. More information regarding radiation safety can be found using this link: [email or web address] [email or web address]-% 20Diagnostic%20Nuclear%20Medicine %20Procedures.pdf SIGNATURE: RT Davina(R) PATIENT NAME: Yokasta Moreno DATE: September 28, 2023 TIME: 2:47 PM PAGER/CONTACT #: [facility] 09-25-2023 Telephone encounter Note Spoke to pt regarding reminder and instructions for stress test on Thursday. This included where to check in, length of test and no caffeine for 12 hours prior to test. [facility] 09-25-2023 Miscellaneous Notes Spoke to pt regarding reminder and instructions for stress test on Thursday. This included where to check in, length of test and no caffeine for 12 hours prior to test. documented in this encounter [facility] 09-21-2023 Telephone encounter Note The following approved medication requests have been transmitted electronically. Requested Prescriptions Signed Prescriptions Disp Refills atorvastatin (LIPITOR) 20 mg tablet 90 tablet 3 Sig: Take 1 tablet by mouth once daily. Authorizing Provider: PERLA HINTON Ordering User: EBONI PFEIFFER APRN.CNP [facility] Work Phone: 09-21-2023 Miscellaneous Notes The following approved medication requests have been transmitted electronically. Requested Prescriptions Signed Prescriptions Disp Refills atorvastatin (LIPITOR) 20 mg tablet 90 tablet 3 Sig: Take 1 tablet by mouth once daily. Authorizing Provider: PERLA HINTON Ordering User: EBONI PFEIFFER APRN.AUTO BODY REPAIRER Patient has been identified by name and date of : Yes Pharmacy electronically sent a request for the following prescription(s) If there are any questions regarding this prescription request, call at: [phone] (home) [phone] (cell) RX INSTRUCTIONS: Pharmacy initiated this request. No need to notify patient. Date of last office visit: 09/11/23 Date of last [facility] visit: Visit date not found Date [...] Kitty Mendoza RN documented in this encounter [facility] 09-21-2023 Telephone encounter Note Patient has been identified by name and date of : Yes Pharmacy electronically sent a request for the following prescription(s) If there are any questions regarding this prescription request, call at: [phone] (home) [phone] (cell) RX INSTRUCTIONS: Pharmacy initiated this request. No need to notify patient. Date of last office visit: 09/11/23 Date of last [facility] visit: Visit date not found Date [...] 09/09/2022 65 02/11/2019 88 Kitty Mendoza RN [facility] 09-11-2023 Instructions Perla Hinton MD - 09/11/2023 10:49 AM EDT Plan: - Buy [employer] to monitor and document frequency of AF - Repeat Exercise nuclear stress test due to chest pressure during episodes of recurrent Atrial fib - Call [facility] to schedule - Consideration of referral for PVI ablation based on frequency of Atrial fibrillation - follow up in 6 months [address] H[address] MD [facility] documented in this encounter [facility] 09-11-2023 History of Present illness Narrative Images from the original note were not included. [facility] [place] Agnies[facility]ka Choe Department of Cardiovascular Medicine [facility] OUTPATIENT VISIT DATE September 11, 2023 OUTPATIENT [...] returning monitor had recurrent AF went to [facility] ER. By time got there was out. [...] heavy. SPECT 2016 normal Plan: - Buy [employer] to monitor and document frequency of AF - Repeat Exercise nuclear stress test due to chest pressure during episodes of recurrent Atrial fib - Call [facility] to schedule - Consideration of referral [...] 3 mph treadmill, 1.5%. Exercising intermittently at [employer]. 20 min with a goal of 150 [...] dealing with stress at work Saw a land law examiner- Placed on [place]. BP 116/70 Pulse [...] at night - Going to meet with [employer] Driver. Has stopped exercising over summer as it [...] she is back on track. Saw a lens edge grinder machine when said she did not have ILEANA, [...] She was caring for ill sister in [place] who passed. Had lost weight and gained [...] returning monitor had recurrent AF went to [facility] ER. By time got there was out. [...] her lightheaded and she eventually went to [facility]. Just before she checked in, she [...] TSH/TFTs normal by report January 2016 at [facility]. ECG low right atrial rhythm. PAST MEDICAL [...] day AVALIDE 300-12.5 mg ORAL per tablet [id number] 3.5 MG/ML-10,000 UNIT/ML-0.1% EYE DROPS INSTILL 1 [...] 47:59:00 Test Indications: Rapid heart rate Medications: 266373 QRS complexes 37 Ventricular ectopics which represent [...] Abs Lymph 1.00 - 4.00 k/uL 1.92 Childress% % 18.5 Abs Childress 0.00 - 0.86 k/uL 1.00 (H) Eosin% [...] Weight loss: now has lost 20 lb [id number] Vasc 1-2, ASA 81 mg daily. ECG: [...] 09/09/2022 65 02/11/2019 88 Overweight - Saw Commercial Real Estate Sales Manager - following a Mediterranean diet. - AF provoked by Exercise - Nocturnal desats, hypoApnea ? - Saw Pulmonary Marek Grant MD, [facility] in consultation 05/11/18. Note read. - See no indication to initiate CPAP Rx at this time. Plan: - Buy [employer] to monitor and document frequency of AF - Repeat Exercise nuclear stress test due to chest pressure during episodes of recurrent Atrial fib - Call [facility] to schedule - Consideration of referral for PVI ablation based on frequency of Atrial fibrillation - follow up in 6 [address] [facility] CC: Gaurav Lund, [address] [facility] [address] [place] [address] documented in this encounter [facility] 06-08-2023 Miscellaneous Notes Patient has been identified by name and date of : Yes Patient phoned to request the following prescription(s) If there are any questions regarding this prescription request, call at home at: [phone] (home) [phone] (cell) RX INSTRUCTIONS: Patient aware RX will be sent to pharmacy. No need to notify patient. Date of last office visit: 08/11/22 Date of last [facility] visit: Visit date not found Date [...] Anne Florentino RN documented in this encounter [facility] 05-21-2023 Miscellaneous Notes Patient rescheduled with Dr. Hinton on 09/11/23 at 10:40 AM in [place] 1st attempt- left DVM notifying of 08/24/23 Dr. Hinton CX appt 2nd attempt- sent secure patient message. Can reschedule with Dr. Hinton at [place] or [place]. Or Transfer as EST to Dr. Katz or Dr. Becerra in [facility] documented in this encounter [facility] 07-22-2021 Instructions Pelra Hinton MD - 07/22/2021 12:45 PM EDT Same meds Labs to check kidney function and cholesterol follow up in 12 month Perla Hinton MD documented in this encounter [facility] 07-22-2021 History of Present illness Narrative Images from the original note were not included. [facility] Agnieszka Choe Department of Cardiovascular Medicine [facility] OUTPATIENT VISIT DATE July 20, 2021 OUTPATIENT [...] returning monitor had recurrent AF went to [facility] ER. By time got there was out. [...] not show up. (Previously d/w her re Viveraea and Apple watch) She is gaining weight (12 lbs) Was going home and going to bed- That how she was dealing with stress at work Saw a land law examiner- Placed on Mediterranean dit. BP 116/70 Pulse [...] at night - Going to meet with Regional Flatbed Truck Driver. Has stopped exercising over summer as it [...] she is back on track. Saw a lens edge grinder machine when said she did not have ILEANA, [...] She was caring for ill sister in [place] who passed. Had lost weight and gained [...] returning monitor had recurrent AF went to [facility] ER. By time got there was out. [...] her lightheaded and she eventually went to [facility]. Just before she checked in, she [...] TSH/TFTs normal by report January 2016 at [facility]. ECG low right atrial rhythm. PAST MEDICAL [...] Take 1 tablet by mouth once daily. [id number]-[id number]-[id number] 3.5 MG/ML-10,000 UNIT/ML-0.1% EYE DROPS INSTILL 1 [...] 47:59:00 Test Indications: Rapid heart rate Medications: 487011 QRS complexes 37 Ventricular ectopics which represent [...] Abs Lymph 1.00 - 4.00 k/uL 1.92 Childress% % 18.5 Abs Childress 0.00 - 0.86 k/uL 1.00 (H) Eosin% [...] fibrillation. She was seen in Consultation by Osile Cash and sleep study recomended. Cardiazem to 120 mg daily Flecainide to 100 mg po bid due to > 21 recurrences since October 2018 Weight loss [id number] Vasc 1-2, ASA 81 mg daily. ECG: [...] Date Value 02/11/2019 88 Overweight - Saw Commercial Real Estate Sales Manager - following a Mediterranean diet. - AF provoked by Exercise - Nocturnal desats, hypoApnea ? Saw Pulmonary Marek Grant MD, [facility] in consultation 05/11/18. Note read. 1. I see no indication to initiate CPAP Rx at this time. Disposition: Same meds Labs to check kidney function follow up in 12 [address] [facility] CC: Gaurav Lund, [address] [facility] [address] [place] [address] documented in this encounter [facility] Evaluation note Diagnosis PAF (paroxysmal atrial fibrillation) (HCC)- Primary Atrial fibrillation Essential hypertension Unspecified essential hypertension Pure hypercholesterolemia Paroxysmal atrial fibrillation (HCC) Atrial fibrillation [facility] Diagnosis Paroxysmal atrial fibrillation (HCC) Atrial fibrillation documented in this encounter [facility] note* Diagnosis PAF (paroxysmal atrial fibrillation) (HCC)- Primary Atrial fibrillation Essential hypertension Unspecified essential hypertension Chest pain, unspecified type documented in this encounter [facility] note* Diagnosis Pure hypercholesterolemia- Primary Paroxysmal atrial fibrillation (HCC) Atrial fibrillation documented in this encounter [facility] note* Diagnosis PAF (paroxysmal atrial fibrillation) (HCC) Atrial fibrillation Essential hypertension Unspecified essential hypertension Chest pain, unspecified type documented in this encounter [facility] note* Diagnosis Epistaxis, recurrent- Primary Elevated blood pressure reading Elevated blood pressure reading without diagnosis of hypertension documented in this encounter [facility] note* Diagnosis PAF (paroxysmal atrial fibrillation) (HCC)- Primary Atrial fibrillation documented in this encounter [facility] note* Diagnosis Paroxysmal atrial fibrillation (HCC)- Primary Atrial fibrillation documented in this encounter [facility] note* Diagnosis Personal history of COVID-19- Primary Acute cough documented in this encounter [facility] Work Phone: Evaluation note* Diagnosis Eustachian tube dysfunction, right- Primary documented in this encounter [facility] Work Phone: Evaluation note* Diagnosis Paroxysmal atrial fibrillation (HCC) Atrial fibrillation documented in this encounter [facility] note* Diagnosis PAF (paroxysmal atrial fibrillation) (HCC) Atrial fibrillation Atrial fibrillation, unspecified type (HCC) documented in this encounter [facility] note* Diagnosis Pre-op evaluation- Primary Preoperative [...] 104/64 03/18/2024 110/80 [facility] Diagnosis Pre-op evaluation- Primary Preoperative examination, [...] Primary Atrial fibrillation documented in this encounter [facility] note* Diagnosis Pre-op evaluation- Primary Preoperative [...] cystitis Pure hypercholesterolemia documented in this encounter [facility] note* Diagnosis Pre-op evaluation- Primary Preoperative [...] (BMI 25.0-29.9) Overweight documented in this encounter [facility] for referral (narrative)* Outpatient Procedure (Routine) - Closed Specialty Diagnoses / Procedures Referred By Contact Referred To Contact [facility] Diagnoses PAF (paroxysmal atrial fibrillation) (HCC) Pure hypercholesterolemia Procedures ECG COMPLETE ECG ROUTINE ECG W/LEAST 12 LDS W/I&[place] [address] [place] [address] [facility] [address] [place] [address] Referral ID Status Reason Start Date Expiration Date V isits Requested Visits Authorized [id number] Closed Auto-Generate d Referral 07/22/2021 07/22/2022 1 1 [facility] for referral (narrative)* Diagnostic Procedure Only (Routine) - New Request Specialty Diagnoses / Procedures Referred By Contac t Referred To Contact [facility] Diagnoses PAF (paroxysmal atrial fibrillation) (HCC) Essential hypertension Chest pain, unspecified type Procedures NM CARDIAC PERF STRESS/EXERCISE MYOCARDIAL SPECT MULTIPLE STUDIES Perla Hinton [place] [id number] [place] [address] [facility] [address] [place] [address] Referral ID Status Reason Start Date Expiration Date Visits Requested Visits Authorized [id number] New Request Auto-Generat ed Referral 09/11/2023 10/10/2024 1 1 * Outpatient Procedure (Routine) - New Request Specialty Diagnoses / Procedures Referred By Contac t Referred To Contact [facility] Diagnoses PAF (paroxysmal atrial fibrillation) (HCC) Procedures ECG COMPLETE ECG ROUTINE ECG W/LEAST 12 LDS W/I&R Perla Hinton MD [id number] [place] [address] [facility] [place] [address] Referral ID Status Reason Start Date Expiration Date Visits Requested Visits Authorized [id number] New Request Auto-Generat ed Referral 09/11/2023 09/10/2024 1 1 [facility] for referral (narrative)* Diagnostic Procedure Only (Routine) - Closed Specialty Diagnoses / Procedures [facility] To Contact [facility] Diagnoses PAF (paroxysmal atrial fibrillation) (HCC) Essential hypertension Chest pain, unspecified type Procedures NM CARDIAC PERF STRESS/EXERCISE MYOCARDIAL SPECT [place] [address] [place] [address] Molecular [facility] Functional Imaging [address] [place] [address] Referral ID Status Reason Start Date Expiration Date V isits Requested Visits Authorized [id number] Closed Auto-Generate d Referral 09/22/2023 11/20/2023 2 2 [facility] for referral (narrative)* Outpatient Procedure (Routine) - New Request Specialty Diagnoses / Procedures Referred By Vitor grayson Referred To Contact [facility] [place] Diagnoses Paroxysmal atrial fibrillation (HCC) Procedures ECHO ECHO TTHRC R-T 2D W/WOM-MODE COMPL SPEC&[place] [address] [place] [address] [place] [id number] Referral ID Status Reason Start Date Expiration Date Visits Requested Visits Authorized [id number] New Request Auto-Generat ed Referral 03/18/2024 03/18/2025 1 1 * Outpatient Procedure (Routine) - New Request Specialty Diagnoses / Procedures Referred By Vitor grayson Referred To Contact [facility] Diagnoses Paroxysmal atrial fibrillation (HCC) Procedures ECG COMPLETE ECG ROUTINE ECG W/LEAST 12 LDS W/I&[place] [address] [place] [address] [address] Referral ID Status Reason Start Date Expiration Date Visits Requested Visits Authorized [id number] New Request Auto-Generat ed Referral 03/18/2024 03/18/2025 1 1 [facility] for visit Narrative* Diagnostic Procedure Only (Routine) - Closed Specialty Diagnoses / Procedures Referred By Vitor grayson Referred To Contact [facility] Diagnoses PAF (paroxysmal atrial fibrillation) (HCC) Essential hypertension Chest pain, unspecified type Procedures NM CARDIAC PERF STRESS/EXERCISE MYOCARDIAL SPECT [place] [address] [place] [address] [facility] [address] [place] [id number] Referral ID Status Reason Start Date Expiration Date V isits Requested Visits Authorized [id number] Closed Auto-Generate d Referral 09/22/2023 11/20/2023 2 2 [facility] Outpatient Procedure (Routine) - Closed Specialty Diagnoses / Procedures Referred By Vitor grayson Referred To Contact [facility] Diagnoses Paroxysmal atrial fibrillation (HCC) Procedures ECHO ECHO TTHRC R-T 2D W/WOM-MODE COMPL SPEC&[place] [address] [place] [id number] Phone: tel: fax: [facility] [address] [place] [address] Referral ID Status Reason Start Date Expiration Date V isits Requested Visits Authorized [id number] Closed Auto-Generate d Referral 04/15/2024 06/13/2024 1 1 [facility] Summary Purpose Family History No Family History Records FoundNo Family History Records FoundNo Family History Records FoundNo Family History Records FoundNo Family History Records FoundNo Family History Records FoundNo Family History Records FoundNo Family History Records FoundNo Family History Records FoundNo Family History Records FoundNo Family History Records Found Advance Directives No Advanced Directives Records FoundDocuments on File Type Date Recorded Patient Director Of Outpatient Services Expl anation Advance Directive(s) 08/28/2018 8:35 PM Advance Directive(s) 04/07/2018 11:42 AM Reason for Referral Specialty Diagnoses / Procedures Referred By Vitor grayson Referred To Contact Diagnoses PAF (paroxysmal atrial fibrillation) (HCC) Procedures CONSULT TO ELECTROPHYSIOLOGY OFFICE/OUTPATIENT [facility] 60 [place] [address] [place] [address] Adilene López MD [address] [facility] [address], [address] [place] [address] Referral ID Status Reason Start Date Expiration Date Visits Requested Visits Authorized [id number] Authorized PCP Requested Referral 03/18/2024 03/18/2025 1 1 Additional Source Comments INFORMATION SOURCE (unrecogn ized section and content) DATE CREATED AUTHOR 08/26/2017 [facility] DATE CREATED AUTHOR AUTHOR'S ORGANIZ ATION 06/03/2018 [facility] DATE CREATED AUTHOR AUTHOR'S ORGANIZ ATION 05/23/2019 [facility] DATE CREATED AUTHOR AUTHOR'S ORGANIZ ATION 03/24/2020 [facility] DATE CREATED AUTHOR AUTHOR'S ORGANIZ ATION 02/03/2021 [facility] DATE CREATED AUTHOR AUTHOR'S ORGANIZ ATION 12/21/2022 [facility] DATE CREATED AUTHOR AUTHOR'S ORGANIZ ATION 12/02/2023 [facility] DATE CREATED AUTHOR AUTHOR'S ORGANIZ ATION 06/07/2024 [facility] DATE CREATED AUTHOR AUTHOR'S ORGANIZ ATION 06/29/2024 [facility] DATE CREATED AUTHOR AUTHOR'S ORGANIZ ATION 09/21/2024 [facility] DATE CREATED AUTHOR AUTHOR'S ORGANIZ ATION 10/02/2024 [facility] Source Comments (unrecognize d section and content) In the event this informatio n is protected by the Federal Confidentiality of Alcohol and Drug Abuse Patient Records regulations: The Federal rules restrict any use of the information to criminally investigate or prosecute any alcohol or drug abuse patient.[facility] the event this information is protected by the Federal Confidentiality of Alcohol and Drug Abuse Patient Records regulations: The Federal rules restrict any use of the information to criminally investigate or prosecute any alcohol or drug abuse patient.[facility] the event this information is protected by the Federal Confidentiality of Alcohol and Drug Abuse Patient Records regulations: The Federal rules restrict any use of the information to criminally investigate or prosecute any alcohol or drug abuse patient.[facility] the event this information is protected by the Federal Confidentiality of Alcohol and Drug Abuse Patient Records regulations: The Federal rules restrict any use of the information to criminally investigate or prosecute any alcohol or drug abuse patient.[facility] the event this information is protected by the Federal Confidentiality of Alcohol and Drug Abuse Patient Records regulations: The Federal rules restrict any use of the information to criminally investigate or prosecute any alcohol or drug abuse patient.[facility] the event this information is protected by the Federal Confidentiality of Alcohol and Drug Abuse Patient Records regulations: The Federal rules restrict any use of the information to criminally investigate or prosecute any alcohol or drug abuse patient.[facility] the event this information is protected by the Federal Confidentiality of Alcohol and Drug Abuse Patient Records regulations: The Federal rules restrict any use of the information to criminally investigate or prosecute any alcohol or drug abuse patient.[facility] the event this information is protected by the Federal Confidentiality of Alcohol and Drug Abuse Patient Records regulations: The Federal rules restrict any use of the information to criminally investigate or prosecute any alcohol or drug abuse patient.[facility] the event this information is protected by the Federal Confidentiality of Alcohol and Drug Abuse Patient Records regulations: The Federal rules restrict any use of the information to criminally investigate or prosecute any alcohol or drug abuse patient.[facility] the event this information is protected by the Federal Confidentiality of Alcohol and Drug Abuse Patient Records regulations: The Federal rules restrict any use of the information to criminally investigate or prosecute any alcohol or drug abuse patient.[facility] the event this information is protected by the Federal Confidentiality of Alcohol and Drug Abuse Patient Records regulations: The Federal rules restrict any use of the information to criminally investigate or prosecute any alcohol or drug abuse patient.[facility] the event this information is protected by the Federal Confidentiality of Alcohol and Drug Abuse Patient Records regulations: The Federal rules restrict any use of the information to criminally investigate or prosecute any alcohol or drug abuse patient.[facility] the event this information is protected by the Federal Confidentiality of Alcohol and Drug Abuse Patient Records regulations: The Federal rules restrict any use of the information to criminally investigate or prosecute any alcohol or drug abuse patient.[facility] the event this information is protected by the Federal Confidentiality of Alcohol and Drug Abuse Patient Records regulations: The Federal rules restrict any use of the information to criminally investigate or prosecute any alcohol or drug abuse patient.[facility] the event this information is protected by the Federal Confidentiality of Alcohol and Drug Abuse Patient Records regulations: The Federal rules restrict any use of the information to criminally investigate or prosecute any alcohol or drug abuse patient.[facility] the event this information is protected by the Federal Confidentiality of Alcohol and Drug Abuse Patient Records regulations: The Federal rules restrict any use of the information to criminally investigate or prosecute any alcohol or drug abuse patient.[facility] Hospital[facility] the event this information is protected by the Federal Confidentiality of Alcohol and Drug Abuse Patient Records regulations: The Federal rules restrict any use of the information to criminally investigate or prosecute any alcohol or drug abuse patient.[facility] Hospital[facility] the event this information is protected by the Federal Confidentiality of Alcohol and Drug Abuse Patient Records regulations: The Federal rules restrict any use of the information to criminally investigate or prosecute any alcohol or drug abuse patient.[facility] Hospital[facility] the event this information is protected by the Federal Confidentiality of Alcohol and Drug Abuse Patient Records regulations: The Federal rules restrict any use of the information to criminally investigate or prosecute any alcohol or drug abuse patient.[facility] Hospital[facility] the event this information is protected by the Federal Confidentiality of Alcohol and Drug Abuse Patient Records regulations: The Federal rules restrict any use of the information to criminally investigate or prosecute any alcohol or drug abuse patient.[facility] Hospital[facility] the event this information is protected by the Federal Confidentiality of Alcohol and Drug Abuse Patient Records regulations: The Federal rules restrict any use of the information to criminally investigate or prosecute any alcohol or drug abuse patient.[facility] Reason for Visit (unrecogniz ed section and [...] Procedures CONSULT TO ELECTROPHYSIOLOGY OFFICE/OUTPATIENT [facility] 60 [place] [address] [place] [address] Phone: tel: fax: Adilene López MD [address] [facility] [address], [address] [place] [id number] Phone: tel: fax: Referral ID Status Reason Start Date Expiration Date V isits Requested Visits Authorized [id number] Closed PCP Requested Referral 03/18/2024 03/18/2025 1 1 Reason Comments Anesthesia Consult Reason Comments Hospital F/U PVI Care Teams (unrecognized sec tion and content) Bone Puller Relationship Specialty [place] [address] [place] [id number] PCP - General Internal Medicine 04/07/18 [place] [address] [place] [address] [facility] 07/01/21 Bone Puller Relationship Specialty [place] [address] [address] [address] PCP - General Internal Medicine 04/07/18 [place] [address] [place] [address] [facility] Cardiology 07/01/21 Bone Puller Relationship Specialty Start [place] [address] [address] PCP - General Internal Medicine 04/07/18 [place] [address] [place] [address] [facility] Cardiology 07/01/21 Bone Puller Relationship Specialty Start [place] [address] [address] PCP - General Internal Medicine 04/07/18 [place] [address] [place] [address] [facility]iology 07/01/21 Bone Puller Relationship Specialty Start [place] [address] [address] PCP - General Internal Medicine 04/07/18 [place] [address] [place] [address] [facility] Cardiology 07/01/21 Bone Puller Relationship Specialty Start [place] [address] [address] PCP - General Internal Medicine 04/07/18 [place] [address] [place] [address] [facility] Cardiology 07/01/21 Bone Puller Relationship Specialty Start [place] [address] [address] PCP - General Internal Medicine 04/07/18 [place] [address] [place] [address] [facility] Cardiology 07/01/21 Bone Puller Relationship Specialty Start Date End Date [facility] [address] [place] [address] 11/25/23 Bone Puller Relationship Specialty Start [place] [address] [address] PCP - General Internal Medicine 04/07/18 [place] [address] [place] [address] [facility] 07/01/21 Bone Puller Relationship Specialty Start [place] [address] [address] PCP - General Internal Medicine 04/07/18 [place] [address] [place] [address] [facility] Cardiology 07/01/21 Bone Puller Relationship Specialty [place] [address] [facility] [address] [place] [address] PCP - General 03/23/20 Bone Puller Relationship Specialty [place] [address] [facility] [facility] [address] [place] [address] PCP - General 03/23/20 Bone Puller Relationship Specialty [place] [id number] [address] PCP - General Internal Medicine 04/07/18 [place] [address] [place] [address] [employer] Cardiology 07/01/21 Bone Puller Relationship Specialty [place] [id number] [address] PCP - General Internal Medicine 04/07/18 [place] [address] [place] [address] [employer] Cardiology 07/01/21 Bone Puller Relationship Specialty [place] [id number] [address] PCP - General Internal Medicine 04/07/18 [place] [address] [place] [address] [employer] Cardiology 07/01/21 Adilene López MD [facility] [address], [address] [place] [address] Primary Staff Physician Cardiology 05/13/24 Bone Puller Relationship Specialty [place] [id number] [place] [address] PCP - General Internal Medicine 04/07/18 [place] [address] [place] [address] [employer] Cardiology 07/01/21 Adilene López MD [facility] [address], [address] [place] [address] Primary Staff Physician Cardiology 05/13/24 Bone Puller Relationship Specialty [place] [id number] [address] PCP - General Internal Medicine 04/07/18 [place] [address] [place] [address] [employer] Cardiology 07/01/21 Adilene López MD [address] [facility] [address] [place] [address] Primary Staff Physician Cardiology 05/13/24 Bone Puller Relationship Specialty Start [place] [address] [address] PCP - General Internal Medicine 04/07/18 [place] [address] [place] [address] [employer] Cardiology 07/01/21 Adilene López MD [address] [facility] [address], [address] [place] [address] Primary Staff Physician Cardiology 05/13/24 Bone Puller Relationship Specialty [place] [address] [address] PCP - General Internal Medicine 04/07/18 [place] [address] [place] [address] Rag Boiler Cardiology 07/01/21 Adilene López MD [facility] [address] [place] [address] Primary Staff Physician Cardiology 05/13/24 Bone Puller Relationship Specialty [place] [address] [address] PCP - General Internal Medicine 04/07/18 [place] [address] [place] [address] [employer] Cardiology 07/01/21 Adilene López MD [address] [facility] [address], [address] [place] [address] Primary Staff Physician Cardiology 05/13/24 Bone Puller Relationship Specialty [place] [address] [place] [address] PCP - General Internal Medicine 04/07/18 [place] [address] [place] [address] Rag Boiler Cardiology 07/01/21 Adilene López MD [address] [facility] [address], [address] [place] [address] Primary Staff Physician Cardiology 05/13/24 Scheduled Active and Recently Administ ered Medications (unrecognized section and content) Medication Order 11/23/2023 11/24/2023 11/25/2023 oxymetazoline (AFRIN) 0.05 % nasal solution (COMPLETED) 2 [place], Nasal, ONCE, 1 dose, On Thu11/25/23 at [...] BE BASED ON THE PRIMARY CLINICAL RECORDS. [employer] provides no warranty or guarantee of the accuracy or completeness of information in this document.
[2024-10-11 07:07] LABS: QNTFERON TB Mitogen Value 9.42 IU/mL (.); QNTFERON TB Nil Value 0.02 IU/mL (.); QNTFERON TB1+ Ag Value 0.02 IU/mL (.); QNTFERON TB2+ Ag Value 0.02 IU/mL (.); QNTIFERON TB Positive Criteria Negative (Negative)
== END | disposition home or self-care (01) ==
LOC: MTLAB 11:11
PROVIDERS: PCP Internal Medicine; Referring Provider Physician Assistant Medical; Visit Provider Physician Assistant Medical
DX: L40.0 Psoriasis vulgaris (principal)
CPT/HCPCS: 36415; 86480